=== PATIENT | male | born 1960 | race Caucasian/White ===

== ENCOUNTER → 2018-09-27 07:42 | Day surgery (SDC) | payer OTHER ==
[~2018-09-27 07:42] MED LIST: Diazepam TAB(*) 5 MG ONE; Flumazenil* 0.1 MG/ML 5 ML MDV ONE; Lidocaine 1% INJ* 10 MG/ML 30 ML SDV ONE; Midazolam* 1 MG/ML 10 ML VIAL (10 MG) ONE; Naloxone* 0.4 MG/ML 1 ML VIAL ONE; ceFAZolin VIAL 1 GM in NS *SYRINGE * * 10 ML ONE; ceFAZolin* 2 GM* ONE DOSE (Duplex) IVPB; fentaNYL* 50 MCG/ML 2 ML VIAL (100 MCG VIAL) ONE
--- NOTE | 2018-09-27 23:34 | OP ---
DATE OF OPERATION: 09/27/18 - [facility] CATH DATE OF : 62 SURGEON: Vitaliy Magana MD ANESTHESIA: Local anesthesia with conscious sedation. PRE-OP DIAGNOSIS: Cardiomyopathy, ICD at elective replacement indicator. POST-OP DIAGNOSIS: Cardiomyopathy, ICD at elective replacement indicator. OPERATIVE PROCEDURE: Single chamber ICD generator change. ESTIMATED BLOOD LOSS: Nil. COMPLICATIONS: None. INDICATIONS: The patient is a 58-year-old gentleman with a history of ischemic cardiomyopathy, history of ICD implantation in 2009. The patient has been followed closely in my office. The patient's ICD reached elective replacement indicator recently and generator change was recommended. DESCRIPTION OF PROCEDURE: The patient was brought to the procedure room in a fasting state. Informed consent had been obtained prior to the procedure. All labs were reviewed. The patient was placed supine on the procedure table. His left deltopectoral area was cleaned and draped in the usual fashion. 1% lidocaine was used for local anesthesia. A 4-cm incision was made at the superior aspect of the ICD and blunt dissection was carried on the fibrous sheath. The fibrous sheath was opened and the ICD was removed from the pocket. The ICD was detached from the ventricular lead and removed from the table. A new generator was attached appropriately to the ventricular lead. It was placed into the pocket. The surgical incision was closed in 3 layers. The patient tolerated the procedure with no complications. The explanted device is a [employer] Model [id number], serial number [id number]. The new implanted device is a [employer] model [id number], serial number [id number]. [id number]/[facility] #: [id number] [facility]
== END | disposition home or self-care (01) ==
LOC: CHICATH 07:42
PROVIDERS: ATTEND Specialist
DX: I25.5 Ischemic cardiomyopathy (principal); Z95.810 Presence of automatic (implantable) cardiac defibrillator; Z79.82 Long term (current) use of aspirin; Z88.8 Allergy status to other drugs, medicaments and biological substances; I12.9 Hypertensive chronic kidney disease with stage 1 through stage 4 chronic kidney disease, or unspecified chronic kidney disease; N18.3 Chronic kidney disease, stage 3 (moderate); E03.9 Hypothyroidism, unspecified; I25.10 Atherosclerotic heart disease of native coronary artery without angina pectoris; M10.9 Gout, unspecified; Z87.891 Personal history of nicotine dependence
CPT/HCPCS: 33249; 88300; 93641; 99156; 99157; A9270-GY; C1722; J0690; J2250; J2310; J3010

== ENCOUNTER 2019-07-06 11:30 | Emergency (ER) | payer OTHER ==
[2019-07-06 11:45] LABS: ABS Basophils 0.1 10^3/ul (0-0.2); ABS Eosinophils 0.4 10^3/ul (0-0.6); ABS Lymphocytes 1.1 10^3/ul (1.0-4.8); ABS Monocytes 0.9 10^3/ul (0-0.8); ABS Neutrophils 11.6 10^3/ul (1.5-7.7); Eosinophil % 3.1 %; Hematocrit 41 % (42-52); Hemoglobin 13.6 g/dL (14.0-18.0); Lymphocyte % 7.8 %; Mean Corpuscular HGB Conc 33 g/dL (31-36); Mean Corpuscular Hemoglobin 29 pg (27-31); Mean Corpuscular Volume 89 fL (80-94); Platelet Count 246 10^3/uL (150-450); Red Blood Count 4.63 10^6 /uL (4.18-5.48); Red Cell Distribution Width 15 % (10-15); White Blood Count 14.2 10^3/uL (3.5-10.8)
--- OUTSIDE RECORDS SUMMARY | 2019-07-06 11:45 | XMS REPORT | Continuity of Care Document ---
:1960 External Reference #:[id number] Author Name Jailyn Busby Care Team Providers Name Role Phone Lou Jackson DO Primary Care Physician Unavailable Payers Date Identification Numbers Payment Provider Subscriber Effective: 2015 Policy Number: [id number] Medicaid Juliette Traylor Expires: 2015 Group Name: 1 1 [address] PayID: [id number] [place] [address] Effective: 2015 Policy Number: [id number] [place] Juliette Traylor Group Number: [id number] [address] PayID: [id number] [place] [address] Advance Directives Type Date Description Status Comment Other Directive 06/18/2017 Health Care Proxy Current and Verified Problems Active Problems Provider Date Primary cardiomyopathy Vitaliy Magana M.D. Onset: 09/07/2013 Chronic ischemic heart disease Vitaliy Magana M.D. Onset: 09/07/2013 Dyspnea Vitaliy Magana M.D. Onset: 09/07/2013 Coronary arteriosclerosis Vitaliy Magana M.D. Onset: 04/06/2014 Essential hypertension Estevan Martines M.D. Onset: 07/02/2015 Gastroesophageal reflux disease Estevan Martines M.D. Onset: 07/02/2015 Restrictive cardiomyopathy secondary to Estevan Martines M.D. Onset: 2014 granulomas Low back pain Estevan Martines M.D. Onset: 07/02/2015 Disorder of gallbladder Estevan Martines M.D. Onset: 07/02/2015 Mixed hyperlipidemia Estevan Martines M.D. Onset: 07/02/2015 Lymphadenopathy Estevan Martines M.D. Onset: 07/02/2015 Paroxysmal ventricular tachycardia Estevan Martines M.D. Onset: 07/02/2015 Heart disease Estevan Martines M.D. Onset: 09/25/2015 Major depressive disorder, single episode, Estevan Martines M.D. Onset: 06/2016 unspecified Gout Estevan Martines M.D. Onset: 10/07/2016 Hypothyroidism Estevan Martines M.D. Onset: 10/07/2016 Chronic kidney disease stage 3 Estevan Martines M.D. Onset: 10/21/2016 Mild recurrent major depression Estevan Martines M.D. Onset: 06/18/2017 Disorder of skin and/or subcutaneous tissue Estevan Martines M.D. Onset: Abnormal glucose level Estevan Martines M.D. Onset: 08/25/2017 Family History Date Family Member(s) Observation Comments Father due to at 62 r/t () colon/stomach cancer, heart disease Mother due to at 64-65 yo () - also hx of cva r/t smoking, CAD, leg amputations, Pad, PR Siblings 7 Social History Type Date Description Comments Sex Unknown Marital Status Lives With Spouse Occupation Unemployed Tobacco Use Start: Unknown End: Former Cigarette Smoker Unknown ETOH Use Denies alcohol use Tobacco Use Start: Unknown End: Patient is a former Quit November 16, Unknown smoker 2008 Recreational Drug Use Denies Drug Use Tobacco Use Start: Unknown 1 PPD x 30 yrs Smoking Status Reviewed: 06/09/19 1 PPD x 30 yrs Exercise Type/Frequency Does not exercise no exercise in winter. 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 Allergies, Adverse Reactions, Alerts Active Allergies Reaction Severity Comments Date Plavix anaphylaxis Severe 09/07/2013 Inactive Allergies NKDA 09/07/2013 Medications Active Medications SIG Qnty Indications Ordering Date Provider Sertraline HCL 1 by mouth every 30tabs F32.9 Lou Jackson, 05/04/2019 25mg day DO Tablets Colchicine take one daily 14caps M79.671 Lou Jackson, 01/04/2019 0.6mg Capsules as needed for DO pain Metoprolol Succinate 1 by mouth twice 120tabs I47.2 Lou Jackson, 2018 ER daily DO 25mg Tablets ER 24HR Brilinta 1 by mouth twice 180tabs Kelly Haywood, 10/05/2018 60mg Tablets a day N.P. Metoprolol Succinate take one tablet 120tabs Lou Jackson, 04/24/2017 ER by mouth twice a DO 50mg Tablets ER 24HR day Lisinopril take one tablet 30tabs I10 Lou Jackson, 12/31/2016 2.5mg Tablets by mouth every DO day Nitrostat one sl q5min up 30tabs I42.9 Vitaliy Gomez 02/15/2016 0.4mg Tablets to 3 doses as Fide Magana Sub needed(old rx needs renewal) Jobst Anti-Embolism wear daily as 2pair Vitaliy Gomez 08/02/2015 Knee Length/Medium directed Fide Magana Regular Misc Aspirin 1 by mouth every Unknown 81mg Tablets day Atorvastatin Calcium take one tablet 90tabs M10.9 Vitaliy Gomez 80mg by mouth every Fide Magana Tablets day Magox take two tablets 180tabs Lou Jackson, 400Tablet Tablet by mouth three DO times a day Torsemide take two tablets 180tabs Vitaliy Gomez 20mg Tablets by mouth every Fide Magana day Levothyroxine Sodium 1 by mouth every 30tabs Lou Jackson, day DO 25mcg Tablets Allopurinol 1 by mouth every 30tabs Lou Jackson, 100mg Tablets other day DO History Medications Cephalexin 1 tab 3 times a 9caps Vitaliy Gomez 09/27/2018 - 250mg Capsules day for 3 days Fide Magana 10/04/2018 Entresto 1 by mouth 30tabs Z95.810 Vitaliy Gomez 11/20/2017 - 49-51mg Tablets every day Fide Magana 12/02/2017 Magnesium Oxide Take Two 180tabs Estevan 10/20/2017 - Tablets By Fide Martines 11/19/2017 400(241.3mg) mg Mouth Three Tablets Times A Day Keflex 1 by mouth 30caps L03.114 Estevan 06/18/2017 - 500mg Capsules three times a Fide Martines 08/25/2017 day Escitalopram Oxalate Take One Tablet 30tabs F33.0 Estevan 06/18/2017 - 20mg By Mouth Every Fide Martines 10/05/2018 Tablets Day ( Ran out of Med) Escitalopram Oxalate Take One Tablet 30tabs F33.0 Tico Gomez 06/18/2017 - 10mg By Mouth Every Fide Melgar,[facility] 10/04/2018 Tablets Day ( ran out of Med) Zyrtec Allergy 1 by mouth 30tabs Estevan 03/09/2017 - 10mg every day ( ran Fide Martines 10/05/2018 Tablets out of med) Allopurinol 1 by mouth 30tabs M10.9 [place] 10/21/2016 - 300mg Tablets every day Fide Martines 10/21/2016 Allopurinol Take One Tablet 60tabs M10.9 Tico Gomez 10/21/2016 - 100mg Tablets By Mouth Twice Fide Melgar,[facility] 10/05/2018 A Day ( Ran out of med no taking) Amoxicillin/Clavulanat 1 by mouth 20tabs R22.1 [place] 10/07/2016 - e Potassium twice a day Fide Martines 10/17/2016 875-125mg Tablets Doxycycline Hyclate 1 by mouth 28tabs L72.0 John Meredith 08/25/2016 - 100mg twice a day [employer] 10/06/2016 Tablets Allopurinol 2 tab by mouth 180tabs [place] 07/11/2016 - 100mg Tablets every day Fide Martines 10/22/2016 Cephalexin 1 by mouth 21tabs L03.113 Estevan 07/07/2016 - 500mg Tablets three times a Fide Martines 08/25/2016 day Betamethasone apply twice a 50gm L03.113 Estevan 07/07/2016 - Dipropionate day Fied Martines 02/19/2017 0.05% Cream Allopurinol 1 by mouth 30tabs M10.9 [place] 05/06/2016 - 100mg Tablets every day Fide Martines 07/11/2016 Escitalopram Oxalate take one tablet 30tabs F32.9 [place] 05/06/2016 - 20mg by mouth every Fide Martines 06/18/2017 Tablets day Colcrys take two 30tabs M10.079 [place] 01/16/2016 - 0.6mg Tablets tablets by Fide Martines 02/19/2017 mouth now, then take one tablet 1 hour later do not repeat this regimen earlier than 3 days as needed* Prednisone 1 tablet by 30tabs Alexsander Childress, 01/16/2016 - 10mg Tablets mouth three M.D. 05/06/2016 times a day prn Nasonex 2 sprays to 1units J00 John Meredith, 12/18/2015 - 50mcg/Act each nostril [employer] 01/12/2016 Suspension once daily x next 2-3 weeks Zyrtec Allergy 1 by mouth 30caps J00 John Meredith, 12/18/2015 - 10mg every day x [employer] 01/12/2016 Capsules next 2-3 weeks Oxycodone HCL 1 tab at 30tabs [place] 09/18/2015 - 10mg bedtime ( dex Martines M.D. 10/05/2018 Tablets out of med) Econazole Nitrate Apply to rash 30gm 782.1 John Meredith, 08/02/2015 - 1% bid x2wk [employer] 08/16/2015 Cream Ventolin HFA 2 puffs by 8.5units Other Ordering 07/30/2015 - 108(90Base) mouth bid Provider 09/17/2015 mcg/Act Aerosol Triamcinolone Apply to 30units 782.1 John Meredith, 07/26/2015 - Acetonide affected areas [employer] 08/02/2015 0.1% Ointment tid Hydroxyzine HCL 1 tab by mouth 30tabs 782.1 John Meredith, 07/26/2015 - 25mg every 6 hours [employer] 08/09/2015 Tablets as needed for itching Colace 1 by mouth bid 90caps John Meredith, 07/23/2015 - 100mg Capsules prn [employer] 02/19/2017 Warfarin Sodium 5 tabs daily or 90tabs [place] 07/12/2015 - 1mg as directed Fide Martines 07/07/2016 Tablets Spironolactone once daily 30tabs 425.9 Estevan 07/12/2015 - 25mg Fide Martines 09/17/2015 Tablets Lisinopril 1 by mouth 90tabs I10 [place] 07/02/2015 - 2.5mg Tablets every day Fide Martines 12/31/2016 Atorvastatin Calcium take 1 tablet 90tabs 272.2 Vitaliy Gomez 07/02/2015 - 20mg at bedtime Fide Magana 09/17/2015 Tablets Coumadin 2 tab by mouth 60tabs Other Ordering 06/28/2015 - 10mg Tablets every day or as Provider 07/01/2015 directed Levothyroxine Sodium 1 by mouth 30tabs Tico Gomez 06/28/2015 - every morning Fide Melgar,[facility] 09/17/2015 25mcg Tablets Lipitor one tab daily 30tabs Other Ordering 06/28/2015 - 20mg Tablets Provider 07/12/2015 Lisinopril 1 by mouth 30tabs Other Ordering 06/28/2015 - 2.5mg Tablets every day Provider 07/12/2015 Bumetanide 2 by mouth 90tabs 425.4 Vitaliy Gomez 04/06/2014 - 1mg Tablets every day Fide Magana 09/17/2015 Nitroglycerin as directed 1Bottle I42.9 Vitaliy Gomez 04/06/2014 - 0.4mg Fide Magana 02/15/2016 Tablets Sub Combivent Respimat 1 puffs up to 1units Vitaliy Gomez 09/27/2013 - four times per Fide Magana 03/30/2014 20-100mcg/Act Aerosol day prn Combivent 2 puffs 2 1units Vitaliy Gomez 09/07/2013 - 18-103mcg/Act times a day Fide Magana 09/27/2013 Aerosol Ramipril 1 po qd 90caps Vitaliy Goemz 03/24/2013 - 10mg Capsules Fide Magana 07/02/2015 Metoprolol Succinate take one tablet 60tabs Estevan 03/24/2013 - ER by mouth two Fide Martines 04/24/2017 25mg Tablets ER 24HR times a day Simvastatin 1 po qhs 30tabs Vitaliy Gomez 09/24/2012 - 80mg Tablets Fide Magana 07/02/2015 Aspirin 1 po qd Unknown - 325mg Tablets 03/30/2014 Omeprazole 1 by mouth 90caps Vitaliy Gomez - 20mg Capsules every day Fide Magana 08/01/2015 Warfarin Sodium take 2 tabs 30tabs sEtevan - 2mg daily as Fide Martines 07/07/2016 Tablets directed Lovenox sc twice a day Unknown - 60mg/0.6ML 09/17/2015 Solution Escitalopram Oxalate 1 by mouth 30tabs Estevan - 10mg every day Fide Martines 05/06/2016 Tablets Brilinta take one tablet 60tabs Vitaliy Gomez - 90mg Tablets by mouth twice Fide Magana 10/05/2018 a day Levothyroxine Sodium Take 1/2 Tablet 30tabs Estevan - By Mouth Fide Martines 12/29/2016 75mcg Tablets Daily(ran out of med) Colchicine 1 by mouth 30tabs Lou Jackson, - 0.6mg Tablets every day as DO 01/04/2019 needed for pain Medications Administered in Office Medication SIG Qnty Indications Ordering Provider Date PPD Unknown 08/24/2015 Injection Inj, Regadenoson, 0.1 MG Vitaliy Magana M.D. 04/13/2013 Injection Technetium TC 99M Tetrofosmin, Vitaliy Magana M.D. 04/13/2013 Per Unit Dose Up To 40 Millicuries Injection Immunizations CPT Code Status Date Vaccine Reaction Lot # [id number] Given 01/04/2019 Influenza Virus Vaccine, no immediate reaction [id number] Quadrivalent, Split, Preservative Free 21491 Given 06/18/2017 Pneumonia Vaccine no immediate reaction [id number] pt tolerated well 96081 Given 09/13/2015 Hepatitis B Vaccine Adult Dosage Contract [id number] Given 08/30/2015 Hepatitis B Vaccine Adult Dosage 17454 Given 08/23/2015 Hepatitis B Vaccine Adult Dosage 95849 Given 08/23/2015 Pneumococcal Conjugate Vaccine 13 Valent For Intramuscular Use 75834 Given 08/23/2015 Hepatitis A Vaccine Adult Dosage Contract 75047 Given 08/22/2015 Influenza Virus Vaccine, Quadrivalent, Split, Preservative Free [id number] Refused 10/06/2017 Influenza Virus Vaccine, Quadrivalent, Split, Preservative Free Vital Signs Date Vital Result Comment 06/09/2019 2:58pm Weight 152.00 lb Heart Rate 72 /min BP Systolic 104 mmHg BP Diastolic 64 mmHg Respiratory Rate 16 /min Body Temperature 99.0 F O2 % BldC Oximetry 97 % 05/04/2019 8:36am Weight 157.00 lb Heart Rate 76 /min BP Systolic 124 mmHg BP Diastolic 78 mmHg Respiratory Rate 16 /min Body Temperature 97.6 F O2 % BldC Oximetry 98 % 02/01/2019 1:33pm Weight 158.00 lb Heart Rate 68 /min BP Systolic 100 mmHg BP Diastolic 68 mmHg Respiratory Rate 18 /min Body Temperature 98.0 F Pain Level 2 O2 % BldC Oximetry 98 % 01/04/2019 2:10pm Height 67 inches 5'7" Weight 160.50 lb Heart Rate 74 /min BP Systolic Sitting 100 mmHg reg adult cuff left arm BP Diastolic Sitting 70 mmHg reg adult cuff left arm Body Temperature 97.4 F O2 % BldC Oximetry 98 % at rest on room air BMI (Body Mass Index) 25.1 kg/m2 12/29/2018 10:06am Height 67 inches 5'7" Weight 157.00 lb with shoes Heart Rate 78 /min BP Systolic Sitting 130 mmHg Lue reg cuff BP Diastolic Sitting 78 mmHg Lue reg cuff BP Systolic Standing 140 mmHg Lue reg cuff BP Diastolic Standing 100 mmHg Lue reg cuff Respiratory Rate 16 /min O2 % BldC Oximetry 92 % at room air BMI (Body Mass Index) 24.6 kg/m2 10/05/2018 9:57am Height 67 inches 5'7" Weight 164.00 lb with shoes Heart Rate 68 /min BP Systolic Sitting 110 mmHg lue reg cuff BP Diastolic Sitting 70 mmHg lue reg cuff BP Systolic Standing 112 mmHg lue reg cuff BP Diastolic Standing 70 mmHg lue reg cuff BMI (Body Mass Index) 25.7 kg/m2 Ejection Fraction less than% echo. 02/21/2016 09/03/2018 9:29am Height 67 inches 5'7" Weight 162.00 lb with shoes Heart Rate 70 /min BP Systolic Sitting 110 mmHg Lue reg cuff BP Diastolic Sitting 70 mmHg Lue reg cuff BP Systolic Standing 114 mmHg Lue reg cuff BP Diastolic Standing 72 mmHg Lue reg cuff Respiratory Rate 18 /min BMI (Body Mass Index) 25.4 kg/m2 03/10/2018 9:58am Height 67 inches 5'7" Weight 170.00 lb with shoes Heart Rate 62 /min BP Systolic Sitting 100 mmHg Lue reg cuff BP Diastolic Sitting 70 mmHg Lue reg cuff BP Systolic Standing 110 mmHg Lue reg cuff BP Diastolic Standing 78 mmHg Lue reg cuff Respiratory Rate 16 /min BMI (Body Mass Index) 26.6 kg/m2 Ejection Fraction <20% date 02/01/16 ECHO 11/20/2017 7:52am Height 67 inches 5'7" Weight 161.50 lb no shoes Heart Rate 72 /min BP Systolic Sitting 124 mmHg Rue reg cuff BP Diastolic Sitting 74 mmHg Rue reg cuff BP Systolic Standing 116 mmHg Rue reg cuff BP Diastolic Standing 74 mmHg Rue reg cuff Respiratory Rate 16 /min BMI (Body Mass Index) 25.3 kg/m2 Ejection Fraction less than% echo 02/21/16 10/06/2017 8:57am Height 67 inches 5'7" Weight 154.00 lb Heart Rate 68 /min BP Systolic 126 mmHg BP Diastolic 72 mmHg Body Temperature 97.4 F O2 % BldC Oximetry 98 % BMI (Body Mass Index) 24.1 kg/m2 08/25/2017 7:34am Height 67 inches 5'7" Weight 160.12 lb Heart Rate 86 /min BP Systolic 104 mmHg BP Diastolic 60 mmHg Body Temperature 96.8 F O2 % BldC Oximetry 97 % BMI (Body Mass Index) 25.1 kg/m2 06/18/2017 7:51am Weight 164.00 lb with shoes Heart Rate 74 /min BP Systolic 110 mmHg BP Diastolic 70 mmHg O2 % BldC Oximetry 98 % 04/24/2017 1:36pm Weight 166.00 lb with boots Heart Rate 78 /min BP Systolic Sitting 114 mmHg Rue reg cuff BP Diastolic Sitting 74 mmHg Rue reg cuff BP Systolic Standing 118 mmHg Rue reg cuff BP Diastolic Standing 80 mmHg Rue reg cuff Respiratory Rate 17 /min Ejection Fraction <20% date 02/21/16 ECHO 02/19/2017 8:05am Weight 175.00 lb Heart Rate 68 /min BP Systolic Sitting 128 mmHg BP Diastolic Sitting 68 mmHg Body Temperature 97.7 F O2 % BldC Oximetry 98 % 11/20/2016 7:55am Height 67 inches 5'7" Weight 163.00 lb Heart Rate 64 /min BP Systolic Sitting 104 mmHg BP Diastolic Sitting 68 mmHg Body Temperature 97.8 F O2 % BldC Oximetry 98 % BMI (Body Mass Index) 25.5 kg/m2 10/22/2016 8:10am Height 67 inches 5'7" Weight 163.00 lb w/o shoes Heart Rate 84 /min reg BP Systolic Sitting 118 mmHg Lue, reg cuff BP Diastolic Sitting 74 mmHg Lue, reg cuff BP Systolic Standing 110 mmHg Lue BP Diastolic Standing 74 mmHg Lue Respiratory Rate 16 /min BMI (Body Mass Index) 25.5 kg/m2 Ejection Fraction < 20% as of 02/21/16 echo 10/21/2016 7:59am Weight 174.12 lb Heart Rate 60 /min BP Systolic Sitting 97 mmHg BP Diastolic Sitting 62 mmHg Body Temperature 96.1 F O2 % BldC Oximetry 98 % 10/07/2016 8:08am Height 67 inches 5'7" Weight 168.00 lb Heart Rate 60 /min BP Systolic Sitting 106 mmHg BP Diastolic Sitting 62 mmHg Respiratory Rate 14 /min Body Temperature 96.9 F BMI (Body Mass Index) 26.3 kg/m2 08/25/2016 12:52pm Weight 165.00 lb Heart Rate 70 /min BP Systolic Sitting 120 mmHg BP Diastolic Sitting 62 mmHg Body Temperature 96.2 F O2 % BldC Oximetry 97 % 07/07/2016 1:19pm Height 67.5 inches 5'7.50" Weight 166.12 lb Heart Rate 70 /min BP Systolic Sitting 98 mmHg BP Diastolic Sitting 56 mmHg Body Temperature 97.5 F O2 % BldC Oximetry 98 % BMI (Body Mass Index) 25.6 kg/m2 06/16/2016 9:16am Height 67.5 inches 5'7.50" Weight 167.00 lb with shoes Heart Rate 62 /min BP Systolic Sitting 108 mmHg Ra reg cuff BP Diastolic Sitting 66 mmHg Ra reg cuff BP Systolic Standing 112 mmHg Ra reg cuff BP Diastolic Standing 74 mmHg Ra reg cuff Respiratory Rate 17 /min BMI (Body Mass Index) 25.8 kg/m2 Ejection Fraction <20% echo 02/21/16 05/06/2016 10:37am Height 67.5 inches 5'7.50" Weight 156.00 lb Heart Rate 72 /min BP Systolic Sitting 102 mmHg BP Diastolic Sitting 62 mmHg Body Temperature 97.6 F O2 % BldC Oximetry 98 % BMI (Body Mass Index) 24.1 kg/m2 02/15/2016 10:05am Height 67.5 inches 5'7.50" Weight 155.00 lb w/o shoes Heart Rate 66 /min BP Systolic Sitting 110 mmHg Rue, reg cuff BP Diastolic Sitting 80 mmHg Rue, reg cuff BP Systolic Standing 106 mmHg Rue BP Diastolic Standing 80 mmHg Rue Respiratory Rate 18 /min O2 % BldC Oximetry 86 % on Ra BMI (Body Mass Index) 23.9 kg/m2 Ejection Fraction <20% as of 06/22/15 echo 01/16/2016 10:10am Height 67.5 inches 5'7.50" Weight 165.00 lb Heart Rate 68 /min BP Systolic Sitting 92 mmHg BP Diastolic Sitting 68 mmHg Body Temperature 97.2 F Pain Level 10 BMI (Body Mass Index) 25.5 kg/m2 12/18/2015 8:17am Height 67.5 inches 5'7.50" Weight 155.00 lb Heart Rate 70 /min BP Systolic Sitting 88 mmHg BP Diastolic Sitting 64 mmHg Body Temperature 98.3 F O2 % BldC Oximetry 98 % BMI (Body Mass Index) 23.9 kg/m2 11/19/2015 8:43am Height 67.5 inches 5'7.50" Weight 150.00 lb w/o shoes Heart Rate 62 /min reg BP Systolic Sitting 74 mmHg Rue, reg cuff BP Diastolic Sitting 56 mmHg Rue, reg cuff BP Systolic Standing 76 mmHg Rue BP Diastolic Standing 60 mmHg Rue Respiratory Rate 18 /min BMI (Body Mass Index) 23.1 kg/m2 Ejection Fraction < 20% as of 06/22/15 echo 09/25/2015 10:22am Height 67.5 inches 5'7.50" Weight 150.38 lb Heart Rate 72 /min BP Systolic Sitting 82 mmHg BP Diastolic Sitting 46 mmHg Body Temperature 97.7 F O2 % BldC Oximetry 100 % BMI (Body Mass Index) 23.2 kg/m2 09/18/2015 12:49pm Height 67.5 inches 5'7.50" Weight 149.00 lb with heavy clothes on Heart Rate 40 /min BP Systolic Sitting 80 mmHg right arm, reg cuff BP Diastolic Sitting 50 mmHg right arm, reg cuff BP Systolic Standing 68 mmHg right arm, reg cuff BP Diastolic Standing 48 mmHg right arm, reg cuff Respiratory Rate 16 /min BMI (Body Mass Index) 23.0 kg/m2 Ejection Fraction <20% 06/22/15 09/17/2015 1:06pm Height 67.5 inches 5'7.50" Weight 143.00 lb Heart Rate 75 /min BP Systolic Sitting 90 mmHg BP Diastolic Sitting 60 mmHg Body Temperature 97.9 F O2 % BldC Oximetry 97 % BMI (Body Mass Index) 22.1 kg/m2 08/02/2015 9:34am Weight 181.00 lb Heart Rate 68 /min BP Systolic Sitting 104 mmHg BP Diastolic Sitting 70 mmHg 08/02/2015 8:05am Height 67.5 inches 5'7.50" Weight 180.00 lb with shoes Heart Rate 96 /min BP Systolic Sitting 82 mmHg Doppler BP Systolic Standing 96 mmHg Doppler Respiratory Rate 16 /min BMI (Body Mass Index) 27.8 kg/m2 Ejection Fraction <20% 06/22/15 07/26/2015 2:22pm Height 67.5 inches 5'7.50" Weight 169.50 lb Heart Rate 90 /min Body Temperature 97.2 F O2 % BldC Oximetry 99 % BMI (Body Mass Index) 26.2 kg/m2 07/12/2015 10:00am Height 67.5 inches 5'7.50" Weight 157.25 lb Heart Rate 86 /min BP Systolic Sitting 132 mmHg BP Diastolic Sitting 60 mmHg O2 % BldC Oximetry 88 % BMI (Body Mass Index) 24.3 kg/m2 07/02/2015 10:54am Height 67.5 inches 5'7.50" Weight 154.38 lb Heart Rate 98 /min BP Systolic Sitting 80 mmHg BP Diastolic Sitting 50 mmHg Body Temperature 98.0 F O2 % BldC Oximetry 94 % BMI (Body Mass Index) 23.8 kg/m2 05/03/2014 8:26am Height 67.5 inches 5'7.50" Weight 155.00 lb Heart Rate 56 /min BP Systolic Sitting 94 mmHg Ra reg cuff BP Diastolic Sitting 72 mmHg Ra reg cuff BP Systolic Standing 92 mmHg Ra BP Diastolic Standing 74 mmHg Ra Respiratory Rate 16 /min BMI (Body Mass Index) 23.9 kg/m2 04/06/2014 1:27pm Height 66.5 inches 5'6.50" Weight 161.00 lb Heart Rate 58 /min BP Systolic Sitting 118 mmHg LA reg cuff BP Diastolic Sitting 74 mmHg LA reg cuff BP Systolic Standing 104 mmHg LA BP Diastolic Standing 76 mmHg LA Respiratory Rate 18 /min BMI (Body Mass Index) 25.6 kg/m2 09/07/2013 1:26pm Height 67 inches 5'7" Weight 164.00 lb Heart Rate 72 /min BP Systolic Sitting 102 mmHg Ra reg cuff BP Diastolic Sitting 64 mmHg Ra reg cuff BP Systolic Standing 102 mmHg Ra BP Diastolic Standing 78 mmHg Ra Respiratory Rate 18 /min BMI (Body Mass Index) 25.7 kg/m2 Results Test Date Facility Test Result H/L Range Note Laboratory test 01/04/2019 [facility] Hemoglobin A1c 6.4 % High 4.0-5.[address] (Glyco HGB) [place] [address] [phone] TSH (Thyroid Stim Horm) 4.89 mcIU/mL N 0.34-5.60 Laboratory test 09/27/2018 [facility] Surgical SEE RESULT [address] [place] [address] [phone] Pre Cath Panel 2018 [facility] Partial Thrombo 28.7 seconds N 26.0-[address] Time PTT 6.3 [place] [address] [phone] CBC Auto Diff 2018 [facility] White Blood 10.7 10^3/uL N 3.5-[address] Count .8 [place] [address] [phone] Red Blood Count 5.09 10^6/uL N 4.00-5.40 Hemoglobin 15.2 g/dL N 14.0-18.0 Hematocrit 45 % N 42-52 Mean Corpuscular Volume 88 fL N 80-94 Mean Corpuscular Hemoglobin 30 pg N 27-31 Mean Corpuscular HGB Conc 34 g/dL N 31-36 Red Cell Distribution Width 16 % High 10.5-15 Platelet Count 249 10^3/uL N 150-450 Mean Platelet Volume 10.3 um3 N 7.4-10.4 Abs Neutrophils 7.7 10^3/uL N 1.5-7.7 Abs Lymphocytes 1.6 10^3/uL N 1.0-4.8 Abs Monocytes 0.8 10^3/uL N 0-0.8 Abs Eosinophils 0.6 10^3/uL N 0-0.6 Abs Basophils 0.1 10^3/uL N 0-0.2 Abs Nucleated RBC 0 10^3/uL Granulocyte % 71.9 % N 38-83 Lymphocyte % 14.5 % Low 25-47 Monocyte % 7.0 % N 0-7 Eosinophil % 5.7 % N 0-6 Basophil % 0.9 % N 0-2 Nucleated Red Blood Cells % 0.1 Basic Metabolic Panel 2018 [facility] Sodium 136 mmol/L N 135-145 [address] [place] [address] [phone] Potassium 4.9 mmol/L N 3.5-5.0 Chloride 101 mmol/L N 101-111 Co2 Carbon Dioxide 28 mmol/L N 22-32 Anion Gap 7 mmol/L N 2-11 Glucose 110 mg/dL High 70-100 Blood Urea Nitrogen 58 mg/dL High 6-24 Creatinine 2.10 mg/dL High 0.67-1.17 BUN/Creatinine Ratio 27.6 High 8-20 Calcium 9.7 mg/dL N 8.6-10.3 Egfr Non- 32.7 >60 Egfr 39.6 >60 3 Inr/Protime 2018 [facility] Inr 1.04 High 0.77-1.02 [address] [place] [address] [phone] Basic Metabolic 08/23/2018 [facility] Sodium 135 mmol/L N 135- 145 Panel [address] [place] [address] [phone] Potassium 4.4 mmol/L N 3.5-5.0 Chloride 102 mmol/L N 101-111 Co2 Carbon Dioxide 26 mmol/L N 22-32 Anion Gap 7 mmol/L N 2-11 Glucose 108 mg/dL High 70-100 Blood Urea Nitrogen 52 mg/dL High 6-24 Creatinine 2.02 mg/dL High 0.67-1.17 BUN/Creatinine Ratio 25.7 High 8-20 Calcium 9.6 mg/dL N 8.6-10.3 Egfr Non- 34.3 >60 Egfr 41.5 >60 4 Laboratory test 10/06/2017 [facility] Hemoglobin A1c 5.9 5-7 finding Comp Metabolic Panel 09/08/2017 [facility] Sodium 134 mmol/L N 133-[address] [place] [address] [phone] Potassium 4.1 mmol/L N 3.5-5.0 Chloride 100 mmol/L Low 101-111 Co2 Carbon Dioxide 28 mmol/L N 22-32 Anion Gap 6 mmol/L N 2-11 Glucose 121 mg/dL High 70-100 Blood Urea Nitrogen 52 mg/dL High 6-24 Creatinine 2.81 mg/dL High 0.67-1.17 BUN/Creatinine Ratio 18.5 N 8-20 Calcium 9.5 mg/dL N 8.6-10.3 Total Protein 6.8 g/dL N 6.4-8.9 Albumin 4.3 g/dL N 3.2-5.2 Globulin 2.5 g/dL N 2-4 Albumin/Globulin Ratio 1.7 N 1-3 Total Bilirubin 0.70 mg/dL N 0.2-1.0 Alkaline Phosphatase 147 U/L High 34-104 Alt 20 U/L N 7-52 Ast 19 U/L N 13-39 Egfr Non- 23.5 N >60 Egfr 30.3 N >60 5 Inr/Protime 09/04/2017 [facility] Inr 1.04 N 0.89-1.[address] [place] [address] [phone] Laboratory test 09/04/2017 [facility] Partial 29.5 N 26.0- 36.[address] [address] PTT [phone] Comp Metabolic 09/04/2017 [facility] Sodium 134 mmol/L the 133 -[address] [place] [address] [phone] Potassium 4.7 mmol/L N 3.5-5.0 Chloride 99 mmol/L Low 101-861 Co2 Carbon Dioxide 27 mmol/L N 22-32 Anion Gap 8 mmol/L N 2-11 Glucose 130 mg/dL High 70-100 Blood Urea Nitrogen 50 mg/dL High 6-24 Creatinine 2.09 mg/dL High 0.67-1.17 BUN/Creatinine Ratio 23.9 High 8-20 Calcium 9.7 mg/dL N 8.6-10.3 Total Protein 7.1 g/dL N 6.4-8.9 Albumin 4.5 g/dL N 3.2-5.2 Globulin 2.6 g/dL N 2-4 Albumin/Globulin Ratio 1.7 N 1-3 Total Bilirubin 0.50 mg/dL N 0.2-1.0 Alkaline Phosphatase 168 U/L High 34-104 Alt 21 U/L N 7-52 Ast 21 U/L N 13-39 Egfr Non- 33.1 N >60 Egfr 42.6 N >60 6 Laboratory test 07/01/2017 [facility] Uric Acid 8.3 mg/dL High 4.4-7.6 7, 8 finding [address] [place] [address] [phone] Lipid Profile 07/01/2017 [facility] Triglycerides 307 mg/dL N 9 (Trig/Chol/HDL) [address] [place] [address] [phone] Cholesterol 150 mg/dL N 10 HDL Cholesterol 26.3 mg/dL N 11 LDL Cholesterol 62 mg/dL N 12 Comp Metabolic Panel 07/01/2017 [facility] Sodium 136 mmol/L N 133-145 [address] [place] [address] [phone] Potassium 4.7 mmol/L N 3.5-5.0 Chloride 101 mmol/L N 101-111 Co2 Carbon Dioxide 28 mmol/L N 22-32 Anion Gap 7 mmol/L N 2-11 Glucose 122 mg/dL High 70-100 Blood Urea Nitrogen 57 mg/dL High 6-24 Creatinine 2.23 mg/dL High 0.67-1.17 BUN/Creatinine Ratio 25.6 High 8-20 Calcium 9.5 mg/dL N 8.6-10.3 Total Protein 6.7 g/dL N 6.4-8.9 Albumin 4.0 g/dL N 3.2-5.2 Globulin 2.7 g/dL N 2-4 Albumin/Globulin Ratio 1.5 N 1-3 Total Bilirubin 0.50 mg/dL N 0.2-1.0 Alkaline Phosphatase 176 U/L High 34-104 Alt 21 U/L N 7-52 Ast 17 U/L N 13-39 Egfr Non- 30.7 N >60 Egfr 39.5 N >60 13 Laboratory test 07/01/2017 [facility] TSH (Thyroid 4.07 mcIU/mL N 0.34-5.[address] [place]) [place] [address] [phone] PSA Screening 0.750 ng/mL N 0-4.000 15 Laboratory test 03/09/2017 [facility] TSH (Thyroid 2.52 mcIU/mL N 0.34-5.[address] [place]) [place] [address] [phone] Comp Metabolic 03/09/2017 [facility] Sodium 136 mmol/L N 133- 145 [place] [address] [phone] Potassium 4.5 mmol/L N 3.5-5.0 Chloride 101 mmol/L N 101-111 Co2 Carbon Dioxide 28 mmol/L N 22-32 Anion Gap 7 mmol/L N 2-11 Glucose 146 mg/dL High 70-100 Blood Urea Nitrogen 45 mg/dL High 6-24 Creatinine 1.84 mg/dL High 0.67-1.17 BUN/Creatinine Ratio 24.5 High 8-20 Calcium 9.2 mg/dL N 8.6-10.3 Total Protein 6.7 g/dL N 6.4-8.9 Albumin 4.2 g/dL N 3.2-5.2 Globulin 2.5 g/dL N 2-4 Albumin/Globulin Ratio 1.7 N 1-3 Total Bilirubin 0.40 mg/dL N 0.2-1.0 Alkaline Phosphatase 190 U/L High 34-104 Alt 17 U/L N 7-52 Ast 21 U/L N 13-39 Egfr Non- 38.4 N >60 Egfr 49.4 N >60 17 Laboratory test 03/09/2017 [facility] Magnesium 2.6 mg/dL N 1.9-2.7 18 finding [address] [place] [address] [phone] Laboratory test 11/12/2016 [facility] Uric Acid 7.6 mg/dL N 4.4-7.[address] [place] [address] [phone] Comp Metabolic 11/12/2016 [facility] Sodium 136 mmol/L N 133- 145 [address] [place] [address] [phone] Potassium 4.9 mmol/L N 3.5-5.0 Chloride 101 mmol/L N 101-111 Co2 Carbon Dioxide 29 mmol/L N 22-32 Anion Gap 6 mmol/L N 2-11 Glucose 105 mg/dL High 70-100 Blood Urea Nitrogen 49 mg/dL High 6-24 Creatinine 2.25 mg/dL High 0.67-1.17 BUN/Creatinine Ratio 21.8 High 8-20 Calcium 9.5 mg/dL N 8.6-10.3 Total Protein 7.2 g/dL N 6.4-8.9 Albumin 4.5 g/dL N 3.2-5.2 Globulin 2.7 g/dL N 2-4 Albumin/Globulin Ratio 1.7 N 1-3 Total Bilirubin 0.40 mg/dL N 0.2-1.0 Alkaline Phosphatase 160 U/L High 34-104 Alt 14 U/L N 7-52 Ast 16 U/L N 13-39 Egfr Non- 30.4 N >60 Egfr 39.1 N >60 19 Laboratory test 10/17/2016 [facility] Uric Acid 11.2 mg/dL High 4.4-7.6 finding [address] [place] [address] [phone] Laboratory test 10/17/2016 [facility] TSH 1.91 N 0.34-5.60 finding 101 [facility] (Thyroid mcIU/[place] [address] Stim Horm) [phone] Comp Metabolic 10/17/2016 [facility] Sodium 136 mmol/L N 133- [address] [place] [address] [phone] Potassium 4.2 mmol/L N 3.5-5.0 Chloride 102 mmol/L N 101-111 Co2 Carbon Dioxide 29 mmol/L N 22-32 Anion Gap 5 mmol/L N 2-11 Glucose 106 mg/dL High 70-100 Blood Urea Nitrogen 52 mg/dL High 6-24 Creatinine 2.24 mg/dL High 0.67-1.17 BUN/Creatinine Ratio 23.2 High 8-20 Calcium 9.3 mg/dL N 8.6-10.3 Total Protein 6.9 g/dL N 6.4-8.9 Albumin 4.2 g/dL N 3.2-5.2 Globulin 2.7 g/dL N 2-4 Albumin/Globulin Ratio 1.6 N 1-3 Total Bilirubin 0.50 mg/dL N 0.2-1.0 Alkaline Phosphatase 153 U/L High 34-104 Alt 14 U/L N 7-52 Ast 17 U/L N 13-39 Egfr Non- 30.6 N >60 Egfr 39.3 N >60 20 Wound 08/25/2016 [facility] Wound/Misc SEE RESULT 21 Culture/Sensi [address] [place] [address] Stain [phone] Laboratory test 07/10/2016 [facility] Uric Acid 10.1 mg/dL High 4.4- finding [address] 7[address]6 [place] [address] [phone] Protime W/ Inr 06/10/2016 [facility] Inr 2.0 Protime W/ Inr 06/03/2016 [facility] Prothrombin Time 16.1 Inr 1.3 Protime W/ Inr 05/27/2016 [facility] Prothrombin Time 19.4 Inr 1.6 Protime W/ Inr 05/13/2016 [facility] Prothrombin Time 27.5 Inr 2.3 Protime W/ Inr 05/06/2016 [facility] Prothrombin Time 20.9 Inr 1.7 Laboratory test 05/02/2016 [facility] Uric Acid 14.1 mg/dL High 4.4-7.6 [address] [place] [address] [phone] Lipid Profile 05/02/2016 [facility] Triglycerides 252 mg/dL N 23 (Trig/Chol/HDL) [address] [place] [address] [phone] Cholesterol 181 mg/dL N 24 HDL Cholesterol 36.8 mg/dL N 25 LDL Cholesterol 94 mg/dL N 26 Comp Metabolic Panel 05/02/2016 [facility] Sodium 135 mmol/L N 133-[address] [place] [address] [phone] Potassium 5.0 mmol/L N 3.5-5.0 Chloride 98 mmol/L Low 101-111 Co2 Carbon Dioxide 28 mmol/L N 22-32 Anion Gap 9 mmol/L N 2-11 Glucose 105 mg/dL High 70-100 Blood Urea Nitrogen 47 mg/dL High 6-24 Creatinine 2.24 mg/dL High 0.67-1.17 BUN/Creatinine Ratio 21.0 High 8-20 Calcium 10.0 mg/dL N 8.6-10.3 Total Protein 7.9 g/dL N 6.4-8.9 Albumin 4.9 g/dL N 3.2-5.2 Globulin 3.0 g/dL N 2-4 Albumin/Globulin Ratio 1.6 N 1-3 Total Bilirubin 0.80 mg/dL N 0.2-1.0 Alkaline Phosphatase 145 U/L High 34-104 Alt 25 U/L N 7-52 Ast 23 U/L N 13-39 Egfr Non- 30.7 N >60 Egfr 39.5 N >60 27 Laboratory test 05/02/2016 [facility] PSA Screening 0.690 N 0- 4.000 [address] ng/[place] [address] [phone] Protime W/ Inr 05/02/2016 [facility] Prothrombin Time 15.8 Inr 1.3 Protime W/ Inr 04/17/2016 [facility] Prothrombin Time 25.2 Inr 2.1 Protime W/ Inr 04/03/2016 [facility] Prothrombin Time 24.5 Inr 2.0 Protime W/ Inr 03/27/2016 [facility] Prothrombin Time 17.7 Inr 1.5 Protime W/ Inr 03/13/2016 [facility] Prothrombin Time 24.6 Inr 2.1 Protime W/ Inr 03/06/2016 [facility] Prothrombin Time 23.1 Inr 1.9 Protime W/ Inr 02/21/2016 [facility] Prothrombin Time 23.6 Inr 2.0 Protime W/ Inr 02/07/2016 [facility] Prothrombin Time 23.1 Inr 1.9 Protime W/ Inr 01/24/2016 [facility] Prothrombin Time 25.0 Inr 2.1 CBC Auto 01/16/2016 [facility] White Blood 17.1 10^3/uL High 3.5-10.[address] [place] [address] [phone] Red Blood Count 4.86 10^6/uL N 4.0-5.4 Hemoglobin 14.0 g/dL N 14.0-18.0 Hematocrit 44 % N 42-52 Mean Corpuscular Volume 91 fL N 80-94 Mean Corpuscular Hemoglobin 29 pg N 27-31 Mean Corpuscular HGB Conc 32 g/dL N 31-36 Red Cell Distribution Width 16 % High 10.5-15 Platelet Count 270 10^3/uL N 150-450 Mean Platelet Volume 10 um3 N 7.4-10.4 Abs Neutrophils 14.6 10^3/uL High 1.5-7.7 Abs Lymphocytes 1.1 10^3/uL N 1.0-4.8 Abs Monocytes 0.9 10^3/uL High 0-0.8 Abs Eosinophils 0.5 10^3/uL N 0-0.6 Abs Basophils 0.1 10^3/uL N 0-0.2 Abs Nucleated RBC 0 10^3/uL N Granulocyte % 85.1 % High 38-83 Lymphocyte % 6.3 % Low 25-47 Monocyte % 5.4 % N 1-9 Eosinophil % 2.6 % N 0-6 Basophil % 0.6 % N 0-2 Nucleated Red Blood Cells % 0 N Comp Metabolic Panel 01/16/2016 [facility] Sodium 134 mmol/L N 133-[address] [place] [address] [phone] Potassium 4.1 mmol/L N 3.5-5.0 Chloride 97 mmol/L Low 101-111 Co2 Carbon Dioxide 27 mmol/L N 22-32 Anion Gap 10 mmol/L N 2-11 Glucose 122 mg/dL High 70-100 Blood Urea Nitrogen 44 mg/dL High 6-24 Creatinine 1.71 mg/dL High 0.67-1.17 BUN/Creatinine Ratio 25.7 High 8-20 Calcium 9.7 mg/dL N 8.6-10.3 Total Protein 7.2 g/dL N 6.4-8.9 Albumin 4.6 g/dL N 3.2-5.2 Globulin 2.6 g/dL N 2-4 Albumin/Globulin Ratio 1.8 N 1-3 Total Bilirubin 0.80 mg/dL N 0.2-1.0 Alkaline Phosphatase 134 U/L High 34-104 Alt 41 U/L N 7-52 Ast 32 U/L N 13-39 Egfr Non- 41.9 N >60 Egfr 53.9 N >60 29 Laboratory test 01/16/2016 [facility] Uric Acid 12.0 High 4.4- 7.[address] mg/[place] [address] [phone] Protime W/ Inr 01/10/2016 [facility] Prothrombin Time 23.3 Inr 1.9 Protime W/ Inr 12/27/2015 [facility] Prothrombin Time 26.1 Inr 2.2 Protime W/ Inr 12/18/2015 [facility] Prothrombin Time 22.5 Inr 1.9 Protime W/ Inr 12/11/2015 [facility] Prothrombin Time 25.3 Inr 2.1 Protime W/ Inr 12/04/2015 [facility] Prothrombin Time 19.2 Inr 1.6 Protime W/ Inr 11/27/2015 [facility] Prothrombin Time 19.6 Inr 1.6 Protime W/ Inr 11/20/2015 [facility] Prothrombin Time 17.5 Inr 1.5 Protime W/ Inr 11/13/2015 [facility] Prothrombin Time 41.9 Inr 3.5 Protime W/ Inr 11/05/2015 [facility] Prothrombin Time 46.8 Inr 3.9 Protime W/ Inr 10/29/2015 [facility] Prothrombin Time 48.4 Inr 4.0 Protime W/ Inr 10/23/2015 [facility] Prothrombin Time 32.0 Inr 2.7 Protime W/ Inr 10/18/2015 [facility] Prothrombin Time 28.3 Inr 2.4 Protime W/ Inr 10/16/2015 [facility] Prothrombin Time 63,4 Inr 5.3 Protime W/ Inr 10/12/2015 [facility] Prothrombin Time 25.0 Inr 2.1 Protime W/ Inr 10/10/2015 [facility] Prothrombin Time 27.6 Inr 2.3 Protime W/ Inr 10/08/2015 [facility] Prothrombin Time 57.7 Inr 4.8 Protime W/ Inr 10/04/2015 [facility] Prothrombin Time 32.5 Inr 2.7 Protime W/ Inr 10/01/2015 [facility] Prothrombin Time 16.6 Inr 1.4 Protime W/ Inr 09/27/2015 [facility] Prothrombin Time 26.0 Inr 2.2 Protime W/ Inr 09/25/2015 [facility] Prothrombin Time 48.9 Inr 4.1 Protime W/ Inr 09/24/2015 [facility] Prothrombin Time 78.8 Inr 6.6 Protime W/ Inr 09/19/2015 [facility] Prothrombin Time 30.6 Inr 2.5 Protime W/ Inr 09/17/2015 [facility] Prothrombin Time 23.2 Inr 1.9 CBC Auto Diff 08/06/2015 [facility] White Blood 10.4 10^3/uL N 4.8-10.[address] [place] [address] [phone] Red Blood Count 5.02 10^6/uL N 4.0-5.4 Hemoglobin 13.3 g/dL Low 14.0-18.0 Hematocrit 42 % N 42-52 Mean Corpuscular Volume 84 fL N 80-94 Mean Corpuscular Hemoglobin 27 pg N 27-31 Mean Corpuscular HGB Conc 32 g/dL N 31-36 Red Cell Distribution Width 18 % High 10.5-15 Platelet Count 167 10^3/uL N 150-450 Mean Platelet Volume 10 um3 N 7.4-10.4 Abs Neutrophils 7.5 10^3/uL N 1.5-7.7 Abs Lymphocytes 2.0 10^3/uL N 1.0-4.8 Abs Monocytes 0.6 10^3/uL N 0-0.8 Abs Eosinophils 0.2 10^3/uL N 0-0.6 Abs Basophils 0.1 10^3/uL N 0-0.2 Abs Nucleated RBC 0 10^3/uL N Granulocyte % 72.2 % N 38-83 Lymphocyte % 18.8 % Low 25-47 Monocyte % 5.9 % N 1-9 Eosinophil % 2.2 % N 0-6 Basophil % 0.9 % N 0-2 Nucleated Red Blood Cells % 0 N Laboratory test 08/06/2015 [facility] Lactic Acid 1.4 mmol/L N 0.5-2.[address] [place] [address] [phone] Comp Metabolic 08/06/2015 [facility] Sodium 132 mmol/L Low 133 -[address] [place] [address] [phone] Potassium 4.1 mmol/L N 3.5-5.0 Chloride 97 mmol/L Low 101-111 Co2 Carbon Dioxide 25 mmol/L N 22-32 Anion Gap 10 mmol/L N 2-11 Glucose 133 mg/dL High 70-100 Blood Urea Nitrogen 24 mg/dL N 6-24 Creatinine 1.24 mg/dL High 0.67-1.17 BUN/Creatinine Ratio 19.4 N 8-20 Calcium 9.1 mg/dL N 8.6-10.3 Total Protein 6.0 g/dL Low 6.4-8.9 Albumin 3.6 g/dL N 3.2-5.2 Globulin 2.4 g/dL N 2-4 Albumin/Globulin Ratio 1.5 N 1-3 Total Bilirubin 1.80 mg/dL High 0.2-1.0 Alkaline Phosphatase 125 U/L High 34-104 Alt 27 U/L N 7-52 Ast 25 U/L N 13-39 Egfr Non- 61.0 N >60 Egfr 78.4 N >60 30 Laboratory test 08/06/2015 [facility] C Reactive 12.24 mg/L High < 5.00 [address] [place] [address] [phone] Troponin-I (TnI) 0.02 ng/mL N <0.03 32 B-Type Natriuretic Peptide BNP 2215 pg/mL High 33 Protime W/ Inr 08/03/2015 [facility] Prothrombin Time 20.1 Inr 1.7 Laboratory test finding 07/28/2015 [facility] Amylase 65 U/L N 29-[address] [place] [address] [phone] Lipase 66 U/L N 11.0-82.0 B-Type Natriuretic Peptide BNP 1660 pg/mL High 34 Comp Metabolic Panel 07/28/2015 [facility] Sodium 132 mmol/L Low 133-[address] [place] [address] [phone] Potassium 4.2 mmol/L N 3.5-5.0 Chloride 99 mmol/L Low 101-111 Co2 Carbon Dioxide 23 mmol/L N 22-32 Anion Gap 10 mmol/L N 2-11 Glucose 128 mg/dL High 70-100 Blood Urea Nitrogen 24 mg/dL N 6-24 Creatinine 1.09 mg/dL N 0.67-1.17 BUN/Creatinine Ratio 22.0 High 8-20 Calcium 8.7 mg/dL N 8.6-10.3 Total Protein 5.9 g/dL Low 6.4-8.9 Albumin 3.6 g/dL N 3.2-5.2 Globulin 2.3 g/dL N 2-4 Albumin/Globulin Ratio 1.6 N 1-3 Total Bilirubin 1.40 mg/dL High 0.2-1.0 Alkaline Phosphatase 131 U/L High 34-104 Alt 50 U/L N 7-52 Ast 29 U/L N 13-39 Egfr Non- 70.8 N >60 Egfr 91.0 N >60 35 CBC Auto Diff 07/28/2015 [facility] White Blood 9.8 10^3/uL N 4.8-10.[address] [place] [address] [phone] Red Blood Count 4.97 10^6/uL N 4.0-5.4 Hemoglobin 13.4 g/dL Low 14.0-18.0 Hematocrit 43 % N 42-52 Mean Corpuscular Volume 87 fL N 80-94 Mean Corpuscular Hemoglobin 27 pg N 27-31 Mean Corpuscular HGB Conc 31 g/dL N 31-36 Red Cell Distribution Width 18 % High 10.5-15 Platelet Count 186 10^3/uL N 150-450 Mean Platelet Volume 11 um3 High 7.4-10.4 Abs Neutrophils 7.4 10^3/uL N 1.5-7.7 Abs Lymphocytes 1.3 10^3/uL N 1.0-4.8 Abs Monocytes 0.8 10^3/uL N 0-0.8 Abs Eosinophils 0.2 10^3/uL N 0-0.6 Abs Basophils 0.1 10^3/uL N 0-0.2 Abs Nucleated RBC 0.01 10^3/uL N Granulocyte % 75.7 % N 38-83 Lymphocyte % 13.0 % Low 25-47 Monocyte % 8.2 % N 1-9 Eosinophil % 2.2 % N 0-6 Basophil % 0.9 % N 0-2 Nucleated Red Blood Cells % 0.1 N Laboratory 07/28/2015 [facility] Lactic Acid 1.7 N 0.5-2.2 test finding [address] mmol/[place] [address] [phone] Laboratory 07/28/2015 [facility] Troponin-I 0.01 N <0.03 36 test finding 101 [facility] (TnI) ng/[place] [address] [phone] Inr/Protime 07/28/2015 [facility] Inr 1.99 High 0.78-1.[address] [place] [address] [phone] Protime W/ Inr 07/20/2015 [facility] Prothrombin 24.0 Time Inr 2.0 Protime W/ Inr 07/17/2015 [facility] Prothrombin Time 23.6 Inr 2.0 Protime W/ Inr 07/12/2015 [facility] Prothrombin Time 53.7 Inr 4.5 Protime W/ Inr 07/05/2015 [facility] Prothrombin Time 27.6 Inr 2.3 Basic Metabolic Panel 04/27/2014 [facility] Sodium 139 mmol/L N 133-145 [address] [place] [address] [phone] Potassium 4.2 mmol/L N 3.7-5.6 Chloride 104 mmol/L N 101-111 Co2 Carbon Dioxide 28 mmol/L N 22-32 Anion Gap 7 mmol/L N 2-11 Glucose 117 mg/dL High 70-100 Blood Urea Nitrogen 18 mg/dL N 6-24 Creatinine 1.07 mg/dL N 0.67-1.17 BUN/Creatinine Ratio 16.8 N 8-20 Calcium 9.5 mg/dL N 8.6-10.3 Egfr Non- 72.6 N >60 Egfr 93.3 N >60 37 CBC No Diff 09/03/2013 [facility] White Blood 12.3 10^3/uL High 4.8-10.[address] [place] [address] [phone] Red Blood Count 5.17 10^6/uL 4.0-5.4 Hemoglobin 15.3 g/dL 14.0-18.0 Hematocrit 45 % 42-52 Mean Corpuscular Volume 88 fL 80-94 Mean Corpuscular Hemoglobin 30 pg 27-31 Mean Corpuscular HGB Conc 34 g/dL 31-36 Red Cell Distribution Width 13 % 10.5-15 Platelet Count 258 10^3/uL 150-450 Mean Platelet Volume 10 um3 7.4-10.4 Laboratory test 09/03/2013 [facility] B Type 365.0 High 0-[address] Natriuretic pg/[place] [address] Peptide [phone] Comp Metabolic 09/03/2013 [facility] Sodium 139 133-[address] mmol/L [place], [place] [id number] [phone] Potassium 4.6 mmol/L 3.5-5.0 Chloride 107 mmol/L 101-111 Co2 Carbon Dioxide 26.0 mmol/L 22-32 Anion Gap 6.0 mmol/L 2-11 Glucose 113 mg/dL High 70-100 Blood Urea Nitrogen 12 mg/dL 6-24 Creatinine 0.90 mg/dL 0.50-1.40 BUN/Creatinine Ratio 13.3 8-20 Calcium 9.0 mg/dL 8.1-9.9 Total Protein 6.1 g/dL Low 6.2-8.1 Albumin 3.6 g/dL 3.6-5.4 Globulin 2.5 g/dL 2-4 Albumin/Globulin Ratio 1.4 1-3 Total Bilirubin 0.7 mg/dL 0.4-1.5 Alkaline Phosphatase 102 U/L 30-110 Alt 13 U/L Low 14-54 Ast 17 U/L 12-42 Egfr Non- 89.0 >60 Egfr 114.4 >60 38 Laboratory test 09/03/2013 [facility] Troponin I 0 ng/mL 0- 0.06 [address] [place] [address] [phone] 1 Therapeutic target for the treatment of diabetes mellitus patients is <7% HBA1C, and in selective patients <6.0%. Please refer to [place] [employer] diabetic care guidelines for further information. 2 SEE RESULT BELOW Name: JULIETTE TRAYLOR : [address]: Vitaliy Magana MD Acct: [id number] Unit: [id number] AGE: 58 Location: [facility] Re09/27/18 SEX: M Status: REG SD SPEC: [id number] IZAIAH: 09/27/18- SUBM DR: Vitaliy Magana MD REQ: [id number] RECD: 09/27/18 STATUS: SOUT _ ORDERED: LEVEL 1 FINAL DIAGNOSIS ICD generator, hardware removal: Foreign body (ICD generator) (gross diagnosis) PRE-OPERATIVE DIAGNOSIS ICD generator elective replacement indicator POST-OPERATIVE DIAGNOSIS Implant ICD generator GROSS DESCRIPTION The specimen is received fresh labeled, [facility] ICD Generator, and consists of a 7.2 x 5.0 x 1.4 cm [place] metallic medical observer. The following inscription is identified: CURRENT +VR Model [id number] High Voltage Can S/N [id number] VVEV VVIR [facility]. Per established hospital medical staff protocol, no tissue is submitted. Gross only. Signed by and Reported on: Augustus Cordoba MD 1408 END OF REPORT DEPARTMENT OF PATHOLOGY, [address] [place] [address] Augustus Cordoba M.D. Director [facility] # [id number] 3 Because ethnic data is not always readily available, this report includes an eGFR for both -Americans and non- Americans. The National Kidney Disease Education Program (NKDEP) does not endorse the use of the MDRD equation for patients that are not between the ages of 18 and 70, are , have extremes of body size, muscle mass, or nutritional status, or are non- or non-. According to the National Kidney Foundation, irrespective of diagnosis, the stage of the disease is based on the level of kidney function: Stage Description GFR(mL/min/1.73 m(2)) 1 Kidney damage with normal or decreased GFR 90 2 Kidney damage with mild decrease in GFR 60-89 3 Moderate decrease in GFR 30-59 4 Severe decrease in GFR 15-29 5 Kidney failure <15 (or dialysis) 4 Because ethnic data is not always readily available, this report includes an eGFR for both -Americans and non- Americans. The National Kidney Disease Education Program (NKDEP) does not endorse the use of the MDRD equation for patients that are not between the ages of 18 and 70, are , have extremes of body size, muscle mass, or nutritional status, or are non- or non-. According to the National Kidney Foundation, irrespective of diagnosis, the stage of the disease is based on the level of kidney function: Stage Description GFR(mL/min/1.73 m(2)) 1 Kidney damage with normal or decreased GFR 90 2 Kidney damage with mild decrease in GFR 60-89 3 Moderate decrease in GFR 30-59 4 Severe decrease in GFR 15-29 5 Kidney failure <15 (or dialysis) 5 Because ethnic data is not always readily available, this report includes an eGFR for both -Americans and non- Americans. The National Kidney Disease Education Program (NKDEP) does not endorse the use of the MDRD equation for patients that are not between the ages of 18 and 70, are , have extremes of body size, muscle mass, or nutritional status, or are non- or non-. According to the National Kidney Foundation, irrespective of diagnosis, the stage of the disease is based on the level of kidney function: Stage Description GFR(mL/min/1.73 m(2)) 1 Kidney damage with normal or decreased GFR 90 2 Kidney damage with mild decrease in GFR 60-89 3 Moderate decrease in GFR 30-59 4 Severe decrease in GFR 15-29 5 Kidney failure <15 (or dialysis) 6 Because ethnic data is not always readily available, this report includes an eGFR for both -Americans and non- Americans. The National Kidney Disease Education Program (NKDEP) does not endorse the use of the MDRD equation for patients that are not between the ages of 18 and 70, are , have extremes of body size, muscle mass, or nutritional status, or are non- or non-. According to the National Kidney Foundation, irrespective of diagnosis, the stage of the disease is based on the level of kidney function: Stage Description GFR(mL/min/1.73 m(2)) 1 Kidney damage with normal or decreased GFR 90 2 Kidney damage with mild decrease in GFR 60-89 3 Moderate decrease in GFR 30-59 4 Severe decrease in GFR 15-29 5 Kidney failure <15 (or dialysis) 7 FASTING 8 FASTING 9 Desirable <150 Borderline high 150-199 High 200-499 Very High >500 10 Desirable <200 Borderline high 200-239 High >239 11 Low <40 Desirable: 40-60 High: >60 12 Desirable: <100 mg/dL Near Optimal: 100-129 mg/dL Borderline High: 130-159 mg/dL High: 160-189 mg/dL Very High: >189 mg/dL 13 Because ethnic data is not always readily available, this report includes an eGFR for both -Americans and non- Americans. The National Kidney Disease Education Program (NKDEP) does not endorse the use of the MDRD equation for patients that are not between the ages of 18 and 70, are , have extremes of body size, muscle mass, or nutritional status, or are non- or non-. According to the National Kid[employer], irrespective of diagnosis, the stage of the disease is based on the level of kidney function: Stage Description GFR(mL/min/1.73 m(2)) 1 Kidney damage with normal or decreased GFR 90 2 Kidney damage with mild decrease in GFR 60-89 3 Moderate decrease in GFR 30-59 4 Severe decrease in GFR 15-29 5 Kidney failure <15 (or dialysis) 14 FASTING 15 Serum levels of PSA measured using the [employer] DXI [employer]brite[employer] immunoassay should not be interpreted as absolute evidence of the presence or absence of disease. The PSA value should be used in conjunction with other pertinent clinical diagnostic procedures. The values obtained with different assay methods or kits cannot be used interchangeably. 16 FASTING 10 HOUR 17 Because ethnic data is not always readily available, this report includes an eGFR for both -Americans and non- Americans. The National Kidney Disease Education Program (NKDEP) does not endorse the use of the MDRD equation for patients that are not between the ages of 18 and 70, are , have extremes of body size, muscle mass, or nutritional status, or are non- or non-. According to the National Kid[employer], irrespective of diagnosis, the stage of the disease is based on the level of kidney function: Stage Description GFR(mL/min/1.73 m(2)) 1 Kidney damage with normal or decreased GFR 90 2 Kidney damage with mild decrease in GFR 60-89 3 Moderate decrease in GFR 30-59 4 Severe decrease in GFR 15-29 5 Kidney failure <15 (or dialysis) 18 FASTING 10 HOUR 19 Because ethnic data is not always readily available, this report includes an eGFR for both -Americans and non- Americans. The National Kidney Disease Education Program (NKDEP) does not endorse the use of the MDRD equation for patients that are not between the ages of 18 and 70, are , have extremes of body size, muscle mass, or nutritional status, or are non- or non-. According to the National Kidney Foundation, irrespective of diagnosis, the stage of the disease is based on the level of kidney function: Stage Description GFR(mL/min/1.73 m(2)) 1 Kidney damage with normal or decreased GFR 90 2 Kidney damage with mild decrease in GFR 60-89 3 Moderate decrease in GFR 30-59 4 Severe decrease in GFR 15-29 5 Kidney failure <15 (or dialysis) 20 Because ethnic data is not always readily available, this report includes an eGFR for both -Americans and non- Americans. The National Kidney Disease Education Program (NKDEP) does not endorse the use of the MDRD equation for patients that are not between the ages of 18 and 70, are , have extremes of body size, muscle mass, or nutritional status, or are non- or non-. According to the National Kidney Foundation, irrespective of diagnosis, the stage of the disease is based on the level of kidney function: Stage Description GFR(mL/min/1.73 m(2)) 1 Kidney damage with normal or decreased GFR 90 2 Kidney damage with mild decrease in GFR 60-89 3 Moderate decrease in GFR 30-59 4 Severe decrease in GFR 15-29 5 Kidney failure <15 (or dialysis) 21 SEE RESULT BELOW Name: LAYTONJULIETTE : [address]: John Meredith NP Acct: [id number] Unit: [id number] AGE: 55 Location: [facility] Re08/25/16 SEX: M Status: REG REF SPEC: [id number] IZAIAH: 08/25/16-[address]: John Meredith 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 MRSA M.I.C. RX --------- ------ Penicillin >=0.5 R Clindamycin >=8 R Erythromycin >=8 R Gentamicin <=0.5 S Linezolid 2 S Nitrofurantoin 32 S Oxacillin >=4 R * Quinupristin/Dalfopristin 0.5 S Rifampin <=0.5 S Tetracycline <=1 S Doxycycline - Deduced S * Minocycline - Deduced S Trimethoprim/Sulfamethoxazole <=10 S CONTINUED ON NEXT PAGE * ML=Testing performed at Main Lab DEPARTMENT OF PATHOLOGY, [address] [place] [address] Augustus Cordoba M.D. Director [facility] # [id number] Patient: JULIETTE TRAYLOR [id number] (Continued) Specimen: [id number] Collected: 08/25/16 Received: 08/25/16 (Continued) Procedure Result Reported Site Wound/Misc Culture Final (continued) 08/27/16- 944 1. MRSA (continued) M.I.C. RX --------- ------ Vancomycin <=0.5 S Imipenem-Deduced R * Ampicillin/Sulbactam-Deduced R Cefazolin-Deduced R * These antibiotics are not available in the [facility] Formulary Contact the Microbiology Department for any additional antibiotic reporting. * ML - MAIN LAB ([facility]) . END OF REPORT * ML=Testing performed at Main Lab DEPARTMENT OF PATHOLOGY, [address] [place] [address] Augustus Cordoba M.D. Director [facility] # [id number] 22 [id number] Desirable <150 Borderline high 150-199 High 200-499 Very High >500 24 Desirable <200 Borderline high 200-239 High >239 25 Low <40 Desirable: 40-60 High: >60 26 Desirable: <100 mg/dL Near Optimal: 100-129 mg/dL Borderline High: 130-159 mg/dL High: 160-189 mg/dL Very High: >189 mg/dL 27 Because ethnic data is not always readily available, this report includes an eGFR for both -Americans and non- Americans. The National Kidney Disease Education Program (NKDEP) does not endorse the use of the MDRD equation for patients that are not between the ages of 18 and 70, are , have extremes of body size, muscle mass, or nutritional status, or are non- or non-. According to the National Kidney Foundation, irrespective of diagnosis, the stage of the disease is based on the level of kidney function: Stage Description GFR(mL/min/1.73 m(2)) 1 Kidney damage with normal or decreased GFR 90 2 Kidney damage with mild decrease in GFR 60-89 3 Moderate decrease in GFR 30-59 4 Severe decrease in GFR 15-29 5 Kidney failure <15 (or dialysis) 28 [id number] 29 Because ethnic data is not always readily available, this report includes an eGFR for both -Americans and non- Americans. The National Kidney Disease Education Program (NKDEP) does not endorse the use of the MDRD equation for patients that are not between the ages of 18 and 70, are , have extremes of body size, muscle mass, or nutritional status, or are non- or non-. According to the National Kidney Foundation, irrespective of diagnosis, the stage of the disease is based on the level of kidney function: Stage Description GFR(mL/min/1.73 m(2)) 1 Kidney damage with normal or decreased GFR 90 2 Kidney damage with mild decrease in GFR 60-89 3 Moderate decrease in GFR 30-59 4 Severe decrease in GFR 15-29 5 Kidney failure <15 (or dialysis) 30 Because ethnic data is not always readily available, this report includes an eGFR for both -Americans and non- Americans. The National Kidney Disease Education Program (NKDEP) does not endorse the use of the MDRD equation for patients that are not between the ages of 18 and 70, are , have extremes of body size, muscle mass, or nutritional status, or are non- or non-. According to the National Kidney Foundation, irrespective of diagnosis, the stage of the disease is based on the level of kidney function: Stage Description GFR(mL/min/1.73 m(2)) 1 Kidney damage with normal or decreased GFR 90 2 Kidney damage with mild decrease in GFR 60-89 3 Moderate decrease in GFR 30-59 4 Severe decrease in GFR 15-29 5 Kidney failure <15 (or dialysis) 31 Acute inflammation: >10.00 32 Reference Range and Interpretation: TnI (ng/mL) Interpretation Less Than 0.03 ng/mL Not supportive of diagnosis of PR 0.03 - 0.50 ng/mL Indeterminate: suggest serial studies if clinically indicated. Greater than 0.5 ng/mL Consistent with diagnosis of PR 33 >100 to <200 pg/mL: likely compensated congestive heart failure (CHF) 200 to 400 pg/mL: likely moderate CHF >400 pg/mL: likely moderate to severe CHF 34 >100 to <200 pg/mL: likely compensated congestive heart failure (CHF) 200 to 400 pg/mL: likely moderate CHF >400 pg/mL: likely moderate to severe CHF 35 Because ethnic data is not always readily available, this report includes an eGFR for both -Americans and non- Americans. The National Kidney Disease Education Program (NKDEP) does not endorse the use of the MDRD equation for patients that are not between the ages of 18 and 70, are , have extremes of body size, muscle mass, or nutritional status, or are non- or non-. According to the National Kidney Foundation, irrespective of diagnosis, the stage of the disease is based on the level of kidney function: Stage Description GFR(mL/min/1.73 m(2)) 1 Kidney damage with normal or decreased GFR 90 2 Kidney damage with mild decrease in GFR 60-89 3 Moderate decrease in GFR 30-59 4 Severe decrease in GFR 15-29 5 Kidney failure <15 (or dialysis) 36 Reference Range and Interpretation: TnI (ng/mL) Interpretation Less Than 0.03 ng/mL Not supportive of diagnosis of PR 0.03 - 0.50 ng/mL Indeterminate: suggest serial studies if clinically indicated. Greater than 0.5 ng/mL Consistent with diagnosis of PR 37 Because ethnic data is not always readily available, this report includes an eGFR for both -Americans and non- Americans. The National Kidney Disease Education Program (NKDEP) does not endorse the use of the MDRD equation for patients that are not between the ages of 18 and 70, are , have extremes of body size, muscle mass, or nutritional status, or are non- or non-. According to the National Kidney Foundation, irrespective of diagnosis, the stage of the disease is based on the level of kidney function: Stage Description GFR(mL/min/1.73 m(2)) 1 Kidney damage with normal or decreased GFR 90 2 Kidney damage with mild decrease in GFR 60-89 3 Moderate decrease in GFR 30-59 4 Severe decrease in GFR 15-29 5 Kidney failure <15 (or dialysis) 38 Because ethnic data is not always readily available, this report includes an eGFR for both -Americans and non- Americans. The National Kidney Disease Education Program (NKDEP) does not endorse the use of the MDRD equation for patients that are not between the ages of 18 and 70, are , have extremes of body size, muscle mass, or nutritional status, or are non- or non-. According to the National Kidney Foundation, irrespective of diagnosis, the stage of the disease is based on the level of kidney function: Stage Description GFR(mL/min/1.73 m(2)) 1 Kidney damage with normal or decreased GFR 90 2 Kidney damage with mild decrease in GFR 60-89 3 Moderate decrease in GFR 30-59 4 Severe decrease in GFR 15-29 5 Kidney failure <15 (or dialysis) 39 Reference Range and Interpretation: TnI (ng/mL) Interpretation Less Than 0.06 ng/mL Not supportive of diagnosis of PR 0.06 - 0.50 ng/mL Indeterminate: suggest serial studies if clinically indicated. Greater than 0.5 ng/mL Consistent with diagnosis of PR Procedures Date Code Description Status 05/20/2019 49224 Icd Eval Sing,Dual,Multi Lead Remote Recpt Transm Tech Rev Completed Tech S 05/20/2019 31314 Icd Check Remote Up To 90 Days Single,Dual,Multiple Lead Completed 12/29/2018 59778 Icd eval w/iterative adjment single lead Icd Completed 09/27/2018 13528 Removal Dual Lead Pacing Cardioverter-Defibrillator Completed W/Replacmt 08/26/2018 36936 Icd Check Single,Dual Or Multiple In Person W/ Incl Completed Heart Rhyth 08/26/2018 52725 Icd Check Single,Dual Or Multiple In Person W/ Incl Completed Heart Rhyth 05/14/2018 61993 Icd eval w/iterative adjment single lead Icd Completed 05/14/2018 25147 Icd eval w/iterative adjment single lead Icd Completed 02/03/2018 68038 Icd Eval W/Iterative Adjustmnt Single Lead Icd Completed 02/03/2018 55090 Icd Eval W/Iterative Adjustmnt Single Lead Icd Completed 11/20/2017 35236 EKG Tracing & Interpretation Completed 11/03/2017 61555 Icd Eval W/Iterative Adjustmnt Single Lead Icd Completed 11/03/2017 02471 Icd Eval W/Iterative Adjustmnt Single Lead Icd Completed 08/05/2017 05472 Icd Eval W/Iterative Adjustmnt Single Lead Icd Completed 04/28/2017 59067 Icd eval w/iterative adjment single lead Icd Completed 01/12/2017 51317 Icd eval w/iterative adjment single lead Icd Completed 10/22/2016 82214 EKG Tracing & Interpretation Completed 08/11/2016 65155 Icd eval w/iterative adjment single lead Icd Completed 06/16/2016 40898 EKG Tracing & Interpretation Completed 04/29/2016 40763 Icd Check Single,Dual Or Multiple In Person W/ Incl Completed Heart Rhyth 02/21/2016 50389 ECHO Transthoracic, Real-Time 2D With Doppler And Color Completed Flow 12/17/2015 34584 Icd eval w/iterative adjment single lead Icd Completed 09/18/2015 22489 EKG Tracing & Interpretation Completed 08/07/2015 71530 EKG, Interpretation Only Completed 08/02/2015 47192 Icd Check Single,Dual Or Multiple In Person W/DR Incl Completed Heart Rhyth 08/02/2015 84520 EKG Tracing & Interpretation Completed 06/25/2015 26529 EKG, Interpretation Only Completed 06/22/2015 80550 Icd eval w/iterative adjment single lead Icd Completed 06/22/2015 25613 ECHO Transthorasic Realtime 2D W Doppler & Color Flow Hosp Completed 04/06/2014 98416 EKG Tracing & Interpretation Completed 04/05/2014 76235 Icd eval w/iterative adjment single lead Icd Completed 09/07/2013 57803 EKG Tracing & Interpretation Completed 04/21/2013 78075 ECHO Transthoracic, Real-Time 2D With Doppler And Color Completed Flow 04/13/2013 86070 Stress Test Completed 04/13/2013 28606 Myocardial Perfusion Imaging Tomographic (Spect) Multiple Completed Studies 04/08/2013 36038 Icd eval w/iterative adjment single lead Icd Completed Encounters Type Date Location Provider Dx Diagnosis Office Visit 05/04/2019 [facility] Internal Lou Jackson, F32.9 Major depressive 8:40a Medicine - Suite DO disorder, single R episode, unspecified I50.22 Chronic systolic (congestive) heart failure N18.3 Chronic kidney disease, stage 3 (moderate) M10.9 Gout, unspecified R73.03 Prediabetes Office Visit 02/01/2019 1:20p DO Not Use Care Lou I50.22 Chronic systolic Connections DO Renetta (congestive) heart [facility] failure N18.3 Chronic kidney disease, stage 3 (moderate) E03.9 Hypothyroidism, unspecified M10.9 Gout, unspecified R73.03 Prediabetes Office Visit 01/04/2019 2:20p DO Not Use Care Lou M10.9 Gout, unspecified Connections Senner, DO [facility] E03.9 Hypothyroidism, unspecified N18.3 Chronic kidney disease, stage 3 (moderate) M79.671 Pain in right foot M54.5 Low back pain Office Visit 12/29/2018 10:45a [facility] Vitaliy Gomez I47.2 Ventricular Of Jackie Magana M.D. tachycardia I25.5 Ischemic cardiomyopathy Z95.810 Presence of automatic (implantable) cardiac defibrillator I25.10 Athscl heart disease of [place] coronary artery w/o ang pctrs Office Visit 10/05/2018 [facility] Z95.810 Presence of 10:00a Cardiology Of Yobany N.PGibran automatic [facility] (implantable) cardiac defibrillator E78.2 Mixed hyperlipidemia I25.5 Ischemic cardiomyopathy I25.10 Athscl heart disease of [place] coronary artery w/o ang pctrs I50.22 Chronic systolic (congestive) heart failure Z98.61 Coronary angioplasty status Office Visit 09/03/2018 [facility] Vitaliy Gomez Z95.810 Presence of 11:30a Cardiology Radha Magana M.D. automatic Jackie (implantable) cardiac defibrillator I47.2 Ventricular tachycardia I25.5 Ischemic cardiomyopathy Office Visit 03/10/2018 10:30a [facility] Vitaliy Gomez I47.2 Ventricular Of Jackie Magana M.D. tachycardia I25.5 Ischemic cardiomyopathy Z95.810 Presence of automatic (implantable) cardiac defibrillator Office Visit 11/20/2017 8:30a [facility] I25.5 Ischemic Cardiology Radha Magana M.D. cardiomyopathy [facility] Z95.810 Presence of automatic (implantable) cardiac defibrillator I47.2 Ventricular tachycardia Office Visit 10/06/2017 9:00a [facility] Internal Estevan Martines, Z00.01 Encounter for Claritza Flanagan M.D. general adult Suite R medical exam w abnormal findings R73.9 Hyperglycemia, unspecified Office Visit 08/25/2017 8:00a [facility] Ish Barreto L98.9 Disorder of the Medicine - Fide Martines skin and Suite R subcutaneous tissue, unspecified F33.0 Major depressive disorder, recurrent, mild T50.995S Adverse effect of drug/meds/biol subst, sequela R73.9 Hyperglycemia, unspecified Office Visit 06/18/2017 8:00a [facility] Internal Estevan L03.114 Cellulitis of Claritza Martines M.D. left upper limb Suite R M10.9 Gout, unspecified E78.2 Mixed hyperlipidemia F33.0 Major depressive disorder, recurrent, mild Z12.5 Encounter for screening for malignant neoplasm of prostate Z23 Encounter for immunization Office Visit 04/24/2017 1:45p Fernando Gomez I25.5 Ischemic Cardiology Radha Magana M.D. cardiomyopathy [facility] Z95.810 Presence of automatic (implantable) cardiac defibrillator I25.10 Athscl heart disease of [place] coronary artery w/o ang pctrs Office Visit 02/19/2017 [facility] Ish Barreto I25.5 Ischemic 8:00a Claritza Martines M.D. cardiomyopathy Suite R E03.9 Hypothyroidism, unspecified E78.2 Mixed hyperlipidemia N18.3 Chronic kidney disease, stage 3 (moderate) M10.9 Gout, unspecified F32.9 Major depressive disorder, single episode, unspecified Office Visit 11/20/2016 [facility] Ish Barreto I25.5 Ischemic 8:00a Claritza Martines M.D. cardiomyopathy Suite R E03.9 Hypothyroidism, unspecified F32.9 Major depressive disorder, single episode, unspecified E78.2 Mixed hyperlipidemia Office Visit 10/22/2016 8:30a Fernando Gomez I25.5 Ischemic Cardiology Of Fide Magana cardiomyopathy [facility] I25.10 Athscl heart disease of [place] coronary artery w/o ang pctrs I45.10 Unspecified right bundle-branch block Office Visit 10/21/2016 8:00a [facility] Internal Estevan Martines, M10.9 Gout, unspecified Claritza Flanagan M.D. Suite R R22.1 Localized swelling, mass and lump, neck N18.3 Chronic kidney disease, stage 3 (moderate) Office Visit 10/07/2016 8:20a [facility] Ish Barreto I51.3 Intracardiac Claritza Martines M.D. thrombosis, not Suite R elsewhere classified M10.9 Gout, unspecified F32.9 Major depressive disorder, single episode, unspecified E78.2 Mixed hyperlipidemia E03.9 Hypothyroidism, unspecified R22.1 Localized swelling, mass and lump, neck Office Visit 08/25/2016 1:00p [facility] Internal John Meredith, L72.0 Epidermal cyst Medicine - MANAGER TRAINEE Suite R Office Visit 07/07/2016 1:40p [facility] Internal Estevan I25.5 Ischemic Medicine - Conrad, cardiomyopathy Suite R M.DGibran F32.9 Major depressive disorder, single episode, unspecified M10.9 Gout, unspecified M25.511 Pain in right shoulder L03.113 Cellulitis of right upper limb Office Visit 06/16/2016 9:30a [facility] Kristie Madera, I51.3 Intracardiac Of [facility] [place] thrombosis, not elsewhere classified I25.10 Athscl heart disease of [place] coronary artery w/o ang pctrs I25.5 Ischemic cardiomyopathy E78.2 Mixed hyperlipidemia Z95.810 Presence of automatic (implantable) cardiac defibrillator Office Visit 05/06/2016 [facility] Internal Estevan I25.5 Ischemic 11:00a Claritza Martines M.D. 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 cardiomyopathy [facility] I25.10 Athscl heart disease of [place] coronary artery w/o ang pctrs I51.3 Intracardiac thrombosis, not elsewhere classified Office Visit 01/16/2016 10:20a [facility] Internal Alexsander Childress, M25.579 Pain in Medicine - M.D. 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 I51.3 Intracardiac thrombosis, not elsewhere classified I25.10 Athscl heart disease of [place] coronary artery w/o ang pctrs Office Visit 11/19/2015 9:00a [facility] Kristie Madera, I50.22 Chronic systolic Of [facility] [place] (congestive) heart failure Z95.810 Presence of automatic (implantable) cardiac defibrillator 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 Suite R I25.10 Athscl heart disease of [place] coronary artery w/o ang pctrs I50.22 Chronic systolic (congestive) heart failure I65.22 Occlusion and stenosis of left carotid artery E03.9 Hypothyroidism, unspecified E78.2 Mixed hyperlipidemia [facility] 11:36a uzair Ayala M.D. Defibrillator Hospitalists Automatic Implantable Postsurgical 414.00 Coronary Atherosclerosis Unspec Type Vessel Robinson/Graft 428.0 Congestive Heart Failure Unspecified [facility] V[facility].02 Card[facility] 11:36a uzair Ayala M.D. Defibrillator Hospitalists Automatic Implantable Postsurgical 414.00 Coronary Atherosclerosis Unspec Type Vessel Robinson/Graft 428.0 Congestive Heart Failure Unspecified Office Visit [facility] V45.02 Cardiac 11:35a uzair Ayala M.D. Defibrillator Hospitalists Automatic Implantable Postsurgical 401.9 Hypertension Unspec 414.00 Coronary Atherosclerosis Unspec Type Vessel Robinson/Graft 428.0 Congestive Heart Failure Unspecified Office Visit 08/08/2015 [facility] Masha V45.02 Cardiac 11:34a Assocuzair M.D. Defibrillator Hospitalists Automatic Implantable Postsurgical 414.00 Coronary Atherosclerosis Unspec Type Vessel Robinson/Graft 428.0 Congestive Heart Failure Unspecified [facility] V[facility]02 [facility] 11:34a Assocuzair M.D. Defibrillator Hospitalists Automatic Implantable Postsurgical 414.00 Coronary Atherosclerosis Unspec Type Vessel Robinson/Graft 428.0 Congestive Heart Failure Unspecified Office 08/06/2015 [facility] Laura V45.02 Cardiac Visit 11:32a Assoc,uzair Parra, Defibrillator Hospitalists N.P. Automatic Implantable Postsurgical 401.9 Hypertension Unspec 414.00 Coronary Atherosclerosis Unspec Type Vessel Robinson/Graft 428.0 Congestive Heart Failure Unspecified Office Visit 08/02/2015 8:15a Fernando Gomez 425.9 Cardiomyopathy Cardiology Radha Magana M.D. Secondary Cracker Dough Mixer Unspecified 414.01 Coronary Atherosclerosis Robinson 428.0 Congestive Heart Failure Unspecified Office Visit 08/02/2015 9:30a [facility] Internal John Scottish, 782.1 Rash & Other Medicine - Suite MANAGER TRAINEE Nonspec Skin R Eruption 428.0 Congestive Heart Failure Unspecified Office Visit 07/26/2015 3:00p [facility] Internal John Scottish, 782.1 Rash & Other Medicine - Suite MANAGER TRAINEE Nonspec Skin R Eruption 564.00 Constipation Unspecified Office Visit 07/12/2015 [facility] Internal [place] V58.61 Anticoagulants Long 10:00a Claritza Martines M.D. Term (Current) Use Suite R Encounter 425.9 Cardiomyopathy Secondary Unspecified 724.2 Lumbago 789.01 Pain Abdominal Right Upper Quadrant Office Visit 07/02/2015 11:20a [facility] Internal [place] 401.9 Hypertension Claritza Martines M.D. Unspec Suite R 530.81 Esophageal Reflux 425.9 Cardiomyopathy Secondary Unspecified 724.2 Lumbago 575.8 Gallbladder Disorders Other Spec 272.2 Hyperlipidemia Mixed 785.6 Lymph Nodes Enlargement 427.1 Paroxysmal Ventricular Tachycardia 429.89 Heart Diseases Other Carditis Office Visit 06/26/2015 3:33p [facility] Ilda Ambrose, 428.23 Systolic Heart Assocuzair M.D. Failure Acute Hospitalists On Chronic 557.9 Vascular Insufficiency Of Intestine Unspecified 414.00 Coronary Atherosclerosis Unspec Type Vessel Robinson/Graft 401.9 Hypertension Unspec [facility] 428.[facility] Systolic Heart Assoc,uzair Elizalde Failure Acute Hospitalists On Chronic 557.9 Vascular Insufficiency Of Intestine Unspecified 414.00 Coronary Atherosclerosis Unspec Type Vessel Robinson/Graft 401.9 Hypertension Unspec Office Visit 06/24/2015 3:[facility], 428.23 Systolic Heart Assoc,uzair Elizalde Failure Acute Hospitalists On Chronic 557.9 Vascular Insufficiency Of Intestine Unspecified 414.00 Coronary Atherosclerosis Unspec Type Vessel Robinson/Graft 401.9 Hypertension Unspec Office Visit 06/24/2015 [facility] Angelo Smith 425.4 Cardiomyopathy 12:00p Of Jackie Marks M.D., Other Prim FACC, FASNC Office Visit 06/23/2015 [facility] 428.23 Systolic Heart 3:31p Assoc,uzair Ambrose M.D. Failure Acute On Hospitalists Chronic 557.9 Vascular Insufficiency Of Intestine Unspecified 414.00 Coronary Atherosclerosis Unspec Type Vessel Robinson/Graft 401.9 Hypertension Unspec Office Visit 06/23/2015 11:37a [facility] Angelo Smith 425.4 Cardiomyopathy Other Of Jackie Marks M.D., Prim FACC, FASNC 427.0 PSVT Paroxysmal Supraventricular Tachycardia [facility] 428.23 Systolic Heart Assoc,pc N.P. Failure Acute Hospitalists On Chronic 557.9 Vascular Insufficiency Of Intestine Unspecified 414.00 Coronary Atherosclerosis Unspec Type Vessel Robinson/Graft 401.9 Hypertension Unspec Office Visit 06/22/2015 11:47a [facility] Harmeet SGibran 427.1 Paroxysmal Of [facility] DO Rodney Ventricular FACC Tachycardia V45.02 Cardiac Defibrillator Automatic Implantable Postsurgical Office Visit 05/03/2014 Fernando Gomez 414.01 Coronary 8:30a Cardiology Radha Magana M.D. Atherosclerosis [facility] Robinson 425.4 Cardiomyopathy Other Prim Office Visit 04/06/2014 1:30p Fernando Gomez 425.4 Cardiomyopathy Other Cardiology Of Fide Magana Prim [facility] 414.01 Coronary Atherosclerosis Robinson 786.05 Shortness Of Breath Office Visit 03/29/2014 7:43a [facility] 789.07 Pain Abdominal Assoc,uzair Carrasco M.D. Generalized Hospitalists 414.01 Coronary Atherosclerosis Robinson 401.9 Hypertension Unspec Office Visit 03/28/2014 7:42a [facility] 789.07 Pain Abdominal Assoc,uzair Carrasco M.D. Generalized Hospitalists 414.01 Coronary Atherosclerosis Robinson 401.9 Hypertension Unspec Office Visit 09/07/2013 1:30p [facility] Vitaliy Gomez 425.4 Cardiomyopathy Other Cardiology Of Fide Magana Prim [facility] 414.9 Ischemic Heart Disease Chronic Unspec 786.05 Shortness Of Breath Office Visit 04/27/2013 10:15a [facility] Vitaliy Gomez 414.9 Ischemic Heart Of Jackie Magana M.D. Disease Chronic Unspec 425.4 Cardiomyopathy Other Prim Office Visit 04/08/2013 3:00p [facility] Vitaliy Gomez 414.9 Ischemic Heart Of [facility] Fide Magana Disease Chronic Unspec 425.4 Cardiomyopathy Other Prim Plan of Treatment Future Appointment(s):08/31/2019 9:00 am - [facility] Pacer Schedule at [facility]08/31/2019 9:30 am - Vitaliy Magana M.D. at [facility]06/09/2019 - Lou Jackson DOF32.9 Major depressive disorder , single episode, [id number] Chronic systolic (congestive) heart failureFollow up:6 months or sooner as needed (come back in Fall for flu shot!)
[2019-07-06 11:53] LABS: INR 1.14 (0.82-1.09)
[2019-07-06 12:05] LABS: Troponin I 0.01 ng/mL (<0.04)
[2019-07-06 12:11] LABS: Albumin 4.4 g/dL (3.2-5.2); Albumin/Globulin Ratio 1.5 (1-3); BUN/Creatinine Ratio 22.5 (8-20); Calcium 9.5 mg/dL (8.6-10.3); EGFR African American 47.9 (>60); EGFR Non-African American 39.6 (>60); Potassium 4.2 mmol/L (3.5-5.0); Total Bilirubin 0.8 mg/dL (0.2-1.0); Total Protein 7.4 g/dL (6.4-8.9)
[2019-07-06] MEDS ORDERED: Morphine 4 MG/ML VIAL (1 ml) 4 MG/ML VIAL IV ONE (13:44)
--- NOTE | 2019-07-06 13:45 | ED ---
Upper Extremity Pain - HPI Summary HPI Summary: The patient is a 58 y/o M presenting to [facility] with a chief complaint of radiating left shoulder pain starting 3-4 days ago. He states that he was asleep and woke up with the shoulder pain. The pain radiates into the left neck , scapula, and thoracic back. He states that he hasnt had this pain to this severity before. Currently, the aching pain is rated 10/10 in severity. There are no aggravating or alleviating factors. He additionally c/o chills and dizziness secondary to pain. PMHx: thyroid disease, angina, CHF, CAD, DVT, HLD, HTN, pacemaker, COPD, PE, arthritis, osteoporosis. Former smoker, no EtOH, no substance use. - History of Current Complaint Chief Complaint: EDChestPainROMI Stated Complaint: CHEST PAIN AND BACK PAIN PER PT Time Seen by Provider: 07/06/19 13:02 Hx Obtained From: Patient Mechanism Of Injury: Unknown Onset/Duration: Started Days Ago - 3-4, Still Present Timing: Lasting Days Severity Initially: Moderate Severity Currently: Severe Pain Location: Shoulder - left radiating into scapula and back Character: Aching Aggravating Factor(s): Nothing Alleviating Factor(s): Nothing Associated Signs & Symptoms: Positive: Neck Pain - radiating from shoulder, Other - chills, dizziness - Allergies/Home Medications Allergies/Adverse Reactions: Allergies Allergy/AdvReac Type Severity Reaction Status Date / Time clopidogrel [From Plavix] Allergy Severe Anaphylatic Verified 07/06/19 11:44 Shock PMH/Surg Hx/FS Hx/Imm Hx Endocrine/Hematology History: Reports: Hx Anticoagulant Therapy, Hx Thyroid Disease - on synthroid Denies: Hx Blood Disorders, Hx Diabetes, Hx Unexplained Bleeding Cardiovascular History: Reports: Hx Angina, Hx Angioplasty, Hx Auto Implanted Cardiovert Defib, Hx Cardiomegaly, Hx Congestive Heart Failure, Hx Coronary Artery Disease, Hx Deep Vein Thrombosis, Hx Hypercholesterolemia, Hx Hypotension , Hx Hypertension, Hx Pacemaker/ICD, Hx Syncope Denies: Hx Congenital Heart Disease, Hx Valvular Heart Disease Respiratory History: Reports: Hx Chronic Obstructive Pulmonary Disease (COPD), Hx Pulmonary Edema GI History: Reports: Hx Gall Bladder Disease, Hx Gastroesophageal Reflux Disease , Hx Irritable Bowel Musculoskeletal History: Reports: Hx Arthritis, Hx Back Problems, Hx Osteoporosis Sensory History: Reports: Hx Contacts or Glasses, Hx Hearing Problem - bilat [facility] Opthamlomology History: Reports: Hx Contacts or Glasses Neurological History: Denies: Hx Headaches - Surgical History Surgical History: Yes Surgery Procedure, Year, and Place: PACEMAKER/DIFIBRILLATOR 2010 Hx Anesthesia Reactions: No Infectious Disease History: No Infectious Disease History: Denies: Traveled Outside the US in Last 30 Days - Family History Known Family History: Positive: Cardiac Disease Negative: Hypertension - Social History Alcohol Use: None Substance Use Type: Reports: None Hx Tobacco Use: Yes Smoking Status (MU): Former Smoker Type: Cigarettes Amount Used/How Often: 2pks/day Length of Time of Smoking/Using Tobacco: 20-30 years Have You Smoked in the Last Year: No Review of Systems Positive: Chills Positive: Other - pain in the left shoulder radiating into neck, scapula, and thoracic region Neurological: Other - dizziness All Other Systems Reviewed And Are Negative: Yes Physical Exam - Summary Physical Exam Summary: Constitutional: appears older than stated age Skin: Warm, Dry HENT: Normocephalic; Atraumatic Eyes: Conjunctiva normal Neck: Musculoskeletal ROM normal neck. (-) JVD, (-) Stridor, (-) Nuchal rigidity , paraspinal C spine TTP. Cardio: Rhythm regular, rate normal, Heart sounds normal; Intact distal pulses; Radial pulses are 2+ and symmetric. (-) Murmur Pulmonary/Chest wall: Effort normal. (-) Respiratory distress, (-) Wheezes, (-) Rales Abd: Soft, (-) tenderness, (-) Distension, (-) Guarding, (-) Rebound Musculoskeletal: Tenderness to the left AC joint, left paraspinal thoracic area. Limited range of motion of shoulder secondary to pain, no obvious erythema. Full range of motion of elbow and wrist. 2+ radial pulse. No midline thoracic tenderness Lymph: (-) Cervical adenopathy Neuro: Alert, Oriented x3 Psych: Mood and affect Normal Triage Information Reviewed: Yes Vital Signs On Initial Exam: Initial Vitals Temp Pulse Resp BP Pulse Ox 97.7 F 80 18 112/58 100 07/06/19 11:35 07/06/19 11:35 07/06/19 11:35 07/06/19 11:35 07/06/19 11:35 Vital Signs Reviewed: Yes Diagnostics - Vital Signs Vital Signs Temp Pulse Resp BP Pulse Ox 07/06/19 13:32 87 12 111/84 97 07/06/19 13:03 83 123/72 99 07/06/19 13:02 62 98 07/06/19 11:35 97.7 F 80 18 112/58 100 - Laboratory Lab Results: Lab Results 07/06/19 07/06/19 07/06/19 Range/Units 11:38 11:38 11:38 WBC 14.2 H (3.5-10.8) 10^3/uL RBC 4.63 (4.18-5.48) 10^6 /uL Hgb 13.6 L (14.0-18.0) g/dL Hct 41 L (42-52) % MCV 89 (80-94) fL MCH 29 (27-31) pg MCHC 33 (31-36) g/dL RDW 15 (10-15) % Plt Count 246 (150-450) 10^3/uL MPV 10.0 (7.4-10.4) fL Neut % (Auto) 81.8 % Lymph % (Auto) 7.8 % [place] % (Auto) 6.4 % Eos % (Auto) 3.1 % Baso % (Auto) 0.9 % Absolute Neuts (auto) 11.6 H (1.5-7.7) 10^3/ul Absolute Lymphs (auto) 1.1 (1.0-4.8) 10^3/ul Absolute Monos (auto) 0.9 H (0-0.8) 10^3/ul Absolute Eos (auto) 0.4 (0-0.6) 10^3/ul Absolute Basos (auto) 0.1 (0-0.2) 10^3/ul Absolute Nucleated RBC 0.0 10^3/ul Nucleated RBC % 0.0 INR (Anticoag Therapy) 1.14 H (0.82-1.09) Sodium 137 (135-145) mmol/L Potassium 4.2 (3.5-5.0) mmol/L Chloride 100 L (101-111) mmol/L Carbon Dioxide 27 (22-32) mmol/L Anion Gap 10 (2-11) mmol/L BUN 40 H (6-24) mg/dL Creatinine 1.78 H (0.67-1.17) mg/dL Est GFR ( Amer) 47.9 (>60) Est GFR (Non-Af Amer) 39.6 (>60) BUN/Creatinine Ratio 22.5 H (8-20) Glucose 125 H (70-100) mg/dL Calcium 9.5 (8.6-10.3) mg/dL Total Bilirubin 0.80 (0.2-1.0) mg/dL AST 15 (13-39) U/L ALT 13 (7-52) U/L Alkaline Phosphatase 158 H (34-104) U/L Troponin I 0.01 (<0.04) ng/mL Total Protein 7.4 (6.4-8.9) g/dL Albumin 4.4 (3.2-5.2) g/dL Globulin 3.0 (2-4) g/dL Albumin/Globulin Ratio 1.5 (1-3) Result Diagrams: 07/06/19 11:38 07/06/19 11:38 Lab Statement: Any lab studies that have been ordered have been reviewed, and results considered in the medical decision making process. - Radiology CXR Radiology Interpretation Completed By: Radiologist Summary of Radiographic Findings: CXR Impression: No evidence for active cardiopulmonary disease. ED physician has reviewed this report. Left Shoulder XR Radiology Interpretation Completed By: Radiologist Summary of Radiographic Findings: Impression: No fracture of the left shoulder is noted. AC joint arthritis is noted. ED physician has reviewed this report. Thoracolumbar Spine XR Radiology Interpretation Completed By: Radiologist Summary of Radiographic Findings: Impression: No fracture of the thoracolumbar spine is noted. ED physician has reviewed this report. - CT LUE CT CT Interpretation Completed By: Radiologist Summary of CT Findings: Impression: 1. Erosive and hypertrophic change around the acromioclavicular joint possibly indicating an inflammatory arthropathy although a septic arthritis cannot be ruled out. 2. Findings suggestive of supraspinatus tendinopathy, no discrete rotator cuff tendon tear is seen. ED physician has reviewed this report. Cervical Spine CT CT Interpretation Completed By: Radiologist Summary of CT Findings: Impression: 1. No fracture or traumatic malalignment. 2. Varying degrees of multilevel spondylosis as above results in up to moderate right neural foraminal stenosis at C5-C6 and C6-C7. 3. Facet arthropathy is advanced on the left at C3-C4 and C4-C5. 4. Biapical centrilobular emphysema. 5. A left submandibular sialolith measures up to 0.8 cm. ED physician has reviewed this report. - EKG 1133 Cardiac Rate: NL - 81 bpm EKG Rhythm: Sinus Rhythm EKG Comparison: No Significant Change - Unchanged from 2015. Summary of EKG Findings: Ventricualr bigeminy. RBBB. No STEMI. Re-Evaluation - Re-Evaluation First Eval Re-Evaluation Time: 14:48 Comment: We discussed imaging and lab results thus far. I also told him that interventional radiology will come for a shoulder tap, and he agrees. Second Eval Re-Evaluation Time: 17:00 Comment: We discussed discharge home following consult with Dr. Nunez to see her in the office tomorrow for steroid injection. He will return for worsening pain, fevers, or if he is concerned. Course/Dx - Course Course Of Treatment: 58 male with a history of heart failure and AICD presents with left shoulder pain worsening for 3 days- physical examination chronically ill-appearing male, tenderness most prominent to the creatinine and bursa, with range of motion almost completely limited secondary to pain. Also some scapular and thoracic tenderness. Concern for septic joint given elevated white count, check a CRP. also consider tendopathy vs inflammatory conditions. Check XR shoulder, T spine. Will d/w ortho - Diagnoses Provider Diagnoses: Tendonitis, Shoulder pain - Physician Notifications Discussed Care of Patient With: Kailee Nunez - orthopedics Time Discussed With Above Provider: 14:32 Instructed by Provider To: Other - Dr. Nunez recommends touching base with IR. At 1432, Dr. Mcconnell, radiology, suggests speaking with Dr. Kee. At 1443, Dr. Kee reports he will come see the patient and perform a shoulder tap. I spoke with Dr. Nunez again at 1700, and she states she will see him in the office tomorrow for a steroid injection. Discharge - Sign-Out/Discharge Documenting (check all that apply): Patient Departure - Patient will be discharged home. Patient Received Moderate/Deep Sedation with Procedure: No - Discharge Plan Condition: Stable Disposition: HOME Patient Education Materials: Tendinitis (ED), Shoulder Pain (ED) Referrals: [facility] PHYSICIAN REFERRAL [Outside] - 3 Days Kailee Nunez MD [Medical Doctor] - 1 Day Additional Instructions: You were seen in the emergency department for shoulder pain. Your CT scan showed degenerative changes of your spine, and inflammation of your left AC joint. If you have worsening pain, fevers, or concerning please come back to the emergency department Please follow up with orthopedics tomorrow. If any studies were not completed at the time of discharge you will be called with the relevant results. Please follow up with your primary care doctor in the next 2-3 days and return to the emergency department for worsening or concerning symptoms. It was a pleasure taking care of you today. - Billing Disposition and Condition Condition: STABLE Disposition: Home - Attestation Statements Document Initiated by Arturo: Yes Documenting Vidyaibe: Beulah Camacho Provider For Whom Arturo is Documenting (Include Credential): Dr. Kris Yadav MD Scribe Attestation: Beulah Greer scribed for Dr. Kris Yadav MD on 07/06/19 at 1933. Scribe Documentation Reviewed: Yes Provider Attestation: The documentation as recorded by the Beulah velazquez accurately reflects the service I personally performed and the decisions made by me, Dr. Kris Yadav MD Status of Scribbenny Document: Viewed
[2019-07-06 14:10] LABS: C Reactive Protein 41.69 mg/L (<8.01); Magnesium 2.3 mg/dL (1.9-2.7)
[2019-07-06 17:08] VITALS: BP 105/75
[2019-07-06] MEDS ORDERED: Lidocaine Patch REMOVE* 1 NOTE MISC SCH ×2 (21:00)
[2019-07-07] MEDS ORDERED: Lidocaine PATCH 5%* 1 PATCH TRANSDERM SCH (09:00)
== END 2019-07-06 17:07 | disposition home or self-care (01) ==
LOC: ED 11:30
DX: M75.92 Shoulder lesion, unspecified, left shoulder (principal); M25.512 Pain in left shoulder; M47.812 Spondylosis without myelopathy or radiculopathy, cervical region; J43.2 Centrilobular emphysema; K11.5 Sialolithiasis; M19.012 Primary osteoarthritis, left shoulder; M54.2 Cervicalgia; R42 Dizziness and giddiness; E07.9 Disorder of thyroid, unspecified; I25.119 Atherosclerotic heart disease of native coronary artery with unspecified angina pectoris; I11.0 Hypertensive heart disease with heart failure; Z86.718 Personal history of other venous thrombosis and embolism; Z79.01 Long term (current) use of anticoagulants; Z88.8 Allergy status to other drugs, medicaments and biological substances; Z95.810 Presence of automatic (implantable) cardiac defibrillator; Z87.891 Personal history of nicotine dependence
CPT/HCPCS: 20610; 36415; 71046; 72080; 72125; 77002; 80053; 83735; 84484; 85025; 85610; 86140; 93005; 99282; J2270; Q9965

== ENCOUNTER 2019-10-02 09:56 | Inpatient (IN) | payer OTHER ==
[2019-10-02 10:30] LABS: ABS Basophils 0.1 10^3/ul (0-0.2); ABS Eosinophils 0.2 10^3/ul (0-0.6); ABS Lymphocytes 1.6 10^3/ul (1.0-4.8); ABS Monocytes 0.7 10^3/ul (0-0.8); ABS Neutrophils 9.6 10^3/ul (1.5-7.7); Eosinophil % 1.4 %; Hematocrit 41 % (42-52); Hemoglobin 13.4 g/dL (14.0-18.0); Mean Corpuscular HGB Conc 33 g/dL (31-36); Mean Corpuscular Hemoglobin 29 pg (27-31); Mean Corpuscular Volume 89 fL (80-94); Mean Platelet Volume 11.4 fL (7.4-10.4); Nucleated Red Blood Cells % 0.3; Platelet Count 193 10^3/uL (150-450); Red Blood Count 4.57 10^6 /uL (4.18-5.48); Red Cell Distribution Width 17 % (10-15); White Blood Count 12.2 10^3/uL (3.5-10.8)
--- NOTE | 2019-10-02 10:47 | ED ---
HPI Chest Pain - HPI Summary HPI Summary: This pt is a 59 Y/O M presenting to [facility] brought in by EMS for sudden CP, located across his entire chest, that occurred at 1000 today while he was out shopping. He states that he became SOB and the CP was rated a 7/10 in severity. Due to the symptoms the pt was unable to exit his truck during the episode. He states that he has had a decreased appetite since 09/29/19 and has had a cough that he states causes heart palpitations. He states that he has had a general cold for the past week. He states that he hasnt been able to go to the bathroom in a week and his stomach has felt bloated. He states that my stomach increases in size with three bites. He also states that he has diffuse abdominal pain which is worse on the sides. He denies any N/V, diaphoresis and fevers. His symptoms are aggravated when he lays on his back and states that he has dyspnea while lying flat. He has no alleviating factor. He states that he has a past SHx of smoking but quit in 2008. He states that he has a PMHx of a AICD, CHF, and carotid artery blockages. He states that he has been unable to take his regular water pills due to his prescription running out last week and being unable to contact [facility]. - History of Current Complaint Time Seen by Provider: 10/02/19 09:59 Hx Obtained From: Patient Onset/Duration: Started Weeks Ago - 1, Still Present Time of Onset: 10:00 Timing: Constant Initial Severity: Moderate Current Severity: Moderate Pain Intensity: 7 Pain Scale Used: 0-10 Numeric Chest Pain Location: Diffuse Aggravating Factor(s): Position - states SOB when lying flat, Other: - food Alleviating Factor(s): Nothing Associated Signs and Symptoms: Positive: Chest Pain - diffuse, Shortness of Breath, Swelling - abdominal bloating with food, Cough, Abdominal Pain - worse on the sides, Other: - decreased urine production. Negative: Fever, Diaphoresis , Nausea, Vomiting - Additional Pertinent History Primary Care Physician: [id number] - Allergy/Home Medications Allergies/Adverse Reactions: Allergies Allergy/AdvReac Type Severity Reaction Status Date / Time clopidogrel [From Plavix] Allergy Severe Anaphylatic Verified 10/02/19 10:55 Shock Home Medications: Home Medications Sertraline* [Zoloft*] 25 mg PO DAILY 10/02/19 [History Confirmed 10/02/19] PMH/Surg Hx/FS Hx/Imm Hx Previously Healthy: Yes Endocrine/Hematology History: Reports: Hx Anticoagulant Therapy, Hx Thyroid Disease - on synthroid Denies: Hx Blood Disorders, Hx Diabetes, Hx Unexplained Bleeding Cardiovascular History: Reports: Hx Angina, Hx Angioplasty, Hx Auto Implanted Cardiovert Defib, Hx Cardiomegaly, Hx Congestive Heart Failure, Hx Coronary Artery Disease, Hx Deep Vein Thrombosis, Hx Hypercholesterolemia, Hx Hypotension , Hx Hypertension, Hx Pacemaker/ICD, Hx Syncope Denies: Hx Congenital Heart Disease, Hx Valvular Heart Disease Respiratory History: Reports: Hx Chronic Obstructive Pulmonary Disease (COPD), Hx Pulmonary Edema GI History: Reports: Hx Gall Bladder Disease, Hx Gastroesophageal Reflux Disease , Hx Irritable Bowel Musculoskeletal History: Reports: Hx Arthritis, Hx Back Problems, Hx Osteoporosis Sensory History: Reports: Hx Contacts or Glasses, Hx Hearing Problem - bilat [facility] History: Reports: Hx Contacts or Glasses Neurological History: Denies: Hx Headaches - Surgical History Surgical History: Yes Surgery Procedure, Year, and Place: PACEMAKER/DIFIBRILLATOR 2010 Hx Anesthesia Reactions: No Infectious Disease History: No Infectious Disease History: Denies: Traveled Outside the [place] in Last 30 Days - Family History Known Family History: Positive: Cardiac Disease Negative: Hypertension - Social History Occupation: Employed Full-time Lives: Alone Alcohol Use: None Hx Substance Use: No Substance Use Type: Reports: None Hx Tobacco Use: Yes Smoking Status (MU): Former Smoker Type: Cigarettes Amount Used/How Often: 2pks/day Length of Time of Smoking/Using Tobacco: 20-30 years Have You Smoked in the Last Year: No Review of Systems Negative: Fever, Skin Diaphoresis Positive: Chest Pain - diffuse Positive: Shortness Of Breath, Cough Gastrointestinal: Other - abdominal bloating Positive: Abdominal Pain - diffuse, worse on the sides . Negative: Vomiting, Nausea Positive: frequency - frequency decrease All Other Systems Reviewed And Are Negative: Yes Physical Exam - Summary Physical Exam Summary: Constitutional: Well-developed, Well-nourished, Alert. (-) Distressed, Chronically ill appearing Skin: Warm, Dry HENT: Normocephalic; Atraumatic Eyes: Conjunctiva normal Neck: Musculoskeletal ROM normal neck. (+) JVD, (-) Stridor, (-) Nuchal rigidity Cardio: Rhythm regular, rate normal, Heart sounds normal; Intact distal pulses; Radial pulses are 2+ and symmetric. (-) Murmur, AICD to his L chest wall Pulmonary/Chest wall: Defibrillator to L chest wall. Effort normal. Mild increased work of breathing, +crackles lower lobes (-) Wheezes, (-) Rales Abd: Soft, L sided abdominal tenderness, (-) Distension, (-) Guarding, (-) Rebound Musculoskeletal: (-) Edema Lymph: (-) Cervical adenopathy Neuro: Alert, Oriented x3 Psych: Mood and affect Normal Triage Information Reviewed: Yes Vital Signs On Initial Exam: Initial Vitals Temp Pulse Resp BP Pulse Ox 98.1 F 96 18 121/85 96 10/02/19 10:07 10/02/19 10:07 10/02/19 10:07 10/02/19 10:07 10/02/19 10:07 Vital Signs Reviewed: Yes Procedures - Sedation Patient Received Moderate/Deep Sedation with Procedure: No Diagnostics - Vital Signs Vital Signs Temp Pulse Resp BP Pulse Ox 10/02/19 10:07 98.1 F 96 18 121/85 96 - Laboratory Lab Results: Lab Results 10/02/19 Range/Units 10:22 WBC 12.2 H (3.5-10.8) 10^3/uL RBC 4.57 (4.18-5.48) 10^6 /uL Hgb 13.4 L (14.0-18.0) g/dL Hct 41 L (42-52) % MCV 89 (80-94) fL MCH 29 (27-31) pg MCHC 33 (31-36) g/dL RDW 17 H (10-15) % Plt Count 193 (150-450) 10^3/uL MPV 11.4 H (7.4-10.4) fL Neut % (Auto) 78.8 % Lymph % (Auto) 13.0 % [place] % (Auto) 5.8 % Eos % (Auto) 1.4 % Baso % (Auto) 1.0 % Absolute Neuts (auto) 9.6 H (1.5-7.7) 10^3/ul Absolute Lymphs (auto) 1.6 (1.0-4.8) 10^3/ul Absolute Monos (auto) 0.7 (0-0.8) 10^3/ul Absolute Eos (auto) 0.2 (0-0.6) 10^3/ul Absolute Basos (auto) 0.1 (0-0.2) 10^3/ul Absolute Nucleated RBC 0.0 10^3/ul Nucleated RBC % 0.3 Result Diagrams: 10/02/19 10:22 10/02/19 10:15 Lab Statement: Any lab studies that have been ordered have been reviewed, and results considered in the medical decision making process. - Radiology CXR Radiology Interpretation Completed By: Radiologist Summary of Radiographic Findings: 1. Mildly enlarged cardiomediastinal silhouette with mild interstitial pulmonary edema. suspected. 2. Left chest wall AICD. ED physician has reviewed this report. - CT Chest/Abdomen/Pelvis CT CT Interpretation Completed By: Radiologist Summary of CT Findings: CHEST: 1. Moderate biapical predominant centrilobular emphysema. 2. Small bilateral pleural effusions. 3. Mild cardiomegaly with CAD. A left chest wall pacer is in place. ABDOMEN/PELVIS: 1. No acute abnormality. 2. Progressive atrophy along the superior pole left kidney with a delayed nephrogram. 3. 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 4. Diverticulosis. ED physician has reviewed this report. - EKG 1018 Cardiac Rate: NL - 89 EKG Rhythm: Sinus Rhythm EKG Comparison: No Significant Change - 07/06/19 Summary of EKG Findings: An EKG at 1018 reveals normal sinus rhythm 89 BPM with a RBB, nml intervals. No STEMI. No acute changes when compared to 07/06/19. Interpreted by Dr. Yadav at 10/02/19, 1023. Re-Evaluation - Re-Evaluation First Eval Re-Evaluation Time: 12:45 Comment: patient resting, [address] w/o significant abnormalities (? sm iliac aneurysm). plan for admission for diuresis for CHF Chest Pain Course/Dx - Course Course Of Treatment: 51-year-old male history of heart failure, defibrillator, history of tobacco use presents with chest pain, shortness of breath and generalized feeling unwell. - Physical exam with a chronically ill-appearing male, thin, mildly dyspneic on room air. No edema the lower extremity, faint bilateral crackles of the lungs. Shortness of breath ddx: Most likely CHF. Also consider: COPD exacerbation/asthma - no h/o COPD, no wheezing on exam. Low suspicion. PNA - no sputum production, no fevers or chills. No leukocytosis. CXR w/o infiltrate. Low suspicion. PTX - breath sounds equal, no risk factors for PTX, CXR w/o e/o PTX. ACS - no CP, no EKG changes, initial trop not elevated. Low suspicion. PE - no risk factors for PE, no unilateral leg swelling. - CXR w pulm edema, BNP >1300 will give lasix 40 IV. - given reports of chest pain, abd pain and fullness w vomiting, check CT CAP - Diagnoses Provider Diagnoses: Heart failure, Chest pain - Provider Notifications Discussed Care Of Patient With: Masha Faulkner Time Discussed With Above Provider: 13:58 Instructed by Provider To: Admit As Inpatient Admit/Transition Orders Completed By ED Provider: Yes Discharge ED - Sign-Out/Discharge Documenting (check all that apply): Patient Departure - admitted - Discharge Plan Condition: Stable Disposition: ADMITTED TO [facility] Referrals: No Primary Care Phys,NOPCP [Primary Care Provider] - - Billing Disposition and Condition Condition: STABLE Disposition: Admitted to [facility] - Attestation Statements Document Initiated by Arturo: Yes Documenting Scribe: Ferny Ordaz Provider For Whom Arturo is Documenting (Include Credential): Kris Yadav MD Scribe Attestation: Ferny Greer, scribed for Kris Yadav MD on 10/02/19 at 1459. Scribe Documentation Reviewed: Yes Provider Attestation: The documentation as recorded by the Ferny velazquez accurately reflects the service I personally performed and the decisions made by me, Kris Yadav MD Status of Scribe Document: Viewed
[2019-10-02 10:49] LABS: Albumin 4.1 g/dL (3.2-5.2); Albumin/Globulin Ratio 1.9 (1-3); BUN/Creatinine Ratio 15.8 (8-20); Calcium 9.5 mg/dL (8.6-10.3); EGFR African American 54.8 (>60); EGFR Non-African American 45.3 (>60); Globulin 2.2 g/dL (2-4); Potassium 4.3 mmol/L (3.5-5.0); Total Bilirubin 1.5 mg/dL (0.2-1.0); Total Protein 6.3 g/dL (6.4-8.9)
[2019-10-02 10:51] LABS: Troponin I 0.03 ng/mL (<0.04)
[2019-10-02] MEDS ORDERED: Iodixanol* (CONTRAST) 320 MG/ML 100 ML SDV IV ONE (11:20)
[2019-10-02] MEDS ORDERED: Furosemide IV* 10 MG/ML VIAL (40 MG) IV SLOW PU ONE (11:25)
[2019-10-02] MEDS ORDERED: Ondansetron INJ* 2 MG/ML VIAL IV ONE (12:15)
[2019-10-02] MEDS ORDERED: fentaNYL* 50 MCG/ML 2 ML VIAL (100 MCG VIAL) IV SLOW PU ONE (12:15)
[2019-10-02] MEDS: Atorvastatin* 80 MG TAB PO SCH (17:02)
--- NOTE | 2019-10-02 19:23 | HP ---
CC: Dr. Lou Jackson; Dr. Magana * HISTORY AND PHYSICAL: DATE OF ADMISSION: 10/02/19 TIME OF EVALUATION: 3:37 p.m. PRIMARY CARE PHYSICIAN: Dr. Lou Jackson. ORIENTATION & MOBILITY SPECIALIST: Dr. Magana. CHIEF COMPLAINT: Shortness of breath. HISTORY OF PRESENT ILLNESS: Mr. Orr is a 59-year-old male with a past medical history of ischemic cardiomyopathy; coronary artery disease; hypertension; hyperlipidemia; paroxysmal V-Tach, status post ICD; GERD; depression; hypothyroidism; CKD, stage 3; who presented to the emergency room with complaints of shortness of breath. The patient states he was in his usual state of health until a week ago. He was actually seen at Dr. Magana's office on 09/28/19, and at that time, he had no complaints and stated that he was feeling well. No medication changes were made and his plan was for a followup in 1 year. The patient states that he ran out of torsemide and had requested another bottle from [facility] in [place] and states that he was not contacted to merchandise pickup/receiving associate the medication, so he has not taken it and 1 day after missing his dose , he started to have shortness of breath. He states that this was associated with palpitations, chest pressure. He has been using his 's supplemental oxygen, but even with that, he was still very short of breath and unable to lie down or sleep, reason why he came to the emergency room today. He denies fever, chills, nausea, vomiting, diarrhea, or other complaints. PAST MEDICAL HISTORY: 1. Coronary artery disease, status post stent to the LAD in 2008. 2. Paroxysmal V-Tach, status post ICD implantation in 2009 (single chamber ICD [facility] [facility]). 3. Ischemic cardiomyopathy with ejection fraction less than 20% in 2014. During his last echo by Dr. Magana in 2016, his ejection fraction was 20% with moderate-to- severe MR. 4. Systolic congestive heart failure. 5. Hypertension. 6. Hyperlipidemia. 7. Gout. 8. CKD, stage 3. 9. GERD. 10. Depression. 11. Hypothyroidism. MEDICATION: 1. Aspirin 81 mg p.o. daily. 2. Atorvastatin 80 mg p.o. daily. 3. Levothyroxine 75 mcg p.o. daily. 4. Lisinopril 2.5 mg p.o. daily. 5. Magnesium oxide 800 mg p.o. t.i.d. 6. Metoprolol tartrate 50 mg p.o. b.i.d. 7. Sertraline 25 mg p.o. daily. 8. Ticagrelor 90 mg p.o. b.i.d. 9. Torsemide 80 mg p.o. daily. ALLERGIES: CLOPIDOGREL, the patient reportedly had anaphylactic shock. FAMILY HISTORY: Father and uncle had a history of stomach cancer. Mother passed in her 60s from tobacco related complications including coronary artery disease and peripheral arterial disease as well as CVA. SOCIAL HISTORY: The patient is a former smoker, 1 pack per day for 30 years. He quit when he had his heart attack in 2008. He denies alcohol or drug use. Surrogate decision maker is his Mia Orr, phone number [phone]. REVIEW OF SYSTEMS: A 14-point review of systems was performed and all the pertinent negatives and positives are in the HPI. PHYSICAL EXAMINATION GENERAL: The patient is a pleasant gentleman, lying in the ED stretcher, in no acute distress. VITAL SIGNS: Temperature 98.1, heart rate is 86, respiratory rate is 17, oxygen saturation 94% on 2 L nasal cannula, blood pressure is 102/61. HEENT: Pupils are equal. Moist mucous membranes. CHEST: Breath sounds bilaterally with bibasilar crackles. CVS: Normal S1, S2. Regular rate and rhythm with a systolic murmur. ABDOMEN: Soft, nontender, nondistended. Bowel sounds present. EXTREMITIES: No edema. NEURO: He is alert and oriented x3. Able to move all 4 extremities. DIAGNOSTIC STUDIES/LAB DATA: The patient had a CBC that showed a WBC of 12.2, hemoglobin of 13.4, hematocrit of 41, platelets of 193 with 78% neutrophils. Chemistry showed sodium of 136, potassium of 4.3, chloride of 106, bicarb of 19 , BUN of 25, creatinine of 1.5, glucose of 159, calcium of 9.5. LFT showed a total bilirubin of 1.5, AST of 74, ALT of 114, alk phos of 167. BNP greater than 1300. Chest x-ray showed mildly enlarged cardiomediastinal silhouette with mild interstitial pulmonary edema, left chest wall AICD. EKG done on 11/03/19 at 10:18 a.m. showed sinus rhythm at 89 beats per minute with a right bundle-branch block, old anterolateral infarct. No significant changes when compared to his prior one from June 2019 other than at that time he had more PVCs than today. CTA of the chest, abdomen, and pelvis showed moderate periapical predominant centrilobular emphysema, small bilateral pleural effusion, mild cardiomegaly with CAD. No acute abnormality of the abdomen and pelvis. Progressive atrophy along the superior pole of the left kidney nephrogram. 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 Diverticulosis. ASSESSMENT AND PLAN: Mr. Orr is a 59 years old male with a past medical history of ischemic cardiomyopathy, systolic congestive heart failure with ejection fraction of 20%, coronary artery disease status post stent, hypertension, hyperlipidemia, who presented to the emergency room with complaints of shortness of breath after running out of torsemide. 1. Acute systolic congestive heart failure exacerbation. This is secondary to noncompliance with diuretics. The patient has missed 3 to 4 days of his medication. He has developed dyspnea on exertion, orthopnea, and paroxysmal nocturnal dyspnea associated with chest pain. His BNP is greater than 1300. He has crackles on physical examination, but no peripheral edema. He will receive IV furosemide for now and as he improves, he will be transitioned back to his oral torsemide. 2. We will check serial troponins to rule out acute coronary syndrome as I believe his chest pain is associated with the shortness of breath and congestive heart failure exacerbation. We will continue lisinopril. 3. Coronary artery disease. We will continue aspirin, Brilinta, atorvastatin, and metoprolol. 4. Hypothyroidism. We will continue levothyroxine. 5. DVT prophylaxis: The patient has a score of 2 on the DVT Prophylaxis Risk Assessment Guide and he will be started on subcutaneous heparin. 6. Code status is full. TIME SPENT: Approximately 45 minutes was spent with patient interview, medical records review, physical examination to complete this admission, more than half this time was spent [id number] with the patient and coordination of care. [id number]/CPS #: [id number] AARON
[2019-10-02] MEDS: Heparin VIAL(*) 5000 UNITS/ML VIAL (FIVE THOUSAND) SUBCUT SCH (21:50)
[2019-10-02] MEDS: Ticagrelor* 90 MG TAB PO SCH (21:50)
[2019-10-02] MEDS: Magnesium Oxide TAB* 400 MG PO SCH (21:51)
[2019-10-02] MEDS: Metoprolol Tartrate TAB* 50 mg PO SCH (21:51)
[2019-10-02] MEDS: HYDROcodone/ACETAMIN 5-325 MG* 1 TAB PO PRN (23:00)
[2019-10-03] MEDS: Heparin VIAL(*) 5000 UNITS/ML VIAL (FIVE THOUSAND) SUBCUT SCH ×3 (06:13→22:00)
[2019-10-03] MEDS: Levothyroxine TAB* 75 MCG TAB PO SCH (06:13)
[2019-10-03] MEDS: Lisinopril TAB* 5 MG PO SCH ×2 (08:43→16:17)
[2019-10-03] MEDS: Metoprolol Tartrate TAB* 50 mg PO SCH ×2 (08:43→12:24)
[2019-10-03] MEDS: Magnesium Oxide TAB* 400 MG PO SCH ×3 (09:20→22:01)
[2019-10-03] MEDS: Aspirin EC TAB* 81 MG TAB.EC PO SCH (09:20)
[2019-10-03] MEDS: Ticagrelor* 90 MG TAB PO SCH (09:21)
[2019-10-03] MEDS: HYDROcodone/ACETAMIN 5-325 MG* 1 TAB PO PRN ×2 (09:21→22:01)
[2019-10-03] MEDS: Sertraline* 25 MG TAB PO SCH (09:21)
[2019-10-03] MEDS: Furosemide IV* 10 MG/ML VIAL (40 MG) IV SLOW PU SCH (09:21)
[2019-10-03] MEDS ORDERED: Magnesium Hydroxide LIQ* 30 ML UDC PO PRN (10:04)
[2019-10-03] MEDS: Polyethylene Glycol 3350* 17 GM PACKET PO SCH ×2 (10:52→22:02)
--- NOTE | 2019-10-03 10:58 | PN ---
Subjective Date of Service: 10/03/19 Interval History: HOSPITALIST PROGRESS NOTE Patient seen and examined at bedside. Care reviewed and d/w Elizabeth Mccarty RN. His breathing is a little better today at rest, but still has significant dyspnea with exertion. Also c/o abdominal pain and distention. Describes early satiety and last BM was 7 days ago. Family History: Unchanged from Admission Social History: Unchanged from Admission Past Medical History: Unchanged from Admission Objective Active Medications: Hydrocodone Bitart/Acetaminophen ([place] 5-325 Tab*) 1 tab PO Q6H PRN PRN Reason: PAIN - SEVERE Last Admin: 10/03/19 09:21 Dose: 1 tab Aspirin (Aspirin Ec Tab*) 81 mg PO DAILY [facility] Last Admin: 10/03/19 09:20 Dose: 81 mg Atorvastatin Calcium (Lipitor*) 80 mg PO 1700 [facility] Last Admin: 10/02/19 17:02 Dose: 80 mg Furosemide (Lasix Iv*) 40 mg IV SLOW PU DAILY [facility] Last Admin: 10/03/19 09:21 Dose: 40 mg Heparin Sodium (Porcine) (Heparin Vial(*)) 5,000 units SUBCUT Q8HR [facility] Last Admin: 10/03/19 06:13 Dose: 5,000 units Levothyroxine Sodium (Synthroid Tab*) 75 mcg PO DAILY@0600 [facility] Last Admin: 10/03/19 06:13 Dose: 75 mcg Lisinopril (Prinivil Tab*) 2.5 mg PO DAILY [facility] Last Admin: 10/03/19 08:43 Dose: Not Given Magnesium Hydroxide (Milk Of Magnesia Liq*) 30 ml PO Q6H PRN PRN Reason: CONSTIPATION Magnesium Oxide (Magox 400 Tab*) 800 mg PO TID [facility] Last Admin: 10/03/19 09:20 Dose: 800 mg Metoprolol Tartrate (Lopressor Tab*) 50 mg PO BID [facility] Last Admin: 10/03/19 08:43 Dose: Not Given Polyethylene Glycol/Electrolytes (Miralax*) 17 gm PO 0800,2100 [facility] Last Admin: 10/03/19 10:52 Dose: 17 gm Sertraline HCl (Zoloft*) 25 mg PO DAILY [facility] Last Admin: 10/03/19 09:21 Dose: 25 mg Ticagrelor (Brilinta*) 90 mg PO BID [facility] Last Admin: 10/03/19 09:21 Dose: 90 mg Vital Signs - 8 hr 10/03/19 10/03/19 10/03/19 03:35 04:00 08:00 Temperature 97.6 F 98.1 F Pulse Rate 73 80 Respiratory 14 20 16 Rate Blood Pressure 102/74 98/60 (mmHg) O2 Sat by Pulse 98 100 Oximetry 10/03/19 09:21 Temperature Pulse Rate Respiratory 18 Rate Blood Pressure (mmHg) O2 Sat by Pulse Oximetry Oxygen Devices in Use Now: None Appearance: Pleasant gentleman lying in bed in NAD Eyes: No Scleral Icterus Ears/Nose/Mouth/Throat: Mucous Membranes Moist Neck: Trachea Midline Respiratory: Symmetrical Chest Expansion and Respiratory Effort, - - BS+ bilaterally coarse with no added sounds Cardiovascular: RRR - Normal S1 and S2 Abdominal: - - Soft, mild distention, NT, BS+ Extremities: No Edema Neurological: Alert and Oriented x 3, NL Muscle Strength and Tone Result Diagrams: 10/02/19 10:22 10/02/19 10:15 Microbiology and Other Data: Microbiology 10/02/19 18:02 Nasal Screen MRSA (PCR) - Final Nasal Mrsa Detected Assess/Plan/Problems-Billing Assessment: Mr Orr is a 59yo M with PMH of CAD s/p stent to LAD, paroxysmal VT s/p ICD, systolic CHF with EF 20%, ischemic CMP, HTN, HLD, gout, CKD stage 3, GERD, depression, hypothyroidism, who presented to ED with c/o dyspnea after missing a week of his Torsemide. - Patient Problems (1) Acute systolic congestive heart failure Comment: - Secondary to non compliance with Torsemide. - CM to assist and clarify why Torsemide request wasn't filled up - unclear if issue was with Pharmacy, Physician's office, or patient. - Continue Metoprolol and Lisinopril as BP allows. (2) CAD (coronary artery disease) Comment: - Stable. - Continue ASA, Brilinta, metoprolol, Atorvastatin. (3) Hypothyroidism Comment: - Check TSH. - Continue Levothyroxine. (4) Early satiety Comment: - Suspect secondary to fluid overload causing GI tract edema, as well as constipation. - Continue diuresis and add laxatives. (5) DVT prophylaxis Comment: - SQ heparin. (6) Full code status
[2019-10-03 13:10] LABS: TSH (Thyroid Stimulating Horm) 7.06 mcIU/mL (0.34-5.60)
[2019-10-03] MEDS: Atorvastatin* 80 MG TAB PO SCH (16:17)
[2019-10-03] MEDS: Metoprolol Succinate XL TAB* 50 MG PO SCH (22:00)
[2019-10-03] MEDS: CMC:Ticagrelor (NF) 60 MG TAB PO SCH (22:15)
[2019-10-04] MEDS: Heparin VIAL(*) 5000 UNITS/ML VIAL (FIVE THOUSAND) SUBCUT SCH ×3 (05:28→21:15)
[2019-10-04] MEDS: Levothyroxine TAB* 75 MCG TAB PO SCH (05:29)
[2019-10-04 06:13] LABS: Albumin 3.7 g/dL (3.2-5.2); Albumin/Globulin Ratio 1.9 (1-3); BUN/Creatinine Ratio 19.4 (8-20); Calcium 8.9 mg/dL (8.6-10.3); EGFR African American 50.3 (>60); EGFR Non-African American 41.6 (>60); Globulin 1.9 g/dL (2-4); Magnesium 2.2 mg/dL (1.9-2.7); Potassium 3.6 mmol/L (3.5-5.0); Total Bilirubin 1.6 mg/dL (0.2-1.0); Total Protein 5.6 g/dL (6.4-8.9)
[2019-10-04 08:31] LABS: Hepatitis B Surface Antigen Nonreactive (Nonreactive)
[2019-10-04 08:48] LABS: Hepatitis C Antibody Negative (Negative)
[2019-10-04] MEDS: Furosemide IV* 10 MG/ML VIAL (40 MG) IV SLOW PU SCH (09:37)
[2019-10-04] MEDS: CMC:Ticagrelor (NF) 60 MG TAB PO SCH ×2 (09:37→21:15)
[2019-10-04] MEDS: Sertraline* 25 MG TAB PO SCH (09:38)
[2019-10-04] MEDS: Magnesium Oxide TAB* 400 MG PO SCH ×3 (09:38→21:15)
[2019-10-04] MEDS: Aspirin EC TAB* 81 MG TAB.EC PO SCH (09:38)
[2019-10-04] MEDS: Polyethylene Glycol 3350* 17 GM PACKET PO SCH (09:39)
[2019-10-04] MEDS: Metoprolol Succinate XL TAB* 50 MG PO SCH ×3 (09:39→23:55)
[2019-10-04] MEDS: Lisinopril TAB* 5 MG PO SCH (09:39)
--- NOTE | 2019-10-04 09:52 | PN ---
Subjective Date of Service: 10/04/19 Interval History: HOSPITALIST PROGRESS NOTE Patient seen and examined at bedside. Care reviewed and d/w Elizabeth Mccarty RN. He had more abdominal pain last night, but this morning he feels better. States the pain is worse when he eats. Had N/V last night, this is resolved now. Had BM today, doesn't want to take Miralax today. Family History: Unchanged from Admission Social History: Unchanged from Admission Past Medical History: Unchanged from Admission Objective Active Medications: Hydrocodone Bitart/Acetaminophen ([place] 5-325 Tab*) 1 tab PO Q6H PRN PRN Reason: PAIN - SEVERE Last Admin: 10/03/19 22:01 Dose: 1 tab Aspirin (Aspirin Ec Tab*) 81 mg PO DAILY [facility] Last Admin: 10/04/19 09:38 Dose: 81 mg Atorvastatin Calcium (Lipitor*) 80 mg PO 1700 [facility] Last Admin: 10/03/19 16:17 Dose: 80 mg Furosemide (Lasix Iv*) 40 mg IV SLOW PU DAILY [facility] Last Admin: 10/04/19 09:37 Dose: 40 mg Heparin Sodium (Porcine) (Heparin Vial(*)) 5,000 units SUBCUT Q8HR [facility] Last Admin: 10/04/19 05:28 Dose: 5,000 units Cefepime HCl (Maxipime 1 Gm In Dextrose Duplex (*)) 1 gm in 50 mls @ 100 mls/ hr IV Q12H [facility] Levothyroxine Sodium (Synthroid Tab*) 75 mcg PO DAILY@0600 [facility] Last Admin: 10/04/19 05:29 Dose: 75 mcg Lisinopril (Prinivil Tab*) 2.5 mg PO DAILY [facility] Last Admin: 10/04/19 09:39 Dose: Not Given Magnesium Hydroxide (Milk Of Magnesia Liq*) 30 ml PO Q6H PRN PRN Reason: CONSTIPATION Last Admin: 10/03/19 13:29 Dose: 30 ml Magnesium Oxide (Magox 400 Tab*) 800 mg PO TID [facility] Last Admin: 10/04/19 09:38 Dose: 800 mg Metoprolol Succinate (Toprol Xl Tab*) 50 mg PO BID [facility] Last Admin: 10/04/19 09:39 Dose: Not Given Polyethylene Glycol/Electrolytes (Miralax*) 17 gm PO 0800,2100 [facility] Last Admin: 10/04/19 09:39 Dose: Not Given Sertraline HCl (Zoloft*) 25 mg PO DAILY [facility] Last Admin: 10/04/19 09:38 Dose: 25 mg Ticagrelor (Brilinta (Nf)) 60 mg PO BID [facility] Last Admin: 10/04/19 09:37 Dose: 60 mg Vital Signs - 8 hr 10/04/19 10/04/19 03:25 08:00 Temperature 98.2 F 97.5 F Pulse Rate 60 72 Respiratory 18 20 Rate Blood Pressure 94/68 112/64 (mmHg) O2 Sat by Pulse 96 96 Oximetry Oxygen Devices in Use Now: None Appearance: Pleasant genlteman lying in bed in NAD Eyes: No Scleral Icterus Ears/Nose/Mouth/Throat: Mucous Membranes Moist Neck: Trachea Midline Respiratory: Symmetrical Chest Expansion and Respiratory Effort, Clear to Auscultation Cardiovascular: RRR - Normal S1 and S2 Abdominal: - - Soft, mild epigastric tenderness, NG, NR, BS+, liver is palpable one fingerbreadth under ribs Extremities: No Edema Neurological: Alert and Oriented x 3, NL Muscle Strength and Tone Result Diagrams: 10/02/19 10:22 10/04/19 05:18 Microbiology and Other Data: Microbiology 10/02/19 18:02 Nasal Screen MRSA (PCR) - Final Nasal Mrsa Detected Assess/Plan/Problems-Billing Assessment: Mr Orr is a 59yo M with PMH of CAD s/p stent to LAD, paroxysmal VT s/p ICD, systolic CHF with EF 20%, ischemic CMP, HTN, HLD, gout, CKD stage 3, GERD, depression, hypothyroidism, who presented to ED with c/o dyspnea after missing a week of his Torsemide. - Patient Problems (1) Acute cholecystitis Comment: - Patient had c/o RUQ pain and mild transaminitis on admission, thought to be secondary to vascular congestion, but this is improved and he continues to have abdominal pain and LFTs are trending up. - RUQ US shows GB wall thickening with pericholecystic fluid - suspect mild acute cholecystitis. Will start Cefepime. - Surgery consult requested, but patient is a very poor surgical candidate - may do better with conservative treatment. - Patient describes a similar episode in 2014 while at [place] - he was told at that time he could not have surgery and was treated conservatively. (2) Acute systolic congestive heart failure Comment: - Much improved - continue IV Furosemide. - Secondary to non compliance with Torsemide. 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 His poor health literacy is certainly playing a role. CM involved to assist with community resources to assist him. - Continue Metoprolol and Lisinopril as BP allows. (3) CAD (coronary artery disease) Comment: - Stable. - Continue ASA, Brilinta, metoprolol, Atorvastatin. (4) Hypothyroidism Comment: - TSH slightly elevated at 7.06 - will continue Levothyroxine at the same dose for now. As the elevation is mild, I believe repeating this as outpatient when he's doing better is more prudent, considering his arrhythmia risk. (5) DVT prophylaxis Comment: - SQ heparin. (6) Full code status Status and Disposition: Change to inpatient.
[2019-10-04] MEDS: Cefepime 1 GM in Dextrose(*) 1 GM/50 ML BAG IV SCH ×2 (10:40→21:15)
[2019-10-04] MEDS ORDERED: Furosemide IV* 10 MG/ML VIAL (40 MG) IV SLOW PU SCH (15:47)
[2019-10-04] MEDS ORDERED: Lisinopril TAB* 5 MG PO SCH (17:00)
[2019-10-04] MEDS: Atorvastatin* 80 MG TAB PO SCH (17:09)
--- NOTE | 2019-10-04 17:38 | CONSULT ---
Consult Consult: Consult for abdominal pain with elevated LFTs. HPI: Mr Orr is a 59 yo man with a history of ischemic cardiomyopathy, CAD, HTN, hyperlipidemia, paroxysmal Vtach s/p ICD, hypothyroidism, CKD stage 3 who was admitted to the hospitalist service with CHF exacerbation after not taking torsemide for about 1 week. He presented to the ED on 10/02 with shortness of breath which he reports has improved significantly. He continues to have dyspnea on exertion which is his baseline. He reports that he has also been experiencing upper abdominal pressure for the past 1 week which occasionally migrates to the lower abdomen. He also has been nauseous but has vomited just once last night. He denies fevers or chills. He has had small bowel movements that are yellow in color. He was started on antibiotics today. Past Medical Hx: CAD s/p stent, hypertension, hyperlipidemia, ischemic cardiomyopathy, paroxysmal V tach s/p ICD, CKD stage 3, hypothyroidism, L carotid stenosis Past Surgical Hx: ICD placement R carotid stent in 2014 Home Medications: Aspirin EC TAB* [Ecotrin EC Low Dose 81 MG*] 81 mg PO DAILY 08/06/15 [History Confirmed 10/02/19] Atorvastatin* [Lipitor 20 MG*] 80 mg PO 1700 08/06/15 [History Confirmed ] Levothyroxine TAB* [Synthroid 25 MCG TAB*] 75 mcg PO DAILY 08/06/15 [History Confirmed 10/02/19] Lisinopril TAB* [Prinivil TAB 5 MG*] 2.5 mg PO DAILY 08/06/15 [History Confirmed 10/02/19] Magnesium Oxide TAB* [MagOx 400 TAB*] 800 mg PO TID 09/27/18 [History Confirmed 10/02/19] Torsemide TAB* [Demadex 20 MG*] 40 mg PO DAILY 09/27/18 [History Confirmed 10/03] Sertraline* [Zoloft*] 25 mg PO DAILY 10/02/19 [History Confirmed 10/02/19] Metoprolol Succinate XL TAB* [Toprol XL TAB*] 50 mg PO BID 10/03/19 [History Confirmed 10/03/19] Ticagrelor (NF) [Brilinta 60 MG TAB] 60 mg PO BID 10/03/19 [History Confirmed ] Allergies clopidogrel [From Plavix] Allergy (Severe, Verified 10/02/19 10:55) Anaphylatic Shock ROS: 14-point review of systems was performed and pertinent findings are noted in the HPI. Family History: He reports his mother from possibly coronary artery disease and peripheral vascular disease. His father had stomach cancer. Social History: He previously smoked about 1 ppd and quit smoking in 2008. He denies alcohol or recreational drug use. 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 Physical Exam: Temp Pulse Resp BP Pulse Ox 97.4 F 73 16 110/77 100 10/04/19 15:45 10/04/19 15:45 10/04/19 15:45 10/04/19 16:00 10/04/19 15:45 General: No acute distress sitting in bed. HEENT: Atraumatic. Pupils equal. No scleral icterus. Moist mucous membranes. CVS: Regular rhythm and rate. Chest: Clear to auscultation. Breathing comfortably on room air. Abdomen: soft, mildly distended. Mildly tender to palpation in epigastrium and RUQ. No rebound or guarding. Skin: Intact, no lesions. No jaundice. Extremities: No pedal edema bilaterally. Neuro: Alert and oriented x3. Moves all extremities. Diagnostic Labs and Imaging: WBC was 12 on admission. Total bilirubin is 1.6, up from 1.3 on admission. ALT 234, AST 166, Alk phos 281 today. Ultrasound showed mild gallbladder wall thickening and trace pericholecystic fluid. CBD 1mm. I did not see gallstones when reviewing the imaging. Assessment and Plan: Abdominal pain is likely due to CHF and vascular congestion. Cholecystitis is unlikely given the location of pain and the ultrasound findings. The patient is a poor surgical candidate based on his cardiac history. I agree with continuing antibiotics and would trend LFTs and CBC.
[2019-10-04] MEDS ORDERED: Polyethylene Glycol 3350* 17 GM PACKET PO PRN (20:00)
[2019-10-05] MEDS: Levothyroxine TAB* 75 MCG TAB PO SCH (05:54)
[2019-10-05] MEDS: Heparin VIAL(*) 5000 UNITS/ML VIAL (FIVE THOUSAND) SUBCUT SCH ×2 (05:54→13:59)
[2019-10-05 07:17] LABS: Hematocrit 40 % (42-52); Hemoglobin 13.4 g/dL (14.0-18.0); Mean Corpuscular HGB Conc 33 g/dL (31-36); Mean Corpuscular Hemoglobin 30 pg (27-31); Mean Corpuscular Volume 90 fL (80-94); Mean Platelet Volume 11.6 fL (7.4-10.4); Platelet Count 180 10^3/uL (150-450); Red Blood Count 4.46 10^6 /uL (4.18-5.48); Red Cell Distribution Width 18 % (10-15); White Blood Count 10.5 10^3/uL (3.5-10.8)
[2019-10-05 07:21] LABS: ABS Basophils 0.1 10^3/ul (0-0.2); ABS Eosinophils 0.5 10^3/ul (0-0.6); ABS Lymphocytes 1.3 10^3/ul (1.0-4.8); ABS Monocytes 0.9 10^3/ul (0-0.8); ABS Neutrophils 7.8 10^3/ul (1.5-7.7); Eosinophil % 4.9 %; Nucleated Red Blood Cells % 0.2
[2019-10-05 07:32] LABS: Albumin 3.6 g/dL (3.2-5.2); Albumin/Globulin Ratio 1.8 (1-3); BUN/Creatinine Ratio 17.1 (8-20); C Reactive Protein 26.85 mg/L (<8.01); Calcium 9.2 mg/dL (8.6-10.3); EGFR African American 57.3 (>60); EGFR Non-African American 47.3 (>60); Potassium 3.8 mmol/L (3.5-5.0); Total Bilirubin 1.4 mg/dL (0.2-1.0); Total Protein 5.6 g/dL (6.4-8.9)
[2019-10-05 07:50] LABS: Large Platelets Present
--- NOTE | 2019-10-05 08:05 | PN ---
Subjective Date of Service: 10/05/19 Interval History: HOSPITALIST PROGRESS NOTE Patient seen and examined at bedside. Care reviewed and d/w Family History: Unchanged from Admission Social History: Unchanged from Admission Past Medical History: Unchanged from Admission Objective Active Medications: Hydrocodone Bitart/Acetaminophen ([place] 5-325 Tab*) 1 tab PO Q6H PRN PRN Reason: PAIN - SEVERE Last Admin: 10/03/19 22:01 Dose: 1 tab Aspirin (Aspirin Ec Tab*) 81 mg PO DAILY [facility] Last Admin: 10/04/19 09:38 Dose: 81 mg Atorvastatin Calcium (Lipitor*) 80 mg PO 1700 [facility] Last Admin: 10/04/19 17:09 Dose: 80 mg Furosemide (Lasix Iv*) 40 mg IV SLOW PU DAILY [facility] Heparin Sodium (Porcine) (Heparin Vial(*)) 5,000 units SUBCUT Q8HR [facility] Last Admin: 10/05/19 05:54 Dose: 5,000 units Cefepime HCl (Maxipime 1 Gm In Dextrose Duplex (*)) 1 gm in 50 mls @ 100 mls/ hr IV Q12H [facility] Last Admin: 10/04/19 21:15 Dose: 100 mls/hr Influenza Virus Vaccine (Fluarix Quad [id number] Syr) 0.5 ml IM .ONCE ONE Stop: 10/05/19 09:01 Levothyroxine Sodium (Synthroid Tab*) 75 mcg PO DAILY@0600 [facility] Last Admin: 10/05/19 05:54 Dose: 75 mcg Lisinopril (Prinivil Tab*) 2.5 mg PO 1700 [facility] Last Admin: 10/04/19 17:09 Dose: 2.5 mg Magnesium Hydroxide (Milk Of Magnesia Liq*) 30 ml PO Q6H PRN PRN Reason: CONSTIPATION Last Admin: 10/03/19 13:29 Dose: 30 ml Magnesium Oxide (Magox 400 Tab*) 800 mg PO TID [facility] Last Admin: 10/04/19 21:15 Dose: 800 mg Metoprolol Succinate (Toprol Xl Tab*) 50 mg PO 1200,0000 [facility] Last Admin: 10/04/19 23:55 Dose: 50 mg Polyethylene Glycol/Electrolytes (Miralax*) 17 gm PO BID@0800,2000 PRN PRN Reason: CONSTIPATION Sertraline HCl (Zoloft*) 25 mg PO DAILY [facility] Last Admin: 10/04/19 09:38 Dose: 25 mg Ticagrelor (Brilinta (Nf)) 60 mg PO BID [facility] Last Admin: 10/04/19 21:15 Dose: 60 mg Vital Signs - 8 hr 10/05/19 03:12 Temperature 98.7 F Pulse Rate 57 Respiratory 20 Rate Blood Pressure 103/67 (mmHg) O2 Sat by Pulse 97 Oximetry Oxygen Devices in Use Now: None Result Diagrams: 10/05/19 06:02 10/05/19 06:02 Additional Lab and Data: Lab Results 10/02/19 Range/Units 10:22 WBC 12.2 H (3.5-10.8) 10^3/uL RBC 4.57 (4.18-5.48) 10^6 /uL Hgb 13.4 L (14.0-18.0) g/dL Hct 41 L (42-52) % MCV 89 (80-94) fL MCH 29 (27-31) pg MCHC 33 (31-36) g/dL RDW 17 H (10-15) % Plt Count 193 (150-450) 10^3/uL MPV 11.4 H (7.4-10.4) fL Neut % (Auto) 78.8 % Lymph % (Auto) 13.0 % [place] % (Auto) 5.8 % Eos % (Auto) 1.4 % Baso % (Auto) 1.0 % Absolute Neuts (auto) 9.6 H (1.5-7.7) 10^3/ul Absolute Lymphs (auto) 1.6 (1.0-4.8) 10^3/ul Absolute Monos (auto) 0.7 (0-0.8) 10^3/ul Absolute Eos (auto) 0.2 (0-0.6) 10^3/ul Absolute Basos (auto) 0.1 (0-0.2) 10^3/ul Absolute Nucleated RBC 0.0 10^3/ul Nucleated RBC % 0.3 Microbiology and Other Data: Microbiology 10/02/19 18:02 Nasal Screen MRSA (PCR) - Final Nasal Mrsa Detected Assess/Plan/Problems-Billing Assessment: Mr Orr is a 59yo M with PMH of CAD s/p stent to LAD, paroxysmal VT s/p ICD, systolic CHF with EF 20%, ischemic CMP, HTN, HLD, gout, CKD stage 3, GERD, depression, hypothyroidism, who presented to ED with c/o dyspnea after missing a week of his Torsemide. - Patient Problems (1) Acute cholecystitis Comment: - Patient had c/o RUQ pain and mild transaminitis on admission, thought to be secondary to vascular congestion, but this is improved and he continues to have abdominal pain and LFTs are trending up. - RUQ US shows GB wall thickening with pericholecystic fluid - suspect mild acute cholecystitis. Will start Cefepime. - Surgery consult requested, but patient is a very poor surgical candidate - may do better with conservative treatment. - Patient describes a similar episode in 2014 while at [place] - he was told at that time he could not have surgery and was treated conservatively. (2) Acute systolic congestive heart failure Comment: - Much improved - continue IV Furosemide. - Secondary to non compliance with Torsemide. 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 His poor health literacy is certainly playing a role. CM involved to assist with community resources to assist him. - Continue Metoprolol and Lisinopril as BP allows. (3) CAD (coronary artery disease) Comment: - Stable. - Continue ASA, Brilinta, metoprolol, Atorvastatin. (4) Hypothyroidism Comment: - TSH slightly elevated at 7.06 - will continue Levothyroxine at the same dose for now. As the elevation is mild, I believe repeating this as outpatient when he's doing better is more prudent, considering his arrhythmia risk. (5) DVT prophylaxis Comment: - SQ heparin. (6) Full code status Status and Disposition: Change to inpatient.
[2019-10-05] MEDS ORDERED: Influenza VAC *QUAD* 2019-20* 0.5 ML SYRINGE IM ONE (09:00)
[2019-10-05] MEDS: Aspirin EC TAB* 81 MG TAB.EC PO SCH (10:01)
[2019-10-05] MEDS: Magnesium Oxide TAB* 400 MG PO SCH ×2 (10:03→13:58)
[2019-10-05] MEDS: Sertraline* 25 MG TAB PO SCH (10:03)
[2019-10-05] MEDS: Cefepime 1 GM in Dextrose(*) 1 GM/50 ML BAG IV SCH (10:04)
[2019-10-05] MEDS: CMC:Ticagrelor (NF) 60 MG TAB PO SCH (10:05)
[2019-10-05] MEDS ORDERED: Torsemide TAB 10 MG PO ONE (10:10)
[2019-10-05 12:01] VITALS: BP 102/62
[2019-10-05] MEDS: Metoprolol Succinate XL TAB* 50 MG PO SCH (13:58)
--- NOTE | 2019-10-05 16:51 | PN ---
Progress Note - Progress Note Date of Service: 10/05/19 Note: Jose Alfredo reports he is feeling better today. He has minimal to no abdominal pain. Denies chest pain or shortness of breath. No fevers or chills. He is tolerating liquids and wants to eat solid foods. Temp Pulse Resp BP Pulse Ox 97.7 F 69 20 102/62 100 10/05/19 12:00 10/05/19 12:00 10/05/19 12:00 10/05/19 12:00 10/05/19 12:00 No acute distress Normocephalic, atraumatic. Pupils equal. Moist mucous membranes. Regular rhythm and rate. Breathing comfortably on room air Abdomen soft, nontender, nondistended. Extremities warm and well-perfused. Alert and oriented x3 A&P 59M with abdominal pain, more likely due to vascular congestion. WBC is normal today, and symptoms have resolved. -Advance diet as tolerated. -Antibiotics per hospitalist
--- NOTE | 2019-10-05 21:32 | DS ---
CC: Dr. Lou Jackson; Dr. Magana * DISCHARGE SUMMARY: DATE OF ADMISSION: 10/04/19. DATE OF DISCHARGE: 10/05/19. PRIMARY CARE PROVIDER: Dr. Lou Jackson. BIRTHING NURSE: Dr. Magana. DISCHARGE DIAGNOSES: 1. Acute systolic congestive heart failure exacerbation secondary to noncompliance with diuretics. 2. Abdominal pain, secondary to vascular congestion versus acute cholecystitis. 3. Transaminitis. SECONDARY DIAGNOSES: 1. Coronary artery disease, status post stent to left anterior descending artery. 2. Paroxysmal ventricular tachycardia, status post ICD. 3. Systolic congestive heart failure with ejection fraction of 28%. 4. Ischemic cardiomyopathy. 5. Hypertension. 6. Hyperlipidemia. 7. Gout. 8. Chronic kidney disease, stage 3. 9. Depression. 10. Hypothyroidism. MEDICATIONS: 1. Aspirin 81 mg p.o. daily. 2. Atorvastatin 80 mg p.o. daily. 3. Levothyroxine 75 mcg p.o. daily. 4. Lisinopril 2.5 mg p.o. daily. 5. Magnesium oxide 800 mg p.o. t.i.d. 6. Metoprolol succinate 50 mg p.o. b.i.d. 7. Sertraline 25 mg p.o. daily. 8. Ticagrelor 60 mg p.o. b.i.d. 9. Torsemide 40 mg p.o. daily. New medication: Augmentin 875 mg p.o. b.i.d. for 7 more days. HOSPITAL COURSE: Mr. Orr is a 59-year-old male with past medical history as stated above, who presented to the emergency room with complaints of shortness of breath. The patient ran out of torsemide and apparently there was some miscommunication, though the medication was available in the pharmacy, but he did not know when to pick it up, so he was without his diuretics for almost a week. He presented to the emergency room with complaints of shortness of breath and abdominal pain. For more details about his presentation, I refer you to his history and physical. The patient was admitted and he received IV furosemide with good response. His breathing progressively improved. He was also noted to have elevated transaminases with a total bilirubin of 1.5, AST of 74, ALT of 114. Initially, those were thought to be secondary to congestion associated with his CHF, but the numbers continued to trend up, so at that point he had hepatitis serologies that were negative and an abdomen ultrasound that showed gallbladder wall thickening with pericholecystic fluid suspicious for acute cholecystitis. The patient did have mild leukocytosis on admission that resolved. He reports that in 2015 he had a similar episode when he was admitted in [place] and he was told he was at too high risk to have gallbladder surgery, and at that point he was treated just with antibiotics. The patient was seen in consultation by General Surgery (Dr. Shook) and her impression was that his abdominal pain was likely secondary to CHF and vascular congestion. Cholecystitis is unlikely and the patient is a poor surgical candidate based on his cardiac history. Her recommendation was to continue antibiotics. The patient had improvement of his abdominal pain. He was able to tolerate an oral diet and he felt that he was back at his baseline with his usual breathing at rest and his usual shortness of breath with exertion. The patient was also found to have a TSH of 7.06. With his cardiac history, decision was made to continue his usual levothyroxine dose of 75 mcg a day for now and to have a repeat TSH done on 10/26/19, and the results will be sent to Dr. Jackson to decide if his levothyroxine should be adjusted or not. He will also have a CMP done on 10/10/19 to follow his renal function and LFTs. Those results will also be sent to Dr. Jackson. The patient is medically stable to be discharged home today to follow up as outpatient. PHYSICAL EXAMINATION: Vital Signs: Temperature 98.7, heart rate is 69, respiratory rate is 20, oxygen saturation is 100% on room air, blood pressure is 102/62. General: The patient is a pleasant gentleman, lying in bed, in no acute distress. CVS: S1, S2. Regular rate and rhythm. Chest: Breath sounds bilaterally with no added sounds. Abdomen: Soft, nontender, nondistended. Bowel sounds are present. Extremities: No lower extremity edema. Neuro: He is alert and oriented x3. Able to move all 4 extremities. DIET: Heart healthy diet. ACTIVITY: As tolerated. DISPOSITION: To home. STATUS WHILE IN THE HOSPITAL: Inpatient. CONDITION AT THE TIME OF DISCHARGE: Fair. Please keep in mind this is a summarized version of the patient's hospital stay. If you need more information, please feel free to call me at [phone] or please obtain the full medical records. The patient was also called by pillowcase folder and arrangements were made so the patient could have a CAP coordinator as outpatient to help literacy and medication compliance. [id number]/[facility] #: [id number] MTDD
== END 2019-10-05 14:33 | disposition home health service (06) | DRG 194 ==
LOC: ED 09:56 → MEDTELE 15:37 → OBSVTOIN 10-04 12:45
PROVIDERS: ADMIT Internal Medicine; ATTEND Internal Medicine
DX: I13.0 Hypertensive heart and chronic kidney disease with heart failure and stage 1 through stage 4 chronic kidney disease, or unspecified chronic kidney disease (principal); I50.21 Acute systolic (congestive) heart failure; I47.2 Ventricular tachycardia; K81.0 Acute cholecystitis; N18.3 Chronic kidney disease, stage 3 (moderate); R74.0 Nonspecific elevation of levels of transaminase and lactic acid dehydrogenase [LDH]; R10.9 Unspecified abdominal pain; I25.10 Atherosclerotic heart disease of native coronary artery without angina pectoris; I25.5 Ischemic cardiomyopathy; E78.5 Hyperlipidemia, unspecified; M10.9 Gout, unspecified; F32.9 Major depressive disorder, single episode, unspecified; E03.9 Hypothyroidism, unspecified; I34.0 Nonrheumatic mitral (valve) insufficiency; I45.10 Unspecified right bundle-branch block; Z91.14 Patient's other noncompliance with medication regimen; Z95.810 Presence of automatic (implantable) cardiac defibrillator; Z95.5 Presence of coronary angioplasty implant and graft; Z79.82 Long term (current) use of aspirin; Z79.899 Other long term (current) drug therapy; Z88.8 Allergy status to other drugs, medicaments and biological substances; Z80.0 Family history of malignant neoplasm of digestive organs; Z82.49 Family history of ischemic heart disease and other diseases of the circulatory system; Z82.3 Family history of stroke; Z81.2 Family history of tobacco abuse and dependence; Z87.891 Personal history of nicotine dependence; I25.2 Old myocardial infarction
CPT/HCPCS: 36415; 71046; 71260; 74018; 74177; 76705; 80053; 80074; 82977; 83735; 83880; 84443; 84484; 85025; 86140; 87641; 90686; 93005; 96372; 96374; 96375; 96376; 99285; A9270-GY; G0378; J0692; J1644; J1940; J2405; J3010; Q9967

== ENCOUNTER 2019-10-12 07:57 | Emergency (ER) | payer OTHER ==
--- NOTE | 2019-10-12 08:05 | ED ---
HPI Chest Pain - HPI Summary HPI Summary: 59-year-old male with a significant past medical history of smoking, multiple previous MIs with defibrillator placement, liver failure,CHF, hypothyroidism, COPD, chronic cholecystitis diagnosis essentially emergency Department today with chief complaint of chest pain, abdominal pain, back pain which has been occurring over the last 3 weeks. He states the pain has been consistent since it began and is not involved in severity. He was recently treated for cholecystitis using azithromycin due to not being a surgical candidate which she says today is his last day of treatment. He is in the emergency department today because he woke up and had increased pain. He states nothing makes this pain better and nothing makes his pain worse. He denies associated symptoms with his chest pain such as diaphoresis. He does admit to associated symptoms of chest pain such as lightheadedness, changes in vision. He denies use of erectile dysfunction medication. He states his pain is a 2 out of 10 at this moment. He was recently seen on 07/06/2019 for the same complaint and again on October 04, 2019 for acute systolic CHF exacerbation and chest pain. Patient was stable and discharged from [facility] as an inpatient on 2018. Patient denies fevers, shortness of breath, pain with urination. - History of Current Complaint Hx Obtained From: Patient Onset/Duration: Started Weeks Ago Timing: Constant Initial Severity: Severe Current Severity: Severe Pain Intensity: 8 Pain Scale Used: 0-10 Numeric Chest Pain Location: Diffuse - Entire abdomen Chest Pain Radiates: No Character: Dull/Aching Aggravating Factor(s): Position - Laying flat Alleviating Factor(s): Position - Sitting up Associated Signs and Symptoms: Positive: Chest Pain, Back Pain, Abdominal Pain. Negative: Shortness of Breath, Fever, Nausea Related History: Similar Episode/Dx as: - Patient has experienced these symptoms for months. Similar to last admission to the hospital one week prior - Risk Factors AMI/ACS Risk Factors: Myocardial Infarction, Family History, Hypertension, Smoking, CHF - Additional Pertinent History Primary Care Physician: [id number] - Allergy/Home Medications Allergies/Adverse Reactions: Allergies Allergy/AdvReac Type Severity Reaction Status Date / Time clopidogrel [From Plavix] Allergy Severe Anaphylatic Verified 10/02/19 10:55 Shock Home Medications: Home Medications Allopurinol TAB* [Zyloprim 100 MG TAB*] 100 mg PO EVERY OTHER DAY 10/12/19 [ History Confirmed 10/12/19] Colchicine* [Colcrys*] 0.6 mg PO DAILY PRN 10/12/19 [History Confirmed 10/12/19] Nitroglycerin TAB 0.4 MG* 0.4 mg SL Q5M PRN 10/12/19 [History Confirmed 10/12/19 ] PMH/Surg Hx/FS Hx/Imm Hx Endocrine/Hematology History: Reports: Hx Anticoagulant Therapy, Hx Thyroid Disease - on synthroid Denies: Hx Blood Disorders, Hx Diabetes, Hx Unexplained Bleeding Cardiovascular History: Reports: Hx Angina, Hx Angioplasty, Hx Auto Implanted Cardiovert Defib, Hx Cardiomegaly, Hx Congestive Heart Failure, Hx Coronary Artery Disease, Hx Deep Vein Thrombosis, Hx Hypercholesterolemia, Hx Hypotension , Hx Hypertension, Hx Pacemaker/ICD, Hx Syncope Denies: Hx Congenital Heart Disease, Hx Valvular Heart Disease Respiratory History: Reports: Hx Chronic Obstructive Pulmonary Disease (COPD), Hx Pulmonary Edema GI History: Reports: Hx Gall Bladder Disease, Hx Gastroesophageal Reflux Disease , Hx Irritable Bowel History: Denies: Hx Renal Disease Musculoskeletal History: Reports: Hx Arthritis, Hx Back Problems, Hx Osteoporosis Sensory History: Reports: Hx Contacts or Glasses, Hx Hearing Problem - bilat KIANA Denies: Hx Hearing Aid Opthamlomology History: Reports: Hx Contacts or Glasses Neurological History: Denies: Hx Headaches - Surgical History Surgery Procedure, Year, and Place: PACEMAKER/DIFIBRILLATOR 2009 Hx Anesthesia Reactions: No - Family History Known Family History: Positive: Cardiac Disease Negative: Hypertension - Social History Alcohol Use: None Hx Substance Use: No Substance Use Type: Reports: None Hx Tobacco Use: Yes Smoking Status (MU): Former Smoker Type: Cigarettes Amount Used/How Often: 2pks/day Length of Time of Smoking/Using Tobacco: 20-30 years Have You Smoked in the Last Year: No Review of Systems Constitutional: Negative Positive: Chest Pain Positive: Shortness Of Breath Positive: Abdominal Pain Positive: Arthralgia - back pain Negative: Rash Psychological: Normal All Other Systems Reviewed And Are Negative: Yes Physical Exam Triage Information Reviewed: Yes Vital Signs Reviewed: Yes Appearance: Positive: No Pain Distress, Well-Nourished, Thin Skin: Positive: Warm, Skin Color Reflects Adequate Perfusion Head/Face: Positive: Normal Head/Face Inspection Eyes: Positive: Normal, EOMI ENT: Positive: Hearing grossly normal Respiratory/Lung Sounds: Positive: Clear to Auscultation, Breath Sounds Present , Other - To rales or rhonchi were not appreciated with auscultation. However breath sounds were very diminished throughout the precordium Cardiovascular: Positive: RRR, S1, S2 Abdomen Description: Positive: Other: - Positive Preston sign. Negative psoas, Rovsing, obturator sign. Normoactive bowel sounds. Diffuse tenderness with palpation throughout the abdomen. No guarding or rigidity of the abdomen.. Negative: Distended, Guarding, McBurney's Point Tenderness, Peritoneal Signs Bowel Sounds: Positive: Present Psychiatric: Positive: Normal AVPU Assessment: Alert Procedures - Sedation Patient Received Moderate/Deep Sedation with Procedure: No Diagnostics - Laboratory Result Diagrams: 10/12/19 08:35 10/12/19 08:35 Lab Statement: Any lab studies that have been ordered have been reviewed, and results considered in the medical decision making process. Chest Pain Course/Dx - Course Course Of Treatment: 59-year-old male was evaluated in the emergency department today for chief complaint of abdominal pain and chest pain for 2 weeks. The patient was seen and examined. During examination the patient was stable and in no acute distress. He had no trouble breathing and no adventitious lung sounds. Examination the abdomen was unimpressive for acute pathology and a repeat imaging of the abdomen was decided to be unnecessary as he recently had a CT scan of the abdomen and pelvis during his last visit on October 02, 2019. Examination the abdomen displayed a positive Preston sign which could be explained by his chronic cholecystitis. An EKG was performed showing normal sinus rhythm at a rate of 76 bpm. Abdomen soft first-degree block and prolonged QTc interval. There is a right bundle branch block but no evidence of ST elevation. These EKG findings are unchanged from his previous EKG done on 10/02/2019. Laboratory results were ordered and revealed mild leukocytosis with white count of 12.6 with a neutrophilic shift. His H&H were low at 13 and 39 respectively but this is his baseline due to his medical history. His BUN/ creatinine, total bilirubin, indirect bilirubin, direct bilirubin, AST, alkaline phosphatase are all elevated but this is his baseline and he remained the same as it were at discharge during his last hospitalization on 10/05/2019. His BUNs was greater than 1300 but this is also his baseline and was similar at the time of his discharge on 10/05/2019. Serial troponins showed no change and remained steady at 0.03 showing no cardiac insult. After laboratory results returned a chest x-ray was obtained which showed no acute cardiopulmonary pathology including pulmonary edema or pneumothorax.she is given 40 mg of Lasix IV to address his extravascular fluid overload. The patient was ambulated with pulse oximetry and maintain an oxygen saturation greater than 95% and determined he would be safe to go home and follow up with cardiology on 10/14/2019 as he has an appointment Dr. Magana. Instrument Technologist, Dr. Chawla was consulted in the emergency department in regards to safe discharge home at 1236. She suggested he is fit to go home but he needs to follow-up with Dr. Magana on Thursday and needs to keep a daily weight log to ensure he does not gain more than 3 pounds from now until his appointment with his PCP. She also suggested a nutritional consult to improve his diet as he is still ingesting high sodium foods. Patient was given nutritional instruction and told to follow- up with Dr. Magana and his PCP. he agrees with this plan. Patient was discharged home. he was told to return to the emergency department if he gains more and 3 pounds within 2 days and if he develops any new or worsening symptoms. He was stable at the time of discharge. - Chest Pain Differential Diagnosis/HQI/PQRI: Acute CT, ACS, Angina, CHF, GI Disease, Pulmonary Edema, Pulmonary Embolism, Other: - Chronic cholecystitis - Diagnoses Provider Diagnoses: Chronic cholecystitis, Chest pain, Abdominal pain, Congestive heart failure Discharge ED - Sign-Out/Discharge Documenting (check all that apply): Patient Departure - Discharge Plan Condition: Stable Disposition: HOME Patient Education Materials: Heart Failure (ED), Low-Sodium Diet (ED) Referrals: Lou Jackson DO [Primary Care Provider] - 2 Days (you have a scheduled appointment on Monday, October 14, 2019.) Vitaliy Magana MD [Medical Doctor] - 2 Days () Additional Instructions: You were seen in the emergency department today for abdominal pain and chest pain. It was determined that this pain is likely due to your chronic cholecystitis as well as your CHF. There were no changes in your laboratory studies or imaging since your discharge from [facility] on 10/05/2019. It is important that you obtain good nutrition and a low-sodium diet. Please refrain from high sodium foods including also. Please go home and weigh yourself and record this weight. Take a daily weight and if you gained more than 3 pounds within 2 days please call your doctor or return to the emergency department. Continue taking your home medications as directed. Follow-up with your PCP with your scheduled appointment on 10/14/2019 for further evaluation of this problem. If you develop any new or worsening symptoms please return to the emergency department. - Billing Disposition and Condition Condition: STABLE Disposition: Home - Attestation Statements Provider Attestation: I was available for consult. This patient was seen by the [facility]. The patient was not presented to, seen by, or examined by me. -
[2019-10-12 08:45] LABS: ABS Basophils 0.1 10^3/ul (0-0.2); ABS Eosinophils 0.2 10^3/ul (0-0.6); ABS Lymphocytes 1.4 10^3/ul (1.0-4.8); ABS Monocytes 0.8 10^3/ul (0-0.8); ABS Neutrophils 10.1 10^3/ul (1.5-7.7); Eosinophil % 1.8 %; Hematocrit 39 % (42-52); Lymphocyte % 11.3 %; Mean Corpuscular HGB Conc 33 g/dL (31-36); Mean Corpuscular Hemoglobin 30 pg (27-31); Mean Corpuscular Volume 89 fL (80-94); Mean Platelet Volume 10.9 fL (7.4-10.4); Platelet Count 222 10^3/uL (150-450); Red Blood Count 4.37 10^6 /uL (4.18-5.48); Red Cell Distribution Width 18 % (10-15); White Blood Count 12.6 10^3/uL (3.5-10.8)
[2019-10-12 09:03] LABS: Albumin 3.8 g/dL (3.2-5.2); Albumin/Globulin Ratio 1.6 (1-3); BUN/Creatinine Ratio 21.3 (8-20); C Reactive Protein 11.43 mg/L (<8.01); Calcium 9.4 mg/dL (8.6-10.3); EGFR Non-African American 44.6 (>60); Globulin 2.4 g/dL (2-4); Indirect Bilirubin 1.2 mg/dL (0.3-1.0); Magnesium 2.4 mg/dL (1.9-2.7); Total Bilirubin 1.6 mg/dL (0.2-1.0); Total Protein 6.2 g/dL (6.4-8.9); Troponin I 0.03 ng/mL (<0.04)
[2019-10-12] MEDS ORDERED: Furosemide IV* 10 MG/ML VIAL (40 MG) IV SLOW PU ONE (09:17)
[2019-10-12 13:04] VITALS: BP 101/70
== END 2019-10-12 13:02 | disposition home or self-care (01) ==
LOC: ED 07:57
DX: K81.1 Chronic cholecystitis (principal); R07.89 Other chest pain; R10.84 Generalized abdominal pain; I25.119 Atherosclerotic heart disease of native coronary artery with unspecified angina pectoris; I11.0 Hypertensive heart disease with heart failure; I45.10 Unspecified right bundle-branch block; Z95.810 Presence of automatic (implantable) cardiac defibrillator; Z86.718 Personal history of other venous thrombosis and embolism; Z79.01 Long term (current) use of anticoagulants; J44.9 Chronic obstructive pulmonary disease, unspecified; Z88.8 Allergy status to other drugs, medicaments and biological substances; Z87.891 Personal history of nicotine dependence
CPT/HCPCS: 36415; 71046; 80053; 82140; 82248; 83605; 83690; 83735; 83880; 84484; 85025; 86140; 87040; 93005; 96374; 99284; J1940

== ENCOUNTER 2019-12-08 15:37 | Inpatient (IN) | payer OTHER ==
--- NOTE | 2019-12-08 16:27 | ED ---
Shortness of Breath - HPI Summary HPI Summary: The patient is a 59 year old male [place] [facility] [place] with a chief complaint of shortness of breath and nonproductive cough worsening over the last two weeks. He reports dyspnea with rest and worse with exertion. He states occasional chest pain that is not present now. He also has observed a noticeable weight gain in his abdomen, but he denies any edema or fevers. He states he is supposed to be on oxygen chronically, but he has not been able to receive a tank at home, although he has been using one of his wifes tanks. He notes he sleeps on four pillows at home. He does not have a history of cirrhosis or heavy drinking, but cirrhosis is present in his family. Past medical history significant for thyroid disease, angina, cardiomegaly, pacemaker /defibrillator, CHF, CAD, DVT, hyperlipidemia, hypertension, COPD, pulmonary edema. Family history of cardiac disease. Former smoker, no alcohol use, no substance use. - History of Current Complaint Chief Complaint: EDShortnessOfBreath Time Seen by Provider: 12/08/19 16:15 Hx Obtained From: Patient Onset/Duration: Lasting Weeks - two, Still Present Current Severity: Moderate Dyspnea At: Other - at rest and exertion, but worse with exertion Aggravating Factors: Other - exertion Alleviating Factors: Oxygen Associated Signs & Symptoms: Cough (Nonproductive) - Allergy/Home Medications Allergies/Adverse Reactions: Allergies Allergy/AdvReac Type Severity Reaction Status Date / Time clopidogrel [From Plavix] Allergy Severe Anaphylatic Verified 10/02/19 10:55 Shock Home Medications: Home Medications Atorvastatin* [Lipitor*] 80 mg PO DAILY 12/08/19 [History Confirmed 12/08/19] Sertraline* [Zoloft*] 50 mg PO DAILY 12/08/19 [History Confirmed 12/08/19] PMH/Surg Hx/FS Hx/Imm Hx Endocrine/Hematology History: Reports: Hx Anticoagulant Therapy, Hx Thyroid Disease - on synthroid Denies: Hx Blood Disorders, Hx Diabetes, Hx Unexplained Bleeding Cardiovascular History: Reports: Hx Angina, Hx Angioplasty, Hx Auto Implanted Cardiovert Defib, Hx Cardiomegaly, Hx Congestive Heart Failure, Hx Coronary Artery Disease, Hx Deep Vein Thrombosis, Hx Hypercholesterolemia, Hx Hypotension , Hx Hypertension, Hx Pacemaker/ICD, Hx Syncope Denies: Hx Congenital Heart Disease, Hx Valvular Heart Disease Respiratory History: Reports: Hx Chronic Obstructive Pulmonary Disease (COPD), Hx Pulmonary Edema GI History: Reports: Hx Gall Bladder Disease, Hx Gastroesophageal Reflux Disease , Hx Irritable Bowel History: Denies: Hx Renal Disease Musculoskeletal History: Reports: Hx Arthritis, Hx Back Problems, Hx Osteoporosis Sensory History: Reports: Hx Contacts or Glasses, Hx Hearing Problem - bilat TRIBAL Denies: Hx Hearing Aid Opthamlomology History: Reports: Hx Contacts or Glasses Neurological History: Denies: Hx Headaches - Surgical History Surgical History: Yes Surgery Procedure, Year, and Place: PACEMAKER/DIFIBRILLATOR 2010 Hx Anesthesia Reactions: No Infectious Disease History: Yes Infectious Disease History: Denies: Traveled Outside the [place] in Last 30 Days - Family History Known Family History: Positive: Cardiac Disease Negative: Hypertension - Social History Alcohol Use: None Hx Substance Use: No Substance Use Type: Reports: None Hx Tobacco Use: Yes Smoking Status (MU): Former Smoker Type: Cigarettes Amount Used/How Often: 2pks/day Length of Time of Smoking/Using Tobacco: 20-30 years Have You Smoked in the Last Year: No Review of Systems Negative: Fever Positive: Chest Pain - occasionally Positive: Shortness Of Breath, Cough - nonproductive Positive: Other - weight gain in abdomen Negative: Edema All Other Systems Reviewed And Are Negative: Yes Physical Exam - Summary Physical Exam Summary: VITAL SIGNS: Reviewed. GENERAL: Patient is a well-developed and thin male who is lying comfortable in the stretcher. Patient is not in any acute respiratory distress. HEAD AND FACE: No signs of trauma. No ecchymosis, hematomas or skull depressions. No sinus tenderness.. EYES: PERRLA, EOMI x 2, No injected conjunctiva, no nystagmus. EARS: Hearing grossly intact. Ear canals and tympanic membranes are within normal limits. MOUTH: Oropharynx within normal limits. NECK: Supple, trachea is midline, no adenopathy, no JVD, no carotid bruit, no c- spine tenderness, neck with full ROM. CHEST: Symmetric, no tenderness at palpation. LUNGS: Patient on nasal cannula oxygen. Decreased breath sounds. Crackles in both bases. No wheezing. CVS: Regular rate and rhythm, S1 and S2 present, no murmurs or gallops appreciated. ABDOMEN: Soft, non-tender. Mild distention. No rebound, no guarding, and no masses palpated. Bowel sounds are normal. EXTREMITIES: FROM in all major joints, no edema, no cyanosis or clubbing. NEURO: Alert and oriented x 3. No acute neurological deficits. Speech is normal and follows commands. SKIN: Dry and warm. Triage Information Reviewed: Yes Vital Signs On Initial Exam: Initial Vitals Temp Pulse Resp BP Pulse Ox 98.8 F 87 18 117/80 84 12/08/19 15:39 12/08/19 15:39 12/08/19 15:39 12/08/19 15:39 12/08/19 15:39 Vital Signs Reviewed: Yes Procedures - Sedation Patient Received Moderate/Deep Sedation with Procedure: No Diagnostics - Vital Signs Vital Signs Temp Pulse Resp BP Pulse Ox 12/08/19 15:39 98.8 F 87 18 117/80 84 - Laboratory Result Diagrams: 12/08/19 16:37 12/08/19 16:37 Lab Statement: Any lab studies that have been ordered have been reviewed, and results considered in the medical decision making process. - Radiology Chest X-Ray Radiology Interpretation Completed By: Radiologist Summary of Radiographic Findings: Impression: Cardiomegaly with pulmonary vascular congestion. Right basilar atelectasis versus early consolidation. ED physician has reviewed this report. - EKG 1554 Cardiac Rate: NL - 91 bpm EKG Rhythm: Sinus Rhythm EKG Comparison: No Significant Change - Similar to previous on 10/12/19. Summary of EKG Findings: An EKG at 1554 reveals normal sinus rhythm at [address] elevations. ED physician has reviewed and interpreted this EKG. Re-Evaluation - Re-Evaluation First Eval Re-Evaluation Time: 18:05 Comment: We discussed results and plan for admission. Patient agrees with this plan. Course/Dx - Course Assessment/Plan: The patient is a 59 year old male [place] [facility] [place] with a chief complaint of shortness of breath and nonproductive cough worsening over the last two weeks. He reports dyspnea with rest and worse with exertion. He states occasional chest pain that is not present now. He also has observed a noticeable weight gain in his abdomen, but he denies any edema or fevers. He states he is supposed to be on oxygen chronically, but he has not been able to receive a tank at home, although he has been using one of his s tanks. He notes he sleeps on four pillows at home. He does not have a history of cirrhosis or heavy drinking, but cirrhosis is present in his family. Past medical history significant for thyroid disease, angina, cardiomegaly, pacemaker /defibrillator, CHF, CAD, DVT, hyperlipidemia, hypertension, COPD, pulmonary edema. Family history of cardiac disease. Former smoker, no alcohol use, no substance use. Blood work without any significant abnormality except for hemoglobin of 13.3, chloride of 99, BUN of 45, creatinine of 1.58, glucose of 119, alkaline phosphatase of 173, BNP greater than 1300, lactic acid of 3.0, and troponin of 0.04. Therefore, I believe the patient is in CHF exacerbation. The patient was given Lasix. EKG shows sinus rhythm with LBBB. Chest x-ray impression: Cardiomegaly with pulmonary vascular congestion. Right basilar atelectasis versus early consolidation. At this point I discussed my physical exam and findings with Dr. Faulkner from the hospital services who accepts the patient for admission. - Diagnoses Provider Diagnoses: CHF exacerbation, Dehydration, CRF (chronic renal failure) - Physician Notifications Discussed Care of Patient With: Masha Faulkner - hospitalist Time Discussed With Above Provider: 18:00 Instructed by Provider To: Other - I discussed the patients case with Dr. Faulkner, who accepts the patient for admission. Discharge ED - Sign-Out/Discharge Documenting (check all that apply): Patient Departure - Patient accepted for admission by Dr. Faulkner. - Discharge Plan Condition: Stable Disposition: ADMITTED TO [facility] - Billing Disposition and Condition Condition: STABLE Disposition: Admitted to [facility] - Attestation Statements Document Initiated by Arturo: Yes Documenting Scribe: Beulah Camacho Provider For Whom Arturo is Documenting (Include Credential): Dr. Mayco Jacobson MD Scribe Attestation: IBeulah, scribed for Dr. Mayco Jacobson MD on 12/08/19 at 2158. Scribe Documentation Reviewed: Yes Provider Attestation: The documentation as recorded by the Beulah velazquez accurately reflects the service I personally performed and the decisions made by me, Dr. Mayco Jacobson MD Status of Scribe Document: Viewed
--- OUTSIDE RECORDS SUMMARY | 2019-12-08 16:41 | XMS REPORT ---
:1960 Author Organization [facility] Care Team Providers Name Role Phone Unavailable Unavailable Unavailable Problems Condition Condition Condition Status Onset Resolution Last Treating Comments Name Details Category Date Date Treatment Clinician Date Acute Acute Diagnosis Active 2018-11 Nessa systolic systolic -20 [place] (congestive (congestive RN ) heart ) heart failure failure Chronic Chronic Diagnosis Active 2018-11 Nessa ischemic ischemic -20 [place] heart heart RN disease, disease, unspecified unspecified Low back Low back Diagnosis Active 2018-11 Nessa pain pain - [place] RN Cardiomyopa Cardiomyopa Diagnosis Active 2018-11 Nessa thy, thy, - [place] unspecified unspecified RN Hypothyroid Hypothyroid Diagnosis Active 2018-11 Nessa ism, ism, - [place] unspecified unspecified RN Major Major Diagnosis Active 2018-11 Nessa depressive depressive - [place] disorder, disorder, RN recurrent, recurrent, unspecified unspecified Essential Essential Diagnosis Active Nessa (primary) (primary) [place] hypertensio hypertensio RN n n Gastro-esop Gastro-esop Diagnosis Active Nessa hageal hageal [place] reflux reflux RN disease disease without without esophagitis esophagitis 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 Active Nessa (current) (current) [place] use of use of RN aspirin aspirin Pain frequent Pain Mgmt Resolve 2018-112019-11-04 Cathleen pain d 12-19 12:00:00 [place] 10:00: 00 Pain knowledge/s Pain Mgmt Resolve 2018-112019-11-04 Cathleen thompson 12-19 12:00:00 [place] deficit: pt 10:00: 00 Cardio knowledge/s Cardiovasc Resolve 2018-112019-11-29 Cathleen kohler ular donna 12-19 14:15:00 [place] deficit: pt 10:00: 00 Cardio pacemaker/I Cardiovasc Resolve 2018-112019-10-28 Cathleen CD ular d 12-19 11:20:00 [place] 10:00: 00 Respiratory dyspnea Respirator Active 2018-11 Cathleen present y 12-19 [place] 10:00: 00 Respiratory oxygen Respirator Active 2018-11 Cathleen treatments y 12-19 [place] in home 10:00: 00 Respiratory knowledge/s Respirator Resolve 2018-112019-11-29 Cathleen kill y d 12-19 14:15:00 [place] deficit: pt 10:00: 00 Endo/Les anti-coagul Endo/Les Resolve 2018-112019-10-19 Cathleen ation d 12-19 10:00:00 [place] therapy 10:00: 00 Nutrition knowledge/s Nutrition Resolve 2018-112019-11-22 Cathleen kill d 12-19 09:52:00 [place] deficit: pt 10:00: 00 Nutrition nutritional Nutrition Resolve 2018-112019-11-22 Cathleen restriction d 12-19 09:52:00 [place] s 10:00: 00 Neuro depressive Neuro/Emot Resolve 2018-112019-11-29 Cathleen feelings ion d 12-19 14:15:00 [place] present 10:00: 00 Neuro knowledge/s Neuro/Emot Resolve 2018-112019-11-29 Cathleen kill ion d 12-19 14:15:00 [place] deficit: pt 10:00: 00 Activity knowledge/s Activity Resolve 2018-112019-11-18 Cathleen kill d 20 14:45:00 [place] deficit: pt 10:00: 00 Activity self-care Activity Resolve 2018-112019-11-18 Cathleen deficit d 20 14:45:00 [place] 10:00: 00 Activity ADL Activity Resolve 2018-112019-11-18 Cathleen assistance d 12-19 14:45:00 [place] required 10:00: 00 Safety safety Safety Resolve 2018-112019-11-29 Cathleen hazards d 20 14:15:00 [place] present 10:00: 00 Safety sanitation Safety Resolve 2018-112019-11-29 Cathleen hazards d 20 14:15:00 [place] present 10:00: 00 Safety knowledge/s Safety Active 2018-11 Cathleen kohler 20 [place] deficit: pt 10:00: 00 Safety fall risk Safety Active 2018-11 Cathleen abbott 20 [place] present 10:00: 00 Safety fire risk Safety Active 2018-11 Cathleen present 12-19 [place] 10:00: 00 Safety risk for Safety Active 2018-11 Cathleen oliveira 12-19 [place] tion 10:00: 00 Medication oral med Meds Resolve 2018-112019-10-28 Cathleen assistance d 20 11:20:00 [place] required 10:00: 00 Medication knowledge/s Meds Resolve 2018-112019-10-28 Cathleen kill d 12-19 11:20:00 [place] deficit: pt 10:00: 00 Medication potential Meds Resolve 2018-112019-10-28 Cathleen clinically d 12-19 11:20:00 [place] significant 10:00: medication 00 issue Diagnoses knowledge/s Diagnoses Active 2018-11 Cathleen kohler 12-19 [place] deficit: pt 10:00: 00 Musculoskel knowledge/s Musculoske Resolve 2018-112019-11-18 Cathleen etal kill letal d 20 14:45:00 [place] deficit: pt 10:00: 00 Musculoskel requires Musculoske Resolve 2018-112019-11-04 Cathleen etal human letal d 20 12:00:00 [place] assist to 10:00: leave home 00 Neuro anxiety Neuro/Emot Resolve 2018-112019-11-29 Nessa present ion d 12-21 14:15:00 [place] 14:40: RN 00 24 Hr Diet nutrition NT: 24Hr Active 2018-11 Crystal intake Diet 12-22 [place] deficit 14:10: [id number] 00 24 Hr Diet knowledge/s NT: 24Hr Active 2018-11 Crystal kill Diet 12-22 [place] deficit - 14:10: [id number] pt 00 Nutritional eating NT: Resolve 2018-112019-10-22 Crystal Barrier difficultie Barriers d 12-22 14:10:00 [place] s present 14:10: [id number] Test/Treatm venipunctur Test/Injec Resolve 2018-112019-11-18 Nessa ent e ordered t/Andriy d 12-24 14:45:00 [place] RN Safety can be left Safety Active 2018-11 Nessa alone for 12-25 [place] only short 13:40: RN periods 00 Integument skin Integument Active 2018-11 Cathleen integrity 12-28 [place] risk 11:20: 00 Elimination constipatio Eliminatio Resolve 2018-112019-11-02 Cathleen nixon n d 12-28 11:35:00 [place] 11:20: 00 Cardio pacemaker/I Cardiovasc Active 2018-11 Nessa CD ular - [place] 11:35: RN 00 Medication oral med Meds Active 2018-11 Nessa assistance - [place] required 11:35: RN 00 Musculoskel requires Musculoske Resolve 2018-112019-11-18 Nessa etal human letal d 01-19 14:45:00 [place] assist to 14:45: RN leave home 00 Respiratory knowledge/s Respirator Resolve 2018-112019-11-29 Nessa kill y d 01-23 14:15:00 [place] deficit: cg 09:52: RN 00 Activity knowledge/s Activity Active 2018-11 Nessa kill 2-24 [place] deficit: pt 09:52: RN 00 Activity knowledge/s Activity Active 2018-11 Nessa kill 2-24 [place] deficit: cg 09:52: RN 00 Safety knowledge/s Safety Active 2018-11 Nessa kill 2-24 [place] deficit: cg 09:52: RN 00 Medication knowledge/s Meds Resolve 2018-112019-11-29 Nessa kill d 01-23 14:15:00 [place] deficit: cg 09:52: RN 00 Diagnoses knowledge/s Diagnoses Active 2018-11 Nessa kill 2-24 [place] deficit: cg 09:52: RN 00 Nutrition nutritional Nutrition Resolve 2018-112019-11-29 Nessa restriction d 14:15:00 [place] s 14:15: RN 00 Allergies, Adverse Reactions, Alerts Allergy Name Allergy Status Severity Reaction(s) Onset Inactive Treating Comments Type Date Date Clinician clopidogrel Base Active Unknown Reaction 2018-11 Interface Ingredient Unknown 12-04 Medications Ordered Filled Start Stop Current Ordering Indication Dosage Frequency Signature Comments Components Medication Medication Date Date Medication? Clinician (SIG) Name Name allopurinol allopurinol 2018-11 Yes Senner Unknown Unknown 100 mg 100 mg 1-20 D.O.,Jilli tablet tablet an D Aspir-81 mg Aspir-81 mg 2018-11 Yes Senner Unknown Unknown tablet,celso tablet,celso 1-20 D.O.,Jilli yed release yed release an D atorvastati atorvastati 2018-11 Yes Senner Unknown Unknown n 80 mg n 80 mg 1-20 D.O.,Jilli tablet tablet an D Brilinta 60 Brilinta 60 2018-11 Yes Senner Unknown Unknown mg tablet mg tablet 1-20 D.O.,Jilli an D levothyroxi levothyroxi 2018-11 Yes Senner Unknown Unknown ne 25 mcg ne 25 mcg 1-20 D.O.,Jilli tablet tablet an D lisinopril lisinopril 2018-11 Yes Senner Unknown Unknown 2.5 mg 2.5 mg -20 D.O.,Jilli tablet tablet an D magnesium magnesium 2018-11 Yes Senner Unknown Unknown 400 mg (as 400 mg (as 1-20 D.O.,Jilli magnesium magnesium an D oxide) oxide) tablet tablet metoprolol metoprolol 2018-11 Yes Senner Unknown Unknown succinate succinate -20 D.O.,Jilli ER 50 mg ER 50 mg an D capsule capsule sprinkle, sprinkle, ext. ext. release 24 release 24 hr hr sertraline sertraline 2018-11- Yes Senner Unknown Unknown 25 mg 25 mg -19 10-26 D.O.,Jilli tablet tablet an D torsemide torsemide 2018-11 Yes Senner Unknown Unknown 10 mg 10 mg -20 D.O.,Jilli tablet tablet an D torsemide torsemide 2018-11 Yes Senner Unknown Unknown 20 mg 20 mg 1-20 D.O.,Jilli tablet tablet an D oxygen oxygen 2018-11- Yes Senner Unknown Unknown -20 11-25 D.O.,Jilli an D oxygen oxygen 2018-11 Yes Senner Unknown Unknown -25 D.O.,Jilli an D traMADol 50 traMADol 50 2018-11 Yes Senner Unknown Unknown mg tablet mg tablet -22 D.O.,Jilli an D Lidocaine Lidocaine 2018-11 Yes Senner Unknown Unknown Pain Relief Pain Relief 1-22 D.O.,Jilli 4 % topical 4 % topical an D patch patch sertraline sertraline 2018-11 Yes Senner Unknown Unknown 50 mg 50 mg 1-26 D.O.,Jilli tablet tablet an D Miralax 17 Miralax 17 2018-11 Yes Senner Unknown Unknown gram oral gram oral 1-29 D.O.,Jilli powder powder an D packet packet Mucinex 600 Mucinex 600 2018-11 Yes Senner Unknown Unknown mg tablet, mg tablet, 1-29 D.O.,Jilli extended extended an D release release benzonatate benzonatate 2018-11 Yes Senner Unknown Unknown 100 mg 100 mg 2-11 D.O.,Jilli capsule capsule an D clotrimazol clotrimazol 2018-11 Yes Senner Unknown Unknown e 1 % e 1 % 2-11 D.O.,Jilli topical topical an D cream cream albuterol albuterol 2018-11 Yes Senner Unknown Unknown sulfate HFA sulfate HFA 2-23 D.O.,Jilli 90 90 an D mcg/actuati mcg/actuati on aerosol on aerosol inhaler inhaler promethazin promethazin 2018-11 Yes Senner Unknown Unknown e-DM 6.25 e-DM 6.25 2-23 D.O.,Jilli mg-15 mg/5 mg-15 mg/5 an D mL oral mL oral syrup syrup Vital Signs Vital Name Observation Time Observation Value Comments SYSTOLIC mm[Hg] 2019-11-29 18:09:38 108 mm[Hg] mm[Hg] Method: Sit SYSTOLIC mm[Hg] 2019-10-19 18:08:57 95 mm[Hg] mm[Hg] Method: Stand DIASTOLIC mm[Hg] 2019-11-29 18:09:38 70 mm[Hg] mm[Hg] Method: Sit DIASTOLIC mm[Hg] 2019-10-19 18:08:57 60 mm[Hg] mm[Hg] Method: Stand PULSE 2019-11-29 18:09:38 72 /min /min RESP RATE 2019-11-29 18:09:38 18 /min /min TEMP 2019-11-29 18:09:38 97.5 [degF] Procedures This patient has no known procedures. Results This patient has no known results.
--- OUTSIDE RECORDS SUMMARY | 2019-12-08 16:41 | XMS REPORT | Continuity of Care Document ---
:1960 External Reference #:[id number] Author Name Lou Jackson DO (transmitted by agent of provider Vandana Ellis) Address [address] [place] [address] Care Team Providers Name Role Phone Vitaliy Magana MD - Cardiovascular Care Team Information [employer] Techn[employer] Disease Adrián Hernandez MD - Urology Care Team Information [employer] Technician [phone] Fuentes Hsu MD - Nephrology Care Team Information [employer] Technician [phone] Octavio Perez MD - Dermatology Care Team Information [employer] Technician [phone] Lou Jackson DO - Hospitalist Care Team Information [employer] Technician [phone] Problems Active Problems Provider Date Primary cardiomyopathy [...] glucose level Estevan Martines M.D. Onset: 08/25/2017 Social History Type Date Description Comments Sex Unknown Tobacco Use Start: Unknown End: Former Cigarette Smoker Unknown ETOH Use Denies alcohol use Tobacco Use Start: Unknown End: Patient is a former Quit November 16, Unknown smoker 2009 Recreational Drug Use Denies Drug Use Tobacco Use Start: Unknown 1 PPD x 30 yrs Smoking Status Reviewed: 12/08/19 1 PPD x 30 yrs Exercise Type/Frequency Does not exercise no exercise in winter. 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 Allergies, Adverse Reactions, Alerts Active Allergies Reaction Severity Comments Date Plavix anaphylaxis Severe 09/07/2013 Inactive Allergies NKDA 09/07/2013 Medications Active Medications SIG Qnty Indications Ordering Date Provider Proair HFA take 2 puff 17gm R05 Triny Thomas, 11/21/2019 108(90Base) every 4 to 6 MD mcg/Act Aerosol hour as needed. Promethazine-DM Take 5mL every 118ml Claudette Giron MD 11/21/2019 4-6 hours as 6.25-15mg/5ML Syrup needed for cough Brilinta 1 by mouth twice 180tabs Vitaliy Gomez 11/10/2019 60mg Tablets a day Fide Magana Clotrimazole apply over rash 56gm R21 Lou Jackson, 11/09/2019 Anti-Fungal twice a day DO 1% Cream Benzonatate 1 cap three 30caps R05 Claudette Giron MD 11/09/2019 100mg times a day as Capsules needed for cough Colchicine take 1 PO qd prn 60caps Lou Jackson, 10/21/2019 0.6mg Capsules DO Oxygen apply 3L at 1units Loucody Jackson, 10/21/2019 Misc night as needed DO for dyspnea Sertraline HCL Take One Tablet 30tabs F32.9 Lou Jackson, 10/21/2019 50mg By Mouth Every DO Tablets Day Levothyroxine Sodium 1 by mouth every 30tabs Lou Jackson, 10/19/2019 day DO 50mcg Tablets Tramadol HCL 1 tab twice a 60tabs Lou Jackson, 10/19/2019 50mg Tablets day as needed DO Lidocaine Pain Relief apply to neck 15units Lou Jackson, 10/19/2019 4% and low back DO Patches twice daily as needed for pain Oxygen 3 L NC prn Unknown 10/17/2019 Torsemide 4 tabs by mouth 360tabs Vitaliy Gomez 06/14/2019 10mg Tablets every day Fide Magana Metoprolol Succinate take one tablet 120tabs Lou [...] by mouth three DO times a day Allopurinol 1 by mouth every 30tabs Lou Jackson, 100mg Tablets other day- prn DO History Medications Promethazine-Codeine take 5 milliliters 473ml R05 Claudette Mack, 11/21/2019 - 6.25-10mg/5ML by mouth every 6 MD 11/21/2019 Syrup hours as needed for cough Clopidogrel Bisulfate 1 by mouth every 90tabs Vitaliy Gomez 11/10/2019 - 75mg Tablets day Fide Magana 11/10/2019 Oxygen 3 L NC prn Vitaliy Gomez 10/18/2019 - Fide Magana 10/17/2019 Medications Administered in Office Medication SIG Qnty Indications Ordering Provider Date Depomedrol 40MG Lisa Fierro PA-C 07/07/2019 Injection PPD Unknown 08/24/2015 Injection Inj, Regadenoson, 0.1 MG Vitaily Magana M.D. 04/13/2013 Injection Technetium TC 99M Vitaliy Magana M.D. 04/13/2013 Tetrofosmin, Per Unit Dose Up To 40 Millicuries Injection Immunizations CPT Code Status Date Vaccine Reaction Lot # [id number] Given 01/04/2019 Influenza Virus Vaccine, no immediate reaction [id number] Quadrivalent, Split, Preservative Free 72846 Given 06/18/2017 Pneumonia Vaccine no immediate reaction [id number] pt tolerated well 28459 Given 09/13/2015 Hepatitis B Vaccine Adult Dosage Contract [id number] Given 08/30/2015 Hepatitis B Vaccine Adult Dosage 00275 Given 08/23/2015 Hepatitis B Vaccine Adult Dosage 96523 Given 08/23/2015 Pneumococcal Conjugate Vaccine 13 Valent For Intramuscular Use 22782 Given 08/23/2015 Hepatitis A Vaccine Adult Dosage Contract 81063 Given 08/22/2015 Influenza Virus Vaccine, Quadrivalent, Split, Preservative Free 95017 Refused 10/06/2017 Influenza Virus Vaccine, Quadrivalent, Split, Preservative Free Vital Signs Date Vital Result Comment 12/08/2019 3:02pm Height 67 inches 5'7" Weight 157.00 lb BP Systolic 106 mmHg BP Diastolic 66 mmHg Body Temperature 96.7 F BMI (Body Mass Index) 24.6 kg/m2 11/21/2019 8:57am Height 67 inches 5'7" Weight 142.00 lb Heart Rate 64 /min BP Systolic Sitting 88 mmHg BP Diastolic Sitting 66 mmHg Body Temperature 97.4 F O2 % BldC Oximetry 93 % BMI (Body Mass Index) 22.2 kg/m2 Results Test Acquired Date Facility Test Result H/L Range Note Basic Metabolic 10/25/2019 [facility] Sodium 136 mmol/L Normal 135-145 Panel [address] [place] [address] [phone] Potassium 4.6 mmol/L Normal 3.5-5.0 Chloride 101 mmol/L Normal 101-111 Co2 Carbon Dioxide 25 mmol/L Normal 22-32 Anion Gap 10 mmol/L Normal 2-11 Glucose 106 mg/dL High 70-100 Blood Urea Nitrogen 51 mg/dL High 6-24 Creatinine 1.65 mg/dL High 0.67-1.17 BUN/Creatinine Ratio 30.9 High 8-20 Calcium 9.8 mg/dL Normal 8.6-10.3 Egfr Non- 43.1 >60 Egfr 52.1 >60 1 Laboratory test 10/25/2019 [facility] Magnesium 2.5 mg/dL Normal 1.9-2.[address] [place] [address] [phone] CBC Auto Diff 10/25/2019 [facility] White Blood 11.3 High 3.5- 10.[address] Count 10^3/[place] [address] [phone] Red Blood Count 4.69 10^6/uL Normal 4.18-5.48 Hemoglobin 13.5 g/dL Low 14.0-18.0 Hematocrit 41 % Low 42-52 Mean Corpuscular Volume 88 fL Normal 80-94 Mean Corpuscular Hemoglobin 29 pg Normal 27-31 Mean Corpuscular HGB Conc 33 g/dL Normal 31-36 Red Cell Distribution Width 19 % High 10-15 Platelet Count 239 10^3/uL Normal 150-450 Mean Platelet Volume 11.3 fL High 7.4-10.4 Abs Neutrophils 7.9 10^3/uL High 1.5-7.7 Abs Lymphocytes 2.2 10^3/uL Normal 1.0-4.8 Abs Monocytes 0.8 10^3/uL Normal 0-0.8 Abs Eosinophils 0.3 10^3/uL Normal 0-0.6 Abs Basophils 0.1 10^3/uL Normal 0-0.2 Abs Nucleated RBC 0.0 10^3/uL Granulocyte % 70.1 % Lymphocyte % 19.1 % Monocyte % 7.2 % Eosinophil % 2.7 % Basophil % 0.9 % Nucleated Red Blood Cells % 0.1 Cell Morphology 10/25/2019 [facility] Polychromasia 1+ [place] [address] [phone] Anisocytosis 2+ Laboratory 10/14/2019 [facility] TSH (Thyroid 7.74 High 0.34- 5.[address] Stim Horm) mcIU/[place] [address] [phone] Laboratory 10/12/2019 [facility] Blood SEE RESULT 2, 3 test [place] [address] [phone] Laboratory 10/12/2019 [facility] Magnesium 2.4 mg/dL Normal 1.9-2.7 [place] [address] [phone] Lipase 37 U/L Normal 11.0-82.0 Troponin-I (TnI) 0.03 ng/mL <0.04 4 C Reactive Protein 11.43 mg/L High <8.01 Lactic Acid 1.7 mmol/L Normal 0.5-2.0 5 Liver Function 10/12/2019 [facility] Direct 0.40 mg/dL High 0.03-0.18 [place] [address] [phone] Indirect Bilirubin 1.2 mg/dL High 0.3-1.0 Comp Metabolic 10/12/2019 [facility] Sodium 139 mmol/L Normal 135-145 [place] [address] [phone] Potassium 4.0 mmol/L Normal 3.5-5.0 Chloride 103 mmol/L Normal 101-111 Co2 Carbon Dioxide 27 mmol/L Normal 22-32 Anion Gap 9 mmol/L Normal 2-11 Glucose 134 mg/dL High 70-100 Blood Urea Nitrogen 34 mg/dL High 6-24 Creatinine 1.60 mg/dL High 0.67-1.17 BUN/Creatinine Ratio 21.3 High 8-20 Calcium 9.4 mg/dL Normal 8.6-10.3 Total Protein 6.2 g/dL Low 6.4-8.9 Albumin 3.8 g/dL Normal 3.2-5.2 Globulin 2.4 g/dL Normal 2-4 Albumin/Globulin Ratio 1.6 Normal 1-3 Total Bilirubin 1.60 mg/dL High 0.2-1.0 Alkaline Phosphatase 158 U/L High 34-104 Alt 56 U/L High 7-52 Ast 19 U/L Normal 13-39 Egfr Non- 44.6 >60 Egfr 54.0 >60 6 Laboratory test 10/12/2019 [facility] Ammonia 36 mcmol/L Normal 16-[address] [place] [address] [phone] B-Type Natriuretic Peptide BNP > 1300 pg/mL High <=100 CBC Auto 10/12/2019 [facility] White Blood 12.6 10^3/uL High 3.5-10.[address] [place] [address] [phone] Red Blood Count 4.37 10^6/uL Normal 4.18-5.48 Hemoglobin 13.0 g/dL Low 14.0-18.0 Hematocrit 39 % Low 42-52 Mean Corpuscular Volume 89 fL Normal 80-94 Mean Corpuscular Hemoglobin 30 pg Normal 27-31 Mean Corpuscular HGB Conc 33 g/dL Normal 31-36 Red Cell Distribution Width 18 % High 10-15 Platelet Count 222 10^3/uL Normal 150-450 Mean Platelet Volume 10.9 fL High 7.4-10.4 Abs Neutrophils 10.1 10^3/uL High 1.5-7.7 Abs Lymphocytes 1.4 10^3/uL Normal 1.0-4.8 Abs Monocytes 0.8 10^3/uL Normal 0-0.8 Abs Eosinophils 0.2 10^3/uL Normal 0-0.6 Abs Basophils 0.1 10^3/uL Normal 0-0.2 Abs Nucleated RBC 0.0 10^3/uL Granulocyte % 79.7 % Lymphocyte % 11.3 % Monocyte % 6.2 % Eosinophil % 1.8 % Basophil % 1.0 % Nucleated Red Blood Cells % 0.0 Laboratory test 10/12/2019 [facility] Troponin-I 0.03 <0.04 [address] (TnI) ng/[place] [address] [phone] Basic Metabolic 06/09/2019 [facility] Sodium 139 Normal 135- 145 Panel 101 mmol/[place] [address] [phone] Potassium 4.4 mmol/L Normal 3.5-5.0 Chloride 102 mmol/L Normal 101-111 Co2 Carbon Dioxide 30 mmol/L Normal 22-32 Anion Gap 7 mmol/L Normal 2-11 Glucose 105 mg/dL High 70-100 Blood Urea Nitrogen 41 mg/dL High 6-24 Creatinine 2.13 mg/dL High 0.67-1.17 BUN/Creatinine Ratio 19.2 Normal 8-20 Calcium 9.8 mg/dL Normal 8.6-10.3 Egfr Non- 32.2 >60 Egfr 38.9 >60 8 Laboratory test 06/09/2019 [facility] Magnesium 2.6 mg/dL Normal 1.9-2.7 finding [address] [place] [address] [phone] Lipid Profile 06/09/2019 [facility] Triglycerides 299 mg/dL 9 (Trig/Chol/HDL) [address] [place] [address] [phone] Cholesterol 163 mg/dL 10 HDL Cholesterol 30.4 mg/dL 11 LDL Cholesterol 73 mg/dL 12 Inr/Protime 06/09/2019 [facility] Inr 1.15 High 0.82-1.09 13 [address] [place] [address] [phone] CBC Auto Diff 06/09/2019 [facility] White Blood 11.2 High 3.5- 10.8 [address] [facility] Count 10^3/[place] [address] [phone] Red Blood Count 4.78 10^6/uL Normal 4.18-5.48 Hemoglobin 13.9 g/dL Low 14.0-18.0 Hematocrit 42 % Normal 42-52 Mean Corpuscular Volume 87 fL Normal 80-94 Mean Corpuscular Hemoglobin 29 pg Normal 27-31 Mean Corpuscular HGB Conc 33 g/dL Normal 31-36 Red Cell Distribution Width 15 % Normal 10-15 Platelet Count 238 10^3/uL Normal 150-450 Mean Platelet Volume 10.5 fL High 7.4-10.4 Abs Neutrophils 8.0 10^3/uL High 1.5-7.7 Abs Lymphocytes 1.6 10^3/uL Normal 1.0-4.8 Abs Monocytes 0.8 10^3/uL Normal 0-0.8 Abs Eosinophils 0.7 10^3/uL High 0-0.6 Abs Basophils 0.1 10^3/uL Normal 0-0.2 Abs Nucleated RBC 0.0 10^3/uL Granulocyte % 70.9 % Lymphocyte % 14.6 % Monocyte % 7.2 % Eosinophil % 6.5 % Basophil % 0.8 % Nucleated Red Blood Cells % 0.0 Hepatitis C Antibody 06/09/2019 [facility] HCV Index 0.02 s/c [address] [place] [address] [phone] Hepatitis C Antibody Negative Negative 1 Because ethnic data is not always readily [...] 15-29 5 Kidney failure <15 (or dialysis) 2 Patient is On Antibiotics? YES 3 SEE RESULT BELOW Name: JULIETTE TRAYLOR : [address]: Yvonne Joseph MD Acct: [id number] Unit: [id number] AGE: 59 Location: ED Re10/12/19 SEX: M Status: DEP ER SPEC: [id number] IZAIAH: 10/12/[address]: Vahid GARRISON REQ: [id number] RECD: 10/12/19 STATUS:MIKKI CHARLTON DR: Lou Ponce MD _ SOURCE: BLOOD,VENO SPDESC: ORDERED: Blood Cult COMMENTS: Patient is On Antibiotics? YES Procedure Result Reported Site Aerobic Culture Bottle Final 10/17/19838 ML No Growth Day 5 Anaerobic Culture Bottle Final 10/17/19838 ML No Growth Day 5 * ML - Main Lab . END OF REPORT DEPARTMENT OF PATHOLOGY, [address] [place] [address] Augustus Cordoba M.D. Director [facility] # [id number] 4 Troponin-I testing on Plasma Separator Tubes (PST) has a known false positive rate of 0.20-0.40%. All positive troponins reflex immediately to secondary confirmatory testing. Using the [employer] DxI 800 Access Immunoassay systems, the 99th percentile upper reference limit was demonstrated to be < 0.03 ng/mL. 5 [facility] Severe Sepsis and Septic Shock Management Bundle Measure requires all lactic acids initially measuring >2.0 mmol/L be repeated. 6 Because ethnic data is not always [...] 5 Kidney failure <15 (or dialysis) 7 Troponin-I testing on Plasma Separator Tubes (PST) has a known false positive rate of 0.20-0.40%. All positive troponins reflex immediately to secondary confirmatory testing. Using the [employer] DxI 800 Access Immunoassay systems, the 99th percentile upper reference limit was demonstrated to be < 0.03 ng/mL. 8 Because ethnic data is not always readily [...] 15-29 5 Kidney failure <15 (or dialysis) 9 Desirable: <150 Borderline High: 150-199 High: 200-499 Very High: >500 10 Desirable: <200 Borderline High: 200-239 High: >239 11 Low: <40 Desirable: 40-60 High: >60 12 Desirable: <100 Near Optimal: 100-129 Borderline High: 130-159 High: 160-189 Very High: >189 13 Standard intensity warfarin therapeutic range: 2.0-3.0 High intensity warfarin therapeutic range: 2.5-3.5 Procedures Date Code Description Status 09/28/2019 01822 Icd eval w/iterative adjment single lead Icd Completed 07/07/2019 82631 Inject/Drain Joint/Bursa Major W/O US Completed Medical Devices Description No Information Available Encounters Type Date Location Provider Dx Diagnosis Office Visit 11/21/2019 9:00a [facility] Internal Medicine Triny Thomas MD R05 Cough - Suite R R21 Rash and other nonspecific skin eruption I50.21 Acute systolic (congestive) heart failure Office Visit 11/09/2019 8:00a 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 Internal Lou I50.21 Acute systolic Medicine - DO Renetta (congestive) heart Suite R failure R74.0 Nonspec elev of levels of transamns & lactic acid dehydrgnse M54.5 Low back pain E03.9 Hypothyroidism, unspecified Office Visit 10/05/2019 [facility] I50.21 Acute systolic 9:36a uzair Ayala M.D. 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 K81.0 Acute cholecystitis 9:36a uzair Ayala M.D. 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 I50.21 Acute systolic 9:35a Assuzair vazquez M.D. (congestive) heart Hospitalists failure R07.9 Chest pain, unspecified I25.10 Athscl heart disease of ven[place] ir[place] coronary artery w/o ang pctrs E03.9 Hypothyroidism, unspecified Z91.14 Patient's other noncompliance with medication regimen Office Visit 09/28/2019 3:00p [place] [facility] I25.5 Ischemic Cardiology Radha Magana M.D. cardiomyopathy [facility] Z95.810 Presence of automatic (implantable) cardiac defibrillator Office 07/07/2019 Adrian Lisa M19.212 Secondary Visit 3:30p [facility]oped[facility] at [facility] Fierro osteoarthritis, [place] left shoulder M25.512 Pain in left shoulder M75.42 Impingement syndrome of left shoulder Office Visit 06/09/2019 3:00p [facility] Lou F32.9 Major depressive Medicine - Suite DO Renetta disorder, single R episode, unspecified I50.22 Chronic systolic (congestive) heart failure Assessments Date Code Description Provider 12/08/2019 I50.21 Acute systolic (congestive) heart failure Lou Jackson DO 11/21/2019 R05 Cough Triny Thomas MD 11/21/2019 R21 Rash and other nonspecific skin eruption Triny Thomas MD 11/21/2019 I50.21 Acute systolic (congestive) heart failure Triny Thomas MD 11/09/2019 R21 Rash and other nonspecific skin eruption Amy Ortiz MD 11/09/2019 R05 Cough Amy Ortiz MD 10/18/2019 I50.21 Acute systolic (congestive) heart failure Vitaliy Magana M.D. 10/18/2019 I25.10 Atherosclerotic heart disease of [place] Vitaliy Magana M.D. coronary artery without angina pectoris 10/18/2019 I25.5 Ischemic cardiomyopathy Vitaliy Magana M.D. 10/18/2019 I10 Essential (primary) hypertension Vitaliy Magana M.D. 10/18/2019 Z95.810 Cardiac defibrillator in situ Vitaliy Magana M.D. 10/14/2019 I50.21 Acute systolic (congestive) heart failure Lou Jackson, 10/14/2019 R74.0 Nonspecific elevation of levels of Lou Jackson DO transaminase and lactic acid dehydrogenase [LDH] 10/14/2019 M54.5 Low back pain Lou Jackson DO 10/14/2019 E03.9 Hypothyroidism, unspecified Lou Jackson, 10/05/2019 I50.21 Acute systolic (congestive) heart failure Cheryl Shook MD 10/05/2019 I50.21 Acute systolic (congestive) heart failure Masha Faulkner M.D. 10/05/2019 R10.9 Unspecified abdominal pain Cheryl Shook MD 10/05/2019 R10.9 Unspecified abdominal pain Masha Faulkner M.D. 10/05/2019 R74.0 Nonspecific elevation of levels of Masha Faulkner M.D. transaminase and lactic acid dehydrogenase [LDH] 10/05/2019 I25.10 Atherosclerotic heart disease of [place] Masha Faulkner M.D. coronary artery without angina pectoris 10/05/2019 I25.5 Ischemic cardiomyopathy Masha Faulkner M.D. 10/05/2019 I10 Essential (primary) hypertension Masha Faulkner M.D. 10/05/2019 E78.5 Hyperlipidemia, unspecified Masha Faulkner M.D. 10/05/2019 Z95.810 Presence of automatic (implantable) Masha Faulkner M.D. cardiac defibrillator 10/05/2019 Z91.14 Patient's other noncompliance with Masha Faulkner M.D. medication regimen 10/04/2019 I50.20 Unspecified systolic (congestive) heart Cheryl Shook MD failure 10/04/2019 K81.0 Acute cholecystitis Masha Faulkner M.D. 10/04/2019 R09.89 Other specified symptoms and signs Cheryl Shook MD involving the circulatory and respiratory systems 10/04/2019 I50.21 Acute systolic (congestive) heart failure Masha Faulkner M.D. 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 coronary artery without angina pectoris 10/04/2019 E03.9 Hypothyroidism, unspecified Masha Faulkner M.D. 10/04/2019 Z91.14 Patient's other noncompliance with Masha Faulkner M.D. medication regimen 10/03/2019 I50.21 Acute systolic (congestive) heart failure Masha Faulkner M.D. 10/03/2019 I25.10 Atherosclerotic heart disease of [place] Masha Faulkner M.D. coronary artery without angina pectoris 10/03/2019 E03.9 Hypothyroidism, pawelified Masha Faulkner M.D. 10/03/2019 R68.81 Early satiety Masha Faulkner M.D. 10/03/2019 Z91.14 Patient's other noncompliance with Masha Faulkner M.D. medication regimen 10/02/2019 I50.21 Acute systolic (congestive) heart failure Masha Faulkner M.D. 10/02/2019 R07.9 Chest pain, unspecified Masha Faulkner M.D. 10/02/2019 I25.10 Atherosclerotic heart disease of [place] Masha Faulkner M.D. coronary artery without angina pectoris 10/02/2019 E03.9 Hypothyroidism, unspecified Masha Faulkner M.D. 10/02/2019 Z91.14 Patient's other noncompliance with Masha Faulkner M.D. medication regimen 09/28/2019 I25.5 Ischemic cardiomyopathy Vitaliy D. Brand, M.D. 09/28/2019 I25.5 Ischemic cardiomyopathy Ica Pacer Schedule 09/28/2019 Z95.810 Presence of automatic (implantable) Vitaliy Magana M.D. cardiac defibrillator 09/28/2019 Z95.810 Presence of automatic (implantable) Vitaliy Magana M.D. 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 at [place] [facility]12/08/2019 - Lou Jackson DOI50.21 Acute systolic (congestive) heart failureComments:TO ER NOWunable to obtain a pulse ox, 16 lb weight gain, markedly worsening dyspnea on exertion needs to qualify for O2 at home. Functional Status Description No Information Available Mental Status Description No Information Available Referrals Refer to Dr Reason for Referral Status Appt Date Nelia Thomas MD Patient has rash on lower back an there is Sent 2019 suspicion of psoriasis. [address], [place] [address] [phone] Justine Anderson MD Sent [address] [place] [address] [phone] Jeffery Headley MD Created [address] [facility] [address] [place] [address] [phone] Visiting Nurse Services [facility] [address] [place] [address] [phone]
--- OUTSIDE RECORDS SUMMARY | 2019-12-08 16:41 | XMS REPORT ---
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) (current) [place] use [...] 24Hr Active 2018-11 Crystal intake Diet 12-22 [place] deficit 14:10: [id number] 00 24 Hr Diet knowledge/s NT: 24Hr Active 2018-11 Crystal kill Diet 12-22 [place] deficit - 14:10: [id number] pt 00 Nutritional eating NT: Resolve 2018-112019-10-22 Crystal Barrier difficultie Barriers d 12-22 14:10:00 [place] s present 14:10: [id number] 00 Test/Treatm venipunctur Test/Injec Resolve 2018-112019-11-18 Nessa [...] pacemaker/I Cardiovasc Active 2018-11 Nessa CD ular 2- [place] 11:35: RN 00 Medication oral med [...] knowledge/s Meds Resolve 2018-112019-11-29 Nessa kill d 2- 14:15:00 [place] deficit: cg 09:52: RN 00 Diagnoses knowledge/s Diagnoses Active 2018-11 Nessa kill 2-24 [place] deficit: cg 09:52: RN 00 Nutrition nutritional Nutrition Resolve 2018-112019-11-29 Nessa restriction d 14:15:00 [place] s 14:15: RN 00 Nutrition nutritional Nutrition Resolve 2019-12-06 Nessa restriction d 12-06 14:45:00 [place] s 14:45: RN 00 Allergies, Adverse Reactions, Alerts Allergy [...] Senner Unknown Unknown 2.5 mg 2.5 mg 1-20 D.O.,Jilli tablet tablet an D magnesium magnesium 2018-11 Yes Senner Unknown Unknown 400 mg (as 400 mg (as 1-20 D.O.,Jilli magnesium magnesium an D oxide) oxide) tablet tablet metoprolol metoprolol 2018-11 Yes Senner Unknown Unknown succinate succinate 1-20 D.O.,Jilli ER 50 mg ER 50 mg an D capsule capsule sprinkle, sprinkle, ext. ext. release 24 release 24 hr hr sertraline sertraline 2018-11- Yes Senner Unknown Unknown 25 mg 25 mg -20 -26 D.O.,Jilli tablet tablet an D torsemide torsemide 2018-11 Yes Senner Unknown Unknown 10 mg 10 mg 1-20 D.O.,Jilli tablet tablet an D torsemide torsemide 2018-11 Yes Senner Unknown Unknown 20 mg 20 mg 1-20 D.O.,Jilli tablet tablet an D oxygen oxygen 2018-11- Yes Senner Unknown Unknown -20 11-25 D.O.,Jilli an D oxygen oxygen 2018-11 Yes Senner Unknown Unknown -25 D.O.,Jilli an D traMADol 50 traMADol 50 2018-11 Yes Senner Unknown Unknown mg tablet mg tablet 1-22 D.O.,Leylai an D Lidocaine Lidocaine 2018-11 Yes Senner Unknown Unknown Pain Relief Pain Relief 1-22 D.O.,Jilli 4 % topical 4 % topical an D patch patch sertraline sertraline 2018-11 Yes Senner Unknown Unknown 50 mg 50 mg 1-26 D.O.,Joshlli tablet tablet an D Miralax 17 Miralax 17 2018-11 Yes Senner Unknown Unknown gram oral gram oral 1-29 D.O.,Leylai powder powder an D packet packet Mucinex 600 Mucinex 600 2018-11 Yes Senner Unknown Unknown mg tablet, mg tablet, 1-29 D.O.,Jilli extended extended an D release release benzonatate benzonatate 2018-11 Yes Senner Unknown Unknown 100 mg 100 mg 2-11 D.O.,Leylai capsule capsule an D clotrimazol clotrimazol 2018-11 Yes Senner Unknown Unknown e 1 % e 1 % 2-11 D.O.,Ann Marie topical topical an D cream cream albuterol albuterol 2018-11 Yes Senner Unknown Unknown sulfate HFA sulfate HFA 2-23 D.O.,Ann Marie 90 90 an D mcg/actuati mcg/actuati on aerosol on aerosol inhaler inhaler promethazin promethazin 2018-11 Yes Senner Unknown Unknown e-DM 6.25 e-DM 6.25 2-23 D.O.,Ann Marie mg-15 mg/5 mg-15 mg/5 an D mL oral mL oral syrup syrup Vital Signs Vital Name Observation Time Observation Value Comments SYSTOLIC mm[Hg] 2019-12-06 18:09:45 98 mm[Hg] mm[Hg] Method: Sit SYSTOLIC mm[Hg] 2019-10-19 18:08:57 95 mm[Hg] mm[Hg] Method: Stand DIASTOLIC mm[Hg] 2019-12-06 18:09:45 62 mm[Hg] mm[Hg] Method: Sit DIASTOLIC mm[Hg] 2019-10-19 18:08:57 60 mm[Hg] mm[Hg] Method: Stand PULSE 2019-12-06 18:09:45 78 /min /min RESP RATE 2019-12-06 18:09:45 20 /min /min TEMP 2019-12-06 18:09:45 98.3 [degF] Procedures This patient has no known procedures. Results This patient has no known results.
--- OUTSIDE RECORDS SUMMARY | 2019-12-08 16:41 | XMS REPORT ---
:1960 Author Organization [facility] Care Team Providers Name Role Phone Unavailable Unavailable Unavailable Problems Condition Condition Condition Status Onset Resolution Last Treating Comments Name Details Category Date Date Treatment Clinician Date Acute Acute Diagnosis Active 2018-11 Nessa systolic systolic -20 [place] (congestive (congestive RN ) heart ) heart failure failure Chronic Chronic Diagnosis Active 2018-11 Nessa ischemic ischemic - [place] heart heart RN disease, disease, unspecified unspecified Low back Low back Diagnosis Active 2018-11 Nessa pain pain 12-19 [place] RN Cardiomyopa Cardiomyopa Diagnosis Active 2018-11 Nessa thy, thy, - [place] unspecified unspecified RN Hypothyroid Hypothyroid Diagnosis Active 2018-11 Nessa ism, ism, - [place] unspecified unspecified RN Major Major Diagnosis Active 2018-11 Nessa depressive depressive 12-19 [place] disorder, disorder, RN recurrent, recurrent, unspecified unspecified Essential Essential Diagnosis Active Nessa (primary) (primary) [place] hypertensio hypertensio RN n n Gastro-esop Gastro-esop Diagnosis Active Nessa hageal hageal [place] reflux reflux RN disease disease without without esophagitis esophagitis 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) (current) [place] use of use of RN aspirin aspirin Pain frequent Pain Mgmt Resolve 2018-112019-11-04 Cathleen pain d 12-19 12:00:00 [place] 10:00: 00 Pain knowledge/s Pain Mgmt Resolve 2018-112019-11-04 Cathleen kill d 12-19 12:00:00 [place] deficit: pt 10:00: 00 Cardio knowledge/s Cardiovasc Active 2018-11 Cathleen kohler ular 12-19 [place] deficit: pt 10:00: 00 Cardio pacemaker/I Cardiovasc Resolve 2018-112019-10-28 Cathleen CD ular d 20 11:20:00 [place] 10:00: 00 Respiratory dyspnea Respirator Active 2018-11 Cathleen present y 20 [place] 10:00: 00 Respiratory oxygen Respirator Active 2018-11 Cathleen treatments y 1-20 [place] in home 10:00: 00 Respiratory knowledge/s Respirator Active 2018-11 Cathleen kill y 20 [place] deficit: pt 10:00: 00 Endo/Les anti-coagul Endo/Les Resolve 2018-112019-10-19 Cathleen ation d -20 10:00:00 [place] therapy 10:00: 00 Nutrition knowledge/s Nutrition Resolve 2018-112019-11-22 Cathleen kill d 12-19 09:52:00 [place] deficit: pt 10:00: 00 Nutrition nutritional Nutrition Resolve 2018-112019-11-22 Cathleen restriction d 12-19 09:52:00 [place] s 10:00: 00 Neuro depressive Neuro/Emot Active 2018-11 Cathleen feelings ion -20 [place] present 10:00: 00 Neuro knowledge/s Neuro/Emot Active 2018-11 Cathleen kill ion -20 [place] deficit: pt 10:00: 00 Activity knowledge/s Activity Resolve 2018-112019-11-18 Cathleen kill d 20 14:45:00 [place] deficit: pt 10:00: 00 Activity self-care Activity Resolve 2018-112019-11-18 Cathleen deficit d 20 14:45:00 [place] 10:00: 00 Activity ADL Activity Resolve 2018-112019-11-18 Cathleen assistance d 20 14:45:00 [place] required 10:00: 00 Safety safety Safety Active 2018- Cathleen hazards 1-20 [place] present 10:00: 00 Safety sanitation Safety Active 2018-11 Cathleen hazards 1-20 [place] present 10:00: 00 Safety knowledge/s Safety Active 2018-11 Cathleen kill -20 [place] deficit: pt 10:00: 00 Safety fall risk Safety Active 2018-11 Cathleen factor -20 [place] present 10:00: 00 Safety fire risk Safety Active 2018-11 Cathleen present 1-20 [place] 10:00: 00 Safety risk for Safety Active 2018-11 Cathleen oswaldiza 12-19 [place] tion 10:00: 00 Medication oral med Meds Resolve 2018-112019-10-28 Cathleen valentine d 12-19 11:20:00 [place] required 10:00: 00 Medication knowledge/s Meds Resolve 2018-112019-10-28 Cathleen kohler d 12-19 11:20:00 [place] deficit: pt 10:00: 00 Medication potential Meds Resolve 2018-112019-10-28 Cathleen eliz d 12-19 11:20:00 [place] significant 10:00: medication 00 issue Diagnoses knowledge/s Diagnoses Active 2018-11 Cathleen edita 12-19 [place] deficit: pt 10:00: 00 Musculoskel knowledge/s Musculoske Resolve 2018-112019-11-18 Cathleen etal kill letal d 12-19 14:45:00 [place] deficit: pt 10:00: 00 Musculoskel requires Musculoske Resolve 2018-112019-11-04 Cathleen etal human letal d 12-19 12:00:00 [place] assist to 10:00: leave home 00 Neuro anxiety Neuro/Emot Active 2018-11 Nessa present ion 12-21 [place] 14:40: RN 00 24 Hr Diet nutrition NT: 24Hr Active 2018-11 Crystal intake Diet 12-22 [place] deficit 14:10: [id number] 00 24 Hr Diet knowledge/s NT: 24Hr Active 2018-11 Crystal kill Diet 12-22 [place] deficit - 14:10: [id number] pt 00 Nutritional eating NT: Resolve 2018-112019-10-22 [place] Barrier difficultie Barriers d 12-22 14:10:00 [place] s present 14:10: [id number] 00 Test/Treatm venipunctur Test/Injec Resolve 2018-112019-11-18 Nessa ent e ordered t/Andriy d 12-24 14:45:00 [place] RN Safety can be left Safety Active 2018-11 Nessa alone for 12-25 [place] only short 13:40: RN periods 00 Integument skin Integument Active 2018-11 Cathleen integrity 12-28 [place] risk 11:20: 00 Elimination constipatio Eliminatio Resolve 2018-112019-11-02 Cathleen n n d 12-28 11:35:00 [place] 11:20: 00 Cardio pacemaker/I Cardiovasc Active 2018-11 Nessa CD ular 2- [place] 11:35: RN 00 Medication oral med Meds Active 2018-11 Nessa assistance 2-04 [place] required 11:35: RN 00 Musculoskel requires Musculoske Resolve 2018-112019-11-18 Nessa etal human letal d 01-19 14:45:00 [place] assist to 14:45: RN leave home 00 Respiratory knowledge/s Respirator Active 2018-11 Nessa kill y 2-24 [place] deficit: cg 09:52: RN 00 Activity [...] cg 09:52: RN 00 Nutrition nutritional Nutrition Active 2018-11 Nessa restriction - [place] s 14:15: RN 00 Allergies, Adverse [...] 24 release 24 hr hr sertraline sertraline 2018-11 Yes Senner Unknown Unknown 25 mg 25 mg -20 11-26 D.O.,Jilli tablet tablet an D torsemide torsemide 2018-11 Yes Senner Unknown Unknown 10 mg 10 mg 1-20 D.O.,Jilli tablet tablet an D torsemide torsemide 2018-11 Yes Senner Unknown Unknown 20 mg 20 mg 1-20 D.O.,Jilli tablet tablet an D oxygen oxygen 2018-11 Yes Senner Unknown Unknown -20 11-25 D.O.,Jilli an D oxygen oxygen 2018-11 Yes Senner Unknown Unknown 1-25 D.O.,Jilli an D traMADol 50 traMADol 50 2018-11 Yes Senner Unknown Unknown mg tablet mg tablet 1-22 D.O.,Jilli an D Lidocaine Lidocaine 2018-11 Yes Senner Unknown Unknown Pain Relief Pain Relief -22 D.O.,Jilli 4 % topical 4 % topical an D patch patch sertraline sertraline 2018-11 Yes Senner Unknown Unknown 50 mg 50 mg -26 D.O.,Jilli tablet tablet an D Miralax 17 [...]
--- OUTSIDE RECORDS SUMMARY | 2019-12-08 16:41 | XMS REPORT ---
:1960 Author Organization [facility] Care Team Providers Name Role Phone Unavailable Unavailable Unavailable Problems This patient has no known problems. 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 Clinician (SIG) Name Name aspirin 81 aspirin 81 No Unknown Unknown Unknown mg mg 08-06 tablet,celso tablet,celso yed release yed release lisinopril lisinopril No Unknown Unknown Unknown 5 mg tablet 5 mg tablet 08-06 atorvastati atorvastati No Unknown Unknown Unknown n 20 mg n 20 mg 08-06 tablet tablet levothyroxi levothyroxi No Unknown Unknown Unknown ne 25 mcg ne 25 mcg 08-06 tablet tablet torsemide torsemide 2017-11 No Unknown Unknown Unknown 20 mg 20 mg 0-29 tablet tablet magnesium magnesium 2017-11 No Unknown Unknown Unknown oxide 400 oxide 400 0-29 mg (241.3 mg (241.3 mg mg magnesium) magnesium) tablet tablet sertraline sertraline 2018-11 Yes Unknown Unknown Unknown 25 mg 25 mg - tablet tablet metoprolol metoprolol 2018-11 Yes Unknown Unknown Unknown succinate succinate 12-03 ER 50 mg ER 50 mg tablet,exte tablet,exte nded nded release 24 release 24 hr hr Ticagrelor Ticagrelor 2018-11 Yes Unknown Unknown Unknown (Nf) (Nf) 12-03 Vital Signs Vital Name Observation Time Observation Value Comments SYSTOLIC mm[Hg] 2019-10-04 18:08:42 95 mm[Hg] mm[Hg] Method: Sit DIASTOLIC mm[Hg] 2019-10-04 18:08:42 60 mm[Hg] mm[Hg] Method: Sit PULSE 2019-10-04 18:08:42 67 /min /min RESP RATE 2019-10-04 18:08:42 20 /min /min TEMP 2019-10-04 18:08:42 97.7 [degF] Procedures This patient has no known procedures. Results Test Description Test Time Test Comments Text Results Atomic Results Result Comments Serum or plasma hepatitis C 2019-10-04 05:18:00 Identifier 25063-4 Result Unknown virus antibody detection by Time 2019-10-04 05:18:00 immunoassay Test Item Value Reference Range Comments Serum or plasma hepatitis C virus antibody detection by 0.03 s/c Unknown Unknown F immunoassay (test code = 00213-2) Ordering Physician UnknownSerum or plasma alanine aminotransferase measurement ( enzymatic activity/volume)2019-10-04 05:18:00Identifier 1742-6 Result Time 10-04 05:18:00Unknown Test Item Value Reference Range Comments Serum or plasma alanine aminotransferase 234 U/L Unknown Unknown F measurement (enzymatic activity/volume) (test code = 1742-6) Ordering Physician UnknownSerum or plasma albumin/globulin mass [id number] 05:18:00Identifier 1759-0 Result Time 2019-10-04 05:18:00Unknown Test Item Value Reference Range Comments Serum or plasma albumin/globulin mass ratio 1.9 Unknown Unknown F (test code = 1759-0) Ordering Physician UnknownSerum or plasma calcium measurement (mass/volume)10-04 05:18:00Identifier 45441-1 Result Time 2019-10-04 05:18:00Unknown Test Item Value Reference Range Comments Serum or plasma calcium measurement 8.9 mg/dL Unknown Unknown F (mass/volume) (test code = 09275-0) Ordering Physician UnknownSerum or plasma magnesium measurement (mass/volume) 2019-10-04 05:18:00Identifier 72015-0 Result Time 2019-10-04 05:18:00Unknown Test Item Value Reference Range Comments Serum or plasma magnesium measurement 2.2 mg/dL Unknown Unknown F (mass/volume) (test code = 96808-8) Ordering Physician UnknownSerum or plasma aspartate aminotransferase measurement (enzymatic activity/volume)2019-10-04 05:18:00Identifier 1920-8 Result Time 2019-10-04 05:18:00Unknown Test Item Value Reference Range Comments Serum or plasma aspartate aminotransferase 166 U/L Unknown Unknown F measurement (enzymatic activity/volume) (test code = 1920-8) Ordering Physician UnknownSerum or plasma total bilirubin measurement (mass/ volume)2019-10-04 05:18:00Identifier 1974-2 Result Time 2019-10-04 05:18: 00Unknown Test Item Value Reference Range Comments Serum or plasma total bilirubin 1.60 mg/dL Unknown Unknown F measurement (mass/volume) (test code = 1974-) Ordering Physician UnknownSerum or plasma carbon dioxide, total measurement ( moles/volume)2019-10-04 05:18:00Identifier 2028-07 Result Time 2019-10-04 05:18: 00Unknown Test Item Value Reference Range Comments Serum or plasma carbon dioxide, total 25 mmol/L Unknown Unknown F measurement (moles/volume) (test code = 2027-) Ordering Physician UnknownSerum or plasma chloride measurement (moles/volume) 2019-10-04 05:18:00Identifier 5-0 Result Time 2019-10-04 05:18:00Unknown Test Item Value Reference Range Comments Serum or plasma chloride measurement 102 mmol/L Unknown Unknown F (moles/volume) (test code = 2075-0) Ordering Physician UnknownSerum or plasma creatinine measurement (mass/volume) 2019-10-04 05:18:00Identifier 2160-0 Result Time 2019-10-04 05:18:00Unknown Test Item Value Reference Range Comments Serum or plasma creatinine measurement 1.70 mg/dL Unknown Unknown F (mass/volume) (test code = 2160-0) Ordering Physician UnknownSerum or plasma gamma glutamyl transferase measurement (enzymatic activity/volume)2019-10-04 05:18:00Identifier 2324-2 Result Time 2019-10-04 05:18:00Unknown Test Item Value Reference Range Comments Serum or plasma gamma glutamyl transferase 201 U/L Unknown Unknown F measurement (enzymatic activity/volume) (test code = 2324-2) Ordering Physician UnknownSerum glucose measurement (mass/volume)2019-10-04 05: 18:00Identifier 2345-7 Result Time 2019-10-04 05:18:00Unknown Test Item Value Reference Range Comments Serum glucose measurement (mass/volume) 105 mg/dL Unknown Unknown F (test code = 2345-7) Ordering Physician UnknownSerum or plasma potassium measurement (moles/volume) 2019-10-04 05:18:00Identifier 2823-3 Result Time 2019-10-04 05:18:00Unknown Test Item Value Reference Range Comments Serum or plasma potassium measurement 3.6 mmol/L Unknown Unknown F (moles/volume) (test code = 2823-3) Ordering Physician UnknownSerum total protein measurement (mass/volume) 05:18:00Identifier 2885-2 Result Time 2019-10-04 05:18:00Unknown Test Item Value Reference Range Comments Serum total protein measurement 5.6 g/dL Unknown Unknown F (mass/volume) (test code = 2885-2) Ordering Physician UnknownSerum or plasma sodium measurement (moles/volume)10-04 05:18:00Identifier 2951-2 Result Time 2019-10-04 05:18:00Unknown Test Item Value Reference Range Comments Serum or plasma sodium measurement 135 mmol/L Unknown Unknown F (moles/volume) (test code = 2951-2) Ordering Physician UnknownSerum or plasma urea nitrogen measurement (mass/volume )2019-10-04 05:18:00Identifier 3094-0 Result Time 2019-10-04 05:18:00Unknown Test Item Value Reference Range Comments Serum or plasma urea nitrogen measurement 33 mg/dL Unknown Unknown F (mass/volume) (test code = 3094-0) Ordering Physician UnknownSerum or plasma urea nitrogen/creatinine sluce1567-87- 05 05:18:00Identifier 3097-3 Result Time 2019-10-04 05:18:00Unknown Test Item Value Reference Range Comments Serum or plasma urea nitrogen/creatinine 19.4 Unknown Unknown F ratio (test code = 3097-3) Ordering Physician UnknownSerum or plasma anion [id number] 05:18: 00Identifier 30645-8 Result Time 2019-10-04 05:18:00Unknown Test Item Value Reference Range Comments Serum or plasma anion gap (test code = 8 mmol/L Unknown Unknown F 70517-3) Ordering Physician UnknownEstimated glomerular filtration rate (GFR) non- Kacdwfqn2158-11-49 05:18:00Identifier 72900-6 Result Time 2019-10-04 05: 18:00Unknown Test Item Value Reference Range Comments Estimated glomerular filtration rate (GFR) 41.6 Unknown Unknown F non- (test code = 35764-5) Ordering Physician UnknownSerum or plasma albumin measurement by bromocresol green (BCG) dye binding method ([id number] 05:18:00Identifier 43761-0 Result Time 2019-10-04 05:18:00Unknown Test Item Value Reference Range Comments Serum or plasma albumin measurement by 3.7 g/dL Unknown Unknown F bromocresol green (BCG) dye binding method (ma (test code = 18525-9) Ordering Physician UnknownSerum or plasma alkaline phosphatase measurement ( enzymatic activity/volume)2019-10-04 05:18:00Identifier 6768-6 Result Time 10-04 05:18:00Unknown Test Item Value Reference Range Comments Serum or plasma alkaline phosphatase 281 U/L Unknown Unknown F measurement (enzymatic activity/volume) (test code = 6768-6) Ordering Physician UnknownSerum or plasma troponin i.cardiac measurement (mass/ volume)2019-10-02 20:07:00Identifier 09568-5 Result Time 2019-10-02 20:07: 00Unknown Test Item Value Reference Range Comments Serum or plasma troponin i.cardiac 0.03 ng/mL Unknown Unknown F measurement (mass/volume) (test code = 98460-9) Ordering Physician UnknownStool Plesiomonas shigelloides DNA detection by non- probe and target amplification [id number] 18:02:00Identifier 74989-4 Result Time 2019-10-02 18:02:00Unknown Test Item Value Reference Range Comments Nasal Screen MRSA (PCR) (test code = Mrsa Detected Unknown Unknown F Nasal Screen MRSA (PCR)) Ordering Physician UnknownSerum or plasma natriuretic peptide B measurement ( mass/volume)2019-10-02 10:22:00Identifier 00294-3 Result Time 2019-10-02 10:22: 00Unknown Test Item Value Reference Range Comments Serum or plasma natriuretic peptide B > 1300 pg/mL Unknown Unknown F measurement (mass/volume) (test code = 76506-3) Ordering Physician UnknownAutomated blood platelet mean volume tqtudxrcdmr9046- 11-03 10:22:00Identifier 14138-9 Result Time 2019-10-02 10:22:00Unknown Test Item Value Reference Range Comments Automated blood platelet mean volume 11.4 fL Unknown Unknown F measurement (test code = 85849-4) Ordering Physician UnknownAutomated blood leukocytes count corrected for nucleated erythrocytes (number/volume)2019-10-02 10:22:00Identifier 01030-2 Result Time 2019-10-02 10:22:00Unknown Test Item Value Reference Range Comments Automated blood leukocytes count 12.2 10^3/uL Unknown Unknown F corrected for nucleated erythrocytes (number/volume) (test code = 20735-2) Ordering Physician UnknownAutomated blood nucleated erythrocytes uymgesjrs8966- 11-03 10:22:00Identifier 92525-2 Result Time 2019-10-02 10:22:00Unknown Test Item Value Reference Range Comments Automated blood nucleated erythrocytes 0.3 Unknown Unknown F detection (test code = 65229-4) Ordering Physician UnknownAutomated blood hematocrit (percentage)2019-10-02 10: 22:00Identifier 4544-3 Result Time 2019-10-02 10:22:00Unknown Test Item Value Reference Range Comments Automated blood hematocrit (percentage) (test 41 % Unknown Unknown F code = 4544-3) Ordering Physician UnknownAutomated blood monocytes/100 [id number] 10: 22:00Identifier 5905-5 Result Time 2019-10-02 10:22:00Unknown Test Item Value Reference Range Comments Automated blood monocytes/100 leukocytes 5.8 % Unknown Unknown F (test code = 5905-5) Ordering Physician UnknownAutomated blood basophil count (number/volume) 10:22:00Identifier 704-7 Result Time 2019-10-02 10:22:00Unknown Test Item Value Reference Range Comments Automated blood basophil count 0.1 10^3/ul Unknown Unknown F (number/volume) (test code = 704-7) Ordering Physician UnknownAutomated blood basophils/100 [id number] 10: 22:00Identifier 706-2 Result Time 2019-10-02 10:22:00Unknown Test Item Value Reference Range Comments Automated blood basophils/100 leukocytes 1.0 % Unknown Unknown F (test code = 706-2) Ordering Physician UnknownAutomated blood eosinophil count (number/volume)10-02 10:22:00Identifier 711-2 Result Time 2019-10-02 10:22:00Unknown Test Item Value Reference Range Comments Automated blood eosinophil count 0.2 10^3/ul Unknown Unknown F (number/volume) (test code = 711-2) Ordering Physician UnknownAutomated blood eosinophils/100 [id number] 10:22:00Identifier 713-8 Result Time 2019-10-02 10:22:00Unknown Test Item Value Reference Range Comments Automated blood eosinophils/100 leukocytes 1.4 % Unknown Unknown F (test code = 713-8) Ordering Physician UnknownBlood hemoglobin measurement (mass/volume)2019-10-02 10:22:00Identifier 718-7 Result Time 2019-10-02 10:22:00Unknown Test Item Value Reference Range Comments Blood hemoglobin measurement 13.4 g/dL Unknown Unknown F (mass/volume) (test code = 718-7) Ordering Physician UnknownBlood lymphocytes automated count (number/volume)10-02 10:22:00Identifier 731-0 Result Time 2019-10-02 10:22:00Unknown Test Item Value Reference Range Comments Blood lymphocytes automated count 1.6 10^3/ul Unknown Unknown F (number/volume) (test code = 731-0) Ordering Physician UnknownAutomated blood lymphocytes/100 [id number] 10:22:00Identifier 736-9 Result Time 2019-10-02 10:22:00Unknown Test Item Value Reference Range Comments Automated blood lymphocytes/100 leukocytes 13.0 % Unknown Unknown F (test code = 736-9) Ordering Physician UnknownBlood monocytes automated count (number/volume)2019-09 10:22:00Identifier 742-7 Result Time 2019-10-02 10:22:00Unknown Test Item Value Reference Range Comments Blood monocytes automated count 0.7 10^3/ul Unknown Unknown F (number/volume) (test code = 742-7) Ordering Physician UnknownAutomated blood neutrophils/100 [id number] 10:22:00Identifier 770-8 Result Time 2019-10-02 10:22:00Unknown Test Item Value Reference Range Comments Automated blood neutrophils/100 leukocytes 78.8 % Unknown Unknown F (test code = 770-8) Ordering Physician UnknownBlood nucleated erythrocytes automated count (number/ volume)2019-10-02 10:22:00Identifier 771-6 Result Time 2019-10-02 10:22: 00Unknown Test Item Value Reference Range Comments Blood nucleated erythrocytes automated 0.0 10^3/ul Unknown Unknown F count (number/volume) (test code = 771-6) Ordering Physician UnknownAutomated blood platelet count (number/volume) 10:22:00Identifier 777-3 Result Time 2019-10-02 10:22:00Unknown Test Item Value Reference Range Comments Automated blood platelet count 193 10^3/uL Unknown Unknown F (number/volume) (test code = 777-3) Ordering Physician UnknownAutomated erythrocyte mean corpuscular hemoglobin ( mass per erythrocyte)2019-10-02 10:22:00Identifier 785-6 Result Time 2019-10-02 10:22:00Unknown Test Item Value Reference Range Comments Automated erythrocyte mean corpuscular 29 pg Unknown Unknown F hemoglobin (mass per erythrocyte) (test code = 785-6) Ordering Physician UnknownAutomated erythrocyte mean corpuscular hemoglobin concentration measurement (mass/urs7827-75-57 10:22:00Identifier 786-4 Result Time 2019-10-02 10:22:00Unknown Test Item Value Reference Range Comments Automated erythrocyte mean corpuscular 33 g/dL Unknown Unknown F hemoglobin concentration measurement (mass/vol (test code = 786-4) Ordering Physician UnknownAutomated erythrocyte mean corpuscular dgdvyl3819-57- 03 10:22:00Identifier 787-2 Result Time 2019-10-02 10:22:00Unknown Test Item Value Reference Range Comments Automated erythrocyte mean corpuscular volume 89 fL Unknown Unknown F (test code = 787-2) Ordering Physician UnknownAutomated erythrocyte distribution width dwarl9634-57- 03 10:22:00Identifier 788-0 Result Time 2019-10-02 10:22:00Unknown Test Item Value Reference Range Comments Automated erythrocyte distribution width ratio 17 % Unknown Unknown F (test code = 788-0) Ordering Physician UnknownAutomated blood erythrocyte count (number/volume)10-02 10:22:00Identifier 789-8 Result Time 2019-10-02 10:22:00Unknown Test Item Value Reference Range Comments Automated blood erythrocyte count 4.57 10^6 /uL Unknown Unknown F (number/volume) (test code = 789-8) Ordering Physician UnknownCT biopsy [id number] 10:22:00Identifier [id number] Result Time 2019-10-02 10:22:00Unknown Test Item Value Reference Range Comments CT biopsy liver (test code = MKY5508) 9.6 10^3/ul Unknown Unknown F Ordering Physician UnknownSerum or plasma thyroid stimulating hormone (TSH) measurement (units/volume)2019-10-02 10:15:00Identifier 3016-3 Result Time 10-02 10:15:00Unknown Test Item Value Reference Range Comments Serum or plasma thyroid stimulating 7.06 mcIU/mL Unknown Unknown F hormone (TSH) measurement (units/volume) (test code = 3016-3) Ordering Physician Unknown
--- OUTSIDE RECORDS SUMMARY | 2019-12-08 16:41 | XMS REPORT ---
:1960 Author Organization [facility] Care Team Providers Name Role [...] or plasma hepatitis C 2019-10-04 05:18:00 Identifier [id number] Result Unknown virus antibody detection by Time 2019-10-04 05:18:00 immunoassay Test Item Value Reference Range Comments Serum or plasma hepatitis C virus antibody detection by 0.03 s/c Unknown Unknown F immunoassay (test code = 96380-6) Ordering Physician UnknownSerum or plasma alanine aminotransferase measurement ( enzymatic activity/volume)2019-10-04 05:18:00Identifier 1742-6 Result Time 10-04 05:18:00Unknown Test Item Value Reference Range Comments Serum or plasma alanine aminotransferase 234 U/L Unknown Unknown F measurement (enzymatic activity/volume) (test code = 1742-6) Ordering Physician UnknownSerum or plasma albumin/globulin mass lutor3141-42-61 05:18:00Identifier 1759-0 Result Time 2019-10-04 05:18:00Unknown Test Item Value Reference Range Comments Serum or plasma albumin/globulin mass ratio 1.9 Unknown Unknown F (test code = 1759-0) Ordering Physician UnknownSerum or plasma calcium measurement (mass/volume)10-04 05:18:00Identifier 60670-3 Result Time 2019-10-04 05:18:00Unknown Test Item Value Reference Range Comments Serum or plasma calcium measurement 8.9 mg/dL Unknown Unknown F (mass/volume) (test code = 16748-0) Ordering Physician UnknownSerum or plasma magnesium measurement (mass/volume) 2019-10-04 05:18:00Identifier 65905-3 Result Time 2019-10-04 05:18:00Unknown Test Item Value Reference Range Comments Serum or plasma magnesium measurement 2.2 mg/dL Unknown Unknown F (mass/volume) (test code = 26531-2) Ordering Physician UnknownSerum or plasma aspartate aminotransferase [...] Ordering Physician UnknownSerum or plasma urea nitrogen/creatinine liwxr6267-09- 05 05:18:00Identifier 3097-3 Result Time 2019-10-04 05:18:00Unknown Test Item Value Reference Range Comments Serum or plasma urea nitrogen/creatinine 19.4 Unknown Unknown F ratio (test code = 3097-3) Ordering Physician UnknownSerum or plasma anion [id number] 05:18: 00Identifier 90253-0 Result Time 2019-10-04 05:18:00Unknown Test Item Value Reference Range Comments Serum or plasma anion gap (test code = 8 mmol/L Unknown Unknown F 60452-3) Ordering Physician UnknownEstimated glomerular filtration rate (GFR) non- Cagdazpx5077-78-75 05:18:00Identifier 80076-6 Result Time 2019-10-04 05: 18:00Unknown Test Item Value Reference Range Comments Estimated glomerular filtration rate (GFR) 41.6 Unknown Unknown F non- (test code = 81930-1) Ordering Physician UnknownSerum or plasma albumin measurement by bromocresol green (BCG) dye binding method (im2134-31-15 05:18:00Identifier 81828-2 Result Time 2019-10-04 05:18:00Unknown Test Item Value Reference Range Comments Serum or plasma albumin measurement by 3.7 g/dL Unknown Unknown F bromocresol green (BCG) dye binding method (ma (test code = 92136-0) Ordering Physician UnknownSerum or plasma alkaline phosphatase measurement ( enzymatic activity/volume)2019-10-04 05:18:00Identifier 6768-6 Result Time 10-04 05:18:00Unknown Test Item Value Reference Range Comments Serum or plasma alkaline phosphatase 281 U/L Unknown Unknown F measurement (enzymatic activity/volume) (test code = 6768-6) Ordering Physician UnknownSerum or plasma troponin i.cardiac measurement (mass/ volume)2019-10-02 20:07:00Identifier 68061-3 Result Time 2019-10-02 20:07: 00Unknown Test Item Value Reference Range Comments Serum or plasma troponin i.cardiac 0.03 ng/mL Unknown Unknown F measurement (mass/volume) (test code = 77069-3) Ordering Physician UnknownStool Plesiomonas shigelloides DNA detection by non- probe and target amplification ym2108-70-02 18:02:00Identifier 79855-4 Result Time 2019-10-02 18:02:00Unknown Test Item Value Reference Range Comments Nasal Screen MRSA (PCR) (test code = Mrsa Detected Unknown Unknown F Nasal Screen MRSA (PCR)) Ordering Physician UnknownSerum or plasma natriuretic peptide B measurement ( mass/volume)2019-10-02 10:22:00Identifier 34725-6 Result Time 2019-10-02 10:22: 00Unknown Test Item Value Reference Range Comments Serum or plasma natriuretic peptide B > 1300 pg/mL Unknown Unknown F measurement (mass/volume) (test code = 27968-8) Ordering Physician UnknownAutomated blood platelet mean volume pvhickoxlha3911- 11-03 10:22:00Identifier 10419-9 Result Time 2019-10-02 10:22:00Unknown Test Item Value Reference Range Comments Automated blood platelet mean volume 11.4 fL Unknown Unknown F measurement (test code = 70202-2) Ordering Physician UnknownAutomated blood leukocytes count corrected for nucleated erythrocytes (number/volume)2019-10-02 10:22:00Identifier 14641-2 Result Time 2019-10-02 10:22:00Unknown Test Item Value Reference Range Comments Automated blood leukocytes count 12.2 10^3/uL Unknown Unknown F corrected for nucleated erythrocytes (number/volume) (test code = 77048-5) Ordering Physician UnknownAutomated blood nucleated erythrocytes lfyhhiadt8726- 11-03 10:22:00Identifier 20638-9 Result Time 2019-10-02 10:22:00Unknown Test Item Value Reference Range Comments Automated blood nucleated erythrocytes 0.3 Unknown Unknown F detection (test code = 04992-9) Ordering Physician UnknownAutomated blood hematocrit (percentage)2019-10-02 10: 22:00Identifier 4544-3 Result Time 2019-10-02 10:22:00Unknown Test Item Value Reference Range Comments Automated blood hematocrit (percentage) (test 41 % Unknown Unknown F code = 4544-3) Ordering Physician UnknownAutomated blood monocytes/100 yykfieewdu9658-46-57 10: 22:00Identifier 5905-5 Result Time 2019-10-02 10:22:00Unknown [...] = 704-7) Ordering Physician UnknownAutomated blood basophils/100 tdoradgocb7035-17-22 10: 22:00Identifier 706-2 Result Time 2019-10-02 10:22:00Unknown [...] = 711-2) Ordering Physician UnknownAutomated blood eosinophils/100 osygrjwxfx0671-55-46 10:22:00Identifier 713-8 Result Time 2019-10-02 10:22:00Unknown Test [...] = 731-0) Ordering Physician UnknownAutomated blood lymphocytes/100 paoriifihk1541-93-02 10:22:00Identifier 736-9 Result Time 2019-10-02 10:22:00Unknown Test Item Value Reference Range Comments Automated blood lymphocytes/100 leukocytes 13.0 % Unknown Unknown F (test code = 736-9) Ordering Physician UnknownBlood monocytes automated count (number/volume)2019-09 10:22:00Identifier 742-7 Result Time 2019-10-02 10:22:00Unknown Test Item Value Reference Range Comments Blood monocytes automated count 0.7 10^3/ul Unknown Unknown F (number/volume) (test code = 742-7) Ordering Physician UnknownAutomated blood neutrophils/100 tadobfkbnd0056-86-22 10:22:00Identifier 770-8 Result Time 2019-10-02 10:22:00Unknown Test [...] UnknownAutomated erythrocyte mean corpuscular hemoglobin concentration measurement (mass/rpb9905-05-81 10:22:00Identifier 786-4 Result Time 2019-10-02 10:22:00Unknown Test Item Value Reference Range Comments Automated erythrocyte mean corpuscular 33 g/dL Unknown Unknown F hemoglobin concentration measurement (mass/vol (test code = 786-4) Ordering Physician UnknownAutomated erythrocyte mean corpuscular krbxis9209-24- 03 10:22:00Identifier 787-2 Result Time 2019-10-02 10:22:00Unknown Test Item Value Reference Range Comments Automated erythrocyte mean corpuscular volume 89 fL Unknown Unknown F (test code = 787-2) Ordering Physician UnknownAutomated erythrocyte distribution width tidzf8527-60- 03 10:22:00Identifier 788-0 Result Time 2019-10-02 10:22:00Unknown [...] code = 789-8) Ordering Physician UnknownCT biopsy wfrhz5777-32-42 10:22:00Identifier [id number] Result Time 2019-10-02 10:22:00Unknown Test Item Value Reference Range Comments CT biopsy liver (test code = EYM3428) 9.6 10^3/ul Unknown Unknown F Ordering Physician UnknownSerum or plasma thyroid stimulating hormone (TSH) measurement (units/volume)2019-10-02 10:15:00Identifier 3016-3 Result Time 10-02 10:15:00Unknown Test Item Value Reference Range Comments Serum or plasma thyroid stimulating 7.06 mcIU/mL Unknown Unknown F hormone (TSH) measurement (units/volume) (test code = 3016-3) Ordering Physician Unknown
--- OUTSIDE RECORDS SUMMARY | 2019-12-08 16:41 | XMS REPORT ---
[...] or plasma hepatitis C 2019-10-04 05:18:00 Identifier [id number] Result Unknown virus antibody detection by Time 2019-10-04 05:18:00 immunoassay Test Item Value Reference Range Comments Serum or plasma hepatitis C virus antibody detection by 0.03 s/c Unknown Unknown F immunoassay (test code = 93891-1) Ordering Physician UnknownSerum or plasma alanine aminotransferase measurement ( enzymatic activity/volume)2019-10-04 05:18:00Identifier 1742-6 Result Time 10-04 05:18:00Unknown Test Item Value Reference Range Comments Serum or plasma alanine aminotransferase 234 U/L Unknown Unknown F measurement (enzymatic activity/volume) (test code = 1742-6) Ordering Physician UnknownSerum or plasma albumin/globulin mass scgjo5318-30-70 05:18:00Identifier 1759-0 Result Time 2019-10-04 05:18:00Unknown Test Item Value Reference Range Comments Serum or plasma albumin/globulin mass ratio 1.9 Unknown Unknown F (test code = 1759-0) Ordering Physician UnknownSerum or plasma calcium measurement (mass/volume)10-04 05:18:00Identifier 39585-1 Result Time 2019-10-04 05:18:00Unknown Test Item Value Reference Range Comments Serum or plasma calcium measurement 8.9 mg/dL Unknown Unknown F (mass/volume) (test code = 23719-5) Ordering Physician UnknownSerum or plasma magnesium measurement (mass/volume) 2019-10-04 05:18:00Identifier 65483-9 Result Time 2019-10-04 05:18:00Unknown Test Item Value Reference Range Comments Serum or plasma magnesium measurement 2.2 mg/dL Unknown Unknown F (mass/volume) (test code = 00751-8) Ordering Physician UnknownSerum or plasma aspartate aminotransferase [...] Ordering Physician UnknownSerum or plasma urea nitrogen/creatinine ftdww9636-69- 05 05:18:00Identifier 3097-3 Result Time 2019-10-04 05:18:00Unknown Test Item Value Reference Range Comments Serum or plasma urea nitrogen/creatinine 19.4 Unknown Unknown F ratio (test code = 3097-3) Ordering Physician UnknownSerum or plasma anion lin8411-96-28 05:18: 00Identifier 50760-3 Result Time 2019-10-04 05:18:00Unknown Test Item Value Reference Range Comments Serum or plasma anion gap (test code = 8 mmol/L Unknown Unknown F 46886-1) Ordering Physician UnknownEstimated glomerular filtration rate (GFR) non- Ygrpkpmb8854-71-03 05:18:00Identifier 55511-3 Result Time 2019-10-04 05: 18:00Unknown Test Item Value Reference Range Comments Estimated glomerular filtration rate (GFR) 41.6 Unknown Unknown F non- (test code = 18052-7) Ordering Physician UnknownSerum or plasma albumin measurement by bromocresol green (BCG) dye binding method (wy5043-10-76 05:18:00Identifier 82297-2 Result Time 2019-10-04 05:18:00Unknown Test Item Value Reference Range Comments Serum or plasma albumin measurement by 3.7 g/dL Unknown Unknown F bromocresol green (BCG) dye binding method (ma (test code = 29476-3) Ordering Physician UnknownSerum or plasma alkaline phosphatase measurement ( enzymatic activity/volume)2019-10-04 05:18:00Identifier 6768-6 Result Time 10-04 05:18:00Unknown Test Item Value Reference Range Comments Serum or plasma alkaline phosphatase 281 U/L Unknown Unknown F measurement (enzymatic activity/volume) (test code = 6768-6) Ordering Physician UnknownSerum or plasma troponin i.cardiac measurement (mass/ volume)2019-10-02 20:07:00Identifier 17979-4 Result Time 2019-10-02 20:07: 00Unknown Test Item Value Reference Range Comments Serum or plasma troponin i.cardiac 0.03 ng/mL Unknown Unknown F measurement (mass/volume) (test code = 27213-2) Ordering Physician UnknownStool Plesiomonas shigelloides DNA detection by non- probe and target amplification sv8164-00-82 18:02:00Identifier 15711-7 Result Time 2019-10-02 18:02:00Unknown Test Item Value Reference Range Comments Nasal Screen MRSA (PCR) (test code = Mrsa Detected Unknown Unknown F Nasal Screen MRSA (PCR)) Ordering Physician UnknownSerum or plasma natriuretic peptide B measurement ( mass/volume)2019-10-02 10:22:00Identifier 37552-0 Result Time 2019-10-02 10:22: 00Unknown Test Item Value Reference Range Comments Serum or plasma natriuretic peptide B > 1300 pg/mL Unknown Unknown F measurement (mass/volume) (test code = 25219-1) Ordering Physician UnknownAutomated blood platelet mean volume ziyvounnoel6965- 11-03 10:22:00Identifier 11563-0 Result Time 2019-10-02 10:22:00Unknown Test Item Value Reference Range Comments Automated blood platelet mean volume 11.4 fL Unknown Unknown F measurement (test code = 30308-8) Ordering Physician UnknownAutomated blood leukocytes count corrected for nucleated erythrocytes (number/volume)2019-10-02 10:22:00Identifier 46973-9 Result Time 2019-10-02 10:22:00Unknown Test Item Value Reference Range Comments Automated blood leukocytes count 12.2 10^3/uL Unknown Unknown F corrected for nucleated erythrocytes (number/volume) (test code = 72136-6) Ordering Physician UnknownAutomated blood nucleated erythrocytes gzjvryifd3859- 11-03 10:22:00Identifier 32920-1 Result Time 2019-10-02 10:22:00Unknown Test Item Value Reference Range Comments Automated blood nucleated erythrocytes 0.3 Unknown Unknown F detection (test code = 44150-8) Ordering Physician UnknownAutomated blood hematocrit (percentage)2019-10-02 10: 22:00Identifier 4544-3 Result Time 2019-10-02 10:22:00Unknown Test Item Value Reference Range Comments Automated blood hematocrit (percentage) (test 41 % Unknown Unknown F code = 4544-3) Ordering Physician UnknownAutomated blood monocytes/100 qdknxroizi5235-99-35 10: 22:00Identifier 5905-5 Result Time 2019-10-02 10:22:00Unknown [...] = 704-7) Ordering Physician UnknownAutomated blood basophils/100 npetjsgjmx6407-86-64 10: 22:00Identifier 706-2 Result Time 2019-10-02 10:22:00Unknown [...] = 711-2) Ordering Physician UnknownAutomated blood eosinophils/100 klzcyiywfu9811-33-76 10:22:00Identifier 713-8 Result Time 2019-10-02 10:22:00Unknown Test [...] = 731-0) Ordering Physician UnknownAutomated blood lymphocytes/100 wcxnyijnfl7292-19-09 10:22:00Identifier 736-9 Result Time 2019-10-02 10:22:00Unknown Test Item Value Reference Range Comments Automated blood lymphocytes/100 leukocytes 13.0 % Unknown Unknown F (test code = 736-9) Ordering Physician UnknownBlood monocytes automated count (number/volume)2019-09 10:22:00Identifier 742-7 Result Time 2019-10-02 10:22:00Unknown Test Item Value Reference Range Comments Blood monocytes automated count 0.7 10^3/ul Unknown Unknown F (number/volume) (test code = 742-7) Ordering Physician UnknownAutomated blood neutrophils/100 dukgodjznu1731-77-36 10:22:00Identifier 770-8 Result Time 2019-10-02 10:22:00Unknown Test [...] UnknownAutomated erythrocyte mean corpuscular hemoglobin concentration measurement (mass/qks6370-20-43 10:22:00Identifier 786-4 Result Time 2019-10-02 10:22:00Unknown Test Item Value Reference Range Comments Automated erythrocyte mean corpuscular 33 g/dL Unknown Unknown F hemoglobin concentration measurement (mass/vol (test code = 786-4) Ordering Physician UnknownAutomated erythrocyte mean corpuscular prvrwh7849-73- 03 10:22:00Identifier 787-2 Result Time 2019-10-02 10:22:00Unknown Test Item Value Reference Range Comments Automated erythrocyte mean corpuscular volume 89 fL Unknown Unknown F (test code = 787-2) Ordering Physician UnknownAutomated erythrocyte distribution width wvzgf9830-34- 03 10:22:00Identifier 788-0 Result Time 2019-10-02 10:22:00Unknown [...] code = 789-8) Ordering Physician UnknownCT biopsy ybkao0077-33-98 10:22:00Identifier [id number] Result Time 2019-10-02 10:22:00Unknown Test Item Value Reference Range Comments CT biopsy liver (test code = IID9458) 9.6 10^3/ul Unknown Unknown F Ordering Physician UnknownSerum or plasma thyroid stimulating hormone (TSH) measurement (units/volume)2019-10-02 10:15:00Identifier 3016-3 Result Time 10-02 10:15:00Unknown Test Item Value Reference Range Comments Serum or plasma thyroid stimulating 7.06 mcIU/mL Unknown Unknown F hormone (TSH) measurement (units/volume) (test code = 3016-3) Ordering Physician Unknown
--- OUTSIDE RECORDS SUMMARY | 2019-12-08 16:41 | XMS REPORT ---
:1960 Author Organization [facility] Care Team Providers Name Role Phone [...] or plasma hepatitis C 2019-10-04 05:18:00 Identifier [id number] Result Unknown virus antibody detection by Time 2019-10-04 05:18:00 immunoassay Test Item Value Reference Range Comments Serum or plasma hepatitis C virus antibody detection by 0.03 s/c Unknown Unknown F immunoassay (test code = 81449-8) Ordering Physician UnknownSerum or plasma alanine aminotransferase measurement ( enzymatic activity/volume)2019-10-04 05:18:00Identifier 1742-6 Result Time 10-04 05:18:00Unknown Test Item Value Reference Range Comments Serum or plasma alanine aminotransferase 234 U/L Unknown Unknown F measurement (enzymatic activity/volume) (test code = 1742-6) Ordering Physician UnknownSerum or plasma albumin/globulin mass czurr6521-38-26 05:18:00Identifier 1759-0 Result Time 2019-10-04 05:18:00Unknown Test Item Value Reference Range Comments Serum or plasma albumin/globulin mass ratio 1.9 Unknown Unknown F (test code = 1759-0) Ordering Physician UnknownSerum or plasma calcium measurement (mass/volume)10-04 05:18:00Identifier 36687-0 Result Time 2019-10-04 05:18:00Unknown Test Item Value Reference Range Comments Serum or plasma calcium measurement 8.9 mg/dL Unknown Unknown F (mass/volume) (test code = 84991-2) Ordering Physician UnknownSerum or plasma magnesium measurement (mass/volume) 2019-10-04 05:18:00Identifier 50462-7 Result Time 2019-10-04 05:18:00Unknown Test Item Value Reference Range Comments Serum or plasma magnesium measurement 2.2 mg/dL Unknown Unknown F (mass/volume) (test code = 81338-7) Ordering Physician UnknownSerum or plasma aspartate aminotransferase [...] Ordering Physician UnknownSerum or plasma urea nitrogen/creatinine lxfns8094-67- 05 05:18:00Identifier 3097-3 Result Time 2019-10-04 05:18:00Unknown Test Item Value Reference Range Comments Serum or plasma urea nitrogen/creatinine 19.4 Unknown Unknown F ratio (test code = 3097-3) Ordering Physician UnknownSerum or plasma anion tyz8714-81-65 05:18: 00Identifier 67711-7 Result Time 2019-10-04 05:18:00Unknown Test Item Value Reference Range Comments Serum or plasma anion gap (test code = 8 mmol/L Unknown Unknown F 97309-7) Ordering Physician UnknownEstimated glomerular filtration rate (GFR) non- Yksnsyji8948-11-87 05:18:00Identifier 29225-1 Result Time 2019-10-04 05: 18:00Unknown Test Item Value Reference Range Comments Estimated glomerular filtration rate (GFR) 41.6 Unknown Unknown F non- (test code = 85199-8) Ordering Physician UnknownSerum or plasma albumin measurement by bromocresol green (BCG) dye binding method (at1578-77-47 05:18:00Identifier 80292-3 Result Time 2019-10-04 05:18:00Unknown Test Item Value Reference Range Comments Serum or plasma albumin measurement by 3.7 g/dL Unknown Unknown F bromocresol green (BCG) dye binding method (ma (test code = 02983-5) Ordering Physician UnknownSerum or plasma alkaline phosphatase measurement ( enzymatic activity/volume)2019-10-04 05:18:00Identifier 6768-6 Result Time 10-04 05:18:00Unknown Test Item Value Reference Range Comments Serum or plasma alkaline phosphatase 281 U/L Unknown Unknown F measurement (enzymatic activity/volume) (test code = 6768-6) Ordering Physician UnknownSerum or plasma troponin i.cardiac measurement (mass/ volume)2019-10-02 20:07:00Identifier 73175-6 Result Time 2019-10-02 20:07: 00Unknown Test Item Value Reference Range Comments Serum or plasma troponin i.cardiac 0.03 ng/mL Unknown Unknown F measurement (mass/volume) (test code = 41412-8) Ordering Physician UnknownStool Plesiomonas shigelloides DNA detection by non- probe and target amplification gt1302-32-32 18:02:00Identifier 77156-1 Result Time 2019-10-02 18:02:00Unknown Test Item Value Reference Range Comments Nasal Screen MRSA (PCR) (test code = Mrsa Detected Unknown Unknown F Nasal Screen MRSA (PCR)) Ordering Physician UnknownSerum or plasma natriuretic peptide B measurement ( mass/volume)2019-10-02 10:22:00Identifier 42118-9 Result Time 2019-10-02 10:22: 00Unknown Test Item Value Reference Range Comments Serum or plasma natriuretic peptide B > 1300 pg/mL Unknown Unknown F measurement (mass/volume) (test code = 71380-5) Ordering Physician UnknownAutomated blood platelet mean volume zspgfkjsram7234- 11-03 10:22:00Identifier 24132-6 Result Time 2019-10-02 10:22:00Unknown Test Item Value Reference Range Comments Automated blood platelet mean volume 11.4 fL Unknown Unknown F measurement (test code = 86277-1) Ordering Physician UnknownAutomated blood leukocytes count corrected for nucleated erythrocytes (number/volume)2019-10-02 10:22:00Identifier 81331-5 Result Time 2019-10-02 10:22:00Unknown Test Item Value Reference Range Comments Automated blood leukocytes count 12.2 10^3/uL Unknown Unknown F corrected for nucleated erythrocytes (number/volume) (test code = 24312-7) Ordering Physician UnknownAutomated blood nucleated erythrocytes jfcjfzczq9043- 11-03 10:22:00Identifier 52484-1 Result Time 2019-10-02 10:22:00Unknown Test Item Value Reference Range Comments Automated blood nucleated erythrocytes 0.3 Unknown Unknown F detection (test code = 06338-2) Ordering Physician UnknownAutomated blood hematocrit (percentage)2019-10-02 10: 22:00Identifier 4544-3 Result Time 2019-10-02 10:22:00Unknown Test Item Value Reference Range Comments Automated blood hematocrit (percentage) (test 41 % Unknown Unknown F code = 4544-3) Ordering Physician UnknownAutomated blood monocytes/100 noqxuxmfei6345-95-24 10: 22:00Identifier 5905-5 Result Time 2019-10-02 10:22:00Unknown [...] = 704-7) Ordering Physician UnknownAutomated blood basophils/100 cniasqruil3839-61-36 10: 22:00Identifier 706-2 Result Time 2019-10-02 10:22:00Unknown [...] = 711-2) Ordering Physician UnknownAutomated blood eosinophils/100 rzfccbmfwi2399-26-44 10:22:00Identifier 713-8 Result Time 2019-10-02 10:22:00Unknown Test [...] = 731-0) Ordering Physician UnknownAutomated blood lymphocytes/100 zukcghjybw8980-20-36 10:22:00Identifier 736-9 Result Time 2019-10-02 10:22:00Unknown Test Item Value Reference Range Comments Automated blood lymphocytes/100 leukocytes 13.0 % Unknown Unknown F (test code = 736-9) Ordering Physician UnknownBlood monocytes automated count (number/volume)2019-09 10:22:00Identifier 742-7 Result Time 2019-10-02 10:22:00Unknown Test Item Value Reference Range Comments Blood monocytes automated count 0.7 10^3/ul Unknown Unknown F (number/volume) (test code = 742-7) Ordering Physician UnknownAutomated blood neutrophils/100 bwfzrhooth0506-76-50 10:22:00Identifier 770-8 Result Time 2019-10-02 10:22:00Unknown Test [...] UnknownAutomated erythrocyte mean corpuscular hemoglobin concentration measurement (mass/rxs9323-11-46 10:22:00Identifier 786-4 Result Time 2019-10-02 10:22:00Unknown Test Item Value Reference Range Comments Automated erythrocyte mean corpuscular 33 g/dL Unknown Unknown F hemoglobin concentration measurement (mass/vol (test code = 786-4) Ordering Physician UnknownAutomated erythrocyte mean corpuscular wsiouc0971-82- 03 10:22:00Identifier 787-2 Result Time 2019-10-02 10:22:00Unknown Test Item Value Reference Range Comments Automated erythrocyte mean corpuscular volume 89 fL Unknown Unknown F (test code = 787-2) Ordering Physician UnknownAutomated erythrocyte distribution width ymimz6849-70- 03 10:22:00Identifier 788-0 Result Time 2019-10-02 10:22:00Unknown [...] code = 789-8) Ordering Physician UnknownCT biopsy llphk7561-99-53 10:22:00Identifier [id number] Result Time 2019-10-02 10:22:00Unknown Test Item Value Reference Range Comments CT biopsy liver (test code = PBI2727) 9.6 10^3/ul Unknown Unknown F Ordering Physician UnknownSerum or plasma thyroid stimulating hormone (TSH) measurement (units/volume)2019-10-02 10:15:00Identifier 3016-3 Result Time 10-02 10:15:00Unknown Test Item Value Reference Range Comments Serum or plasma thyroid stimulating 7.06 mcIU/mL Unknown Unknown F hormone (TSH) measurement (units/volume) (test code = 3016-3) Ordering Physician Unknown
--- OUTSIDE RECORDS SUMMARY | 2019-12-08 16:41 | XMS REPORT ---
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..] 12-06 14:45:00 [place] s 14:45: RN 00 Neuro depressive Neuro/Emot Active Nessa feelings ion 12-06 [place] present 14:45: RN 00 Allergies, Adverse Reactions, Alerts [...] Senner Unknown Unknown 25 mg 25 mg 1-20 11-26 D.O.,Jilli tablet tablet an D torsemide torsemide 2018-11 Yes Senner Unknown Unknown 10 mg 10 mg 1-20 D.O.,Jilli tablet tablet an D torsemide torsemide 2018-11 Yes Senner Unknown Unknown 20 mg 20 mg 1-20 D.O.,Jilli tablet tablet an D oxygen oxygen 2018-11- Yes Senner Unknown Unknown 1-20 11-25 D.O.,Ann Marie an D oxygen oxygen 2018-11 Yes Senner Unknown Unknown 1-25 D.O.,Ann Marie an D traMADol 50 traMADol 50 2018-11 Yes Senner Unknown Unknown mg tablet mg tablet 1-22 D.O.,Leylai an D Lidocaine Lidocaine 2018-11 Yes Senner Unknown Unknown Pain Relief Pain Relief -22 D.O.,Ann Marie 4 % topical 4 % topical an D patch patch sertraline sertraline 2018-11 Yes Senner Unknown Unknown 50 mg 50 mg 1-26 D.O.,Ann Marie tablet tablet an D Miralax 17 Miralax 17 2018-11 Yes Senner Unknown Unknown gram oral gram oral 1-29 D.O.,Ann Marie powder powder an D packet packet Mucinex 600 Mucinex 600 2018-11 Yes Senner Unknown Unknown mg tablet, mg tablet, - D.O.,Ann Marie extended extended an D release release benzonatate benzonatate 2018-11 Yes Senner Unknown Unknown 100 mg 100 mg 2-11 D.O.,Ann Marie capsule capsule an D clotrimazol clotrimazol 2018-11 [...]
--- OUTSIDE RECORDS SUMMARY | 2019-12-08 16:41 | XMS REPORT ---
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
--- OUTSIDE RECORDS SUMMARY | 2019-12-08 16:41 | XMS REPORT ---
:1960 Author Organization [facility] Care Team Providers Name Role [...] or plasma hepatitis C 2019-10-04 05:18:00 Identifier 32164-4 Result Unknown virus antibody detection by Time 2019-10-04 05:18:00 immunoassay Test Item Value Reference Range Comments Serum or plasma hepatitis C virus antibody detection by 0.03 s/c Unknown Unknown F immunoassay (test code = 51665-9) Ordering Physician UnknownSerum or plasma alanine aminotransferase measurement ( enzymatic activity/volume)2019-10-04 05:18:00Identifier 1742-6 Result Time 10-04 05:18:00Unknown Test Item Value Reference Range Comments Serum or plasma alanine aminotransferase 234 U/L Unknown Unknown F measurement (enzymatic activity/volume) (test code = 1742-6) Ordering Physician UnknownSerum or plasma albumin/globulin mass [id number] 05:18:00Identifier 1759-0 Result Time 2019-10-04 05:18:00Unknown Test Item Value Reference Range Comments Serum or plasma albumin/globulin mass ratio 1.9 Unknown Unknown F (test code = 1759-0) Ordering Physician UnknownSerum or plasma calcium measurement (mass/volume)10-04 05:18:00Identifier 50722-2 Result Time 2019-10-04 05:18:00Unknown Test Item Value Reference Range Comments Serum or plasma calcium measurement 8.9 mg/dL Unknown Unknown F (mass/volume) (test code = 42925-1) Ordering Physician UnknownSerum or plasma magnesium measurement (mass/volume) 2019-10-04 05:18:00Identifier 80684-9 Result Time 2019-10-04 05:18:00Unknown Test Item Value Reference Range Comments Serum or plasma magnesium measurement 2.2 mg/dL Unknown Unknown F (mass/volume) (test code = 75875-3) Ordering Physician UnknownSerum or plasma aspartate aminotransferase [...] Ordering Physician UnknownSerum or plasma urea nitrogen/creatinine bwche3950-41- 05 05:18:00Identifier 3097-3 Result Time 2019-10-04 05:18:00Unknown Test Item Value Reference Range Comments Serum or plasma urea nitrogen/creatinine 19.4 Unknown Unknown F ratio (test code = 3097-3) Ordering Physician UnknownSerum or plasma anion [id number] 05:18: 00Identifier 12994-3 Result Time 2019-10-04 05:18:00Unknown Test Item Value Reference Range Comments Serum or plasma anion gap (test code = 8 mmol/L Unknown Unknown F 56973-8) Ordering Physician UnknownEstimated glomerular filtration rate (GFR) non- Zbeetpyr6027-81-31 05:18:00Identifier 53050-9 Result Time 2019-10-04 05: 18:00Unknown Test Item Value Reference Range Comments Estimated glomerular filtration rate (GFR) 41.6 Unknown Unknown F non- (test code = 24805-4) Ordering Physician UnknownSerum or plasma albumin measurement by bromocresol green (BCG) dye binding method ([id number] 05:18:00Identifier 51049-0 Result Time 2019-10-04 05:18:00Unknown Test Item Value Reference Range Comments Serum or plasma albumin measurement by 3.7 g/dL Unknown Unknown F bromocresol green (BCG) dye binding method (ma (test code = 52044-0) Ordering Physician UnknownSerum or plasma alkaline phosphatase measurement ( enzymatic activity/volume)2019-10-04 05:18:00Identifier 6768-6 Result Time 10-04 05:18:00Unknown Test Item Value Reference Range Comments Serum or plasma alkaline phosphatase 281 U/L Unknown Unknown F measurement (enzymatic activity/volume) (test code = 6768-6) Ordering Physician UnknownSerum or plasma troponin i.cardiac measurement (mass/ volume)2019-10-02 20:07:00Identifier 25296-8 Result Time 2019-10-02 20:07: 00Unknown Test Item Value Reference Range Comments Serum or plasma troponin i.cardiac 0.03 ng/mL Unknown Unknown F measurement (mass/volume) (test code = 84848-6) Ordering Physician UnknownStool Plesiomonas shigelloides DNA detection by non- probe and target amplification [id number] 18:02:00Identifier 35953-0 Result Time 2019-10-02 18:02:00Unknown Test Item Value Reference Range Comments Nasal Screen MRSA (PCR) (test code = Mrsa Detected Unknown Unknown F Nasal Screen MRSA (PCR)) Ordering Physician UnknownSerum or plasma natriuretic peptide B measurement ( mass/volume)2019-10-02 10:22:00Identifier 85294-9 Result Time 2019-10-02 10:22: 00Unknown Test Item Value Reference Range Comments Serum or plasma natriuretic peptide B > 1300 pg/mL Unknown Unknown F measurement (mass/volume) (test code = 59304-2) Ordering Physician UnknownAutomated blood platelet mean volume klaaeuwsyan2378- 11-03 10:22:00Identifier 04633-3 Result Time 2019-10-02 10:22:00Unknown Test Item Value Reference Range Comments Automated blood platelet mean volume 11.4 fL Unknown Unknown F measurement (test code = 08478-7) Ordering Physician UnknownAutomated blood leukocytes count corrected for nucleated erythrocytes (number/volume)2019-10-02 10:22:00Identifier 83409-6 Result Time 2019-10-02 10:22:00Unknown Test Item Value Reference Range Comments Automated blood leukocytes count 12.2 10^3/uL Unknown Unknown F corrected for nucleated erythrocytes (number/volume) (test code = 42552-1) Ordering Physician UnknownAutomated blood nucleated erythrocytes gehcnzbms0512- 11-03 10:22:00Identifier 32992-8 Result Time 2019-10-02 10:22:00Unknown Test Item Value Reference Range Comments Automated blood nucleated erythrocytes 0.3 Unknown Unknown F detection (test code = 54274-6) Ordering Physician UnknownAutomated blood hematocrit (percentage)2019-10-02 10: 22:00Identifier 4544-3 Result Time 2019-10-02 10:22:00Unknown Test Item Value Reference Range Comments Automated blood hematocrit (percentage) (test 41 % Unknown Unknown F code = 4544-3) Ordering Physician UnknownAutomated blood monocytes/100 tmwfsvtxnu4378-32-04 10: 22:00Identifier 5905-5 Result Time 2019-10-02 10:22:00Unknown [...] = 704-7) Ordering Physician UnknownAutomated blood basophils/100 ucmnxtnlmf7797-75-34 10: 22:00Identifier 706-2 Result Time 2019-10-02 10:22:00Unknown [...] = 711-2) Ordering Physician UnknownAutomated blood eosinophils/100 cyjapbxwez6913-55-72 10:22:00Identifier 713-8 Result Time 2019-10-02 10:22:00Unknown Test [...] = 731-0) Ordering Physician UnknownAutomated blood lymphocytes/100 zgvuaxdrnx7068-81-53 10:22:00Identifier 736-9 Result Time 2019-10-02 10:22:00Unknown Test Item Value Reference Range Comments Automated blood lymphocytes/100 leukocytes 13.0 % Unknown Unknown F (test code = 736-9) Ordering Physician UnknownBlood monocytes automated count (number/volume)2019-09 10:22:00Identifier 742-7 Result Time 2019-10-02 10:22:00Unknown Test Item Value Reference Range Comments Blood monocytes automated count 0.7 10^3/ul Unknown Unknown F (number/volume) (test code = 742-7) Ordering Physician UnknownAutomated blood neutrophils/100 ckvaqftrag1449-96-30 10:22:00Identifier 770-8 Result Time 2019-10-02 10:22:00Unknown Test [...] UnknownAutomated erythrocyte mean corpuscular hemoglobin concentration measurement (mass/mmn8859-02-99 10:22:00Identifier 786-4 Result Time 2019-10-02 10:22:00Unknown Test Item Value Reference Range Comments Automated erythrocyte mean corpuscular 33 g/dL Unknown Unknown F hemoglobin concentration measurement (mass/vol (test code = 786-4) Ordering Physician UnknownAutomated erythrocyte mean corpuscular ubvhxl5274-51- 03 10:22:00Identifier 787-2 Result Time 2019-10-02 10:22:00Unknown Test Item Value Reference Range Comments Automated erythrocyte mean corpuscular volume 89 fL Unknown Unknown F (test code = 787-2) Ordering Physician UnknownAutomated erythrocyte distribution width cxbvo9212-82- 03 10:22:00Identifier 788-0 Result Time 2019-10-02 10:22:00Unknown [...] code = 789-8) Ordering Physician UnknownCT biopsy [id number] 10:22:00Identifier [id number] Result Time 2019-10-02 10:22:00Unknown Test Item Value Reference Range Comments CT biopsy liver (test code = NIM1520) 9.6 10^3/ul Unknown Unknown F Ordering Physician UnknownSerum or plasma thyroid stimulating hormone (TSH) measurement (units/volume)2019-10-02 10:15:00Identifier 3016-3 Result Time 10-02 10:15:00Unknown Test Item Value Reference Range Comments Serum or plasma thyroid stimulating 7.06 mcIU/mL Unknown Unknown F hormone (TSH) measurement (units/volume) (test code = 3016-3) Ordering Physician Unknown
--- OUTSIDE RECORDS SUMMARY | 2019-12-08 16:41 | XMS REPORT ---
:1960 Author Organization [facility] Care Team Providers Name Role Phone Unavailable [...] or plasma hepatitis C 2019-10-04 05:18:00 Identifier [id number] Result Unknown virus antibody detection by Time 2019-10-04 05:18:00 immunoassay Test Item Value Reference Range Comments Serum or plasma hepatitis C virus antibody detection by 0.03 s/c Unknown Unknown F immunoassay (test code = 17548-4) Ordering Physician UnknownSerum or plasma alanine aminotransferase measurement ( enzymatic activity/volume)2019-10-04 05:18:00Identifier 1742-6 Result Time 10-04 05:18:00Unknown Test Item Value Reference Range Comments Serum or plasma alanine aminotransferase 234 U/L Unknown Unknown F measurement (enzymatic activity/volume) (test code = 1742-6) Ordering Physician UnknownSerum or plasma albumin/globulin mass ayrgc0431-80-07 05:18:00Identifier 1759-0 Result Time 2019-10-04 05:18:00Unknown Test Item Value Reference Range Comments Serum or plasma albumin/globulin mass ratio 1.9 Unknown Unknown F (test code = 1759-0) Ordering Physician UnknownSerum or plasma calcium measurement (mass/volume)10-04 05:18:00Identifier 12319-7 Result Time 2019-10-04 05:18:00Unknown Test Item Value Reference Range Comments Serum or plasma calcium measurement 8.9 mg/dL Unknown Unknown F (mass/volume) (test code = 94359-9) Ordering Physician UnknownSerum or plasma magnesium measurement (mass/volume) 2019-10-04 05:18:00Identifier 66199-7 Result Time 2019-10-04 05:18:00Unknown Test Item Value Reference Range Comments Serum or plasma magnesium measurement 2.2 mg/dL Unknown Unknown F (mass/volume) (test code = 75132-7) Ordering Physician UnknownSerum or plasma aspartate aminotransferase [...] Ordering Physician UnknownSerum or plasma urea nitrogen/creatinine gebcb5607-99- 05 05:18:00Identifier 3097-3 Result Time 2019-10-04 05:18:00Unknown Test Item Value Reference Range Comments Serum or plasma urea nitrogen/creatinine 19.4 Unknown Unknown F ratio (test code = 3097-3) Ordering Physician UnknownSerum or plasma anion vrv6909-27-10 05:18: 00Identifier 90149-3 Result Time 2019-10-04 05:18:00Unknown Test Item Value Reference Range Comments Serum or plasma anion gap (test code = 8 mmol/L Unknown Unknown F 01519-7) Ordering Physician UnknownEstimated glomerular filtration rate (GFR) non- Cqykcpko0588-15-33 05:18:00Identifier 71556-1 Result Time 2019-10-04 05: 18:00Unknown Test Item Value Reference Range Comments Estimated glomerular filtration rate (GFR) 41.6 Unknown Unknown F non- (test code = 62787-0) Ordering Physician UnknownSerum or plasma albumin measurement by bromocresol green (BCG) dye binding method (bu6943-03-48 05:18:00Identifier 46462-4 Result Time 2019-10-04 05:18:00Unknown Test Item Value Reference Range Comments Serum or plasma albumin measurement by 3.7 g/dL Unknown Unknown F bromocresol green (BCG) dye binding method (ma (test code = 84886-8) Ordering Physician UnknownSerum or plasma alkaline phosphatase measurement ( enzymatic activity/volume)2019-10-04 05:18:00Identifier 6768-6 Result Time 10-04 05:18:00Unknown Test Item Value Reference Range Comments Serum or plasma alkaline phosphatase 281 U/L Unknown Unknown F measurement (enzymatic activity/volume) (test code = 6768-6) Ordering Physician UnknownSerum or plasma troponin i.cardiac measurement (mass/ volume)2019-10-02 20:07:00Identifier 33987-4 Result Time 2019-10-02 20:07: 00Unknown Test Item Value Reference Range Comments Serum or plasma troponin i.cardiac 0.03 ng/mL Unknown Unknown F measurement (mass/volume) (test code = 66126-1) Ordering Physician UnknownStool Plesiomonas shigelloides DNA detection by non- probe and target amplification pk1808-25-27 18:02:00Identifier 40260-7 Result Time 2019-10-02 18:02:00Unknown Test Item Value Reference Range Comments Nasal Screen MRSA (PCR) (test code = Mrsa Detected Unknown Unknown F Nasal Screen MRSA (PCR)) Ordering Physician UnknownSerum or plasma natriuretic peptide B measurement ( mass/volume)2019-10-02 10:22:00Identifier 42761-1 Result Time 2019-10-02 10:22: 00Unknown Test Item Value Reference Range Comments Serum or plasma natriuretic peptide B > 1300 pg/mL Unknown Unknown F measurement (mass/volume) (test code = 50326-0) Ordering Physician UnknownAutomated blood platelet mean volume wuezeixuymn6158- 11-03 10:22:00Identifier 09707-8 Result Time 2019-10-02 10:22:00Unknown Test Item Value Reference Range Comments Automated blood platelet mean volume 11.4 fL Unknown Unknown F measurement (test code = 46154-3) Ordering Physician UnknownAutomated blood leukocytes count corrected for nucleated erythrocytes (number/volume)2019-10-02 10:22:00Identifier 02513-3 Result Time 2019-10-02 10:22:00Unknown Test Item Value Reference Range Comments Automated blood leukocytes count 12.2 10^3/uL Unknown Unknown F corrected for nucleated erythrocytes (number/volume) (test code = 12824-0) Ordering Physician UnknownAutomated blood nucleated erythrocytes lvtzboxue8443- 11-03 10:22:00Identifier 69652-9 Result Time 2019-10-02 10:22:00Unknown Test Item Value Reference Range Comments Automated blood nucleated erythrocytes 0.3 Unknown Unknown F detection (test code = 87333-9) Ordering Physician UnknownAutomated blood hematocrit (percentage)2019-10-02 10: 22:00Identifier 4544-3 Result Time 2019-10-02 10:22:00Unknown Test Item Value Reference Range Comments Automated blood hematocrit (percentage) (test 41 % Unknown Unknown F code = 4544-3) Ordering Physician UnknownAutomated blood monocytes/100 ztgcsamoir3830-82-91 10: 22:00Identifier 5905-5 Result Time 2019-10-02 10:22:00Unknown [...] = 704-7) Ordering Physician UnknownAutomated blood basophils/100 xpbdmcxpoh0768-66-67 10: 22:00Identifier 706-2 Result Time 2019-10-02 10:22:00Unknown [...] = 711-2) Ordering Physician UnknownAutomated blood eosinophils/100 ydehbzezaq0665-34-91 10:22:00Identifier 713-8 Result Time 2019-10-02 10:22:00Unknown Test [...] = 731-0) Ordering Physician UnknownAutomated blood lymphocytes/100 aqwwcxjgzs4881-38-36 10:22:00Identifier 736-9 Result Time 2019-10-02 10:22:00Unknown Test Item Value Reference Range Comments Automated blood lymphocytes/100 leukocytes 13.0 % Unknown Unknown F (test code = 736-9) Ordering Physician UnknownBlood monocytes automated count (number/volume)2019-09 10:22:00Identifier 742-7 Result Time 2019-10-02 10:22:00Unknown Test Item Value Reference Range Comments Blood monocytes automated count 0.7 10^3/ul Unknown Unknown F (number/volume) (test code = 742-7) Ordering Physician UnknownAutomated blood neutrophils/100 cnbwgazlhc6731-75-90 10:22:00Identifier 770-8 Result Time 2019-10-02 10:22:00Unknown Test [...] UnknownAutomated erythrocyte mean corpuscular hemoglobin concentration measurement (mass/lsf4788-54-87 10:22:00Identifier 786-4 Result Time 2019-10-02 10:22:00Unknown Test Item Value Reference Range Comments Automated erythrocyte mean corpuscular 33 g/dL Unknown Unknown F hemoglobin concentration measurement (mass/vol (test code = 786-4) Ordering Physician UnknownAutomated erythrocyte mean corpuscular mdddbe5252-73- 03 10:22:00Identifier 787-2 Result Time 2019-10-02 10:22:00Unknown Test Item Value Reference Range Comments Automated erythrocyte mean corpuscular volume 89 fL Unknown Unknown F (test code = 787-2) Ordering Physician UnknownAutomated erythrocyte distribution width yfxod4540-89- 03 10:22:00Identifier 788-0 Result Time 2019-10-02 10:22:00Unknown [...] code = 789-8) Ordering Physician UnknownCT biopsy ilvks3436-47-55 10:22:00Identifier [id number] Result Time 2019-10-02 10:22:00Unknown Test Item Value Reference Range Comments CT biopsy liver (test code = DJA5909) 9.6 10^3/ul Unknown Unknown F Ordering Physician UnknownSerum or plasma thyroid stimulating hormone (TSH) measurement (units/volume)2019-10-02 10:15:00Identifier 3016-3 Result Time 10-02 10:15:00Unknown Test Item Value Reference Range Comments Serum or plasma thyroid stimulating 7.06 mcIU/mL Unknown Unknown F hormone (TSH) measurement (units/volume) (test code = 3016-3) Ordering Physician Unknown
--- OUTSIDE RECORDS SUMMARY | 2019-12-08 16:41 | XMS REPORT ---
:1960 Author Organization [facility] Care Team Providers Name Role Phone Unavailable [...] or plasma hepatitis C 2019-10-04 05:18:00 Identifier [id number] Result Unknown virus antibody detection by Time 2019-10-04 05:18:00 immunoassay Test Item Value Reference Range Comments Serum or plasma hepatitis C virus antibody detection by 0.03 s/c Unknown Unknown F immunoassay (test code = 98096-1) Ordering Physician UnknownSerum or plasma alanine aminotransferase measurement ( enzymatic activity/volume)2019-10-04 05:18:00Identifier 1742-6 Result Time 10-04 05:18:00Unknown Test Item Value Reference Range Comments Serum or plasma alanine aminotransferase 234 U/L Unknown Unknown F measurement (enzymatic activity/volume) (test code = 1742-6) Ordering Physician UnknownSerum or plasma albumin/globulin mass xaklh0066-20-45 05:18:00Identifier 1759-0 Result Time 2019-10-04 05:18:00Unknown Test Item Value Reference Range Comments Serum or plasma albumin/globulin mass ratio 1.9 Unknown Unknown F (test code = 1759-0) Ordering Physician UnknownSerum or plasma calcium measurement (mass/volume)10-04 05:18:00Identifier 07109-8 Result Time 2019-10-04 05:18:00Unknown Test Item Value Reference Range Comments Serum or plasma calcium measurement 8.9 mg/dL Unknown Unknown F (mass/volume) (test code = 62368-1) Ordering Physician UnknownSerum or plasma magnesium measurement (mass/volume) 2019-10-04 05:18:00Identifier 18354-1 Result Time 2019-10-04 05:18:00Unknown Test Item Value Reference Range Comments Serum or plasma magnesium measurement 2.2 mg/dL Unknown Unknown F (mass/volume) (test code = 79509-4) Ordering Physician UnknownSerum or plasma aspartate aminotransferase [...] Ordering Physician UnknownSerum or plasma urea nitrogen/creatinine peurf5178-17- 05 05:18:00Identifier 3097-3 Result Time 2019-10-04 05:18:00Unknown Test Item Value Reference Range Comments Serum or plasma urea nitrogen/creatinine 19.4 Unknown Unknown F ratio (test code = 3097-3) Ordering Physician UnknownSerum or plasma anion bwq1382-39-46 05:18: 00Identifier 03150-1 Result Time 2019-10-04 05:18:00Unknown Test Item Value Reference Range Comments Serum or plasma anion gap (test code = 8 mmol/L Unknown Unknown F 88541-9) Ordering Physician UnknownEstimated glomerular filtration rate (GFR) non- Twnegfjn7098-12-26 05:18:00Identifier 60575-2 Result Time 2019-10-04 05: 18:00Unknown Test Item Value Reference Range Comments Estimated glomerular filtration rate (GFR) 41.6 Unknown Unknown F non- (test code = 61051-1) Ordering Physician UnknownSerum or plasma albumin measurement by bromocresol green (BCG) dye binding method (sb6880-82-21 05:18:00Identifier 99061-6 Result Time 2019-10-04 05:18:00Unknown Test Item Value Reference Range Comments Serum or plasma albumin measurement by 3.7 g/dL Unknown Unknown F bromocresol green (BCG) dye binding method (ma (test code = 21771-2) Ordering Physician UnknownSerum or plasma alkaline phosphatase measurement ( enzymatic activity/volume)2019-10-04 05:18:00Identifier 6768-6 Result Time 10-04 05:18:00Unknown Test Item Value Reference Range Comments Serum or plasma alkaline phosphatase 281 U/L Unknown Unknown F measurement (enzymatic activity/volume) (test code = 6768-6) Ordering Physician UnknownSerum or plasma troponin i.cardiac measurement (mass/ volume)2019-10-02 20:07:00Identifier 43919-8 Result Time 2019-10-02 20:07: 00Unknown Test Item Value Reference Range Comments Serum or plasma troponin i.cardiac 0.03 ng/mL Unknown Unknown F measurement (mass/volume) (test code = 65669-9) Ordering Physician UnknownStool Plesiomonas shigelloides DNA detection by non- probe and target amplification hi2225-69-92 18:02:00Identifier 19774-7 Result Time 2019-10-02 18:02:00Unknown Test Item Value Reference Range Comments Nasal Screen MRSA (PCR) (test code = Mrsa Detected Unknown Unknown F Nasal Screen MRSA (PCR)) Ordering Physician UnknownSerum or plasma natriuretic peptide B measurement ( mass/volume)2019-10-02 10:22:00Identifier 80362-7 Result Time 2019-10-02 10:22: 00Unknown Test Item Value Reference Range Comments Serum or plasma natriuretic peptide B > 1300 pg/mL Unknown Unknown F measurement (mass/volume) (test code = 78055-3) Ordering Physician UnknownAutomated blood platelet mean volume rtjbnjgynzc3945- 11-03 10:22:00Identifier 33212-7 Result Time 2019-10-02 10:22:00Unknown Test Item Value Reference Range Comments Automated blood platelet mean volume 11.4 fL Unknown Unknown F measurement (test code = 97570-5) Ordering Physician UnknownAutomated blood leukocytes count corrected for nucleated erythrocytes (number/volume)2019-10-02 10:22:00Identifier 81693-3 Result Time 2019-10-02 10:22:00Unknown Test Item Value Reference Range Comments Automated blood leukocytes count 12.2 10^3/uL Unknown Unknown F corrected for nucleated erythrocytes (number/volume) (test code = 94242-7) Ordering Physician UnknownAutomated blood nucleated erythrocytes mlnkyuqmt8559- 11-03 10:22:00Identifier 93070-3 Result Time 2019-10-02 10:22:00Unknown Test Item Value Reference Range Comments Automated blood nucleated erythrocytes 0.3 Unknown Unknown F detection (test code = 00599-0) Ordering Physician UnknownAutomated blood hematocrit (percentage)2019-10-02 10: 22:00Identifier 4544-3 Result Time 2019-10-02 10:22:00Unknown Test Item Value Reference Range Comments Automated blood hematocrit (percentage) (test 41 % Unknown Unknown F code = 4544-3) Ordering Physician UnknownAutomated blood monocytes/100 fspnxmlmeo4861-90-19 10: 22:00Identifier 5905-5 Result Time 2019-10-02 10:22:00Unknown [...] = 704-7) Ordering Physician UnknownAutomated blood basophils/100 vlvrjiuasc9219-91-57 10: 22:00Identifier 706-2 Result Time 2019-10-02 10:22:00Unknown [...] = 711-2) Ordering Physician UnknownAutomated blood eosinophils/100 wgspivvgxx5962-58-23 10:22:00Identifier 713-8 Result Time 2019-10-02 10:22:00Unknown Test [...] = 731-0) Ordering Physician UnknownAutomated blood lymphocytes/100 nvowdjmqmh3197-74-54 10:22:00Identifier 736-9 Result Time 2019-10-02 10:22:00Unknown Test Item Value Reference Range Comments Automated blood lymphocytes/100 leukocytes 13.0 % Unknown Unknown F (test code = 736-9) Ordering Physician UnknownBlood monocytes automated count (number/volume)2019-09 10:22:00Identifier 742-7 Result Time 2019-10-02 10:22:00Unknown Test Item Value Reference Range Comments Blood monocytes automated count 0.7 10^3/ul Unknown Unknown F (number/volume) (test code = 742-7) Ordering Physician UnknownAutomated blood neutrophils/100 vzhxjvtomo0875-21-26 10:22:00Identifier 770-8 Result Time 2019-10-02 10:22:00Unknown Test [...] UnknownAutomated erythrocyte mean corpuscular hemoglobin concentration measurement (mass/qol9869-84-75 10:22:00Identifier 786-4 Result Time 2019-10-02 10:22:00Unknown Test Item Value Reference Range Comments Automated erythrocyte mean corpuscular 33 g/dL Unknown Unknown F hemoglobin concentration measurement (mass/vol (test code = 786-4) Ordering Physician UnknownAutomated erythrocyte mean corpuscular lhpjse3648-59- 03 10:22:00Identifier 787-2 Result Time 2019-10-02 10:22:00Unknown Test Item Value Reference Range Comments Automated erythrocyte mean corpuscular volume 89 fL Unknown Unknown F (test code = 787-2) Ordering Physician UnknownAutomated erythrocyte distribution width saqth1403-55- 03 10:22:00Identifier 788-0 Result Time 2019-10-02 10:22:00Unknown [...] code = 789-8) Ordering Physician UnknownCT biopsy faqzc7814-90-57 10:22:00Identifier [id number] Result Time 2019-10-02 10:22:00Unknown Test Item Value Reference Range Comments CT biopsy liver (test code = YMM9117) 9.6 10^3/ul Unknown Unknown F Ordering Physician UnknownSerum or plasma thyroid stimulating hormone (TSH) measurement (units/volume)2019-10-02 10:15:00Identifier 3016-3 Result Time 10-02 10:15:00Unknown Test Item Value Reference Range Comments Serum or plasma thyroid stimulating 7.06 mcIU/mL Unknown Unknown F hormone (TSH) measurement (units/volume) (test code = 3016-3) Ordering Physician Unknown
--- OUTSIDE RECORDS SUMMARY | 2019-12-08 16:42 | XMS REPORT ---
:1960 Author Organization [facility] Care Team Providers Name Role [...] or plasma hepatitis C 2019-10-04 05:18:00 Identifier [id number] Result Unknown virus antibody detection by Time 2019-10-04 05:18:00 immunoassay Test Item Value Reference Range Comments Serum or plasma hepatitis C virus antibody detection by 0.03 s/c Unknown Unknown F immunoassay (test code = 94950-6) Ordering Physician UnknownSerum or plasma alanine aminotransferase measurement ( enzymatic activity/volume)2019-10-04 05:18:00Identifier 1742-6 Result Time 10-04 05:18:00Unknown Test Item Value Reference Range Comments Serum or plasma alanine aminotransferase 234 U/L Unknown Unknown F measurement (enzymatic activity/volume) (test code = 1742-6) Ordering Physician UnknownSerum or plasma albumin/globulin mass [id number] 05:18:00Identifier 1759-0 Result Time 2019-10-04 05:18:00Unknown Test Item Value Reference Range Comments Serum or plasma albumin/globulin mass ratio 1.9 Unknown Unknown F (test code = 1759-0) Ordering Physician UnknownSerum or plasma calcium measurement (mass/volume)10-04 05:18:00Identifier 41314-3 Result Time 2019-10-04 05:18:00Unknown Test Item Value Reference Range Comments Serum or plasma calcium measurement 8.9 mg/dL Unknown Unknown F (mass/volume) (test code = 16024-7) Ordering Physician UnknownSerum or plasma magnesium measurement (mass/volume) 2019-10-04 05:18:00Identifier 48097-2 Result Time 2019-10-04 05:18:00Unknown Test Item Value Reference Range Comments Serum or plasma magnesium measurement 2.2 mg/dL Unknown Unknown F (mass/volume) (test code = 03919-4) Ordering Physician UnknownSerum or plasma aspartate aminotransferase [...] Ordering Physician UnknownSerum or plasma urea nitrogen/creatinine pooru5461-52- 05 05:18:00Identifier 3097-3 Result Time 2019-10-04 05:18:00Unknown Test Item Value Reference Range Comments Serum or plasma urea nitrogen/creatinine 19.4 Unknown Unknown F ratio (test code = 3097-3) Ordering Physician UnknownSerum or plasma anion [id number] 05:18: 00Identifier 27511-5 Result Time 2019-10-04 05:18:00Unknown Test Item Value Reference Range Comments Serum or plasma anion gap (test code = 8 mmol/L Unknown Unknown F 85106-9) Ordering Physician UnknownEstimated glomerular filtration rate (GFR) non- Ukkafvdt6920-50-35 05:18:00Identifier 72313-7 Result Time 2019-10-04 05: 18:00Unknown Test Item Value Reference Range Comments Estimated glomerular filtration rate (GFR) 41.6 Unknown Unknown F non- (test code = 13531-1) Ordering Physician UnknownSerum or plasma albumin measurement by bromocresol green (BCG) dye binding method ([id number] 05:18:00Identifier 85708-7 Result Time 2019-10-04 05:18:00Unknown Test Item Value Reference Range Comments Serum or plasma albumin measurement by 3.7 g/dL Unknown Unknown F bromocresol green (BCG) dye binding method (ma (test code = 04000-5) Ordering Physician UnknownSerum or plasma alkaline phosphatase measurement ( enzymatic activity/volume)2019-10-04 05:18:00Identifier 6768-6 Result Time 10-04 05:18:00Unknown Test Item Value Reference Range Comments Serum or plasma alkaline phosphatase 281 U/L Unknown Unknown F measurement (enzymatic activity/volume) (test code = 6768-6) Ordering Physician UnknownSerum or plasma troponin i.cardiac measurement (mass/ volume)2019-10-02 20:07:00Identifier 06817-7 Result Time 2019-10-02 20:07: 00Unknown Test Item Value Reference Range Comments Serum or plasma troponin i.cardiac 0.03 ng/mL Unknown Unknown F measurement (mass/volume) (test code = 43568-5) Ordering Physician UnknownStool Plesiomonas shigelloides DNA detection by non- probe and target amplification [id number] 18:02:00Identifier 92552-0 Result Time 2019-10-02 18:02:00Unknown Test Item Value Reference Range Comments Nasal Screen MRSA (PCR) (test code = Mrsa Detected Unknown Unknown F Nasal Screen MRSA (PCR)) Ordering Physician UnknownSerum or plasma natriuretic peptide B measurement ( mass/volume)2019-10-02 10:22:00Identifier 83976-6 Result Time 2019-10-02 10:22: 00Unknown Test Item Value Reference Range Comments Serum or plasma natriuretic peptide B > 1300 pg/mL Unknown Unknown F measurement (mass/volume) (test code = 84625-7) Ordering Physician UnknownAutomated blood platelet mean volume jijdgvirwpo6916- 11-03 10:22:00Identifier 39751-0 Result Time 2019-10-02 10:22:00Unknown Test Item Value Reference Range Comments Automated blood platelet mean volume 11.4 fL Unknown Unknown F measurement (test code = 36757-9) Ordering Physician UnknownAutomated blood leukocytes count corrected for nucleated erythrocytes (number/volume)2019-10-02 10:22:00Identifier 50623-7 Result Time 2019-10-02 10:22:00Unknown Test Item Value Reference Range Comments Automated blood leukocytes count 12.2 10^3/uL Unknown Unknown F corrected for nucleated erythrocytes (number/volume) (test code = 11953-2) Ordering Physician UnknownAutomated blood nucleated erythrocytes wdcfltpat3162- 11-03 10:22:00Identifier 63756-5 Result Time 2019-10-02 10:22:00Unknown Test Item Value Reference Range Comments Automated blood nucleated erythrocytes 0.3 Unknown Unknown F detection (test code = 27725-5) Ordering Physician UnknownAutomated blood hematocrit (percentage)2019-10-02 10: 22:00Identifier 4544-3 Result Time 2019-10-02 10:22:00Unknown Test Item Value Reference Range Comments Automated blood hematocrit (percentage) (test 41 % Unknown Unknown F code = 4544-3) Ordering Physician UnknownAutomated blood monocytes/100 siunyfbmur4471-16-79 10: 22:00Identifier 5905-5 Result Time 2019-10-02 10:22:00Unknown [...] = 704-7) Ordering Physician UnknownAutomated blood basophils/100 heuwrrbsyu8383-22-38 10: 22:00Identifier 706-2 Result Time 2019-10-02 10:22:00Unknown [...] = 711-2) Ordering Physician UnknownAutomated blood eosinophils/100 djqyeaadgj3036-63-71 10:22:00Identifier 713-8 Result Time 2019-10-02 10:22:00Unknown Test [...] = 731-0) Ordering Physician UnknownAutomated blood lymphocytes/100 ltcmsbgqnc2810-47-73 10:22:00Identifier 736-9 Result Time 2019-10-02 10:22:00Unknown Test Item Value Reference Range Comments Automated blood lymphocytes/100 leukocytes 13.0 % Unknown Unknown F (test code = 736-9) Ordering Physician UnknownBlood monocytes automated count (number/volume)2019-09 10:22:00Identifier 742-7 Result Time 2019-10-02 10:22:00Unknown Test Item Value Reference Range Comments Blood monocytes automated count 0.7 10^3/ul Unknown Unknown F (number/volume) (test code = 742-7) Ordering Physician UnknownAutomated blood neutrophils/100 yuanaqlzid5882-42-16 10:22:00Identifier 770-8 Result Time 2019-10-02 10:22:00Unknown Test [...] UnknownAutomated erythrocyte mean corpuscular hemoglobin concentration measurement (mass/iwc2536-86-40 10:22:00Identifier 786-4 Result Time 2019-10-02 10:22:00Unknown Test Item Value Reference Range Comments Automated erythrocyte mean corpuscular 33 g/dL Unknown Unknown F hemoglobin concentration measurement (mass/vol (test code = 786-4) Ordering Physician UnknownAutomated erythrocyte mean corpuscular skqpgv8112-33- 03 10:22:00Identifier 787-2 Result Time 2019-10-02 10:22:00Unknown Test Item Value Reference Range Comments Automated erythrocyte mean corpuscular volume 89 fL Unknown Unknown F (test code = 787-2) Ordering Physician UnknownAutomated erythrocyte distribution width oyzsf5972-24- 03 10:22:00Identifier 788-0 Result Time 2019-10-02 10:22:00Unknown [...] code = 789-8) Ordering Physician UnknownCT biopsy [id number] 10:22:00Identifier [id number] Result Time 2019-10-02 10:22:00Unknown Test Item Value Reference Range Comments CT biopsy liver (test code = BTE5626) 9.6 10^3/ul Unknown Unknown F Ordering Physician UnknownSerum or plasma thyroid stimulating hormone (TSH) measurement (units/volume)2019-10-02 10:15:00Identifier 3016-3 Result Time 10-02 10:15:00Unknown Test Item Value Reference Range Comments Serum or plasma thyroid stimulating 7.06 mcIU/mL Unknown Unknown F hormone (TSH) measurement (units/volume) (test code = 3016-3) Ordering Physician Unknown
--- OUTSIDE RECORDS SUMMARY | 2019-12-08 16:42 | XMS REPORT ---
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
--- OUTSIDE RECORDS SUMMARY | 2019-12-08 16:42 | XMS REPORT ---
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 (current) (current) [place] use of use of RN aspirin aspirin Pain frequent Pain Mgmt Resolve 2018-112019-11-04 Cathleen pain d 12-19 12:00:00 [place] 10:00: 00 Pain knowledge/s Pain Mgmt Resolve 2018-112019-11-04 Cathleen kill d 12-19 12:00:00 [place] deficit: pt 10:00: 00 Cardio knowledge/s Cardiovasc Active 2018-11 Cathleen kohelr ular 12-19 [place] deficit: pt 10:00: 00 Cardio pacemaker/I Cardiovasc Resolve 2018-112019-10-28 Cathleen CD ular d 1-20 11:20:00 [place] 10:00: 00 Respiratory dyspnea Respirator Active 2018-11 Cathleen present y 20 [place] 10:00: 00 Respiratory oxygen Respirator Active 2018-11 Cathleen treatments y 1-20 [place] in home 10:00: 00 Respiratory knowledge/s Respirator Active 2018-11 Cathleen kill y -20 [place] deficit: pt 10:00: 00 Endo/Les anti-coagul Endo/Les Resolve 2018-112019-10-19 Cathleen ation d 1-20 10:00:00 [place] therapy 10:00: 00 Nutrition knowledge/s Nutrition Active 2018-11 Cathleen kill -20 [place] deficit: pt 10:00: 00 Nutrition nutritional Nutrition Active 2018-11 Cathleen restriction 1-20 [place] s 10:00: 00 Neuro depressive Neuro/Emot Active 2018-11 Cathleen feelings ion -20 [place] present 10:00: 00 Neuro knowledge/s Neuro/Emot Active 2018-11 Cathleen kill ion -20 [place] deficit: pt 10:00: 00 Activity knowledge/s Activity Resolve 2018-112019-11-18 Cathleen kill d 1-20 14:45:00 [place] deficit: pt 10:00: 00 Activity self-care Activity Resolve 2018-112019-11-18 Cathleen deficit d -20 14:45:00 [place] 10:00: 00 Activity ADL Activity Resolve 2018-112019-11-18 Cathleen assistance d -20 14:45:00 [place] required 10:00: 00 Safety safety Safety Active 2018- Cathleen hazards 1-20 [place] present 10:00: 00 Safety sanitation Safety Active 2018-11 Cathleen hazards 1-20 [place] present 10:00: 00 Safety knowledge/s Safety Active 2018-11 Cathleen kill 1-20 [place] deficit: pt 10:00: 00 Safety fall risk Safety Active 2018-11 Cathleen factor 1-20 [place] present 10:00: 00 Safety fire risk Safety Active 2018-11 Cathleen present 1-20 [place] 10:00: 00 Safety risk for Safety Active 2018-11 Cathleen oswaldkellenjeanne - [place] tion 10:00: 00 Medication oral med Meds Resolve 2018-112019-10-28 Cathleen valenitne d 12-19 11:20:00 [place] required 10:00: 00 [...] 00 Musculoskel requires Musculoske Resolve 2018-112019-11-04 Cathleen laral human letal d 12-19 12:00:00 [place] assist to 10:00: leave home 00 Neuro anxiety Neuro/Emot Active 2018-11 Nessa present ion 12-21 [place] 14:40: RN 00 24 Hr Diet nutrition NT: 24Hr Active 2018-11 Crystal intake Diet 12-22 [place] deficit 14:10: [id number] 00 24 Hr Diet knowledge/s NT: 24Hr Active 2018-11 Crystal kill Diet 12-22 [place] deficit - 14:10: 738861 pt 00 Nutritional eating NT: Resolve 2018-112019-10-22 [place] Barrier difficultie Barriers d 12-22 14:10:00 [place] s present 14:10: [id number] 00 Test/Treatm venipunctur Test/Injec Resolve 2018-112019-11-18 Nessa [...] pacemaker/I Cardiovasc Active 2018-11 Nessa CD ular 01-03 J[place]ke 11:35: RN 00 Medication oral med Meds Active 2018-11 Nessa assistance 01-03 [place] required 11:35: RN 00 Musculoskel requires Musculoske Resolve 2018-112019-11-18 Nessa etal human letal d 01-19 14:45:00 Javonnoske assist to 14:45: RN leave home 00 Allergies, Adverse Reactions, Alerts Allergy Name [...] Senner Unknown Unknown 50 mg 50 mg - D.O.,Jilli tablet tablet an D Miralax 17 [...] mcg/actuati on aerosol on aerosol inhaler inhaler Vital Signs Vital Name Observation Time Observation Value Comments SYSTOLIC mm[Hg] 2019-11-22 18:09:31 102 mm[Hg] mm[Hg] Method: Sit SYSTOLIC mm[Hg] 2019-10-19 18:08:57 95 mm[Hg] mm[Hg] Method: Stand DIASTOLIC mm[Hg] 2019-11-22 18:09:31 62 mm[Hg] mm[Hg] Method: Sit DIASTOLIC mm[Hg] 2019-10-19 18:08:57 60 mm[Hg] mm[Hg] Method: Stand PULSE 2019-11-22 18:09:31 72 /min /min RESP RATE 2019-11-22 18:09:31 18 /min /min TEMP 2019-11-22 18:09:31 98.7 [degF] Procedures This patient has no known procedures. Results This patient has no known results.
--- OUTSIDE RECORDS SUMMARY | 2019-12-08 16:42 | XMS REPORT ---
:1960 Author Organization [facility] Care Team Providers Name Role Phone [...] or plasma hepatitis C 2019-10-04 05:18:00 Identifier [id number] Result Unknown virus antibody detection by Time 2019-10-04 05:18:00 immunoassay Test Item Value Reference Range Comments Serum or plasma hepatitis C virus antibody detection by 0.03 s/c Unknown Unknown F immunoassay (test code = 57163-2) Ordering Physician UnknownSerum or plasma alanine aminotransferase measurement ( enzymatic activity/volume)2019-10-04 05:18:00Identifier 1742-6 Result Time 10-04 05:18:00Unknown Test Item Value Reference Range Comments Serum or plasma alanine aminotransferase 234 U/L Unknown Unknown F measurement (enzymatic activity/volume) (test code = 1742-6) Ordering Physician UnknownSerum or plasma albumin/globulin mass [id number] 05:18:00Identifier 1759-0 Result Time 2019-10-04 05:18:00Unknown Test Item Value Reference Range Comments Serum or plasma albumin/globulin mass ratio 1.9 Unknown Unknown F (test code = 1759-0) Ordering Physician UnknownSerum or plasma calcium measurement (mass/volume)10-04 05:18:00Identifier 00424-5 Result Time 2019-10-04 05:18:00Unknown Test Item Value Reference Range Comments Serum or plasma calcium measurement 8.9 mg/dL Unknown Unknown F (mass/volume) (test code = 69794-4) Ordering Physician UnknownSerum or plasma magnesium measurement (mass/volume) 2019-10-04 05:18:00Identifier 03370-4 Result Time 2019-10-04 05:18:00Unknown Test Item Value Reference Range Comments Serum or plasma magnesium measurement 2.2 mg/dL Unknown Unknown F (mass/volume) (test code = 15282-7) Ordering Physician UnknownSerum or plasma aspartate aminotransferase [...] Ordering Physician UnknownSerum or plasma urea nitrogen/creatinine cooez4171-32- 05 05:18:00Identifier 3097-3 Result Time 2019-10-04 05:18:00Unknown Test Item Value Reference Range Comments Serum or plasma urea nitrogen/creatinine 19.4 Unknown Unknown F ratio (test code = 3097-3) Ordering Physician UnknownSerum or plasma anion [id number] 05:18: 00Identifier 04295-1 Result Time 2019-10-04 05:18:00Unknown Test Item Value Reference Range Comments Serum or plasma anion gap (test code = 8 mmol/L Unknown Unknown F 56135-4) Ordering Physician UnknownEstimated glomerular filtration rate (GFR) non- Jjrpkqwv8981-38-90 05:18:00Identifier 49693-6 Result Time 2019-10-04 05: 18:00Unknown Test Item Value Reference Range Comments Estimated glomerular filtration rate (GFR) 41.6 Unknown Unknown F non- (test code = 31253-5) Ordering Physician UnknownSerum or plasma albumin measurement by bromocresol green (BCG) dye binding method (vb3065-51-46 05:18:00Identifier 56384-4 Result Time 2019-10-04 05:18:00Unknown Test Item Value Reference Range Comments Serum or plasma albumin measurement by 3.7 g/dL Unknown Unknown F bromocresol green (BCG) dye binding method (ma (test code = 68725-1) Ordering Physician UnknownSerum or plasma alkaline phosphatase measurement ( enzymatic activity/volume)2019-10-04 05:18:00Identifier 6768-6 Result Time 10-04 05:18:00Unknown Test Item Value Reference Range Comments Serum or plasma alkaline phosphatase 281 U/L Unknown Unknown F measurement (enzymatic activity/volume) (test code = 6768-6) Ordering Physician UnknownSerum or plasma troponin i.cardiac measurement (mass/ volume)2019-10-02 20:07:00Identifier 12860-6 Result Time 2019-10-02 20:07: 00Unknown Test Item Value Reference Range Comments Serum or plasma troponin i.cardiac 0.03 ng/mL Unknown Unknown F measurement (mass/volume) (test code = 31862-3) Ordering Physician UnknownStool Plesiomonas shigelloides DNA detection by non- probe and target amplification [id number] 18:02:00Identifier 04603-9 Result Time 2019-10-02 18:02:00Unknown Test Item Value Reference Range Comments Nasal Screen MRSA (PCR) (test code = Mrsa Detected Unknown Unknown F Nasal Screen MRSA (PCR)) Ordering Physician UnknownSerum or plasma natriuretic peptide B measurement ( mass/volume)2019-10-02 10:22:00Identifier 07092-7 Result Time 2019-10-02 10:22: 00Unknown Test Item Value Reference Range Comments Serum or plasma natriuretic peptide B > 1300 pg/mL Unknown Unknown F measurement (mass/volume) (test code = 85352-1) Ordering Physician UnknownAutomated blood platelet mean volume hkaijyblavq8813- 11-03 10:22:00Identifier 42847-9 Result Time 2019-10-02 10:22:00Unknown Test Item Value Reference Range Comments Automated blood platelet mean volume 11.4 fL Unknown Unknown F measurement (test code = 76555-1) Ordering Physician UnknownAutomated blood leukocytes count corrected for nucleated erythrocytes (number/volume)2019-10-02 10:22:00Identifier 68028-9 Result Time 2019-10-02 10:22:00Unknown Test Item Value Reference Range Comments Automated blood leukocytes count 12.2 10^3/uL Unknown Unknown F corrected for nucleated erythrocytes (number/volume) (test code = 35892-0) Ordering Physician UnknownAutomated blood nucleated erythrocytes yhxnbecpq1340- 11-03 10:22:00Identifier 67887-8 Result Time 2019-10-02 10:22:00Unknown Test Item Value Reference Range Comments Automated blood nucleated erythrocytes 0.3 Unknown Unknown F detection (test code = 59399-3) Ordering Physician UnknownAutomated blood hematocrit (percentage)2019-10-02 10: 22:00Identifier 4544-3 Result Time 2019-10-02 10:22:00Unknown Test Item Value Reference Range Comments Automated blood hematocrit (percentage) (test 41 % Unknown Unknown F code = 4544-3) Ordering Physician UnknownAutomated blood monocytes/100 xruibqbupe0310-99-86 10: 22:00Identifier 5905-5 Result Time 2019-10-02 10:22:00Unknown [...] = 704-7) Ordering Physician UnknownAutomated blood basophils/100 gyjrtzoimo4333-41-20 10: 22:00Identifier 706-2 Result Time 2019-10-02 10:22:00Unknown [...] = 711-2) Ordering Physician UnknownAutomated blood eosinophils/100 jihhcucjoj8884-86-64 10:22:00Identifier 713-8 Result Time 2019-10-02 10:22:00Unknown Test [...] = 731-0) Ordering Physician UnknownAutomated blood lymphocytes/100 xzpiitalhn6559-85-09 10:22:00Identifier 736-9 Result Time 2019-10-02 10:22:00Unknown Test Item Value Reference Range Comments Automated blood lymphocytes/100 leukocytes 13.0 % Unknown Unknown F (test code = 736-9) Ordering Physician UnknownBlood monocytes automated count (number/volume)2019-09 10:22:00Identifier 742-7 Result Time 2019-10-02 10:22:00Unknown Test Item Value Reference Range Comments Blood monocytes automated count 0.7 10^3/ul Unknown Unknown F (number/volume) (test code = 742-7) Ordering Physician UnknownAutomated blood neutrophils/100 esjowhvvxu9988-24-53 10:22:00Identifier 770-8 Result Time 2019-10-02 10:22:00Unknown Test [...] UnknownAutomated erythrocyte mean corpuscular hemoglobin concentration measurement (mass/phz8112-80-95 10:22:00Identifier 786-4 Result Time 2019-10-02 10:22:00Unknown Test Item Value Reference Range Comments Automated erythrocyte mean corpuscular 33 g/dL Unknown Unknown F hemoglobin concentration measurement (mass/vol (test code = 786-4) Ordering Physician UnknownAutomated erythrocyte mean corpuscular tdptzf8435-90- 03 10:22:00Identifier 787-2 Result Time 2019-10-02 10:22:00Unknown Test Item Value Reference Range Comments Automated erythrocyte mean corpuscular volume 89 fL Unknown Unknown F (test code = 787-2) Ordering Physician UnknownAutomated erythrocyte distribution width qjrhp0963-03- 03 10:22:00Identifier 788-0 Result Time 2019-10-02 10:22:00Unknown [...] code = 789-8) Ordering Physician UnknownCT biopsy [id number] 10:22:00Identifier [id number] Result Time 2019-10-02 10:22:00Unknown Test Item Value Reference Range Comments CT biopsy liver (test code = WKW4340) 9.6 10^3/ul Unknown Unknown F Ordering Physician UnknownSerum or plasma thyroid stimulating hormone (TSH) measurement (units/volume)2019-10-02 10:15:00Identifier 3016-3 Result Time 10-02 10:15:00Unknown Test Item Value Reference Range Comments Serum or plasma thyroid stimulating 7.06 mcIU/mL Unknown Unknown F hormone (TSH) measurement (units/volume) (test code = 3016-3) Ordering Physician Unknown
--- OUTSIDE RECORDS SUMMARY | 2019-12-08 16:42 | XMS REPORT ---
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 (current) (current) [place] use [...] 24Hr Active 2018-11 Crystal intake Diet 12-22 [place] deficit 14:10: 159582 00 24 Hr Diet knowledge/s NT: 24Hr Active 2018-11 Crystal kill Diet 12-22 [place] deficit - 14:10: 917528 pt 00 Nutritional eating NT: Resolve 2018-112019-10-22 Crystal Barrier difficultie Barriers d 12-22 14:10:00 [place] s present 14:10: 609851 00 Test/Treatm venipunctur Test/Injec Resolve 2018-112019-11-18 Nessa [...] pacemaker/I Cardiovasc Active 2018-11 Nessa CD ular 2-04 [place] 11:35: RN 00 Medication oral med [...] cg 09:52: RN 00 Medication knowledge/s Meds Active 2018-11 Nessa kill 2-24 [place] deficit: cg 09:52: RN 00 Diagnoses knowledge/s Diagnoses Active 2018-11 Nessa kill 2-24 [place] deficit: cg 09:52: RN 00 Allergies, Adverse Reactions, Alerts Allergy [...]
--- OUTSIDE RECORDS SUMMARY | 2019-12-08 16:42 | XMS REPORT ---
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
--- OUTSIDE RECORDS SUMMARY | 2019-12-08 16:42 | XMS REPORT ---
:1960 Author Organization [facility] Care Team Providers Name Role [...] or plasma hepatitis C 2019-10-04 05:18:00 Identifier [id number] Result Unknown virus antibody detection by Time 2019-10-04 05:18:00 immunoassay Test Item Value Reference Range Comments Serum or plasma hepatitis C virus antibody detection by 0.03 s/c Unknown Unknown F immunoassay (test code = 82599-9) Ordering Physician UnknownSerum or plasma alanine aminotransferase measurement ( enzymatic activity/volume)2019-10-04 05:18:00Identifier 1742-6 Result Time 10-04 05:18:00Unknown Test Item Value Reference Range Comments Serum or plasma alanine aminotransferase 234 U/L Unknown Unknown F measurement (enzymatic activity/volume) (test code = 1742-6) Ordering Physician UnknownSerum or plasma albumin/globulin mass lhypj3708-07-01 05:18:00Identifier 1759-0 Result Time 2019-10-04 05:18:00Unknown Test Item Value Reference Range Comments Serum or plasma albumin/globulin mass ratio 1.9 Unknown Unknown F (test code = 1759-0) Ordering Physician UnknownSerum or plasma calcium measurement (mass/volume)10-04 05:18:00Identifier 73152-9 Result Time 2019-10-04 05:18:00Unknown Test Item Value Reference Range Comments Serum or plasma calcium measurement 8.9 mg/dL Unknown Unknown F (mass/volume) (test code = 31780-7) Ordering Physician UnknownSerum or plasma magnesium measurement (mass/volume) 2019-10-04 05:18:00Identifier 75480-5 Result Time 2019-10-04 05:18:00Unknown Test Item Value Reference Range Comments Serum or plasma magnesium measurement 2.2 mg/dL Unknown Unknown F (mass/volume) (test code = 21182-9) Ordering Physician UnknownSerum or plasma aspartate aminotransferase [...] Ordering Physician UnknownSerum or plasma urea nitrogen/creatinine hyrtr5196-95- 05 05:18:00Identifier 3097-3 Result Time 2019-10-04 05:18:00Unknown Test Item Value Reference Range Comments Serum or plasma urea nitrogen/creatinine 19.4 Unknown Unknown F ratio (test code = 3097-3) Ordering Physician UnknownSerum or plasma anion uno9006-13-73 05:18: 00Identifier 35156-9 Result Time 2019-10-04 05:18:00Unknown Test Item Value Reference Range Comments Serum or plasma anion gap (test code = 8 mmol/L Unknown Unknown F 34187-9) Ordering Physician UnknownEstimated glomerular filtration rate (GFR) non- Nepgiypy2825-21-30 05:18:00Identifier 41882-3 Result Time 2019-10-04 05: 18:00Unknown Test Item Value Reference Range Comments Estimated glomerular filtration rate (GFR) 41.6 Unknown Unknown F non- (test code = 66003-2) Ordering Physician UnknownSerum or plasma albumin measurement by bromocresol green (BCG) dye binding method (vv6766-10-92 05:18:00Identifier 94302-5 Result Time 2019-10-04 05:18:00Unknown Test Item Value Reference Range Comments Serum or plasma albumin measurement by 3.7 g/dL Unknown Unknown F bromocresol green (BCG) dye binding method (ma (test code = 21268-0) Ordering Physician UnknownSerum or plasma alkaline phosphatase measurement ( enzymatic activity/volume)2019-10-04 05:18:00Identifier 6768-6 Result Time 10-04 05:18:00Unknown Test Item Value Reference Range Comments Serum or plasma alkaline phosphatase 281 U/L Unknown Unknown F measurement (enzymatic activity/volume) (test code = 6768-6) Ordering Physician UnknownSerum or plasma troponin i.cardiac measurement (mass/ volume)2019-10-02 20:07:00Identifier 87094-9 Result Time 2019-10-02 20:07: 00Unknown Test Item Value Reference Range Comments Serum or plasma troponin i.cardiac 0.03 ng/mL Unknown Unknown F measurement (mass/volume) (test code = 76869-9) Ordering Physician UnknownStool Plesiomonas shigelloides DNA detection by non- probe and target amplification iz8020-45-94 18:02:00Identifier 15958-0 Result Time 2019-10-02 18:02:00Unknown Test Item Value Reference Range Comments Nasal Screen MRSA (PCR) (test code = Mrsa Detected Unknown Unknown F Nasal Screen MRSA (PCR)) Ordering Physician UnknownSerum or plasma natriuretic peptide B measurement ( mass/volume)2019-10-02 10:22:00Identifier 00979-4 Result Time 2019-10-02 10:22: 00Unknown Test Item Value Reference Range Comments Serum or plasma natriuretic peptide B > 1300 pg/mL Unknown Unknown F measurement (mass/volume) (test code = 80604-9) Ordering Physician UnknownAutomated blood platelet mean volume xashkilrcbb2973- 11-03 10:22:00Identifier 10358-3 Result Time 2019-10-02 10:22:00Unknown Test Item Value Reference Range Comments Automated blood platelet mean volume 11.4 fL Unknown Unknown F measurement (test code = 04791-0) Ordering Physician UnknownAutomated blood leukocytes count corrected for nucleated erythrocytes (number/volume)2019-10-02 10:22:00Identifier 76752-8 Result Time 2019-10-02 10:22:00Unknown Test Item Value Reference Range Comments Automated blood leukocytes count 12.2 10^3/uL Unknown Unknown F corrected for nucleated erythrocytes (number/volume) (test code = 73963-1) Ordering Physician UnknownAutomated blood nucleated erythrocytes bycahlpqo1657- 11-03 10:22:00Identifier 53086-8 Result Time 2019-10-02 10:22:00Unknown Test Item Value Reference Range Comments Automated blood nucleated erythrocytes 0.3 Unknown Unknown F detection (test code = 24375-2) Ordering Physician UnknownAutomated blood hematocrit (percentage)2019-10-02 10: 22:00Identifier 4544-3 Result Time 2019-10-02 10:22:00Unknown Test Item Value Reference Range Comments Automated blood hematocrit (percentage) (test 41 % Unknown Unknown F code = 4544-3) Ordering Physician UnknownAutomated blood monocytes/100 ueywzuedti3858-02-83 10: 22:00Identifier 5905-5 Result Time 2019-10-02 10:22:00Unknown [...] = 704-7) Ordering Physician UnknownAutomated blood basophils/100 vdqfqkelem6654-06-01 10: 22:00Identifier 706-2 Result Time 2019-10-02 10:22:00Unknown [...] = 711-2) Ordering Physician UnknownAutomated blood eosinophils/100 uwjmpzhvkg3155-46-67 10:22:00Identifier 713-8 Result Time 2019-10-02 10:22:00Unknown Test [...] = 731-0) Ordering Physician UnknownAutomated blood lymphocytes/100 bkwbwyrmdb4570-27-67 10:22:00Identifier 736-9 Result Time 2019-10-02 10:22:00Unknown Test Item Value Reference Range Comments Automated blood lymphocytes/100 leukocytes 13.0 % Unknown Unknown F (test code = 736-9) Ordering Physician UnknownBlood monocytes automated count (number/volume)2019-09 10:22:00Identifier 742-7 Result Time 2019-10-02 10:22:00Unknown Test Item Value Reference Range Comments Blood monocytes automated count 0.7 10^3/ul Unknown Unknown F (number/volume) (test code = 742-7) Ordering Physician UnknownAutomated blood neutrophils/100 roalozpdab0326-34-85 10:22:00Identifier 770-8 Result Time 2019-10-02 10:22:00Unknown Test [...] UnknownAutomated erythrocyte mean corpuscular hemoglobin concentration measurement (mass/hlb4860-03-44 10:22:00Identifier 786-4 Result Time 2019-10-02 10:22:00Unknown Test Item Value Reference Range Comments Automated erythrocyte mean corpuscular 33 g/dL Unknown Unknown F hemoglobin concentration measurement (mass/vol (test code = 786-4) Ordering Physician UnknownAutomated erythrocyte mean corpuscular rjpwiv7240-83- 03 10:22:00Identifier 787-2 Result Time 2019-10-02 10:22:00Unknown Test Item Value Reference Range Comments Automated erythrocyte mean corpuscular volume 89 fL Unknown Unknown F (test code = 787-2) Ordering Physician UnknownAutomated erythrocyte distribution width bgiam5299-61- 03 10:22:00Identifier 788-0 Result Time 2019-10-02 10:22:00Unknown [...] code = 789-8) Ordering Physician UnknownCT biopsy nlqas2622-15-03 10:22:00Identifier [id number] Result Time 2019-10-02 10:22:00Unknown Test Item Value Reference Range Comments CT biopsy liver (test code = TMU2633) 9.6 10^3/ul Unknown Unknown F Ordering Physician UnknownSerum or plasma thyroid stimulating hormone (TSH) measurement (units/volume)2019-10-02 10:15:00Identifier 3016-3 Result Time 10-02 10:15:00Unknown Test Item Value Reference Range Comments Serum or plasma thyroid stimulating 7.06 mcIU/mL Unknown Unknown F hormone (TSH) measurement (units/volume) (test code = 3016-3) Ordering Physician Unknown
--- OUTSIDE RECORDS SUMMARY | 2019-12-08 16:42 | XMS REPORT ---
:1960 Author Organization [facility] Care Team Providers Name Role [...] or plasma hepatitis C 2019-10-04 05:18:00 Identifier [id number] Result Unknown virus antibody detection by Time 2019-10-04 05:18:00 immunoassay Test Item Value Reference Range Comments Serum or plasma hepatitis C virus antibody detection by 0.03 s/c Unknown Unknown F immunoassay (test code = 75675-2) Ordering Physician UnknownSerum or plasma alanine aminotransferase measurement ( enzymatic activity/volume)2019-10-04 05:18:00Identifier 1742-6 Result Time 10-04 05:18:00Unknown Test Item Value Reference Range Comments Serum or plasma alanine aminotransferase 234 U/L Unknown Unknown F measurement (enzymatic activity/volume) (test code = 1742-6) Ordering Physician UnknownSerum or plasma albumin/globulin mass owpxw0909-75-05 05:18:00Identifier 1759-0 Result Time 2019-10-04 05:18:00Unknown Test Item Value Reference Range Comments Serum or plasma albumin/globulin mass ratio 1.9 Unknown Unknown F (test code = 1759-0) Ordering Physician UnknownSerum or plasma calcium measurement (mass/volume)10-04 05:18:00Identifier 72314-0 Result Time 2019-10-04 05:18:00Unknown Test Item Value Reference Range Comments Serum or plasma calcium measurement 8.9 mg/dL Unknown Unknown F (mass/volume) (test code = 37653-9) Ordering Physician UnknownSerum or plasma magnesium measurement (mass/volume) 2019-10-04 05:18:00Identifier 79490-9 Result Time 2019-10-04 05:18:00Unknown Test Item Value Reference Range Comments Serum or plasma magnesium measurement 2.2 mg/dL Unknown Unknown F (mass/volume) (test code = 42021-5) Ordering Physician UnknownSerum or plasma aspartate aminotransferase [...] Ordering Physician UnknownSerum or plasma urea nitrogen/creatinine nckzd5159-92- 05 05:18:00Identifier 3097-3 Result Time 2019-10-04 05:18:00Unknown Test Item Value Reference Range Comments Serum or plasma urea nitrogen/creatinine 19.4 Unknown Unknown F ratio (test code = 3097-3) Ordering Physician UnknownSerum or plasma anion fok7829-09-66 05:18: 00Identifier 48413-5 Result Time 2019-10-04 05:18:00Unknown Test Item Value Reference Range Comments Serum or plasma anion gap (test code = 8 mmol/L Unknown Unknown F 71130-3) Ordering Physician UnknownEstimated glomerular filtration rate (GFR) non- Hvejsvny1936-19-02 05:18:00Identifier 75316-7 Result Time 2019-10-04 05: 18:00Unknown Test Item Value Reference Range Comments Estimated glomerular filtration rate (GFR) 41.6 Unknown Unknown F non- (test code = 64698-0) Ordering Physician UnknownSerum or plasma albumin measurement by bromocresol green (BCG) dye binding method (ft7016-97-82 05:18:00Identifier 48131-9 Result Time 2019-10-04 05:18:00Unknown Test Item Value Reference Range Comments Serum or plasma albumin measurement by 3.7 g/dL Unknown Unknown F bromocresol green (BCG) dye binding method (ma (test code = 09180-2) Ordering Physician UnknownSerum or plasma alkaline phosphatase measurement ( enzymatic activity/volume)2019-10-04 05:18:00Identifier 6768-6 Result Time 10-04 05:18:00Unknown Test Item Value Reference Range Comments Serum or plasma alkaline phosphatase 281 U/L Unknown Unknown F measurement (enzymatic activity/volume) (test code = 6768-6) Ordering Physician UnknownSerum or plasma troponin i.cardiac measurement (mass/ volume)2019-10-02 20:07:00Identifier 03246-9 Result Time 2019-10-02 20:07: 00Unknown Test Item Value Reference Range Comments Serum or plasma troponin i.cardiac 0.03 ng/mL Unknown Unknown F measurement (mass/volume) (test code = 62701-8) Ordering Physician UnknownStool Plesiomonas shigelloides DNA detection by non- probe and target amplification xj4020-53-42 18:02:00Identifier 96577-1 Result Time 2019-10-02 18:02:00Unknown Test Item Value Reference Range Comments Nasal Screen MRSA (PCR) (test code = Mrsa Detected Unknown Unknown F Nasal Screen MRSA (PCR)) Ordering Physician UnknownSerum or plasma natriuretic peptide B measurement ( mass/volume)2019-10-02 10:22:00Identifier 14406-0 Result Time 2019-10-02 10:22: 00Unknown Test Item Value Reference Range Comments Serum or plasma natriuretic peptide B > 1300 pg/mL Unknown Unknown F measurement (mass/volume) (test code = 52035-5) Ordering Physician UnknownAutomated blood platelet mean volume yzekasntdbk9685- 11-03 10:22:00Identifier 02810-2 Result Time 2019-10-02 10:22:00Unknown Test Item Value Reference Range Comments Automated blood platelet mean volume 11.4 fL Unknown Unknown F measurement (test code = 26546-6) Ordering Physician UnknownAutomated blood leukocytes count corrected for nucleated erythrocytes (number/volume)2019-10-02 10:22:00Identifier 92169-9 Result Time 2019-10-02 10:22:00Unknown Test Item Value Reference Range Comments Automated blood leukocytes count 12.2 10^3/uL Unknown Unknown F corrected for nucleated erythrocytes (number/volume) (test code = 61127-5) Ordering Physician UnknownAutomated blood nucleated erythrocytes yjegpswmb9877- 11-03 10:22:00Identifier 36268-6 Result Time 2019-10-02 10:22:00Unknown Test Item Value Reference Range Comments Automated blood nucleated erythrocytes 0.3 Unknown Unknown F detection (test code = 27423-1) Ordering Physician UnknownAutomated blood hematocrit (percentage)2019-10-02 10: 22:00Identifier 4544-3 Result Time 2019-10-02 10:22:00Unknown Test Item Value Reference Range Comments Automated blood hematocrit (percentage) (test 41 % Unknown Unknown F code = 4544-3) Ordering Physician UnknownAutomated blood monocytes/100 brmioixuks3808-08-17 10: 22:00Identifier 5905-5 Result Time 2019-10-02 10:22:00Unknown [...] = 704-7) Ordering Physician UnknownAutomated blood basophils/100 njuqnniieh0643-95-24 10: 22:00Identifier 706-2 Result Time 2019-10-02 10:22:00Unknown [...] = 711-2) Ordering Physician UnknownAutomated blood eosinophils/100 vhkcetbarp5951-21-22 10:22:00Identifier 713-8 Result Time 2019-10-02 10:22:00Unknown Test [...] = 731-0) Ordering Physician UnknownAutomated blood lymphocytes/100 nyoitfillq1584-49-68 10:22:00Identifier 736-9 Result Time 2019-10-02 10:22:00Unknown Test Item Value Reference Range Comments Automated blood lymphocytes/100 leukocytes 13.0 % Unknown Unknown F (test code = 736-9) Ordering Physician UnknownBlood monocytes automated count (number/volume)2019-09 10:22:00Identifier 742-7 Result Time 2019-10-02 10:22:00Unknown Test Item Value Reference Range Comments Blood monocytes automated count 0.7 10^3/ul Unknown Unknown F (number/volume) (test code = 742-7) Ordering Physician UnknownAutomated blood neutrophils/100 ckrkqwprjf9101-19-99 10:22:00Identifier 770-8 Result Time 2019-10-02 10:22:00Unknown Test [...] UnknownAutomated erythrocyte mean corpuscular hemoglobin concentration measurement (mass/wlv1064-27-00 10:22:00Identifier 786-4 Result Time 2019-10-02 10:22:00Unknown Test Item Value Reference Range Comments Automated erythrocyte mean corpuscular 33 g/dL Unknown Unknown F hemoglobin concentration measurement (mass/vol (test code = 786-4) Ordering Physician UnknownAutomated erythrocyte mean corpuscular pllxog6194-38- 03 10:22:00Identifier 787-2 Result Time 2019-10-02 10:22:00Unknown Test Item Value Reference Range Comments Automated erythrocyte mean corpuscular volume 89 fL Unknown Unknown F (test code = 787-2) Ordering Physician UnknownAutomated erythrocyte distribution width eniay1921-11- 03 10:22:00Identifier 788-0 Result Time 2019-10-02 10:22:00Unknown [...] code = 789-8) Ordering Physician UnknownCT biopsy jrrfc9404-51-15 10:22:00Identifier [id number] Result Time 2019-10-02 10:22:00Unknown Test Item Value Reference Range Comments CT biopsy liver (test code = XZM9476) 9.6 10^3/ul Unknown Unknown F Ordering Physician UnknownSerum or plasma thyroid stimulating hormone (TSH) measurement (units/volume)2019-10-02 10:15:00Identifier 3016-3 Result Time 10-02 10:15:00Unknown Test Item Value Reference Range Comments Serum or plasma thyroid stimulating 7.06 mcIU/mL Unknown Unknown F hormone (TSH) measurement (units/volume) (test code = 3016-3) Ordering Physician Unknown
--- OUTSIDE RECORDS SUMMARY | 2019-12-08 16:42 | XMS REPORT ---
[...] or plasma hepatitis C 2019-10-04 05:18:00 Identifier [id number] Result Unknown virus antibody detection by Time 2019-10-04 05:18:00 immunoassay Test Item Value Reference Range Comments Serum or plasma hepatitis C virus antibody detection by 0.03 s/c Unknown Unknown F immunoassay (test code = 59419-0) Ordering Physician UnknownSerum or plasma alanine aminotransferase measurement ( enzymatic activity/volume)2019-10-04 05:18:00Identifier 1742-6 Result Time 10-04 05:18:00Unknown Test Item Value Reference Range Comments Serum or plasma alanine aminotransferase 234 U/L Unknown Unknown F measurement (enzymatic activity/volume) (test code = 1742-6) Ordering Physician UnknownSerum or plasma albumin/globulin mass [id number] 05:18:00Identifier 1759-0 Result Time 2019-10-04 05:18:00Unknown Test Item Value Reference Range Comments Serum or plasma albumin/globulin mass ratio 1.9 Unknown Unknown F (test code = 1759-0) Ordering Physician UnknownSerum or plasma calcium measurement (mass/volume)10-04 05:18:00Identifier 71290-4 Result Time 2019-10-04 05:18:00Unknown Test Item Value Reference Range Comments Serum or plasma calcium measurement 8.9 mg/dL Unknown Unknown F (mass/volume) (test code = 95097-1) Ordering Physician UnknownSerum or plasma magnesium measurement (mass/volume) 2019-10-04 05:18:00Identifier 70463-4 Result Time 2019-10-04 05:18:00Unknown Test Item Value Reference Range Comments Serum or plasma magnesium measurement 2.2 mg/dL Unknown Unknown F (mass/volume) (test code = 21329-2) Ordering Physician UnknownSerum or plasma aspartate aminotransferase [...] Ordering Physician UnknownSerum or plasma urea nitrogen/creatinine krlyk5934-50- 05 05:18:00Identifier 3097-3 Result Time 2019-10-04 05:18:00Unknown Test Item Value Reference Range Comments Serum or plasma urea nitrogen/creatinine 19.4 Unknown Unknown F ratio (test code = 3097-3) Ordering Physician UnknownSerum or plasma anion msa4488-98-20 05:18: 00Identifier 57825-1 Result Time 2019-10-04 05:18:00Unknown Test Item Value Reference Range Comments Serum or plasma anion gap (test code = 8 mmol/L Unknown Unknown F 91937-2) Ordering Physician UnknownEstimated glomerular filtration rate (GFR) non- Xqjpovlu1557-14-34 05:18:00Identifier 50164-7 Result Time 2019-10-04 05: 18:00Unknown Test Item Value Reference Range Comments Estimated glomerular filtration rate (GFR) 41.6 Unknown Unknown F non- (test code = 09682-1) Ordering Physician UnknownSerum or plasma albumin measurement by bromocresol green (BCG) dye binding method ([id number] 05:18:00Identifier 10523-0 Result Time 2019-10-04 05:18:00Unknown Test Item Value Reference Range Comments Serum or plasma albumin measurement by 3.7 g/dL Unknown Unknown F bromocresol green (BCG) dye binding method (ma (test code = 62018-2) Ordering Physician UnknownSerum or plasma alkaline phosphatase measurement ( enzymatic activity/volume)2019-10-04 05:18:00Identifier 6768-6 Result Time 10-04 05:18:00Unknown Test Item Value Reference Range Comments Serum or plasma alkaline phosphatase 281 U/L Unknown Unknown F measurement (enzymatic activity/volume) (test code = 6768-6) Ordering Physician UnknownSerum or plasma troponin i.cardiac measurement (mass/ volume)2019-10-02 20:07:00Identifier 39330-8 Result Time 2019-10-02 20:07: 00Unknown Test Item Value Reference Range Comments Serum or plasma troponin i.cardiac 0.03 ng/mL Unknown Unknown F measurement (mass/volume) (test code = 51588-5) Ordering Physician UnknownStool Plesiomonas shigelloides DNA detection by non- probe and target amplification gb3978-65-70 18:02:00Identifier 13540-5 Result Time 2019-10-02 18:02:00Unknown Test Item Value Reference Range Comments Nasal Screen MRSA (PCR) (test code = Mrsa Detected Unknown Unknown F Nasal Screen MRSA (PCR)) Ordering Physician UnknownSerum or plasma natriuretic peptide B measurement ( mass/volume)2019-10-02 10:22:00Identifier 51191-1 Result Time 2019-10-02 10:22: 00Unknown Test Item Value Reference Range Comments Serum or plasma natriuretic peptide B > 1300 pg/mL Unknown Unknown F measurement (mass/volume) (test code = 09508-1) Ordering Physician UnknownAutomated blood platelet mean volume fmreoxzknoq2285- 11-03 10:22:00Identifier 30304-4 Result Time 2019-10-02 10:22:00Unknown Test Item Value Reference Range Comments Automated blood platelet mean volume 11.4 fL Unknown Unknown F measurement (test code = 98271-3) Ordering Physician UnknownAutomated blood leukocytes count corrected for nucleated erythrocytes (number/volume)2019-10-02 10:22:00Identifier 12757-2 Result Time 2019-10-02 10:22:00Unknown Test Item Value Reference Range Comments Automated blood leukocytes count 12.2 10^3/uL Unknown Unknown F corrected for nucleated erythrocytes (number/volume) (test code = 49748-5) Ordering Physician UnknownAutomated blood nucleated erythrocytes sccueemyf2143- 11-03 10:22:00Identifier 78636-6 Result Time 2019-10-02 10:22:00Unknown Test Item Value Reference Range Comments Automated blood nucleated erythrocytes 0.3 Unknown Unknown F detection (test code = 61043-7) Ordering Physician UnknownAutomated blood hematocrit (percentage)2019-10-02 10: 22:00Identifier 4544-3 Result Time 2019-10-02 10:22:00Unknown Test Item Value Reference Range Comments Automated blood hematocrit (percentage) (test 41 % Unknown Unknown F code = 4544-3) Ordering Physician UnknownAutomated blood monocytes/100 vvatkbjiwx2529-20-90 10: 22:00Identifier 5905-5 Result Time 2019-10-02 10:22:00Unknown [...] = 704-7) Ordering Physician UnknownAutomated blood basophils/100 lbegwrwtwg6984-81-94 10: 22:00Identifier 706-2 Result Time 2019-10-02 10:22:00Unknown [...] = 711-2) Ordering Physician UnknownAutomated blood eosinophils/100 kbdojoexnf9651-12-19 10:22:00Identifier 713-8 Result Time 2019-10-02 10:22:00Unknown Test [...] = 731-0) Ordering Physician UnknownAutomated blood lymphocytes/100 cgdexjysqy8309-98-57 10:22:00Identifier 736-9 Result Time 2019-10-02 10:22:00Unknown Test Item Value Reference Range Comments Automated blood lymphocytes/100 leukocytes 13.0 % Unknown Unknown F (test code = 736-9) Ordering Physician UnknownBlood monocytes automated count (number/volume)2019-09 10:22:00Identifier 742-7 Result Time 2019-10-02 10:22:00Unknown Test Item Value Reference Range Comments Blood monocytes automated count 0.7 10^3/ul Unknown Unknown F (number/volume) (test code = 742-7) Ordering Physician UnknownAutomated blood neutrophils/100 pnkeerdyyv7038-95-56 10:22:00Identifier 770-8 Result Time 2019-10-02 10:22:00Unknown Test [...] UnknownAutomated erythrocyte mean corpuscular hemoglobin concentration measurement (mass/loq6606-28-77 10:22:00Identifier 786-4 Result Time 2019-10-02 10:22:00Unknown Test Item Value Reference Range Comments Automated erythrocyte mean corpuscular 33 g/dL Unknown Unknown F hemoglobin concentration measurement (mass/vol (test code = 786-4) Ordering Physician UnknownAutomated erythrocyte mean corpuscular mpuxyw1789-61- 03 10:22:00Identifier 787-2 Result Time 2019-10-02 10:22:00Unknown Test Item Value Reference Range Comments Automated erythrocyte mean corpuscular volume 89 fL Unknown Unknown F (test code = 787-2) Ordering Physician UnknownAutomated erythrocyte distribution width jdnpe2780-24- 03 10:22:00Identifier 788-0 Result Time 2019-10-02 10:22:00Unknown [...] code = 789-8) Ordering Physician UnknownCT biopsy pjcwv2538-58-78 10:22:00Identifier [id number] Result Time 2019-10-02 10:22:00Unknown Test Item Value Reference Range Comments CT biopsy liver (test code = QER9161) 9.6 10^3/ul Unknown Unknown F Ordering Physician UnknownSerum or plasma thyroid stimulating hormone (TSH) measurement (units/volume)2019-10-02 10:15:00Identifier 3016-3 Result Time 10-02 10:15:00Unknown Test Item Value Reference Range Comments Serum or plasma thyroid stimulating 7.06 mcIU/mL Unknown Unknown F hormone (TSH) measurement (units/volume) (test code = 3016-3) Ordering Physician Unknown
--- OUTSIDE RECORDS SUMMARY | 2019-12-08 16:42 | XMS REPORT ---
:1960 Author Organization [facility] Care Team Providers Name Role [...] or plasma hepatitis C 2019-10-04 05:18:00 Identifier [id number] Result Unknown virus antibody detection by Time 2019-10-04 05:18:00 immunoassay Test Item Value Reference Range Comments Serum or plasma hepatitis C virus antibody detection by 0.03 s/c Unknown Unknown F immunoassay (test code = 28419-9) Ordering Physician UnknownSerum or plasma alanine aminotransferase measurement ( enzymatic activity/volume)2019-10-04 05:18:00Identifier 1742-6 Result Time 10-04 05:18:00Unknown Test Item Value Reference Range Comments Serum or plasma alanine aminotransferase 234 U/L Unknown Unknown F measurement (enzymatic activity/volume) (test code = 1742-6) Ordering Physician UnknownSerum or plasma albumin/globulin mass mcuib4978-40-14 05:18:00Identifier 1759-0 Result Time 2019-10-04 05:18:00Unknown Test Item Value Reference Range Comments Serum or plasma albumin/globulin mass ratio 1.9 Unknown Unknown F (test code = 1759-0) Ordering Physician UnknownSerum or plasma calcium measurement (mass/volume)10-04 05:18:00Identifier 41125-0 Result Time 2019-10-04 05:18:00Unknown Test Item Value Reference Range Comments Serum or plasma calcium measurement 8.9 mg/dL Unknown Unknown F (mass/volume) (test code = 54877-6) Ordering Physician UnknownSerum or plasma magnesium measurement (mass/volume) 2019-10-04 05:18:00Identifier 89119-1 Result Time 2019-10-04 05:18:00Unknown Test Item Value Reference Range Comments Serum or plasma magnesium measurement 2.2 mg/dL Unknown Unknown F (mass/volume) (test code = 59189-1) Ordering Physician UnknownSerum or plasma aspartate aminotransferase [...] Ordering Physician UnknownSerum or plasma urea nitrogen/creatinine prjna0724-55- 05 05:18:00Identifier 3097-3 Result Time 2019-10-04 05:18:00Unknown Test Item Value Reference Range Comments Serum or plasma urea nitrogen/creatinine 19.4 Unknown Unknown F ratio (test code = 3097-3) Ordering Physician UnknownSerum or plasma anion hrx0389-84-76 05:18: 00Identifier 05080-3 Result Time 2019-10-04 05:18:00Unknown Test Item Value Reference Range Comments Serum or plasma anion gap (test code = 8 mmol/L Unknown Unknown F 29824-9) Ordering Physician UnknownEstimated glomerular filtration rate (GFR) non- Fandolup7955-66-14 05:18:00Identifier 27265-7 Result Time 2019-10-04 05: 18:00Unknown Test Item Value Reference Range Comments Estimated glomerular filtration rate (GFR) 41.6 Unknown Unknown F non- (test code = 42317-2) Ordering Physician UnknownSerum or plasma albumin measurement by bromocresol green (BCG) dye binding method (zo9093-28-76 05:18:00Identifier 57090-7 Result Time 2019-10-04 05:18:00Unknown Test Item Value Reference Range Comments Serum or plasma albumin measurement by 3.7 g/dL Unknown Unknown F bromocresol green (BCG) dye binding method (ma (test code = 88590-8) Ordering Physician UnknownSerum or plasma alkaline phosphatase measurement ( enzymatic activity/volume)2019-10-04 05:18:00Identifier 6768-6 Result Time 10-04 05:18:00Unknown Test Item Value Reference Range Comments Serum or plasma alkaline phosphatase 281 U/L Unknown Unknown F measurement (enzymatic activity/volume) (test code = 6768-6) Ordering Physician UnknownSerum or plasma troponin i.cardiac measurement (mass/ volume)2019-10-02 20:07:00Identifier 43639-4 Result Time 2019-10-02 20:07: 00Unknown Test Item Value Reference Range Comments Serum or plasma troponin i.cardiac 0.03 ng/mL Unknown Unknown F measurement (mass/volume) (test code = 79615-0) Ordering Physician UnknownStool Plesiomonas shigelloides DNA detection by non- probe and target amplification [id number] 18:02:00Identifier 51066-5 Result Time 2019-10-02 18:02:00Unknown Test Item Value Reference Range Comments Nasal Screen MRSA (PCR) (test code = Mrsa Detected Unknown Unknown F Nasal Screen MRSA (PCR)) Ordering Physician UnknownSerum or plasma natriuretic peptide B measurement ( mass/volume)2019-10-02 10:22:00Identifier 49964-7 Result Time 2019-10-02 10:22: 00Unknown Test Item Value Reference Range Comments Serum or plasma natriuretic peptide B > 1300 pg/mL Unknown Unknown F measurement (mass/volume) (test code = 39422-2) Ordering Physician UnknownAutomated blood platelet mean volume ddigmakjddm1756- 11-03 10:22:00Identifier 93857-5 Result Time 2019-10-02 10:22:00Unknown Test Item Value Reference Range Comments Automated blood platelet mean volume 11.4 fL Unknown Unknown F measurement (test code = 03203-5) Ordering Physician UnknownAutomated blood leukocytes count corrected for nucleated erythrocytes (number/volume)2019-10-02 10:22:00Identifier 40033-2 Result Time 2019-10-02 10:22:00Unknown Test Item Value Reference Range Comments Automated blood leukocytes count 12.2 10^3/uL Unknown Unknown F corrected for nucleated erythrocytes (number/volume) (test code = 99563-9) Ordering Physician UnknownAutomated blood nucleated erythrocytes gqgodscep0638- 11-03 10:22:00Identifier 40076-0 Result Time 2019-10-02 10:22:00Unknown Test Item Value Reference Range Comments Automated blood nucleated erythrocytes 0.3 Unknown Unknown F detection (test code = 56837-3) Ordering Physician UnknownAutomated blood hematocrit (percentage)2019-10-02 10: 22:00Identifier 4544-3 Result Time 2019-10-02 10:22:00Unknown Test Item Value Reference Range Comments Automated blood hematocrit (percentage) (test 41 % Unknown Unknown F code = 4544-3) Ordering Physician UnknownAutomated blood monocytes/100 abnmonhtuu4215-80-59 10: 22:00Identifier 5905-5 Result Time 2019-10-02 10:22:00Unknown [...] = 704-7) Ordering Physician UnknownAutomated blood basophils/100 nirlewmqji8422-29-85 10: 22:00Identifier 706-2 Result Time 2019-10-02 10:22:00Unknown [...] = 711-2) Ordering Physician UnknownAutomated blood eosinophils/100 mvivxpsvwk0770-23-61 10:22:00Identifier 713-8 Result Time 2019-10-02 10:22:00Unknown Test [...] = 731-0) Ordering Physician UnknownAutomated blood lymphocytes/100 xtyllgyspk2073-81-19 10:22:00Identifier 736-9 Result Time 2019-10-02 10:22:00Unknown Test Item Value Reference Range Comments Automated blood lymphocytes/100 leukocytes 13.0 % Unknown Unknown F (test code = 736-9) Ordering Physician UnknownBlood monocytes automated count (number/volume)2019-09 10:22:00Identifier 742-7 Result Time 2019-10-02 10:22:00Unknown Test Item Value Reference Range Comments Blood monocytes automated count 0.7 10^3/ul Unknown Unknown F (number/volume) (test code = 742-7) Ordering Physician UnknownAutomated blood neutrophils/100 zmmifrskzl1078-88-75 10:22:00Identifier 770-8 Result Time 2019-10-02 10:22:00Unknown Test [...] UnknownAutomated erythrocyte mean corpuscular hemoglobin concentration measurement (mass/zrc3486-86-48 10:22:00Identifier 786-4 Result Time 2019-10-02 10:22:00Unknown Test Item Value Reference Range Comments Automated erythrocyte mean corpuscular 33 g/dL Unknown Unknown F hemoglobin concentration measurement (mass/vol (test code = 786-4) Ordering Physician UnknownAutomated erythrocyte mean corpuscular vxxizu4074-08- 03 10:22:00Identifier 787-2 Result Time 2019-10-02 10:22:00Unknown Test Item Value Reference Range Comments Automated erythrocyte mean corpuscular volume 89 fL Unknown Unknown F (test code = 787-2) Ordering Physician UnknownAutomated erythrocyte distribution width rikws5314-59- 03 10:22:00Identifier 788-0 Result Time 2019-10-02 10:22:00Unknown [...] code = 789-8) Ordering Physician UnknownCT biopsy hsufi9869-40-33 10:22:00Identifier [id number] Result Time 2019-10-02 10:22:00Unknown Test Item Value Reference Range Comments CT biopsy liver (test code = OIV3826) 9.6 10^3/ul Unknown Unknown F Ordering Physician UnknownSerum or plasma thyroid stimulating hormone (TSH) measurement (units/volume)2019-10-02 10:15:00Identifier 3016-3 Result Time 10-02 10:15:00Unknown Test Item Value Reference Range Comments Serum or plasma thyroid stimulating 7.06 mcIU/mL Unknown Unknown F hormone (TSH) measurement (units/volume) (test code = 3016-3) Ordering Physician Unknown
--- OUTSIDE RECORDS SUMMARY | 2019-12-08 16:42 | XMS REPORT ---
:1960 Author Organization [facility] Care Team Providers Name Role [...] or plasma hepatitis C 2019-10-04 05:18:00 Identifier [id number] Result Unknown virus antibody detection by Time 2019-10-04 05:18:00 immunoassay Test Item Value Reference Range Comments Serum or plasma hepatitis C virus antibody detection by 0.03 s/c Unknown Unknown F immunoassay (test code = 61928-3) Ordering Physician UnknownSerum or plasma alanine aminotransferase measurement ( enzymatic activity/volume)2019-10-04 05:18:00Identifier 1742-6 Result Time 10-04 05:18:00Unknown Test Item Value Reference Range Comments Serum or plasma alanine aminotransferase 234 U/L Unknown Unknown F measurement (enzymatic activity/volume) (test code = 1742-6) Ordering Physician UnknownSerum or plasma albumin/globulin mass [id number] 05:18:00Identifier 1759-0 Result Time 2019-10-04 05:18:00Unknown Test Item Value Reference Range Comments Serum or plasma albumin/globulin mass ratio 1.9 Unknown Unknown F (test code = 1759-0) Ordering Physician UnknownSerum or plasma calcium measurement (mass/volume)10-04 05:18:00Identifier 65731-6 Result Time 2019-10-04 05:18:00Unknown Test Item Value Reference Range Comments Serum or plasma calcium measurement 8.9 mg/dL Unknown Unknown F (mass/volume) (test code = 85435-3) Ordering Physician UnknownSerum or plasma magnesium measurement (mass/volume) 2019-10-04 05:18:00Identifier 10623-8 Result Time 2019-10-04 05:18:00Unknown Test Item Value Reference Range Comments Serum or plasma magnesium measurement 2.2 mg/dL Unknown Unknown F (mass/volume) (test code = 27686-0) Ordering Physician UnknownSerum or plasma aspartate aminotransferase [...] Ordering Physician UnknownSerum or plasma urea nitrogen/creatinine jnfzz1082-90- 05 05:18:00Identifier 3097-3 Result Time 2019-10-04 05:18:00Unknown Test Item Value Reference Range Comments Serum or plasma urea nitrogen/creatinine 19.4 Unknown Unknown F ratio (test code = 3097-3) Ordering Physician UnknownSerum or plasma anion [id number] 05:18: 00Identifier 43003-3 Result Time 2019-10-04 05:18:00Unknown Test Item Value Reference Range Comments Serum or plasma anion gap (test code = 8 mmol/L Unknown Unknown F 03330-3) Ordering Physician UnknownEstimated glomerular filtration rate (GFR) non- Jwelhxla1719-58-66 05:18:00Identifier 48361-0 Result Time 2019-10-04 05: 18:00Unknown Test Item Value Reference Range Comments Estimated glomerular filtration rate (GFR) 41.6 Unknown Unknown F non- (test code = 00549-4) Ordering Physician UnknownSerum or plasma albumin measurement by bromocresol green (BCG) dye binding method (oy2862-58-73 05:18:00Identifier 17794-4 Result Time 2019-10-04 05:18:00Unknown Test Item Value Reference Range Comments Serum or plasma albumin measurement by 3.7 g/dL Unknown Unknown F bromocresol green (BCG) dye binding method (ma (test code = 18295-3) Ordering Physician UnknownSerum or plasma alkaline phosphatase measurement ( enzymatic activity/volume)2019-10-04 05:18:00Identifier 6768-6 Result Time 10-04 05:18:00Unknown Test Item Value Reference Range Comments Serum or plasma alkaline phosphatase 281 U/L Unknown Unknown F measurement (enzymatic activity/volume) (test code = 6768-6) Ordering Physician UnknownSerum or plasma troponin i.cardiac measurement (mass/ volume)2019-10-02 20:07:00Identifier 21840-0 Result Time 2019-10-02 20:07: 00Unknown Test Item Value Reference Range Comments Serum or plasma troponin i.cardiac 0.03 ng/mL Unknown Unknown F measurement (mass/volume) (test code = 84263-5) Ordering Physician UnknownStool Plesiomonas shigelloides DNA detection by non- probe and target amplification [id number] 18:02:00Identifier 66571-9 Result Time 2019-10-02 18:02:00Unknown Test Item Value Reference Range Comments Nasal Screen MRSA (PCR) (test code = Mrsa Detected Unknown Unknown F Nasal Screen MRSA (PCR)) Ordering Physician UnknownSerum or plasma natriuretic peptide B measurement ( mass/volume)2019-10-02 10:22:00Identifier 77747-0 Result Time 2019-10-02 10:22: 00Unknown Test Item Value Reference Range Comments Serum or plasma natriuretic peptide B > 1300 pg/mL Unknown Unknown F measurement (mass/volume) (test code = 08885-0) Ordering Physician UnknownAutomated blood platelet mean volume xkrrnjodicr5993- 11-03 10:22:00Identifier 46302-8 Result Time 2019-10-02 10:22:00Unknown Test Item Value Reference Range Comments Automated blood platelet mean volume 11.4 fL Unknown Unknown F measurement (test code = 84524-0) Ordering Physician UnknownAutomated blood leukocytes count corrected for nucleated erythrocytes (number/volume)2019-10-02 10:22:00Identifier 18252-6 Result Time 2019-10-02 10:22:00Unknown Test Item Value Reference Range Comments Automated blood leukocytes count 12.2 10^3/uL Unknown Unknown F corrected for nucleated erythrocytes (number/volume) (test code = 98724-3) Ordering Physician UnknownAutomated blood nucleated erythrocytes joadshwem3128- 11-03 10:22:00Identifier 14854-6 Result Time 2019-10-02 10:22:00Unknown Test Item Value Reference Range Comments Automated blood nucleated erythrocytes 0.3 Unknown Unknown F detection (test code = 84012-9) Ordering Physician UnknownAutomated blood hematocrit (percentage)2019-10-02 10: 22:00Identifier 4544-3 Result Time 2019-10-02 10:22:00Unknown Test Item Value Reference Range Comments Automated blood hematocrit (percentage) (test 41 % Unknown Unknown F code = 4544-3) Ordering Physician UnknownAutomated blood monocytes/100 ldwaqwqmzj3283-63-78 10: 22:00Identifier 5905-5 Result Time 2019-10-02 10:22:00Unknown [...] = 704-7) Ordering Physician UnknownAutomated blood basophils/100 fdxgiqdmth0863-52-21 10: 22:00Identifier 706-2 Result Time 2019-10-02 10:22:00Unknown [...] = 711-2) Ordering Physician UnknownAutomated blood eosinophils/100 tdtdycsfkt4195-65-42 10:22:00Identifier 713-8 Result Time 2019-10-02 10:22:00Unknown Test [...] = 731-0) Ordering Physician UnknownAutomated blood lymphocytes/100 zgopcssiag0666-32-51 10:22:00Identifier 736-9 Result Time 2019-10-02 10:22:00Unknown Test Item Value Reference Range Comments Automated blood lymphocytes/100 leukocytes 13.0 % Unknown Unknown F (test code = 736-9) Ordering Physician UnknownBlood monocytes automated count (number/volume)2019-09 10:22:00Identifier 742-7 Result Time 2019-10-02 10:22:00Unknown Test Item Value Reference Range Comments Blood monocytes automated count 0.7 10^3/ul Unknown Unknown F (number/volume) (test code = 742-7) Ordering Physician UnknownAutomated blood neutrophils/100 mrlezkyafh5663-52-71 10:22:00Identifier 770-8 Result Time 2019-10-02 10:22:00Unknown Test [...] UnknownAutomated erythrocyte mean corpuscular hemoglobin concentration measurement (mass/xfa7541-76-18 10:22:00Identifier 786-4 Result Time 2019-10-02 10:22:00Unknown Test Item Value Reference Range Comments Automated erythrocyte mean corpuscular 33 g/dL Unknown Unknown F hemoglobin concentration measurement (mass/vol (test code = 786-4) Ordering Physician UnknownAutomated erythrocyte mean corpuscular jgisaa8152-79- 03 10:22:00Identifier 787-2 Result Time 2019-10-02 10:22:00Unknown Test Item Value Reference Range Comments Automated erythrocyte mean corpuscular volume 89 fL Unknown Unknown F (test code = 787-2) Ordering Physician UnknownAutomated erythrocyte distribution width qpxqk7075-69- 03 10:22:00Identifier 788-0 Result Time 2019-10-02 10:22:00Unknown [...] code = 789-8) Ordering Physician UnknownCT biopsy [id number] 10:22:00Identifier [id number] Result Time 2019-10-02 10:22:00Unknown Test Item Value Reference Range Comments CT biopsy liver (test code = TEX5371) 9.6 10^3/ul Unknown Unknown F Ordering Physician UnknownSerum or plasma thyroid stimulating hormone (TSH) measurement (units/volume)2019-10-02 10:15:00Identifier 3016-3 Result Time 10-02 10:15:00Unknown Test Item Value Reference Range Comments Serum or plasma thyroid stimulating 7.06 mcIU/mL Unknown Unknown F hormone (TSH) measurement (units/volume) (test code = 3016-3) Ordering Physician Unknown
--- OUTSIDE RECORDS SUMMARY | 2019-12-08 16:42 | XMS REPORT ---
:1960 Author Organization [facility] Care Team Providers Name Role Phone [...] or plasma hepatitis C 2019-10-04 05:18:00 Identifier [id number] Result Unknown virus antibody detection by Time 2019-10-04 05:18:00 immunoassay Test Item Value Reference Range Comments Serum or plasma hepatitis C virus antibody detection by 0.03 s/c Unknown Unknown F immunoassay (test code = 81915-2) Ordering Physician UnknownSerum or plasma alanine aminotransferase measurement ( enzymatic activity/volume)2019-10-04 05:18:00Identifier 1742-6 Result Time 10-04 05:18:00Unknown Test Item Value Reference Range Comments Serum or plasma alanine aminotransferase 234 U/L Unknown Unknown F measurement (enzymatic activity/volume) (test code = 1742-6) Ordering Physician UnknownSerum or plasma albumin/globulin mass hfxxq7143-41-21 05:18:00Identifier 1759-0 Result Time 2019-10-04 05:18:00Unknown Test Item Value Reference Range Comments Serum or plasma albumin/globulin mass ratio 1.9 Unknown Unknown F (test code = 1759-0) Ordering Physician UnknownSerum or plasma calcium measurement (mass/volume)10-04 05:18:00Identifier 60531-1 Result Time 2019-10-04 05:18:00Unknown Test Item Value Reference Range Comments Serum or plasma calcium measurement 8.9 mg/dL Unknown Unknown F (mass/volume) (test code = 02256-8) Ordering Physician UnknownSerum or plasma magnesium measurement (mass/volume) 2019-10-04 05:18:00Identifier 64022-3 Result Time 2019-10-04 05:18:00Unknown Test Item Value Reference Range Comments Serum or plasma magnesium measurement 2.2 mg/dL Unknown Unknown F (mass/volume) (test code = 52277-9) Ordering Physician UnknownSerum or plasma aspartate aminotransferase [...] Ordering Physician UnknownSerum or plasma urea nitrogen/creatinine qbhhh3548-35- 05 05:18:00Identifier 3097-3 Result Time 2019-10-04 05:18:00Unknown Test Item Value Reference Range Comments Serum or plasma urea nitrogen/creatinine 19.4 Unknown Unknown F ratio (test code = 3097-3) Ordering Physician UnknownSerum or plasma anion [id number] 05:18: 00Identifier 86207-0 Result Time 2019-10-04 05:18:00Unknown Test Item Value Reference Range Comments Serum or plasma anion gap (test code = 8 mmol/L Unknown Unknown F 12184-6) Ordering Physician UnknownEstimated glomerular filtration rate (GFR) non- Aepsnnbg5392-98-23 05:18:00Identifier 73649-3 Result Time 2019-10-04 05: 18:00Unknown Test Item Value Reference Range Comments Estimated glomerular filtration rate (GFR) 41.6 Unknown Unknown F non- (test code = 55324-1) Ordering Physician UnknownSerum or plasma albumin measurement by bromocresol green (BCG) dye binding method (gr4869-21-08 05:18:00Identifier 63625-5 Result Time 2019-10-04 05:18:00Unknown Test Item Value Reference Range Comments Serum or plasma albumin measurement by 3.7 g/dL Unknown Unknown F bromocresol green (BCG) dye binding method (ma (test code = 20276-4) Ordering Physician UnknownSerum or plasma alkaline phosphatase measurement ( enzymatic activity/volume)2019-10-04 05:18:00Identifier 6768-6 Result Time 10-04 05:18:00Unknown Test Item Value Reference Range Comments Serum or plasma alkaline phosphatase 281 U/L Unknown Unknown F measurement (enzymatic activity/volume) (test code = 6768-6) Ordering Physician UnknownSerum or plasma troponin i.cardiac measurement (mass/ volume)2019-10-02 20:07:00Identifier 11098-6 Result Time 2019-10-02 20:07: 00Unknown Test Item Value Reference Range Comments Serum or plasma troponin i.cardiac 0.03 ng/mL Unknown Unknown F measurement (mass/volume) (test code = 31114-2) Ordering Physician UnknownStool Plesiomonas shigelloides DNA detection by non- probe and target amplification [id number] 18:02:00Identifier 30564-5 Result Time 2019-10-02 18:02:00Unknown Test Item Value Reference Range Comments Nasal Screen MRSA (PCR) (test code = Mrsa Detected Unknown Unknown F Nasal Screen MRSA (PCR)) Ordering Physician UnknownSerum or plasma natriuretic peptide B measurement ( mass/volume)2019-10-02 10:22:00Identifier 17161-8 Result Time 2019-10-02 10:22: 00Unknown Test Item Value Reference Range Comments Serum or plasma natriuretic peptide B > 1300 pg/mL Unknown Unknown F measurement (mass/volume) (test code = 19472-2) Ordering Physician UnknownAutomated blood platelet mean volume wxghwbtiuvt6715- 11-03 10:22:00Identifier 53779-6 Result Time 2019-10-02 10:22:00Unknown Test Item Value Reference Range Comments Automated blood platelet mean volume 11.4 fL Unknown Unknown F measurement (test code = 24898-1) Ordering Physician UnknownAutomated blood leukocytes count corrected for nucleated erythrocytes (number/volume)2019-10-02 10:22:00Identifier 75879-0 Result Time 2019-10-02 10:22:00Unknown Test Item Value Reference Range Comments Automated blood leukocytes count 12.2 10^3/uL Unknown Unknown F corrected for nucleated erythrocytes (number/volume) (test code = 97833-0) Ordering Physician UnknownAutomated blood nucleated erythrocytes vkmjwteca7334- 11-03 10:22:00Identifier 28724-3 Result Time 2019-10-02 10:22:00Unknown Test Item Value Reference Range Comments Automated blood nucleated erythrocytes 0.3 Unknown Unknown F detection (test code = 97066-9) Ordering Physician UnknownAutomated blood hematocrit (percentage)2019-10-02 10: 22:00Identifier 4544-3 Result Time 2019-10-02 10:22:00Unknown Test Item Value Reference Range Comments Automated blood hematocrit (percentage) (test 41 % Unknown Unknown F code = 4544-3) Ordering Physician UnknownAutomated blood monocytes/100 xrxukhsqzd5012-15-84 10: 22:00Identifier 5905-5 Result Time 2019-10-02 10:22:00Unknown [...] = 704-7) Ordering Physician UnknownAutomated blood basophils/100 bpdyqulffr6022-45-51 10: 22:00Identifier 706-2 Result Time 2019-10-02 10:22:00Unknown [...] = 711-2) Ordering Physician UnknownAutomated blood eosinophils/100 nkwrrywqvr0901-44-73 10:22:00Identifier 713-8 Result Time 2019-10-02 10:22:00Unknown Test [...] = 731-0) Ordering Physician UnknownAutomated blood lymphocytes/100 awgnkcyjtw8761-35-19 10:22:00Identifier 736-9 Result Time 2019-10-02 10:22:00Unknown Test Item Value Reference Range Comments Automated blood lymphocytes/100 leukocytes 13.0 % Unknown Unknown F (test code = 736-9) Ordering Physician UnknownBlood monocytes automated count (number/volume)2019-09 10:22:00Identifier 742-7 Result Time 2019-10-02 10:22:00Unknown Test Item Value Reference Range Comments Blood monocytes automated count 0.7 10^3/ul Unknown Unknown F (number/volume) (test code = 742-7) Ordering Physician UnknownAutomated blood neutrophils/100 tmtfteigre0393-14-02 10:22:00Identifier 770-8 Result Time 2019-10-02 10:22:00Unknown Test [...] UnknownAutomated erythrocyte mean corpuscular hemoglobin concentration measurement (mass/djo7883-13-32 10:22:00Identifier 786-4 Result Time 2019-10-02 10:22:00Unknown Test Item Value Reference Range Comments Automated erythrocyte mean corpuscular 33 g/dL Unknown Unknown F hemoglobin concentration measurement (mass/vol (test code = 786-4) Ordering Physician UnknownAutomated erythrocyte mean corpuscular leguol0547-05- 03 10:22:00Identifier 787-2 Result Time 2019-10-02 10:22:00Unknown Test Item Value Reference Range Comments Automated erythrocyte mean corpuscular volume 89 fL Unknown Unknown F (test code = 787-2) Ordering Physician UnknownAutomated erythrocyte distribution width tiyhf7814-20- 03 10:22:00Identifier 788-0 Result Time 2019-10-02 10:22:00Unknown [...] code = 789-8) Ordering Physician UnknownCT biopsy wkulz4384-06-73 10:22:00Identifier [id number] Result Time 2019-10-02 10:22:00Unknown Test Item Value Reference Range Comments CT biopsy liver (test code = KUO9205) 9.6 10^3/ul Unknown Unknown F Ordering Physician UnknownSerum or plasma thyroid stimulating hormone (TSH) measurement (units/volume)2019-10-02 10:15:00Identifier 3016-3 Result Time 10-02 10:15:00Unknown Test Item Value Reference Range Comments Serum or plasma thyroid stimulating 7.06 mcIU/mL Unknown Unknown F hormone (TSH) measurement (units/volume) (test code = 3016-3) Ordering Physician Unknown
[2019-12-08 16:54] LABS: Hematocrit 43 % (42-52); Hemoglobin 13.3 g/dL (14.0-18.0); Mean Corpuscular HGB Conc 31 g/dL (31-36); Mean Corpuscular Hemoglobin 25 pg (27-31); Mean Corpuscular Volume 79 fL (80-94); Mean Platelet Volume 11.2 fL (7.4-10.4); Platelet Count 237 10^3/uL (150-450); Red Blood Count 5.41 10^6 /uL (4.18-5.48); Red Cell Distribution Width 23 % (10-15); White Blood Count 9.3 10^3/uL (3.5-10.8)
[2019-12-08 17:17] LABS: Albumin 3.8 g/dL (3.2-5.2); Anion Gap 12 mmol/L (2-11); CO2 Carbon Dioxide 25 mmol/L (22-32); Calcium 9.5 mg/dL (8.6-10.3); Chloride 99 mmol/L (101-111); Potassium 3.9 mmol/L (3.5-5.0); Sodium 136 mmol/L (135-145)
[2019-12-08 17:18] LABS: Platelet Morphology Large; Polychromasia 1+
[2019-12-08 17:19] LABS: ABS Basophils 0.1 10^3/ul (0-0.2); ABS Lymphocytes 1.4 10^3/ul (1.0-4.8); ABS Monocytes 0.7 10^3/ul (0-0.8); Eosinophil % 0.5 %; Lymphocyte % 15.3 %; Nucleated Red Blood Cells % 0.2
[2019-12-08 17:23] LABS: ALT 43 U/L (7-52); AST 27 U/L (13-39); Albumin/Globulin Ratio 1.5 (1-3); Alkaline Phosphatase 173 U/L (34-104); BUN/Creatinine Ratio 28.5 (8-20); Blood Urea Nitrogen 45 mg/dL (6-24); C Reactive Protein 13.25 mg/L (<8.01); Creatine Kinase 97 U/L (10-223); EGFR African American 54.8 (>60); EGFR Non-African American 45.3 (>60); Globulin 2.6 g/dL (2-4); Glucose 119 mg/dL (70-100); Total Protein 6.4 g/dL (6.4-8.9)
[2019-12-08] MEDS ORDERED: Furosemide IV* 10 MG/ML 2 ML VIAL (20 MG) IV ONE (17:56)
[2019-12-08] MEDS ORDERED: Nitroglycerin TAB 0.4 MG* 0.4 MG TAB SL PRN (18:11)
[2019-12-08] MEDS ORDERED: Furosemide IV* 10 MG/ML 2 ML VIAL (20 MG) IV SLOW PU ONE (18:12)
[2019-12-08 19:05] LABS: CKMB ng/mL 8.2 ng/mL (0.6-6.3)
[2019-12-08 19:25] LABS: Troponin I 0.04 ng/mL (<0.03)
--- NOTE | 2019-12-08 20:19 | HP ---
CC: Dr. Lou Jackson; Dr. Magana * HISTORY AND PHYSICAL: DATE OF ADMISSION: 12/08/19 PRIMARY CARE PROVIDER: Dr. Lou Jackson. PHOTO RETOUCHER: Dr. Magana. TIME OF EVALUATION: 6:10 p.m. CHIEF COMPLAINT: Shortness of breath. HISTORY OF PRESENT ILLNESS: Mr. Orr is a 59-year-old male well known to the hospitalist service with a past medical history of ischemic cardiomyopathy, coronary artery disease, hypertension, hyperlipidemia, paroxysmal V-tach, status post ICD, GERD, depression, hypothyroidism, CKD stage 3, who presented to the emergency room with complaints of shortness of breath. The patient was last admitted to [facility] in [place] 2019 with similar complaints. At that time, he had run out of torsemide and developed congestive heart failure exacerbation. He was diuresed in the hospital, discharged home and he states that he was doing well until a couple of weeks ago when he started to have progressive shortness of breath, initially with exertion and now at rest and progressive weight gain of almost 20 pounds. He states that he has been compliant with all his medications including his diuretics and he denies dietary indiscretions. The patient states that he has required his 's oxygen due to progressive dyspnea. He also endorses orthopnea and PND. He denies lower extremity edema but has noted increased abdominal girth. He also noted a "boil" at the back of his neck that he states is tender, but he denies fever or chills. PAST MEDICAL HISTORY: 1. Coronary artery disease, status post stent to the LAD in 2008. 2. Paroxysmal V-tach, status post ICD implantation in 2009 (single chamber ICD [employer]). 3. Ischemic cardiomyopathy with ejection fraction less than 20% in 2014. Last transthoracic echocardiogram done at Dr. Magana's office in 2015 with ejection fraction 20% and moderate to severe MR. 4. Systolic congestive heart failure. 5. Hypertension. 6. Hyperlipidemia. 7. Gout. 8. CKD stage 3. 9. GERD. 10. Depression. 11. Hypothyroidism. MEDICATIONS: 1. Aspirin 81 mg p.o. daily. 2. Atorvastatin 80 mg p.o. daily. 3. Colchicine 0.6 mg p.o. daily as needed for pain. 4. Levothyroxine 25 mcg p.o. daily. 5. Lisinopril 2.5 mg p.o. daily. 6. Magnesium oxide 400 mg p.o. t.i.d. 7. Metoprolol succinate 50 mg p.o. b.i.d. 8. Nitroglycerin 0.4 mg sublingual q.5 minutes p.r.n. chest pain, maximum 3 doses. 9. Sertraline 50 mg p.o. daily. 10. Brilinta 60 mg p.o. b.i.d. 11. Torsemide 40 mg p.o. daily. ALLERGIES: The patient reports anaphylactic shock with CLOPIDOGREL. FAMILY HISTORY: His father and uncle had a history of stomach cancer. Mother passed in her 60s from tobacco related complications including coronary artery disease, peripheral arterial disease as well as a CVA. SOCIAL HISTORY: The patient is a former smoker, 1 pack per day for 30 years. He quit in 2008 when he had his heart attack. He denies history of alcohol or drug use. Surrogate decision maker is his , Mia Orr, phone number is [phone]. REVIEW OF SYSTEMS: A 14-point review of systems was performed and all the pertinent negatives and positives are in the HPI. PHYSICAL EXAMINATION GENERAL: The patient is a pleasant, chronic ill-appearing gentleman who appears older than stated age, disheveled appearance, sitting up in the ED stretcher, in no acute distress. VITAL SIGNS: Temperature 98.8, heart rate is 95, respiratory rate is 19, oxygen saturation 100% on room air, blood pressure is 105/78. HEENT: Pupils are equal. Moist mucous membranes. The patient has an area of erythema with large crust on the posterior aspect of his neck with no active drainage. CHEST: Breath sounds bilaterally with bibasilar crackles. CVS: Normal S1, S2. Regular rate and rhythm with a systolic murmur. ABDOMEN: Soft, mild distention. There is hepatomegaly with palpable liver 2 fingerbreadths from right costal margin. EXTREMITIES: No edema. NEURO: He is alert and oriented x3. Able to move all 4 extremities. DIAGNOSTIC STUDIES/LAB DATA: The patient had a CBC that showed a WBC of 9.3, hemoglobin of 13.3, hematocrit of 43, platelets of 237 with 75% neutrophils. Chemistry showed sodium of 136, potassium of 3.9, chloride 99, bicarb of 25, BUN of 45, creatinine of 1.5, glucose of 119, calcium is 9.5. LFT showed a total bilirubin of 2.8, AST 27, ALT of 43, alk phos of 173. CRP is 13. BNP is greater than 1300. The patient's troponin is pending at this time. Chest x-ray was reviewed. It shows cardiomegaly with pulmonary vascular congestion and also right basilar atelectasis. His vascular congestion appears to be more pronounced this time when compared to his x-ray from September 2019. EKG done 12/08/19 at 3:54 p.m. shows sinus rhythm at 91 beats per minute with a right bundle-branch block and left anterior fascicular block. No acute ischemic findings. No significant change when compared to his prior EKG from September 2019. ASSESSMENT AND PLAN: Mr. Orr is a 59-year-old male with a past medical history of ischemic cardiomyopathy, systolic congestive heart failure with ejection fraction of 20%; coronary artery disease, status post stent to left anterior descending artery; hypertension; hyperlipidemia, who presented to the emergency room with complaints of shortness of breath, found to have another episode of acute systolic congestive heart failure exacerbation. 1. Acute systolic congestive heart failure exacerbation. The precipitating factor at this time is not clear. The patient states that he has been compliant with medications and diet but has gained almost 20 pounds. He will be admitted as inpatient to the telemetry floor as he usually requires several days of IV diuretics for improvement. On his last admission, he stayed in the hospital for 2 days and this episode appears to be more severe, so I presume that he is going to require more time. At this point, he will receive intravenous diuretics with a plan to transition him back to torsemide on discharge. He does not have any complaints of chest pain. His EKG does not show acute ischemic changes and we will follow his troponin. 2. Coronary artery disease. Continue aspirin, Brilinta, atorvastatin, and metoprolol. 3. Hypothyroidism. His last TSH was 7.7 in September 2019. We will repeat another TSH this admission and adjust levothyroxine as needed. 4. DVT prophylaxis: The patient has a score of 2 on the DVT Prophylaxis Risk Assessment Guide and he will be started on subcutaneous heparin. 5. Code status was discussed with the patient and he wishes to be a full code. TIME SPENT: Approximately 55 minutes was spent with patient interview, medical records review, physical examination to complete this admission, more than half this time was spent [id number] with the patient and coordination of care. [id number]/[facility] #: [id number] AARON
[2019-12-08 20:24] LABS: TSH (Thyroid Stimulating Horm) 11.53 mcIU/mL (0.34-5.60)
--- NOTE | 2019-12-08 20:40 | PN ---
Hospitalist Progress Note Date of Service: 12/08/19 HOSPITALIST ADDENDUM Patient's troponin is 0.04 - suspect secondary to CHF exacerbation. Will continue to trend. Lactic acid is 3 - suspect secondary to poor perfusion in the setting of CHF exacerbation and known low EF. He has foliculitis of his neck, but no signs of sepsis. Will trend lactic acid, but do not think it is associated with infection.
[2019-12-08 21:18] LABS: Troponin I 0.04 ng/mL (<0.03)
[2019-12-08] MEDS: DOXYcycline CAP(*) 100 MG PO SCH (21:57)
[2019-12-08] MEDS: Metoprolol Succinate XL TAB* 50 MG PO SCH (21:57)
[2019-12-08] MEDS: Amoxicillin/Clavulanate TAB* 875 MG PO SCH (21:58)
[2019-12-08] MEDS: Colchicine* 0.6 MG TAB PO PRN (21:58)
[2019-12-08] MEDS: Magnesium Oxide TAB* 400 MG PO SCH (21:58)
[2019-12-08] MEDS: Heparin VIAL(*) 5000 UNITS/ML VIAL (FIVE THOUSAND) SUBCUT SCH (21:59)
[2019-12-09 00:05] LABS: Troponin I 0.04 ng/mL (<0.03)
[2019-12-09] MEDS: Magnesium Oxide TAB* 400 MG PO SCH ×3 (06:26→21:52)
[2019-12-09] MEDS: guaiFENesin 100 mg/5 ml LIQ unit dose cup PO PRN ×2 (06:26→21:51)
[2019-12-09] MEDS: Heparin VIAL(*) 5000 UNITS/ML VIAL (FIVE THOUSAND) SUBCUT SCH ×3 (06:27→21:52)
[2019-12-09] MEDS: Levothyroxine TAB* 25 MCG TAB PO SCH (06:27)
[2019-12-09 06:59] LABS: Anion Gap 12 mmol/L (2-11); BUN/Creatinine Ratio 29.9 (8-20); Blood Urea Nitrogen 46 mg/dL (6-24); CO2 Carbon Dioxide 23 mmol/L (22-32); Calcium 9.2 mg/dL (8.6-10.3); Chloride 100 mmol/L (101-111); EGFR African American 56.4 (>60); EGFR Non-African American 46.6 (>60); Glucose 121 mg/dL (70-100); Potassium 3.9 mmol/L (3.5-5.0); Sodium 135 mmol/L (135-145)
[2019-12-09 07:03] LABS: Troponin I 0.04 ng/mL (<0.03)
[2019-12-09] MEDS: DOXYcycline CAP(*) 100 MG PO SCH ×2 (08:40→21:53)
[2019-12-09] MEDS: Metolazone TAB* 5 MG PO SCH (08:40)
[2019-12-09] MEDS: Amoxicillin/Clavulanate TAB* 875 MG PO SCH ×2 (09:39→21:53)
[2019-12-09] MEDS: Atorvastatin* 80 MG TAB PO SCH (09:39)
[2019-12-09] MEDS: Aspirin EC TAB* 81 MG TAB.EC PO SCH (09:39)
[2019-12-09] MEDS: Metoprolol Succinate XL TAB* 50 MG PO SCH ×2 (09:40→21:54)
[2019-12-09] MEDS: Sertraline* 50 MG TAB PO SCH (09:40)
[2019-12-09] MEDS: Furosemide IV* 10 MG/ML VIAL (40 MG) IV SLOW PU SCH (09:41)
[2019-12-09] MEDS: Lisinopril TAB* 5 MG PO SCH (09:41)
--- NOTE | 2019-12-09 14:28 | CONSULT ---
Consult Consult: DATE OF CONSULT: 12/09/2019 REASON FOR CONSULT: Neck wound HPI: Jose Alfredo Orr is a 59 year-old man with multiple co-morbidities including ischemic cardiomyopathy, CAD, HTN, paroxysmal V-tach s/p ICD who was admitted to the hospitalist service with dyspnea likely due to CHF exacerbation. The inciting factor is unclear. He was admitted in September 2019 with similar symptoms and at that time the cause was due to medication noncompliance. He reports that he has been taking all his medications as prescribed. His main concern is shortness of breath and cough. He has gained about 20 lbs. He feels his abdomen has become more distended and intermittently has pain, although he currently denies abdominal pain. He has been able to eat as usual. Denies diarrhea or constipation. The patient also reports that he has had a boil on the back of his neck which he first noticed about 1.5 weeks ago. He denies fevers or chills at home. He has had boils on his neck and torso in the past. The last boil on his neck had resolved completely before this most recent one appeared. He has been using warm compresses and cleaning with peroxide. There has been a significant amount of drainage from the site. The pain has improved, but the site is still painful when he lies on it. PMH: Ischemic cardiomyopathy, CAD s/p stent to LAD, paroxysmal V-tach s/p ICD, CHF, HTN, HLD, gout, CKD stage 3, hypothyroidism, depression, GERD, L carotid stenosis PSH: ICD placement, R carotid stent placement (2014) Home Medications Medication Instructions Recorded Confirmed Type Aspirin EC TAB* [Ecotrin EC Low 81 mg PO DAILY 08/06/15 12/08/19 History Dose 81 MG*] Levothyroxine TAB* [Synthroid 25 25 mcg PO DAILY 08/06/15 12/08/19 History MCG TAB*] Lisinopril TAB* [Prinivil TAB 5 2.5 mg PO DAILY 08/06/15 12/08/19 History MG*] Magnesium Oxide TAB* [MagOx 400 400 mg PO TID 09/27/18 12/08/19 History TAB*] Torsemide TAB* [Demadex 20 MG*] 40 mg PO DAILY 09/27/18 12/08/19 History Ticagrelor (NF) [Brilinta 60 MG 60 mg PO BID 10/03/19 12/08/19 History TAB] Metoprolol Succinate XL TAB* 50 mg PO BID tab.xl 10/05/19 12/08/19 Rx [Toprol XL TAB*] Colchicine* [Colcrys*] 0.6 mg PO DAILY PRN 10/12/19 12/08/19 History Nitroglycerin TAB 0.4 MG* 0.4 mg SL Q5M PRN 10/12/19 12/08/19 History Atorvastatin* [Lipitor*] 80 mg PO DAILY 12/08/19 12/08/19 History Sertraline* [Zoloft*] 50 mg PO DAILY 12/08/19 12/08/19 History Allergies clopidogrel [From Plavix] Allergy (Severe, Verified 10/02/19 10:55) Anaphylatic Shock FAMILY HISTORY: Parents are . Mother with PAD and CAD. Father with stomach cancer. 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 Quit smoking in 2008. Denies alcohol or drug use. ROS: 10-point review of systems obtained. Pertinent positives and negatives are in HPI. PHYSICAL EXAM: Vital Signs - 12 hr Temp Pulse Resp BP Pulse Ox 12/09/19 03:01 97.8 F 90 16 105/73 100 General: No acute distress Head: Normocephalic and atraumatic. Eyes: Pupils equal. Sclerae anicteric. Mouth: Moist mucous membranes. Neck: Wound on posterior neck at midline. 1.5 cm x 1.0 cm. Necrotic tissue overlying the wound. No erythema, drainage, fluctuance, or edema. Mild tenderness to palpation. I sharply debrided the necrotic tissue. There was fibrinous material at the base of the wound but no purulent drainage. CV: Regular rate and rhythm Abdomen: soft, nontender, mildly distended. No rebound or guarding. Skin: No rashes or lesions Extremities: Warm. No pedal edema. Neuro: Alert and oriented x3 Laboratory Tests 12/08/19 16:37 WBC 9.3 A&P: 59M admitted with CHF exacerbation. Also found to have neck abscess that is now healing. No evidence of active infection. -Xeroform over the wound and cover with dry gauze. Change daily and as needed for soiled dressing. -Wound does not need antibiotics.
--- NOTE | 2019-12-09 15:00 | PN ---
Subjective Date of Service: 12/09/19 Interval History: HOSPITALIST PROGRESS NOTE Patient seen and examined at bedside. Care reviewed and d/w RN. He feels a little better today. Still has dyspnea, did not sleep well last night , but in good spirits this afternoon. Denies chest pain and palpitations. Family History: Unchanged from Admission Social History: Unchanged from Admission Past Medical History: Unchanged from Admission Objective Active Medications: Amoxicillin/Clavulanate Potassium (Augmentin Tab*) 875 mg PO Q12H [facility] Last Admin: 12/09/19 09:39 Dose: 875 mg Aspirin (Aspirin Ec Tab*) 81 mg PO DAILY [facility] Last Admin: 12/09/19 09:39 Dose: 81 mg Atorvastatin Calcium (Lipitor*) 80 mg PO DAILY [facility] Last Admin: 12/09/19 09:39 Dose: 80 mg Colchicine (Colcrys*) 0.6 mg PO DAILY PRN PRN Reason: PAIN - MODERATE Last Admin: 12/08/19 21:58 Dose: 0.6 mg Doxycycline Hyclate (Vibramycin Cap(*)) 100 mg PO Q12H [facility] Last Admin: 12/09/19 08:40 Dose: 100 mg Furosemide (Lasix Iv*) 40 mg IV SLOW PU DAILY [facility] Last Admin: 12/09/19 09:41 Dose: 40 mg Guaifenesin (Robitussin 100 Mg/5ml Liq) 5 ml PO Q4H PRN PRN Reason: COUGH Last Admin: 12/09/19 06:26 Dose: 5 ml Heparin Sodium (Porcine) (Heparin Vial(*)) 5,000 units SUBCUT Q8HR [facility] Last Admin: 12/09/19 14:26 Dose: 5,000 units Levothyroxine Sodium (Synthroid Tab*) 25 mcg PO DAILY@0600 [facility] Last Admin: 12/09/19 06:27 Dose: 25 mcg Lisinopril (Prinivil Tab*) 2.5 mg PO DAILY [facility] Last Admin: 12/09/19 09:41 Dose: 2.5 mg Magnesium Oxide (Magox 400 Tab*) 400 mg PO Q8H [facility] Last Admin: 12/09/19 14:26 Dose: 400 mg Metolazone (Zaroxolyn Tab*) 5 mg PO DAILY@0830 [facility] Last Admin: 12/09/19 08:40 Dose: 5 mg Metoprolol Succinate (Toprol Xl Tab*) 50 mg PO BID [facility] Last Admin: 12/09/19 09:40 Dose: 50 mg Nitroglycerin (Nitroglycerin Tab 0.4 Mg*) 0.4 mg SL Q5M PRN PRN Reason: ANGINA Sertraline HCl (Zoloft*) 50 mg PO DAILY [facility] Last Admin: 12/09/19 09:40 Dose: 50 mg Temazepam (Restoril Cap*) 15 mg PO BEDTIME [facility] Ticagrelor (Brilinta (Nf)) 60 mg PO BID [facility] Last Admin: 12/09/19 09:41 Dose: 60 mg Oxygen Devices in Use Now: Nasal Cannula Appearance: Disheveled middle aged gentleman sitting up in bed in NAD Eyes: No Scleral Icterus Ears/Nose/Mouth/Throat: Mucous Membranes Moist Neck: Trachea Midline Respiratory: Symmetrical Chest Expansion and Respiratory Effort, Clear to Auscultation Cardiovascular: RRR - Normal S1 and S2 Extremities: No Edema Neurological: Alert and Oriented x 3, NL Muscle Strength and Tone Result Diagrams: 12/08/19 16:37 12/09/19 06:20 Assess/Plan/Problems-Billing Assessment: Mr Orr is a 59yo M with PMH of CAD s/p stent to LAD, paroxysmal Vtach s/ p ICD, ischemic CMP, systolic CHF EF 20%, HTN, HLD, gout, CKD stage 3, GERD, depression, hypothyroidism, who presented to ED with c/o dyspnea, found to have CHF exacerbation. - Patient Problems (1) Acute systolic congestive heart failure Comment: - Improving. - Continue diuresis with Furosemide. - Continue Metoprolol and Lisinopril as BP allows. (2) CAD (coronary artery disease) Comment: - Stable. - Continue ASA, Brilinta, metoprolol, Atorvastatin. (3) Hypothyroidism Comment: - TSH higher 11.5 - increase Levothyroxine to 37.5 and will need repeat TFTs in 4 weeks as outpatient. (4) Open neck wound Comment: - Continue Augmentin and Doxycycline. - Surgery consult requested for possible debridment. (5) DVT prophylaxis Comment: - SQ heparin. (6) Full code status Status and Disposition: Inpatient.
[2019-12-09 15:54] LABS: Magnesium 2.1 mg/dL (1.9-2.7)
[2019-12-09] MEDS: Temazepam CAP* 15 MG PO SCH (21:52)
[2019-12-09] MEDS: Colchicine* 0.6 MG TAB PO PRN (21:53)
[2019-12-10] MEDS: guaiFENesin 100 mg/5 ml LIQ unit dose cup PO PRN ×2 (03:42→21:36)
[2019-12-10] MEDS: Magnesium Oxide TAB* 400 MG PO SCH ×3 (04:53→21:35)
[2019-12-10] MEDS: Heparin VIAL(*) 5000 UNITS/ML VIAL (FIVE THOUSAND) SUBCUT SCH ×3 (04:53→21:36)
[2019-12-10] MEDS: Levothyroxine TAB* 25 MCG TAB PO SCH (04:53)
[2019-12-10 05:08] LABS: Urine Appearance Clear; Urine Bilirubin Negative (Negative); Urine Blood Negative (Negative); Urine Color Yellow; Urine Glucose Negative (Negative); Urine Ketones Negative (Negative); Urine Nitrite Negative (Negative); Urine Protein Negative (Negative); Urine Specific Gravity 1.013 (1.010-1.030); Urine Urobilinogen Positive (Negative)
[2019-12-10] MEDS: DOXYcycline CAP(*) 100 MG PO SCH (09:15)
[2019-12-10] MEDS: Metolazone TAB* 5 MG PO SCH (09:16)
[2019-12-10] MEDS: Aspirin EC TAB* 81 MG TAB.EC PO SCH (10:02)
[2019-12-10] MEDS: Sertraline* 50 MG TAB PO SCH (10:02)
[2019-12-10] MEDS: Atorvastatin* 80 MG TAB PO SCH (10:02)
[2019-12-10] MEDS: Metoprolol Succinate XL TAB* 50 MG PO SCH ×2 (10:03→21:35)
[2019-12-10] MEDS: Lisinopril TAB* 5 MG PO SCH (10:03)
[2019-12-10] MEDS: Furosemide IV* 10 MG/ML VIAL (40 MG) IV SLOW PU SCH (10:04)
[2019-12-10] MEDS ORDERED: PROCHLORPERAZINE INJ 5 MG/ML 2 ML VIAL IV PRN (10:40)
[2019-12-10] MEDS ORDERED: Furosemide IV* 10 MG/ML VIAL (40 MG) IV SLOW PU ONE (12:09)
[2019-12-10 12:44] LABS: BUN/Creatinine Ratio 29.2 (8-20); Calcium 9.6 mg/dL (8.6-10.3); EGFR Non-African American 50.4 (>60); Potassium 3.8 mmol/L (3.5-5.0)
--- NOTE | 2019-12-10 12:59 | PN ---
Progress Note - Progress Note Date of Service: 12/10/19 Note: Still having difficulty with breathing. Neck wound is unchanged. He has pain when lying on it. Tolerating regular diet. Denies chest pain. Reports abdominal pain earlier but has now resolved. Vital Signs - 12 hr Temp Pulse Resp BP Pulse Ox 12/10/19 03:16 97.5 F 83 22 103/65 100 General: NAD Neck: Wound is healing, small amount of fibrinous material at base of wound. No surrounding erythema, edema, drainage. CV: RRR Chest: Mild crackles at base. Abdomen: soft, nontender, nondistended. Neuro: Alert, oriented x3 Laboratory Results - last 24 hr 12/08/19 12/09/19 12/10/19 16:37 06:20 05:01 Hem Pathologist Commnt Sodium 135 Potassium 3.9 Chloride 100 L Carbon Dioxide 23 Anion Gap 12 H BUN 46 H Creatinine 1.54 H Est GFR ( Amer) 56.4 Est GFR (Non-Af Amer) 46.6 BUN/Creatinine Ratio 29.9 H Glucose 121 H Calcium 9.2 Magnesium 2.1 Troponin I 0.04 H* Urine Color Yellow Urine Appearance Clear Urine pH 8.0 Ur Specific [place] 1.013 Urine Protein Negative Urine Ketones Negative Urine Blood Negative Urine Nitrate Negative Urine Bilirubin Negative Urine Urobilinogen Positive A Ur Leukocyte Esterase Negative Urine Glucose Negative 12/10/19 12:17 Hem Pathologist Commnt Sodium 133 L Potassium 3.8 Chloride 97 L Carbon Dioxide 26 Anion Gap 10 BUN 42 H Creatinine 1.44 H Est GFR ( Amer) 61.0 Est GFR (Non-Af Amer) 50.4 BUN/Creatinine Ratio 29.2 H Glucose 155 H Calcium 9.6 Magnesium Troponin I Urine Color Urine Appearance Urine pH Ur Specific [place] Urine Protein Urine Ketones Urine Blood Urine Nitrate Urine Bilirubin Urine Urobilinogen Ur Leukocyte Esterase Urine Glucose A&P 59M with neck abscess, healing well. No signs of active infection. -Xeroform over wound and cover with dry gauze. Change daily. Nursing order written.
--- NOTE | 2019-12-10 17:31 | PN ---
Subjective Date of Service: 12/10/19 Interval History: HOSPITALIST PROGRESS NOTE Patient seen and examined at bedside. Care reviewed and d/w Beulah Callejas RN. His dyspnea is less intense today, but not yet back to his baseline. Family History: Unchanged from Admission Social History: Unchanged from Admission Past Medical History: Unchanged from Admission Objective Active Medications: Aspirin (Aspirin Ec Tab*) 81 mg PO DAILY [facility] Last Admin: 12/10/19 10:02 Dose: 81 mg Atorvastatin Calcium (Lipitor*) 80 mg PO DAILY [facility] Last Admin: 12/10/19 10:02 Dose: 80 mg Colchicine (Colcrys*) 0.6 mg PO DAILY PRN PRN Reason: PAIN - MODERATE Last Admin: 12/09/19 21:53 Dose: 0.6 mg Furosemide (Lasix Iv*) 40 mg IV SLOW PU DAILY [facility] Last Admin: 12/10/19 10:04 Dose: 40 mg Guaifenesin (Robitussin 100 Mg/5ml Liq) 5 ml PO Q4H PRN PRN Reason: COUGH Last Admin: 12/10/19 03:42 Dose: 5 ml Heparin Sodium (Porcine) (Heparin Vial(*)) 5,000 units SUBCUT Q8HR [facility] Last Admin: 12/10/19 13:55 Dose: 5,000 units Levothyroxine Sodium (Synthroid Tab*) 25 mcg PO DAILY@0600 [facility] Last Admin: 12/10/19 04:53 Dose: 25 mcg Lisinopril (Prinivil Tab*) 2.5 mg PO DAILY [facility] Last Admin: 12/10/19 10:03 Dose: 2.5 mg Magnesium Oxide (Magox 400 Tab*) 400 mg PO Q8H [facility] Last Admin: 12/10/19 13:55 Dose: 400 mg Metolazone (Zaroxolyn Tab*) 5 mg PO DAILY@0830 [facility] Last Admin: 12/10/19 09:16 Dose: 5 mg Metoprolol Succinate (Toprol Xl Tab*) 50 mg PO BID [facility] Last Admin: 12/10/19 10:03 Dose: 50 mg Nitroglycerin (Nitroglycerin Tab 0.4 Mg*) 0.4 mg SL Q5M PRN PRN Reason: ANGINA Prochlorperazine Edisylate (Compazine Inj*) 5 mg IV Q6H PRN PRN Reason: NAUSEA/VOMITING Last Admin: 12/10/19 11:19 Dose: 5 mg Sertraline HCl (Zoloft*) 50 mg PO DAILY [facility] Last Admin: 12/10/19 10:02 Dose: 50 mg Temazepam (Restoril Cap*) 15 mg PO BEDTIME [facility] Last Admin: 12/09/19 21:52 Dose: 15 mg Ticagrelor (Brilinta (Nf)) 60 mg PO BID [facility] Last Admin: 12/10/19 10:02 Dose: 60 mg Vital Signs - 8 hr 12/10/19 12/10/19 12/10/19 10:03 11:38 13:55 Temperature 97.9 F Pulse Rate 84 81 82 Respiratory 20 Rate Blood Pressure 104/72 107/90 94/52 (mmHg) O2 Sat by Pulse 95 Oximetry 12/10/19 15:51 Temperature 98.1 F Pulse Rate 80 Respiratory 16 Rate Blood Pressure 92/80 (mmHg) O2 Sat by Pulse 100 Oximetry Oxygen Devices in Use Now: Nasal Cannula Appearance: Dusheveled middle aged gentleman sitting up in bed in NAD Eyes: No Scleral Icterus Ears/Nose/Mouth/Throat: Mucous Membranes Moist Neck: Trachea Midline Respiratory: Symmetrical Chest Expansion and Respiratory Effort, - - BS+ bilaterally with bibasilar crackles Cardiovascular: RRR - Normal S1 and S2 Extremities: No Edema Neurological: Alert and Oriented x 3, NL Muscle Strength and Tone Result Diagrams: 12/08/19 16:37 12/10/19 12:17 Assess/Plan/Problems-Billing Assessment: Mr Orr is a 59yo M with PMH of CAD s/p stent to LAD, paroxysmal Vtach s/ p ICD, ischemic CMP, systolic CHF EF 20%, HTN, HLD, gout, CKD stage 3, GERD, depression, hypothyroidism, who presented to ED with c/o dyspnea, found to have CHF exacerbation. - Patient Problems (1) Acute systolic congestive heart failure Comment: - Improving. - Continue diuresis with Metolazone and Furosemide. - Weight down to 148lbs. - Continue Metoprolol and Lisinopril as BP allows. (2) CAD (coronary artery disease) Comment: - Stable. - Continue ASA, Brilinta, metoprolol, Atorvastatin. (3) Hypothyroidism Comment: - TSH higher 11.5 - increase Levothyroxine to 37.5 and will need repeat TFTs in 4 weeks as outpatient. (4) Open neck wound Comment: - Surgery consult appreciated - d/c antibiotics. (5) DVT prophylaxis Comment: - SQ heparin. (6) Full code status Status and Disposition: Inpatient.
[2019-12-10] MEDS: Temazepam CAP* 15 MG PO SCH (21:35)
[2019-12-11] MEDS: Levothyroxine TAB* 25 MCG TAB PO SCH (05:15)
[2019-12-11] MEDS: Magnesium Oxide TAB* 400 MG PO SCH ×3 (05:15→22:10)
[2019-12-11] MEDS: Heparin VIAL(*) 5000 UNITS/ML VIAL (FIVE THOUSAND) SUBCUT SCH ×3 (05:15→22:10)
[2019-12-11] MEDS: Metolazone TAB* 5 MG PO SCH (08:54)
[2019-12-11 09:05] LABS: BUN/Creatinine Ratio 30.7 (8-20); EGFR African American 58.2 (>60); EGFR Non-African American 48.1 (>60); Potassium 3.6 mmol/L (3.5-5.0)
[2019-12-11] MEDS: Aspirin EC TAB* 81 MG TAB.EC PO SCH (09:46)
[2019-12-11] MEDS: Atorvastatin* 80 MG TAB PO SCH (09:48)
[2019-12-11] MEDS: Sertraline* 50 MG TAB PO SCH (09:48)
[2019-12-11] MEDS: Furosemide IV* 10 MG/ML VIAL (40 MG) IV SLOW PU SCH (10:10)
[2019-12-11] MEDS: Potassium Chlor TAB* 20 MEQ TAB.ER PO SCH (12:05)
[2019-12-11] MEDS: Metoprolol Succinate XL TAB* 50 MG PO SCH ×2 (12:16→20:13)
[2019-12-11] MEDS: Lisinopril TAB* 5 MG PO SCH (14:56)
--- NOTE | 2019-12-11 15:45 | PN ---
Subjective Date of Service: 12/11/19 Interval History: HOSPITALIST PROGRESS NOTE Patient seen and examined at bedside. Care reviewed and d/w Beulah Read RN. He feels a little better today. Dyspnea is less intense, was able to sleep last night. Still significant dyspnea with exertion and SO2 dropped to mid 80s with exertion on RA. Family History: Unchanged from Admission Social History: Unchanged from Admission Past Medical History: Unchanged from Admission Objective Active Medications: Aspirin (Aspirin Ec Tab*) 81 mg PO DAILY [facility] Last Admin: 12/11/19 09:46 Dose: 81 mg Atorvastatin Calcium (Lipitor*) 80 mg PO DAILY [facility] Last Admin: 12/11/19 09:48 Dose: 80 mg Colchicine (Colcrys*) 0.6 mg PO DAILY PRN PRN Reason: PAIN - MODERATE Last Admin: 12/09/19 21:53 Dose: 0.6 mg Furosemide (Lasix Iv*) 40 mg IV SLOW PU DAILY [facility] Last Admin: 12/11/19 10:10 Dose: 40 mg Guaifenesin (Robitussin 100 Mg/5ml Liq) 5 ml PO Q4H PRN PRN Reason: COUGH Last Admin: 12/10/19 21:36 Dose: 5 ml Heparin Sodium (Porcine) (Heparin Vial(*)) 5,000 units SUBCUT Q8HR [facility] Last Admin: 12/11/19 14:56 Dose: 5,000 units Levothyroxine Sodium (Synthroid Tab*) 25 mcg PO DAILY@0600 [facility] Last Admin: 12/11/19 05:15 Dose: 25 mcg Lisinopril (Prinivil Tab*) 2.5 mg PO DAILY [facility] Last Admin: 12/11/19 14:56 Dose: 2.5 mg Magnesium Oxide (Magox 400 Tab*) 400 mg PO Q8H [facility] Last Admin: 12/11/19 14:56 Dose: 400 mg Metolazone (Zaroxolyn Tab*) 5 mg PO DAILY@0830 [facility] Last Admin: 12/11/19 08:54 Dose: 5 mg Metoprolol Succinate (Toprol Xl Tab*) 50 mg PO BID [facility] Last Admin: 12/11/19 12:16 Dose: 50 mg Nitroglycerin (Nitroglycerin Tab 0.4 Mg*) 0.4 mg SL Q5M PRN PRN Reason: ANGINA Potassium Chloride (Klor Con Er Tab*) 40 meq PO DAILY [facility] Last Admin: 12/11/19 12:05 Dose: 40 meq Prochlorperazine Edisylate (Compazine Inj*) 5 mg IV Q6H PRN PRN Reason: NAUSEA/VOMITING Last Admin: 12/10/19 11:19 Dose: 5 mg Sertraline HCl (Zoloft*) 50 mg PO DAILY [facility] Last Admin: 12/11/19 09:48 Dose: 50 mg Temazepam (Restoril Cap*) 15 mg PO BEDTIME [facility] Last Admin: 12/10/19 21:35 Dose: 15 mg Ticagrelor (Brilinta (Nf)) 60 mg PO BID [facility] Last Admin: 12/11/19 09:46 Dose: 60 mg Vital Signs - 8 hr 12/11/19 12/11/19 12/11/19 07:51 08:00 10:00 Temperature 97.8 F Pulse Rate 70 71 Respiratory 16 16 Rate Blood Pressure 106/67 85/54 (mmHg) O2 Sat by Pulse 99 Oximetry 12/11/19 12/11/19 12/11/19 11:08 12:06 14:36 Temperature 97.5 F 97.5 F Pulse Rate 69 75 70 Respiratory 18 16 Rate Blood Pressure 95/61 93/59 89/61 (mmHg) O2 Sat by Pulse 100 99 Oximetry 12/11/19 14:56 Temperature Pulse Rate Respiratory Rate Blood Pressure 92/60 (mmHg) O2 Sat by Pulse Oximetry Oxygen Devices in Use Now: Nasal Cannula Appearance: Pleasant gentleman with disheveled appearance sitting up in bed in [facility]. Eyes: No Scleral Icterus Ears/Nose/Mouth/Throat: Mucous Membranes Moist Neck: Trachea Midline Respiratory: Symmetrical Chest Expansion and Respiratory Effort, - - BS+ bilaterally with bibasilar crackles Cardiovascular: RRR - Normal S1 and S2 Abdominal: - - Soft, mild distention, no hepatomegaly Extremities: No Edema Neurological: Alert and Oriented x 3, NL Muscle Strength and Tone Result Diagrams: 12/08/19 16:37 12/11/19 08:25 Assess/Plan/Problems-Billing Assessment: Mr Orr is a 59yo M with PMH of CAD s/p stent to LAD, paroxysmal Vtach s/ p ICD, ischemic CMP, systolic CHF EF 20%, HTN, HLD, gout, CKD stage 3, GERD, depression, hypothyroidism, who presented to ED with c/o dyspnea, found to have CHF exacerbation. - Patient Problems (1) Acute systolic congestive heart failure Comment: - Improving. - Continue diuresis with Metolazone and Furosemide. - Weight down to 146lbs. - Continue Metoprolol and Lisinopril as BP allows. (2) CAD (coronary artery disease) Comment: - Stable. - Continue ASA, Brilinta, metoprolol, Atorvastatin. (3) Hypothyroidism Comment: - TSH higher 11.5 - increase Levothyroxine to 37.5 and will need repeat TFTs in 4 weeks as outpatient. (4) Open neck wound Comment: - Surgery consult appreciated - d/c antibiotics. (5) DVT prophylaxis Comment: - SQ heparin. (6) Full code status Status and Disposition: Inpatient.
[2019-12-11] MEDS: Temazepam CAP* 15 MG PO SCH (23:00)
[2019-12-12 06:20] LABS: BUN/Creatinine Ratio 31.9 (8-20); EGFR Non-African American 44.6 (>60); Potassium 4.1 mmol/L (3.5-5.0)
[2019-12-12] MEDS: Levothyroxine TAB* 25 MCG TAB PO SCH (06:20)
[2019-12-12] MEDS: Magnesium Oxide TAB* 400 MG PO SCH ×3 (06:20→21:26)
[2019-12-12] MEDS: Heparin VIAL(*) 5000 UNITS/ML VIAL (FIVE THOUSAND) SUBCUT SCH ×3 (06:21→21:27)
[2019-12-12] MEDS: Potassium Chlor TAB* 20 MEQ TAB.ER PO SCH (09:50)
[2019-12-12] MEDS: guaiFENesin 100 mg/5 ml LIQ unit dose cup PO PRN (09:50)
[2019-12-12] MEDS: Atorvastatin* 80 MG TAB PO SCH (09:50)
[2019-12-12] MEDS: Sertraline* 50 MG TAB PO SCH (09:50)
[2019-12-12] MEDS: Aspirin EC TAB* 81 MG TAB.EC PO SCH (09:50)
[2019-12-12] MEDS: Metoprolol Succinate XL TAB* 50 MG PO SCH ×2 (10:27→21:20)
[2019-12-12] MEDS: Lisinopril TAB* 5 MG PO SCH (10:27)
[2019-12-12] MEDS: Torsemide TAB* 20 MG PO SCH ×2 (10:28→14:12)
[2019-12-12] MEDS: Temazepam CAP* 15 MG PO SCH (21:26)
--- NOTE | 2019-12-12 22:05 | PN ---
Subjective Date of Service: 12/12/19 Interval History: Patient reports that breathing is improving. continues with sob with exertion. Denies chest pain . Denies abd pain n/v/d. denies fever or chills. Family History: Unchanged from Admission Social History: Unchanged from Admission Past Medical History: Unchanged from Admission Objective Active Medications: Aspirin (Aspirin Ec Tab*) 81 mg PO DAILY [facility] Last Admin: 12/12/19 09:50 Dose: 81 mg Atorvastatin Calcium (Lipitor*) 80 mg PO DAILY [facility] Last Admin: 12/12/19 09:50 Dose: 80 mg Colchicine (Colcrys*) 0.6 mg PO DAILY PRN PRN Reason: PAIN - MODERATE Last Admin: 12/09/19 21:53 Dose: 0.6 mg Guaifenesin (Robitussin 100 Mg/5ml Liq) 5 ml PO Q4H PRN PRN Reason: COUGH Last Admin: 12/12/19 09:50 Dose: 5 ml Heparin Sodium (Porcine) (Heparin Vial(*)) 5,000 units SUBCUT Q8HR [facility] Last Admin: 12/12/19 21:27 Dose: 5,000 units Levothyroxine Sodium (Synthroid Tab*) 25 mcg PO DAILY@0600 [facility] Last Admin: 12/12/19 06:20 Dose: 25 mcg Lisinopril (Prinivil Tab*) 2.5 mg PO DAILY [facility] Last Admin: 12/12/19 10:27 Dose: Not Given Magnesium Oxide (Magox 400 Tab*) 400 mg PO Q8H [facility] Last Admin: 12/12/19 21:26 Dose: 400 mg Metoprolol Succinate (Toprol Xl Tab*) 50 mg PO BID [facility] Last Admin: 12/12/19 21:20 Dose: Not Given Nitroglycerin (Nitroglycerin Tab 0.4 Mg*) 0.4 mg SL Q5M PRN PRN Reason: ANGINA Potassium Chloride (Klor Con Er Tab*) 40 meq PO DAILY [facility] Last Admin: 12/12/19 09:50 Dose: 40 meq Prochlorperazine Edisylate (Compazine Inj*) 5 mg IV Q6H PRN PRN Reason: NAUSEA/VOMITING Last Admin: 12/10/19 11:19 Dose: 5 mg Sertraline HCl (Zoloft*) 50 mg PO DAILY [facility] Last Admin: 12/12/19 09:50 Dose: 50 mg Temazepam (Restoril Cap*) 15 mg PO BEDTIME [facility] Last Admin: 12/12/19 21:26 Dose: 15 mg Ticagrelor (Brilinta (Nf)) 60 mg PO BID [facility] Last Admin: 12/12/19 21:26 Dose: 60 mg Torsemide (Demadex*) 40 mg PO DAILY [facility] Last Admin: 12/12/19 14:12 Dose: 40 mg Vital Signs - 8 hr 12/12/19 12/12/19 12/12/19 15:15 20:10 21:00 Temperature 97.7 F 98.1 F Pulse Rate 82 87 Respiratory 20 16 18 Rate Blood Pressure 99/66 98/66 (mmHg) O2 Sat by Pulse 100 96 Oximetry Oxygen Devices in Use Now: Nasal Cannula Appearance: alert, mild resp distress at rest, Eyes: No Scleral Icterus Ears/Nose/Mouth/Throat: Clear Oropharnyx, Mucous Membranes Moist Neck: NL Appearance and Movements; NL JVP, Trachea Midline Respiratory: Symmetrical Chest Expansion and Respiratory Effort, - - diminished t/o bilat Cardiovascular: NL Sounds; No Murmurs; No JVD Abdominal: NL Sounds; No Tenderness; No Distention Extremities: No Clubbing, Cyanosis Skin: No Rash or Ulcers Neurological: Alert and Oriented x 3 Nutrition: Taking PO's Result Diagrams: 12/08/19 16:37 12/12/19 05:56 Assess/Plan/Problems-Billing Assessment: Mr Orr is a 59yo M with PMH of CAD s/p stent to LAD, paroxysmal Vtach s/ p ICD, ischemic CMP, systolic CHF EF 20%, HTN, HLD, gout, CKD stage 3, GERD, depression, hypothyroidism, who presented to ED with c/o dyspnea, found to have CHF exacerbation. - Patient Problems (1) Acute systolic congestive heart failure Current Visit: Yes Status: Acute Code(s): I50.21 - ACUTE SYSTOLIC ( CONGESTIVE) HEART FAILURE SNOMED Code(s): 815457091 Comment: - Improving. - Continue diuresis with Metolazone and Furosemide. - Weight down to 140lbs. - Continue Metoprolol and Lisinopril as BP allows. (2) CAD (coronary artery disease) Current Visit: Yes Status: Acute Code(s): I25.10 - ATHSCL HEART DISEASE OF [place] CORONARY ARTERY W/O ANG PCTRS SNOMED Code(s): 40905929 Comment: - Stable. - Continue ASA, Brilinta, metoprolol, Atorvastatin. (3) Hypothyroidism Current Visit: Yes Status: Acute Code(s): E03.9 - HYPOTHYROIDISM, UNSPECIFIED SNOMED Code(s): 04423850 Comment: - TSH higher 11.5 - increase Levothyroxine to 37.5 and will need repeat TFTs in 4 weeks as outpatient. (4) Open neck wound Current Visit: Yes Status: Acute Code(s): S11.90XA - UNSP OPEN WOUND OF UNSPECIFIED PART OF NECK, INIT ENCNTR SNOMED Code(s): 600895061 Comment: - Surgery consult appreciated - d/c antibiotics. (5) DVT prophylaxis Current Visit: Yes Status: Acute Code(s): SBT7305 - SNOMED Code(s): 405989713 Comment: - SQ heparin. (6) Full code status Current Visit: Yes Status: Acute Code(s): Z78.9 - OTHER SPECIFIED HEALTH STATUS SNOMED Code(s): 829043443 Status and Disposition: Inpatient.
[2019-12-13] MEDS: Heparin VIAL(*) 5000 UNITS/ML VIAL (FIVE THOUSAND) SUBCUT SCH (05:35)
[2019-12-13] MEDS: Magnesium Oxide TAB* 400 MG PO SCH (05:35)
[2019-12-13] MEDS: Levothyroxine TAB* 25 MCG TAB PO SCH (05:35)
[2019-12-13] MEDS: Metoprolol Succinate XL TAB* 50 MG PO SCH (10:09)
[2019-12-13] MEDS: Potassium Chlor TAB* 20 MEQ TAB.ER PO SCH (10:09)
[2019-12-13] MEDS: Torsemide TAB* 20 MG PO SCH (10:09)
[2019-12-13] MEDS: Sertraline* 50 MG TAB PO SCH (10:09)
[2019-12-13] MEDS: Atorvastatin* 80 MG TAB PO SCH (10:09)
[2019-12-13] MEDS: Aspirin EC TAB* 81 MG TAB.EC PO SCH (10:09)
[2019-12-13 11:22] VITALS: BP 98/67
[2019-12-13] MEDS: Lisinopril TAB* 5 MG PO SCH (12:08)
--- NOTE | 2019-12-14 04:28 | DS ---
DISCHARGE SUMMARY: DATE OF ADMISSION: 12/08/19 DATE OF DISCHARGE: 12/13/19 PROVIDER: Jailyn Hoff NP PRIMARY CARE PROVIDERS: Dr. Lou Jackson, Dr. Magana. ATTENDING PHYSICIAN WHILE IN THE HOSPITAL: Dr. Sweetie Walker * (dictated by Jailyn Hoff NP). PRIMARY DIAGNOSIS: Exacerbation of congestive heart failure. SECONDARY DIAGNOSES: 1. Coronary artery disease. 2. Hypothyroidism. 3. Gastroesophageal reflux disease. 4. History of paroxysmal ventricular tachycardia, status post ICD. 5. Ischemic cardiomyopathy. 6. Hypertension. 7. Hyperlipidemia. 8. Chronic kidney disease stage 3. 9. Neck wound. STUDIES COMPLETED WHILE IN THE HOSPITAL: He had a chest x-ray on 12/08/19. Radiologist's impression: Cardiomegaly with pulmonary vascular congestion, right basilar atelectasis versus early consolidation. He had an electrocardiogram which showed sinus rhythm at a rate of 91 with right bundle- branch block, DISCHARGE MEDICATIONS: No new home medications. Continued home medications : 1. Aspirin 81 mg p.o. daily. 2. Atorvastatin 80 mg p.o. daily. 3. Lisinopril 2.5 mg p.o. daily 4. Levothyroxine 25 mcg p.o. daily. 5. Colchicine 0.6 mg p.o. daily p.r.n. 6. Magnesium oxide 400 mg p.o. t.i.d. 7. Nitro 0.4 mg every 5 minutes as needed for chest pain. 8. Metoprolol succinate 50 mg p.o. b.i.d. 9. TriCor 160 mg b.i.d. 10. Sertraline 50 mg p.o. daily. 11. Torsemide 40 mg p.o. daily. 12. Potassium 20 mEq p.o. daily. HOSPITAL COURSE AND HISTORY OF PRESENT ILLNESS: Mr. Orr is a 59-year- old male with a past medical history significant for coronary artery disease; ischemic cardiomyopathy with a known EF of 20% to 25%; hypertension; hyperlipidemia; paroxysmal ventricular tachycardia, status post ICD pacemaker; GERD; depression; hypothyroidism; chronic kidney disease stage 3, who presented to the emergency room with complaints of shortness of breath. The patient was admitted in September 2019 with similar complaints. At that time, he had run out of his torsemide and developed congestive heart failure exacerbation. He was diuresed in the hospital and discharged home and has been doing well until a couple of weeks ago. He started to have progressive worsening shortness of breath. The patient reports that he has had weight gain of approximately 20 pounds. The patient states that he has been compliant with his medications and his diuretics and denies any dietary changes or increased salt intake. The patient reports that he has required oxygen due to progressively worsening shortness of breath. He endorsed orthopnea and nocturnal dyspnea. He denied any lower extremity edema, but did report increased abdominal girth. The patient also during this hospitalization reported a boil to the back of his neck that was tender, but denied any fever or chills. During this hospitalization, the patient was given IV diuretics and was able to be diuresed. The patient did lose 11 pounds during this hospitalization. His respiratory status improved. We were able to titrate his oxygen to 2 L. He was able to walk on room air and maintain O2 saturations greater than 90%. Today on the day of discharge the patient reports that he is feeling well. His shortness of breath has significantly improved and he is requesting to go home. REVIEW OF SYSTEMS: The patient denies any fever or chills. Denies any chest pain or shortness of breath. Denies any nausea, vomiting or diarrhea or abdominal pain. Denies any gross hematuria or dysuria. Denies any focal weakness or sensory loss. Denies any dysphagia. PHYSICAL EXAMINATION: General: At this time, Mr. Orr is alert and oriented, resting in his hospital bed. He is in no acute distress. Vital Signs : Blood pressure was 98/67, heart rate 89, respirations 16, O2 saturation 97%, temperature was 98.1. HEENT: Head is atraumatic, normocephalic. Eyes: EOMs are intact. Sclerae anicteric and not pale. Oral mucosa is moist. Neck is supple. Lungs are diminished bilaterally. Cardiac: S1, S2. Regular rate and rhythm. No rubs, or gallops. Abdomen is soft and nontender. Bowel sounds are present x4. Extremities: He has no clubbing or cyanosis. There is no extremity edema. Skin: The patient does have an open neck wound with no surrounding erythema. He does have scant amount of drainage. DISCHARGE PLAN: At this time, Mr. Orr will be discharged home. 1. Congestive heart failure exacerbation. The patient did receive IV diuretics and was diuresed 10 pounds during this hospitalization. The patient' s breathing status improved. On the day of discharge, the patient was maintaining O2 saturations at 97% to 100% on room air. Vital Signs: Temperature was 98.1, heart rate 89, respirations 16, O2 saturation 97% on room air and blood pressure was 98/67. For congestive heart failure, the patient should resume his previous home medications. He should continue torsemide 40 mg p.o. daily. He will be continued on metoprolol 50 mg p.o. b.i.d. and lisinopril 2.5 mg p.o. daily. 2. Coronary artery disease. He should continue his atorvastatin, aspirin, lisinopril, metoprolol, torsemide and Brilinta as previously prescribed. 3. Depression. He should continue on Zoloft 50 mg p.o. daily. 4. The patient should follow up with his primary care provider in 4 to 7 days. 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 5. Neck wound. The patient does have a neck wound. He was seen in consultation by Surgery, who recommended Xeroform with a dry dressing with change daily, wash with mild soap and water. Should the patient develop any fever or significant surrounding erythema, he should follow up with his primary care provider for further instructions on management of his neck wound. The patient was instructed to return to emergency room for any significant worsening shortness of breath, chest pain, fever, chills or any other concerning symptoms. I have discussed these discharge instructions with the patient. The patient verbalized understanding. TIME SPENT: Time spent on this discharge was 45 minutes, greater than half that time was spent discussing discharge plans and instructions. CONDITION ON DISCHARGE: Fair. DISPOSITION ON DISCHARGE: Home. I have discussed this with my attending Dr. Sweetie Walker; she is in agreement with my plan. JAILYN HOFF, FLOWER [id number]/[facility] #: [id number] MTDJoe
== END 2019-12-13 13:25 | disposition home health service (06) | DRG 194 ==
LOC: ED 15:37 → MEDTELE 18:10
PROVIDERS: ADMIT Internal Medicine; ATTEND Internal Medicine
PROC: 0HB4XZZ Excision of Neck Skin, External Approach (ICD-10-PCS; principal; 2019-12-09)
DX: I13.0 Hypertensive heart and chronic kidney disease with heart failure and stage 1 through stage 4 chronic kidney disease, or unspecified chronic kidney disease (principal); I50.21 Acute systolic (congestive) heart failure; I47.2 Ventricular tachycardia; I45.2 Bifascicular block; J98.11 Atelectasis; S11.90XA Unspecified open wound of unspecified part of neck, initial encounter; R16.0 Hepatomegaly, not elsewhere classified; N18.3 Chronic kidney disease, stage 3 (moderate); I65.22 Occlusion and stenosis of left carotid artery; I25.5 Ischemic cardiomyopathy; I25.10 Atherosclerotic heart disease of native coronary artery without angina pectoris; E03.9 Hypothyroidism, unspecified; F32.9 Major depressive disorder, single episode, unspecified; K21.9 Gastro-esophageal reflux disease without esophagitis; E78.5 Hyperlipidemia, unspecified; J44.9 Chronic obstructive pulmonary disease, unspecified; M10.9 Gout, unspecified; Z95.810 Presence of automatic (implantable) cardiac defibrillator; Z79.82 Long term (current) use of aspirin; Z79.899 Other long term (current) drug therapy; Z88.8 Allergy status to other drugs, medicaments and biological substances; Z82.3 Family history of stroke; Z82.49 Family history of ischemic heart disease and other diseases of the circulatory system; Z80.0 Family history of malignant neoplasm of digestive organs; Z87.891 Personal history of nicotine dependence; I25.2 Old myocardial infarction
CPT/HCPCS: 36415; 71046; 80048; 80053; 81003; 82550; 82553; 82803; 83605; 83735; 83880; 84443; 84484; 85025; 85060; 85730; 86140; 93005; 99284; A9270-GY; J0780; J1644; J1940